=== PATIENT | female | born 1945 | race Caucasian/White ===

== ENCOUNTER 2018-01-29 10:24 | Emergency (ER) | payer OTHER ==
[2018-01-29 10:28] VITALS: TEMP 98.5; BMI 30.2
[2018-01-29] MEDS ORDERED: SODIUM CHLORIDE 0.9% 1000 ML INFUS.BAG IV ONE (11:28)
[2018-01-29] MEDS ORDERED: ACETAMINOPHEN 1000 MG/100 ML VIAL (NON FORMULARY) IVPB ONE (11:28)
[2018-01-29] MEDS ORDERED: METOCLOPRAMIDE HCL INJECTION 10 MG/2 ML VIAL IVPUSH ONE (11:28)
--- NOTE | 2018-01-29 11:30 | PDOC ---
History of Present Illness - General History Source: Patient Exam Limitations: No Limitations - History of Present Illness Initial Comments: 01/29/18 11:35 The patient is a 72 year old female, with a significant PMH of hypertension, type 2 DM, who presents to the emergency department with 1 week of intermittent headache. The patient states she has been taking Tylenol for the headache with mild relief. The patient states she normally has around 1-2 headaches a year. She denies any double vision, blurry vision, auras, photophobia or neck stiffness. The patient denies chest pain, shortness of breath, and dizziness. Denies fever, chills, nausea, vomit, diarrhea and constipation. Denies dysuria, frequency, urgency and hematuria. Allergies: NKA <Damon Fontanez - Last Filed: 01/29/18 13:23> <Sukhwinder Harris - Last Filed: 01/29/18 14:32> - General Chief Complaint: Headache Stated Complaint: HEADACHE Time Seen by Provider: 01/29/18 10:58 Past History <Damon Fontanez - Last Filed: 01/29/18 13:23> - Past Medical History Anemia: No Asthma: No Cancer: No Cardiac Disorders: No CVA: No COPD: No CHF: No Dementia: No Diabetes: Yes GI Disorders: No Disorders: No HTN: Yes Hypercholesterolemia: No Liver Disease: No Seizures: No Thyroid Disease: No - Surgical History Abdominal Surgery: No Appendectomy: No Cardiac Surgery: No Cholecystectomy: No Lung Surgery: No Neurologic Surgery: No Orthopedic Surgery: No - Immunization History Immunization Up to Date: Yes - Suicide/Smoking/Psychosocial Hx Smoking History: Never smoked Hx Alcohol Use: No Drug/Substance Use Hx: No Substance Use Type: None <Sukhwinder Harris - Last Filed: 01/29/18 14:32> - Past Medical History Allergies/Adverse Reactions: Allergies Allergy/AdvReac Type Severity Reaction Status Date / Time No Known Allergies Allergy Verified 01/29/18 10:26 Home Medications: Ambulatory Orders Citalopram Hydrobromide [Citalopram HBr] 20 mg PO HS 09/11/15 Losartan Potassium 25 mg PO DAILY 09/11/15 metFORMIN HCL [Glucophage -] 500 mg PO BID 09/11/15 Aspirin [ASA -] 81 mg PO DAILY tab.chew 09/13/15 Atorvastatin Ca [Lipitor] 40 mg PO HS 01/29/18 Review of Systems - Review of Systems Able to Perform ROS?: Yes Comments:: 01/29/18 11:35 A complete review of 10 out of 10 review of systems is taken and is negative apart from what is previously mentioned below and in the HPI. <Damon Fontanez - Last Filed: 01/29/18 13:23> *Physical Exam - Vital Signs Last Vital Signs Temp Pulse Resp BP Pulse Ox 98.5 F 86 20 143/76 99 01/29/18 10:26 01/29/18 10:26 01/29/18 10:26 01/29/18 10:26 01/29/18 10:26 - Physical Exam Comments: 01/29/18 12:10 Vitals: Triage vital signs reviewed General Appearance: (+) Mild distress. Well nourished, well developed Head: Atraumatic Eyes: Pupils equal reactive round, extraocular movement intact Neck: Supple; No nuchal rigidity Chest Wall: Nontender Cardiac: Regular rate and rhythm, no murmurs, no rubs, no gallops Lungs: Clear to auscultation bilateral, good air movement bilaterally Abdomen: Soft, nondistended, normal bowel sounds, nontender to palpation Rectal: Exam deferred Extremities: Full range of motion to all extremities, no cyanosis, clubbing, or edema Skin: Warm and dry, no rashes or lesions, no rash, no petechiae Neuro: AOX3; Cranial Nerves 2-12 grossly intact, Strength intact to all extremities, Sensation intact to all extremities. Psych: Normal mood, normal affect <Damon Fontanez - Last Filed: 01/29/18 13:23> - Vital Signs Last Vital Signs Temp Pulse Resp BP Pulse Ox 98.5 F 86 20 143/76 99 01/29/18 10:26 01/29/18 10:26 01/29/18 10:26 01/29/18 10:26 01/29/18 10:26 <Sukhwinder Harris - Last Filed: 01/29/18 14:32> ED Treatment Course - LABORATORY CBC & Chemistry Diagram: 01/29/18 11:30 01/29/18 11:30 - RADIOLOGY Radiograph Interpretation: 01/29/18 13:23 EXAM#: TYPE/EXAM: RESULT: [id number] CT/HEAD CT WITHOUT CONTRAST History of headache CT scan of the brain without intravenous contrast. No prior is available for comparison. There is mild volume loss and ventricular dilatation. The basal cisterns appear unremarkable. No mass lesion, acute infarct or intracranial hemorrhage are identified. There is no shift of the midline structures. Craniocervical junction appears unremarkable. Calcification of the cavernous carotid arteries are present. Visualized paranasal sinuses and mastoid air cells are well-aerated. The calvarium is intact IMPRESSION: Mild volume loss and ventricular dilatation without gross evidence of acute intracranial pathology. Correlate clinically to determine further evaluation and follow-up. Reported By: Dickson Trujillo MD <Damon Fontanez - Last Filed: 01/29/18 13:23> - LABORATORY CBC & Chemistry Diagram: 01/29/18 11:30 01/29/18 11:30 <Sukhwinder Harris - Last Filed: 01/29/18 14:32> Medical Decision Making - Medical Decision Making 01/29/18 11:36 The patient is a 72 year old female, with a significant PMH of hypertension, type 2 DM, who presents to the emergency department with 1 week of intermittent headache. Plan: Labs, Medications, Head CT w/out contrast. <Damon Fontanez - Last Filed: 01/29/18 13:23> - Medical Decision Making Reevaluation 2:30 PM. Patient feels much better. Headache resolved laboratory analysis unremarkable head CT unremarkable we'll discharge home with neurology follow-up repeat evaluation no focal neural findings patient well-appearing no apparent distress Findings, need follow-up, strict return instructions discussed with patient. <Sukhwinder Harris - Last Filed: 01/29/18 14:32> *DC/Admit/Observation/Transfer - Attestations Scribe Attestion: 01/29/18 11:36 Documentation prepared by Damon Fontanez, acting as medical claims examiner for Sukhwinder Harris MD. <Damon Fontanez - Last Filed: 01/29/18 13:23> - Discharge Dispostion Admit: No <Sukhwinder Harris - Last Filed: 01/29/18 14:32> Diagnosis at time of Disposition: Headache Qualifiers: Headache type: unspecified Headache chronicity pattern: acute headache Intractability: not intractable Qualified Code(s): R51 - Headache - Discharge Dispostion Disposition: HOME Condition at time of disposition: Improved - Referrals Referrals: Sukhwinder Dee MD [Primary Care Provider] - Ector Turcios MD [Staff Physician] - - Patient Instructions Printed Discharge Instructions: DI for Headache Additional Instructions: Drink plenty of fluids. Take all medications as prescribed. Take over-the- counter ibuprofen as directed on package. Follow-up with Neurology next week. Return to the emergency department for any severe worsening symptoms or for any concerns. Print Language: KAZAKH
[2018-01-29] MEDS ORDERED: METOCLOPRAMIDE HCL INJECTION 10 MG/2 ML VIAL ONE (11:36)
[2018-01-29] MEDS ORDERED: ACETAMINOPHEN INJECTION 100 ML IVPB ONE (11:36)
[2018-01-29 11:55] LABS: BASO % 0.6 % (0-2.0); EOS % 1.1 % (0-4.5); HEMATOCRIT 30.7 % (32.4-45.2); HEMOGLOBIN 10.3 GM/dL (10.7-15.3); LYMPH % 17.4 % (8-40); MCH 30.2 pg (25.7-33.7); MCHC 33.5 g/dl (32.0-36.0); MEAN CELL VOLUME 90.1 fl (80-96); MEAN PLT VOLUME 10.1 fl (7.5-11.1); MONO % 7.1 % (3.8-10.2); NEUT % 73.8 % (42.8-82.8); PLATELET COUNT 178 K/MM3 (134-434); RBC 3.41 M/mm3 (3.60-5.2); RDW 14.4 % (11.6-15.6); WHITE BLOOD COUNT 6.8 K/mm3 (4.0-10.0)
[2018-01-29 11:56] LABS: URINE APPEARANCE CLEAR; URINE BILIRUBIN NEGATIVE (<2.0 mg/dL); URINE COLOR YELLOW; URINE GLUCOSE (UA) 3+ (NEGATIVE); URINE KETONE NEGATIVE (NEGATIVE); URINE NITRITE NEGATIVE (NEGATIVE); URINE PROTEIN NEGATIVE (NEGATIVE); URINE UROBILINOGEN NEGATIVE mg/dL (0.2-1.0)
[2018-01-29 11:57] LABS: URINE LEUK ESTERASE 1+ (NEGATIVE)
[2018-01-29 11:59] LABS: EPI CELLS RARE /HPF (FEW); URINE MUCUS RARE
[2018-01-29 12:20] LABS: ALBUMIN 3.7 g/dl (3.4-5.0); ALK PHOS 79 U/L (45-117); ANION GAP 6 (8-16); BILIRUBIN,TOTAL 0.3 mg/dL (0.2-1.0); BLOOD UREA NITROGEN 22 mg/dL (7-18); CALCIUM 8.7 mg/dL (8.5-10.1); CHLORIDE 107 mmol/L (98-107); CO2 28 mmol/L (21-32); CREATININE 0.8 mg/dL (0.55-1.02); GLUCOSE,RANDOM 135 mg/dL (74-106); POTASSIUM 4.3 mmol/L (3.5-5.1); SGOT/AST 14 U/L (15-37); SGPT/ALT 18 U/L (12-78); SODIUM 141 mmol/L (136-145); TOT PROT 7.4 g/dl (6.4-8.2)
[2018-01-29 14:33] VITALS: BP 123/64; PULSE 69
== END 2018-01-29 14:34 | disposition home or self-care (01) ==
LOC: JER 10:24
PROC: 3E033GC Introduction of Other Therapeutic Substance into Peripheral Vein, Percutaneous Approach (ICD-10-PCS; principal; 2018-01-29)
PROC: 3E033GC Introduction of Other Therapeutic Substance into Peripheral Vein, Percutaneous Approach (ICD-10-PCS; 2018-01-29)
PROC: 3E033NZ Introduction of Analgesics, Hypnotics, Sedatives into Peripheral Vein, Percutaneous Approach (ICD-10-PCS; 2018-01-29)
DX: R51 Headache (principal); I10 Essential (primary) hypertension; E11.9 Type 2 diabetes mellitus without complications; Z79.84 Long term (current) use of oral hypoglycemic drugs
CPT/HCPCS: 36415; 70450-TC; 80053; 81003; 81015; 85025; 96374; 96375; 99283-25; J0131; J7030

== ENCOUNTER 2018-02-12 09:18 | Emergency (ER) | payer OTHER ==
[2018-02-12 09:40] VITALS: BMI 25.6
[2018-02-12] MEDS ORDERED: SODIUM CHLORIDE 1,000 ML IV ONE (10:03)
[2018-02-12] MEDS ORDERED: METOCLOPRAMIDE HCL INJECTION 10 MG/2 ML VIAL IVPUSH ONE (10:03)
--- NOTE | 2018-02-12 10:05 | PDOC ---
History of Present Illness - General History Source: Patient Exam Limitations: No Limitations - History of Present Illness Initial Comments: 02/12/18 12:14 The patient is a 72 year old female, with a significant past medical history of hypertension, type 2 DM, who presents to the emergency department with a headache for approximately 2 days. The patient reports waking up with a diffuse and sharp in nature. She reports her headache is constant, with associated nausea, but no acute blurry vision, double vision, photophobia, vomiting, weakness, numbness, tingling, neck or back pain. Patient reports taking Ibuprofen for her pain with minimal relief. She reports similar headaches in the past, the last being about 2 weeks ago, and states they typically resolve on their own. Patient reports the last time she had this headache, she came to the ER and was given IV Tylenol and fluids. Patient denies any recent fever, chills, dizziness, or lightheadedness. She denies any chest pain or shortness of breath. She reports 2 days of constipation, but denies any abdominal pain, diarrhea, melena, or hematochezia. She denies any recent travel or sick contacts. Allergies: NKDA Past Surgical History: None reported Social History: Non smoker. No ETOH or recreational drug use. PCP: Dr. Dee <Rachid Cardona - Last Filed: 02/12/18 12:14> - General History Source: Patient Exam Limitations: No Limitations <Eagle Serrano - Last Filed: 02/12/18 14:39> - General Chief Complaint: Headache Stated Complaint: HEADACHES Time Seen by Provider: 02/12/18 09:48 Past History <Rachid Cardona - Last Filed: 02/12/18 12:14> - Past Medical History Anemia: No Asthma: No Cancer: No Cardiac Disorders: No CVA: No COPD: No CHF: No Dementia: No Diabetes: Yes GI Disorders: No Disorders: No HTN: Yes Hypercholesterolemia: No Liver Disease: No Seizures: No Thyroid Disease: No - Surgical History Abdominal Surgery: No Appendectomy: No Cardiac Surgery: No Cholecystectomy: No Lung Surgery: No Neurologic Surgery: No Orthopedic Surgery: No - Immunization History Immunization Up to Date: Yes - Suicide/Smoking/Psychosocial Hx Smoking History: Never smoked Have you smoked in the past 12 months: No Information on smoking cessation initiated: No Hx Alcohol Use: No Drug/Substance Use Hx: No Substance Use Type: None <Eagle Serrano - Last Filed: 02/12/18 14:39> - Past Medical History Allergies/Adverse Reactions: Allergies Allergy/AdvReac Type Severity Reaction Status Date / Time No Known Allergies Allergy Verified 02/12/18 09:40 Home Medications: Ambulatory Orders Citalopram Hydrobromide [Citalopram HBr] 20 mg PO HS 09/11/15 Losartan Potassium 25 mg PO DAILY 09/11/15 metFORMIN HCL [Glucophage -] 500 mg PO BID 09/11/15 Aspirin [ASA -] 81 mg PO DAILY tab.chew 09/13/15 Atorvastatin Ca [Lipitor] 40 mg PO HS 01/29/18 Review of Systems - Review of Systems Able to Perform ROS?: Yes Comments:: 02/12/18 12:14 Constitutional: Pt denies Fever, Chills, weakness HEENT: Denies vision changes, sore throat Respiratory: Denies cough, sob, hemoptysis Cardiac: Denies chest pain, palpitations, lightheadedness, leg swelling Abd/GI: +Nausea, constipation. Denies abd pain, vomiting, blood per rectum, melena, diarrhea : Denies dysuria, frequency, discharge Musculoskeletal: Denies back pain, joint swelling Skin: Denies bruising, erythema, rash Neurological: +Headache. Denies numbness, focal weakness, tingling, ataxia, weakness Hematologic: Denies anemia, easy bruising, easy bleeding <Cardona,Giomilsy - Last Filed: 02/12/18 12:14> *Physical Exam - Vital Signs Last Vital Signs Temp Pulse Resp BP Pulse Ox 98.3 F 62 16 153/65 100 02/12/18 09:20 02/12/18 10:00 02/12/18 10:00 02/12/18 10:00 02/12/18 10:00 - Physical Exam Comments: 02/12/18 12:14 GENERAL: The patient is awake, alert, and fully oriented, Nontoxic - in no acute distress. HEAD: Normocephalic, atraumatic. EYES: extraocular movements intact, sclera anicteric, conjunctiva clear. ENT: Normal voice, Moist mucous membranes. NECK: Normal range of motion, supple LUNGS: Breath sounds equal, clear to auscultation bilaterally. No wheezes, no rhonchi, no rales. HEART: Regular rate and rhythm, normal S1 and S2 without murmur, rub or gallop. ABDOMEN: Soft, nontender, No guarding, no rebound. . No CVA tenderness EXTREMITIES: Normal range of motion, no edema. or tenderness. PSYCH: Normal mood, normal affect. SKIN: Warm, Dry, normal turgor, NEURO: Mental status: The patient is oriented x3. Cranial nerves: Cranial nerves II through XII are intact Motor: The upper extremities are 5 over 5 in all muscle groups. The lower extremities are 5 over 5 in all muscle groups. Negative pronator drift Sensation: Sensation is intact to light touch throughout. romberg negative <Rachid Cardona - Last Filed: 02/12/18 12:14> - Vital Signs Last Vital Signs Temp Pulse Resp BP Pulse Ox 98.3 F 62 16 153/65 100 02/12/18 09:20 02/12/18 10:00 02/12/18 10:00 02/12/18 10:00 02/12/18 10:00 <Eagle Serrano - Last Filed: 02/12/18 14:39> ED Treatment Course - LABORATORY CBC & Chemistry Diagram: 02/12/18 11:05 02/12/18 11:05 - ADDITIONAL ORDERS Additional order review: Laboratory Results 02/12/18 11:05 Sodium 140 Potassium 4.4 Chloride 106 Carbon Dioxide 26 Anion Gap 8 BUN 18 Creatinine 0.8 Creat Clearance w eGFR > 60 Random Glucose 152 H Calcium 8.8 Total Bilirubin 0.3 AST 17 ALT 17 Alkaline Phosphatase 83 Total Protein 7.6 Albumin 3.7 02/12/18 11:05 RBC 3.58 L MCV 89.9 MCHC 34.0 RDW 14.0 MPV 10.7 Neutrophils % 76.5 Lymphocytes % 17.4 Monocytes % 4.6 Eosinophils % 0.7 Basophils % 0.8 - Medications Given in the ED: ED Medications Discontinued Medications Generic Name Dose Route Start Last Admin Trade Name Freq PRN Reason Stop Dose Admin Sodium Chloride 1,000 mls @ 1,000 mls/hr 02/12/18 10:03 02/12/18 11:00 Normal Saline - IV 02/12/18 11:02 1,000 mls/hr .Q1H ONE Administration Metoclopramide HCl 10 mg 02/12/18 10:03 02/12/18 11:00 Reglan Injection - IVPUSH 02/12/18 10:04 10 mg ONCE ONE Administration <Rachid Cardona - Last Filed: 02/12/18 12:14> - LABORATORY CBC & Chemistry Diagram: 02/12/18 11:05 02/12/18 11:05 <Eagle Serrano - Last Filed: 02/12/18 14:39> Medical Decision Making - Medical Decision Making 02/12/18 10:04 72y F hx of dm, htn, presents with frontal constant, gradual onset, pounding/ pressure headache without associated feve/rchills, vision changes, numbnes/ tingling/weakness, dysthria. Pt notes she gets these a few times a year, and takes motrin and if not better comes ot the ED for treatment. pt was here 2 weeeks ago and had a CT that was neg for acute proceses. suspect migrain vs tension headache will give pt reglan neuro outpatient fu A portion of this note was documented by scribe services under my direction. I have reviewed the details of the note, within reason, and agree with the documentation with the following case summary and management plan written by me 02/12/18 14:37 Patient's labs were reviewed it is unremarkable. Patient feeling improved with Tylenol Motrin fluids Reglan. We'll discharge the patient to follow up PMD and neurology for further evaluation of her headache. Return precautions were discussed I discussed the physical exam findings, ancillary test results and final diagnoses with the patient. I answered all of the patient's questions. The patient was satisfied with the care received and felt comfortable with the discharge plan and treatment plan. The patient will call their primary care physician within 24 hours to arrange follow-up and will return to the Emergency Department with any new, persistent or worsening symptoms. <Eagle Serrano - Last Filed: 02/12/18 14:39> *DC/Admit/Observation/Transfer - Attestations Scribe Attestion: 02/12/18 12:14 Documentation prepared by Rachid Cardona, acting as medical professionals for Eagle Serrano MD. <Rachid Cardona - Last Filed: 02/12/18 12:14> - Discharge Dispostion Decision to Admit order: No <Eagle Serrano - Last Filed: 02/12/18 14:39> Diagnosis at time of Disposition: Headache, tension type, episodic Qualifiers: Intractability: not intractable Qualified Code(s): G44.219 - Episodic tension- type headache, not intractable - Discharge Dispostion Disposition: HOME Condition at time of disposition: Improved - Referrals Referrals: Cheo Richter DO [Staff Physician] - - Patient Instructions Printed Discharge Instructions: DI for Hormonal and Tension Headaches Additional Instructions: Regrese al servicio de urgencias de inmediato con CUALQUIER sntoma nuevo, persistente o que empeore incluyendo empeoramiento del dolor de brenda, cambios en la visin, entumecimiento / hormigueo / debilidad, nuseas y vmitos persistentes o cualquier otra inquietud. Asegrate de obtener un sueo e hidratacin adecuados. DEBE llamar y hacer un seguimiento con kitchen mdico maana para lori mayor evaluaci n de marilu sntomas. Kitchen visita al departamento de emergencia no est completa sin un seguimiento con kitchen mdico para la reevaluacin. Los resultados fueron discutidos con usted. Asegrese de que kitchen mdico revise los resultados de kitchen evaluacin de emergencia. Si tuvo alguna radiografa gabi kitchen visita, fue yuliet de manera preliminar por m mismo, un radilogo la revisar y si hay algn hallazgo adicional, lo llamaremos. Return to the emergency department immediately with ANY new, persistent or worsening symptoms including worsening headache, vision changes, numbness/ tingling/weakness, persistent nausea and vomiting or any other concerns. Make sure you are getting adaqute sleep and hydration. You MUST call and follow up with your doctor tomorrow for further evaluation of your symptoms. Your emergency department visit is not complete without a followup with your doctor for reevaluation. Results were discussed with you. Please make sure your doctor reviews the results of your emergency evaluation. If you had any xrays during your visit, it was read preliminarily by myself, a Radiologist will review it and if there are any additional findings we will call you. Print Language: [place]
[2018-02-12] MEDS ORDERED: METOCLOPRAMIDE HCL INJECTION 10 MG/2 ML VIAL ONE (10:43)
[2018-02-12 11:42] LABS: BASO % 0.8 % (0-2.0); EOS % 0.7 % (0-4.5); HEMATOCRIT 32.2 % (32.4-45.2); HEMOGLOBIN 10.9 GM/dL (10.7-15.3); LYMPH % 17.4 % (8-40); MCH 30.5 pg (25.7-33.7); MEAN CELL VOLUME 89.9 fl (80-96); MEAN PLT VOLUME 10.7 fl (7.5-11.1); MONO % 4.6 % (3.8-10.2); NEUT % 76.5 % (42.8-82.8); PLATELET COUNT 187 K/MM3 (134-434); RBC 3.58 M/mm3 (3.60-5.2)
[2018-02-12 11:52] LABS: ALBUMIN 3.7 g/dl (3.4-5.0); ALK PHOS 83 U/L (45-117); ANION GAP 8 (8-16); BILIRUBIN,TOTAL 0.3 mg/dL (0.2-1.0); BLOOD UREA NITROGEN 18 mg/dL (7-18); CALCIUM 8.8 mg/dL (8.5-10.1); CHLORIDE 106 mmol/L (98-107); CO2 26 mmol/L (21-32); CREATININE 0.8 mg/dL (0.55-1.02); GLUCOSE,RANDOM 152 mg/dL (74-106); SGPT/ALT 17 U/L (12-78); SODIUM 140 mmol/L (136-145); TOT PROT 7.6 g/dl (6.4-8.2)
[2018-02-12 11:54] LABS: POTASSIUM 4.4 mmol/L (3.5-5.1)
[2018-02-12 11:55] LABS: SGOT/AST 17 U/L (15-37)
[2018-02-12] MEDS ORDERED: ACETAMINOPHEN 325 MG TABLET (FP) PO ONE (12:20)
[2018-02-12] MEDS ORDERED: KETOROLAC TROMETHAMINE 30 MG/1 ML VIAL IVPUSH ONE (12:20)
[2018-02-12] MEDS ORDERED: ACETAMINOPHEN 325 MG TABLET (FP) ONE (13:41)
[2018-02-12] MEDS ORDERED: KETOROLAC TROMETHAMINE 15 MG/ML VIAL ONE (13:41)
[2018-02-12 15:42] VITALS: BP 139/63; PULSE 60; TEMP 98.1
== END 2018-02-12 15:20 | disposition home or self-care (01) ==
LOC: JER 09:18
PROC: 3E033GC Introduction of Other Therapeutic Substance into Peripheral Vein, Percutaneous Approach (ICD-10-PCS; principal; 2018-02-12)
DX: G44.219 Episodic tension-type headache, not intractable (principal); I10 Essential (primary) hypertension; Z79.84 Long term (current) use of oral hypoglycemic drugs
CPT/HCPCS: 36415; 80053; 85025; 96374; 99282-25; J7030

== ENCOUNTER 2018-02-25 10:50 | Observation (INO) | payer OTHER ==
--- NOTE | 2018-02-25 10:58 | PDOC ---
Attending Attestation - Resident Resident Name: Lamberto Mata - ED Attending Attestation I have performed the following: I have examined & evaluated the patient, The case was reviewed & discussed with the resident, I agree w/resident's findings & plan - HPI HPI: 02/25/18 11:07 The patient is a 72 year old female, with a significant past medical history of hypertension, type 2 DM, migraine headaches, who presents to the emergency department with worsening headache over the past 8 days. Patient reports her headache is diffuse and sharp in nature. She reports associated nausea, but no vomiting. She reports mild photophobia and phonophobia. Patient reports she was scheduled for an MRI today, however, due to worsening headache, a rapid response was activated while in the radiology waiting room. Patient was previously evaluated on 02/12/18, for similar symptoms and was given Tylenol and Reglan with improvement of symptoms. She was also evaluated on 01/29/18 for similar complaints and a head CT was done which was negative. Patient denies any new dizziness, lightheadedness, neck or back pain, numbness or tingling. She denies any recent stressors, travel, or sick contacts. Allergies: NKDA Past Surgical History: None reported Social History: Non smoker. No ETOH or recreational drug use. PCP: Dr. Dee - Medical Decision Making 02/25/18 11:07 Documentation prepared by Rachid Cardona, acting as clinical medical assistant for Torrie Smith MD. <Rachid Cardona - Last Filed: 02/25/18 11:07> - Physicial Exam PE: 02/27/18 07:17 Agree with resident exam. Patient is alert and oriented, with a normal mood and affect. She appears mildly uncomfortable. Neurologically intact. - Medical Decision Making 02/27/18 07:19 Pt presents to the ED complaining of severe, frontal headache that has been persistent for 8 days and prompted multiple visits to the ED. Patient does have a headache history, but this headache has been much more persistent and severe than previous headaches. Negative CT head performed during previous ED visit. Subarachnoid less likely given the time course of her pain and the previous negative Ct. However, given the persistence of her pain, will admit for status migranius. <Torrie Smith - Last Filed: 02/27/18 07:21>
--- NOTE | 2018-02-25 10:59 | PDOC ---
History of Present Illness - General Chief Complaint: Migraine Headache Stated Complaint: MIGRAINE (RAPID RESPONSE) Time Seen by Provider: 02/25/18 10:56 - History of Present Illness Initial Comments: 02/25/18 11:16 The patient is a 72 year old female with a history of HTN, DM, Headaches who presents for evaluation of headache. The patient has been seen multiple times in the ER within the last 1 month for similar symptoms. She reports that she has head a headache over the past 8 days that has not improved with ibuprofen at home. She states she was waiting for MRI today and felt that her headache was worse and a rapid response was called. The patient reports some nausea and mild photophobia and phonophobia as well. She was seen here on 01/[address] scan and her symptoms improved with medication in the ED. The patient was seen again on 02/12 and was discharged home after her symptoms improved with medication in the ED. She otherwise denies fevers, chills, SOB, chest pain, vomiting, abdominal pain, or changes with urination or bowel movements. Past History - Past Medical History Allergies/Adverse Reactions: Allergies Allergy/AdvReac Type Severity Reaction Status Date / Time No Known Allergies Allergy Verified 02/25/18 10:56 Home Medications: Ambulatory Orders Citalopram Hydrobromide [Citalopram HBr] 20 mg PO HS 09/11/15 Losartan Potassium 25 mg PO DAILY 09/11/15 metFORMIN HCL [Glucophage -] 500 mg PO BID 09/11/15 Aspirin [ASA -] 81 mg PO DAILY tab.chew 09/13/15 Atorvastatin Ca [Lipitor] 40 mg PO HS 01/29/18 clonazePAM [Klonopin -] 0.5 mg PO DAILY PRN #7 tablet MDD 1 02/12/18 Anemia: No Asthma: No Cancer: No Cardiac Disorders: No CVA: No COPD: No CHF: No Dementia: No Diabetes: Yes GI Disorders: No Disorders: No HTN: Yes Hypercholesterolemia: No Liver Disease: No Seizures: No Thyroid Disease: No - Surgical History Abdominal Surgery: No Appendectomy: No Cardiac Surgery: No Cholecystectomy: No Lung Surgery: No Neurologic Surgery: No Orthopedic Surgery: No - Immunization History Immunization Up to Date: Yes - Suicide/Smoking/Psychosocial Hx Smoking History: Never smoked Have you smoked in the past 12 months: No Hx Alcohol Use: No Drug/Substance Use Hx: No Substance Use Type: None Review of Systems - Review of Systems Comments:: 02/25/18 11:19 Constitutional: No fevers, chills, fatigue, malaise HEENT: No Rhinorrhea, nasal congestion, visual changes Cardiovascular: No chest pain, syncope, palpitations, lightheadedness Respiratory: No Cough, SOB, Hemoptysis, Gastrointestinal: Nausea. No Abdominal pain, Vomiting, Constipation, Diarrhea, Melena Genitourinary: No Dysuria, Frequency, Urgency, Hesitancy, Hematuria, Flank pain Musculoskeletal: No Myalgia, arthralgia Skin: No rashes, itching, bruising, pallor Neurologic: Headache. No Dizziness, Numbness, Weakness, or Tingling Psychiatric: No Hallucinations. No SI or HI *Physical Exam - Physical Exam Comments: 02/25/18 11:21 General Appearance: Nourished. Anxious Appearing. No Apparent Distress HEENT: EOMI, NAE. No Pharyngeal Erythema, Tonsillar Exudate, Tonsillar Erythema Neck: No Cervical Lymphadenopathy Respiratory/Chest: Lungs Clear, Normal Breath Sounds. No Crackles, Rales, Rhonchi, Wheezing Cardiovascular: Regular Rhythm, Regular Rate. No Murmur, Gallops, Rubs Gastrointestinal/Abdominal: Normal Bowel Sounds, Soft. No Guarding, Rebound, Tenderness Musculoskeletal: No CVA Tenderness Extremity: Normal Capillary Refill Integumentary: Normal Color, Dry, Warm Neurologic: meat boner II-XII NML intact, Fully Oriented, Alert, Normal Mood/Affect, Normal Response, Motor Strength 5/5. Normal Finger to Nose and Heel to Davis Heart Score/ECG Review #1 ECG reviewed & interpreted by me at: 13:47 General ECG Interpretation: Sinus Rhythm, Normal Rate, Normal Intervals, No acute ischemic changes ED Treatment Course - LABORATORY CBC & Chemistry Diagram: 02/25/18 11:26 02/25/18 11:26 Medical Decision Making - Medical Decision Making 02/25/18 11:22 The patient is a 72 year old female with a history of HTN, DM, Headaches who presents for evaluation of headache. Differential includes but is not limited to: Migraine headache, tension headache, infectious, metabolic derangement. Given the patient's multiple presentation's for headache with a normal physical exam, it is likely her symptoms are due to migraine headache. We will obtain a cbc, cmp to evaluate further and treat the patient with iv fluids, iv tylenol, reglan, benadryl here in the ED. We will continue to monitor and reassess in the meantime. 02/25/18 13:11 CBC, cmp are unremarkable. The patient reports no improvement in her symptoms after medications. Given the patient's more frequent headaches and now intractable headache, we believe she requires admission for further management at this time. We discussed the case with the hospitalist team who accepted the patient for admission. We have placed orders for MRI/MRA brain to evaluate further. *DC/Admit/Observation/Transfer Diagnosis at time of Disposition: Headache Qualifiers: Headache type: unspecified Headache chronicity pattern: episodic headache Intractability: intractable Qualified Code(s): R51 - Headache - Discharge Dispostion Condition at time of disposition: Stable Decision to Admit order: Yes - Referrals - Patient Instructions - Post Discharge Activity
[2018-02-25] MEDS ORDERED: SODIUM CHLORIDE 1,000 ML IV STA (11:03)
[2018-02-25] MEDS ORDERED: ACETAMINOPHEN 1000 MG/100 ML VIAL (NON FORMULARY) IVPB ONE (11:04)
[2018-02-25] MEDS ORDERED: METOCLOPRAMIDE HCL INJECTION 10 MG/2 ML VIAL IVPUSH ONE (11:04)
[2018-02-25] MEDS ORDERED: METOCLOPRAMIDE HCL INJECTION 10 MG/2 ML VIAL ONE (11:11)
[2018-02-25] MEDS ORDERED: ACETAMINOPHEN INJECTION 100 ML IVPB ONE (11:11)
[2018-02-25 12:03] LABS: BASO % 0.3 % (0-2.0); EOS % 0.6 % (0-4.5); HEMATOCRIT 32.2 % (32.4-45.2); HEMOGLOBIN 10.7 GM/dL (10.7-15.3); LYMPH % 15.7 % (8-40); MCH 29.7 pg (25.7-33.7); MCHC 33.2 g/dl (32.0-36.0); MEAN CELL VOLUME 89.4 fl (80-96); MEAN PLT VOLUME 10.8 fl (7.5-11.1); NEUT % 77.4 % (42.8-82.8); PLATELET COUNT 196 K/MM3 (134-434); RDW 14.1 % (11.6-15.6); WHITE BLOOD COUNT 6.3 K/mm3 (4.0-10.0)
[2018-02-25 12:09] LABS: ALBUMIN 3.8 g/dl (3.4-5.0); ANION GAP 7 (8-16); BILIRUBIN,TOTAL 0.2 mg/dL (0.2-1.0); CALCIUM 8.7 mg/dL (8.5-10.1); CHLORIDE 108 mmol/L (98-107); CO2 27 mmol/L (21-32); CREATININE 0.9 mg/dL (0.55-1.02); GLUCOSE,RANDOM 160 mg/dL (74-106); SGPT/ALT 14 U/L (12-78); SODIUM 142 mmol/L (136-145); TOT PROT 7.3 g/dl (6.4-8.2)
[2018-02-25 12:10] LABS: ALK PHOS 72 U/L (45-117)
[2018-02-25 12:14] LABS: POTASSIUM 4.6 mmol/L (3.5-5.1); SGOT/AST 13 U/L (15-37)
[2018-02-25 12:50] LABS: BLOOD UREA NITROGEN 21 mg/dL (7-18)
--- NOTE | 2018-02-25 15:29 | EKG ---
Test Reason : Blood Pressure : / mmHG Vent. Rate : 068 BPM Atrial Rate : 068 BPM P-R Int : 176 ms QRS Dur : 080 ms QT Int : 416 ms P-R-T Axes : 064 005 043 degrees QTc Int : 442 ms NORMAL SINUS RHYTHM POSSIBLE LEFT ATRIAL ENLARGEMENT BORDERLINE ECG WHEN COMPARED WITH ECG OF 11-SEP-2015 11:28, NO SIGNIFICANT CHANGE WAS FOUND Confirmed by STEVO JEREZ MD ([id number]) on 02/25/2018 3:28:53 PM Referred By: Confirmed By:STEVO JEREZ MD
[2018-02-25] MEDS ORDERED: MAGNESIUM SULF 50% (8.12 MEQ/2 ML-1 GM VIAL) IVPB ONE (16:14)
[2018-02-25] MEDS ORDERED: clonazePAM 0.5 MG TABLET PO PRN (16:16)
[2018-02-25] MEDS: INSULIN SLIDING SCALE (NOVOLOG) 1 VIAL SQ SCH ×2 (16:30→22:51)
[2018-02-25] MEDS ORDERED: METOCLOPRAMIDE HCL INJECTION 10 MG/2 ML VIAL IVPUSH PRN (16:49)
--- NOTE | 2018-02-25 16:56 | HP ---
CHIEF COMPLAINT: intractable headache PCP: Dr. Dee HISTORY OF PRESENT ILLNESS: This is a 72 year old female with PMHx of HTN, NIDDM, migraine headaches, hyperlipidemia, who presents to the ED with intractable headache for 8 days. The patient reports she has a frontal headache with associated vertigo and nausea. She was coming to the hospital today for a brain MRI that was ordered by her pcp and a rapid response was called due to worsening vertigo. The patient denies any chest pain, palpitations, neck or back pain, urinary symptoms , lower extremity edema. ER course was notable for: (1) Temp 97.9, pulse 85, BP 164/81, resp 20, O2 100% on RA (2) EKG with NSR (3) Received Reglan, IVF, IV Tylenol Recent Travel: denies PAST MEDICAL HISTORY: as above PAST SURGICAL HISTORY: denies Social History: Smoking: denies Alcohol: denies Drugs: denies Family History: Allergies No Known Allergies Allergy (Verified 02/25/18 10:56) HOME MEDICATIONS: Home Medications Medication Instructions Recorded Citalopram Hydrobromide 20 mg PO HS 09/11/15 [Citalopram HBr] Losartan Potassium 25 mg PO DAILY 09/11/15 metFORMIN HCL [Glucophage -] 500 mg PO BID 09/11/15 Aspirin [ASA -] 81 mg PO DAILY tab.chew 09/13/15 Atorvastatin Ca [Lipitor] 40 mg PO HS 01/29/18 clonazePAM [Klonopin -] 0.5 mg PO DAILY PRN #7 tablet MDD 1 02/12/18 REVIEW OF SYSTEMS CONSTITUTIONAL: Absent: fever, chills, diaphoresis, generalized weakness, malaise, loss of appetite, weight change HEENT: Absent: rhinorrhea, nasal congestion, throat pain, throat swelling, difficulty swallowing, mouth swelling, ear pain, eye pain, visual changes CARDIOVASCULAR: Absent: chest pain, syncope, palpitations, irregular heart rate, lightheadedness , peripheral edema RESPIRATORY: Absent: cough, shortness of breath, dyspnea with exertion, orthopnea, wheezing, stridor, hemoptysis GASTROINTESTINAL: Absent: abdominal pain, abdominal distension, nausea, vomiting, diarrhea, constipation, melena, hematochezia GENITOURINARY: Absent: dysuria, frequency, urgency, hesitancy, hematuria, flank pain, genital pain MUSCULOSKELETAL: Absent: myalgia, arthralgia, joint swelling, back pain, neck pain SKIN: Absent: rash, itching, pallor HEMATOLOGIC/IMMUNOLOGIC: Absent: easy bleeding, easy bruising, lymphadenopathy, frequent infections ENDOCRINE: Absent: unexplained weight gain, unexplained weight loss, heat intolerance, cold intolerance NEUROLOGIC: Intractable headache x8 days. Vertigo Absent: focal weakness or paresthesias, unsteady gait, seizure, mental status changes, bladder or bowel incontinence PSYCHIATRIC: Absent: anxiety, depression, suicidal or homicidal ideation, hallucinations. PHYSICAL EXAMINATION Vital Signs - 24 hr 02/25/18 02/25/18 10:57 14:59 Temperature 97.9 F Pulse Rate 85 Pulse Rate [ 71 Radial] Respiratory 20 20 Rate Blood Pressure 164/81 Blood Pressure 158/79 [Left Arm] O2 Sat by Pulse 100 100 Oximetry (%) GENERAL: Awake, alert, and fully oriented, in no acute distress. HEAD: Normal with no signs of trauma. EYES: Pupils equal, round and reactive to light, extraocular movements intact, sclera anicteric, conjunctiva clear. No lid lag. EARS, NOSE, THROAT: Ears normal, nares patent, oropharynx clear without exudates. Moist mucous membranes. NECK: Normal range of motion, supple without lymphadenopathy, JVD, or masses. LUNGS: Breath sounds equal, clear to auscultation bilaterally. No wheezes, and no crackles. No accessory muscle use. HEART: Regular rate and rhythm, normal S1 and S2 without murmur, rub or gallop. ABDOMEN: Soft, nontender, not distended, normoactive bowel sounds, no guarding, no rebound, no masses. No hepatomegaly or splenomegaly. MUSCULOSKELETAL: Normal range of motion at all joints. No bony deformities or tenderness. No CVA tenderness. UPPER EXTREMITIES: 2+ pulses, warm, well-perfused. No cyanosis. No clubbing. No peripheral edema. LOWER EXTREMITIES: 2+ pulses, warm, well-perfused. No calf tenderness. No peripheral edema. NEUROLOGICAL: Cranial nerves II-XII intact. Normal speech. Gait not observed PSYCHIATRIC: Cooperative. Good eye contact. Appropriate mood and affect. SKIN: Warm, dry, normal turgor, no rashes or lesions noted, normal capillary refill. Laboratory Results - last 24 hr 02/25/18 02/25/18 11:26 11:26 WBC 6.3 RBC 3.60 Hgb 10.7 Hct 32.2 L MCV 89.4 MCH 29.7 MCHC 33.2 RDW 14.1 Plt Count 196 MPV 10.8 Neutrophils % 77.4 Lymphocytes % 15.7 Monocytes % 6.0 Eosinophils % 0.6 Basophils % 0.3 Nucleated RBC % 0 Sodium 142 Potassium 4.6 Chloride 108 H Carbon Dioxide 27 Anion Gap 7 L BUN 21 H Creatinine 0.9 Creat Clearance w eGFR > 60 Random Glucose 160 H Calcium 8.7 Total Bilirubin 0.2 D AST 13 L ALT 14 Alkaline Phosphatase 72 Total Protein 7.3 Albumin 3.8 Assessment: This is a 72 year old female with PMHx of HTN, NIDDM, migraine headaches, hyperlipidemia, who presents to the ED with intractable headache for 8 days. Plan: 1) Intractable headache - Head CT 01/29: mild volume loss and ventricular dilatation without gross evidence of acute intracranial pathology - F/u [facility] MRI/MRA - Continue IV fluids - Meclazine prn - IV Tylenol - IV Toradol - IV Mg 1g - Reglan prn - F/u neurology consult 2) HTN - Continue Losartan 3) Hyperlipidemia - Continue Lipitor 4) NIDDM - BGM ACHS - ISS ACHS 5) F/E/N: - Monitor electrolytes - Diabetic, sodium controlled diet 6) Prophylaxis: - SCDs bilaterally 7) Dispo: - Once condition improves CODE STATUS: FULL CODE Visit type - Emergency Visit Emergency Visit: Yes ED Registration Date: 02/25/18 Care time: The patient presented to the Emergency Department on the above date and was hospitalized for further evaluation of their emergent condition. - New Patient This patient is new to me today: Yes Date on this admission: 02/25/18 - Critical Care Critical Care patient: No Hospitalist Screening - Colonoscopy Questionnaire Colonoscopy Questionnaire: Colonoscopy Questionnaire - Patient: 50 - 75 years old and never had a screening colonoscopy: Unknown History of colon or rectal polyps, or CA: Unknown History of IBD, Crohn's disease or UC: Unknown History of abdominal radiation therapy as a child: Unknown - Relative: 1 with colon or rectal CA, or polyps at age 60 or younger: Unknown Colon or rectal CA diagnosed at age 45 or younger: Unknown Multiple relatives with colon or rectal CA: Unknown - Outcome: Screening Result: Negative Screen
[2018-02-25] MEDS ORDERED: MECLIZINE HCL 12.5 MG TABLET PO PRN (17:00)
[2018-02-25] MEDS ORDERED: SODIUM CHLORIDE 1,000 ML IV SCH (17:00)
[2018-02-25] MEDS ORDERED: MAGNESIUM 1GM/D5W - 1 GM/100 ML IVPB IVPB ONE ×2 (17:15→20:00)
[2018-02-25] MEDS: KETOROLAC TROMETHAMINE 15 MG/ML VIAL IVPUSH PRN (18:52)
[2018-02-25 20:04] VITALS: BMI 25.6
--- NOTE | 2018-02-25 22:13 | CONSULT ---
Consult - text type - Consultation Consultation Note: NEUROLOGY CONSULTAION is greatly appreciated: This 72 yo RH [place] speaking woman with h/o HTN, DM, Chol, depression and anxiety is maintianed on citalopram, losartan, metformin, atorvastatin, and clonazepam. At least "4 years" of episodic headaches. Under evaluation by her PMD, in fact, was here for scheduled MRI today. Admitted after 4 days of persistant headache with dizziness and nausea. MRI of brain (reviewed): reveals periventrical and subcortical microvascular changes. Labs normal. [place]: BP's 160/80. No head trauma. No bruits. Tenderness on neck ROM NEURO: MS/speech: Normal CN II-XII: normal Motor: No drift or tremor. Normal strength, tone, bulk and reflexes. Toes downgoing Coord: No FTN dystaxia Sensory: Normal. Romberg neg Gait: Normal IMP: Normal Neurological Exam Most likely Migraine Headaches R/O Temporal Arteritis Suggest: Check ESR, CRP, UA, C&S Add Nadolol 40 mg for migraine prophylaxis. Try sumatriptan 50 mg PO PRN headache. Thank you very much, Anjel Childers MD
[2018-02-25] MEDS ORDERED: INSULIN (NOVOLOG) ASPART 100 UNITS/ML 10ML VIAL ONE (22:22)
[2018-02-25] MEDS: ATORVASTATIN CA 40 MG TABLET (FP) PO SCH (22:37)
[2018-02-25] MEDS: CITALOPRAM HYDROBROMIDE 20 MG TABLET (FP) PO SCH (22:37)
[2018-02-26 02:18] LABS: URINE APPEARANCE CLEAR; URINE BILIRUBIN NEGATIVE (<2.0 mg/dL); URINE COLOR STRAW; URINE GLUCOSE (UA) NEGATIVE (NEGATIVE); URINE KETONE NEGATIVE (NEGATIVE); URINE NITRITE NEGATIVE (NEGATIVE); URINE PROTEIN NEGATIVE (NEGATIVE); URINE UROBILINOGEN NEGATIVE mg/dL (0.2-1.0)
[2018-02-26 02:22] LABS: URINE LEUK ESTERASE 3+ (NEGATIVE)
[2018-02-26 02:31] LABS: EPI CELLS RARE /HPF (FEW); URINE MUCUS RARE
[2018-02-26] MEDS: KETOROLAC TROMETHAMINE 15 MG/ML VIAL IVPUSH PRN ×3 (05:20→20:20)
[2018-02-26] MEDS: INSULIN SLIDING SCALE (NOVOLOG) 1 VIAL SQ SCH ×4 (06:12→21:59)
[2018-02-26] MEDS ORDERED: DEXTROSE 5%-WATER - 50 ML IVPB ONE (09:07)
[2018-02-26] MEDS ORDERED: cefTRIAXone SODIUM 1 GM VIAL ONE (09:07)
[2018-02-26] MEDS ORDERED: PT OWN MED DRAWER 7, Y5N ONE ×2 (09:07→16:54)
[2018-02-26] MEDS: CEFTRIAXONE 1 GM in DEXTROSE 5%-WATER - 50 ML IVPB SCH (10:01)
[2018-02-26] MEDS: ASPIRIN 81 MG CHEWABLE TABLETS PO SCH (10:04)
[2018-02-26] MEDS: NADOLOL 40 MG TABLET (FP) PO SCH (10:04)
[2018-02-26] MEDS: LOSARTAN POTASSIUM 25 MG TABLET PO SCH (10:04)
[2018-02-26] MEDS ORDERED: INSULIN (NOVOLOG) ASPART 100 UNITS/ML 10ML VIAL ONE ×2 (11:27→20:59)
--- NOTE | 2018-02-26 12:55 | PN ---
Progress Note (short form) - Note Progress Note: [facility] ([place] #[id number] Subjective: The patient was seen and examined at the bedside, she reports her headache is now a 7/10. She reports feeling better today. Discussed lab results with Dr. Childers, recommendation to try Sumitripan. Will give and assess 1 hour after for improvement in symptoms. Current Medications Generic Name Dose Route Start Last Admin Trade Name Freq PRN Reason Stop Dose Admin Acetaminophen 1,000 mg 02/25/18 16:09 Ofirmev Injection - IVPB Q6H PRN migraine Aspirin 81 mg 02/26/18 10:00 02/26/18 10:04 Asa - PO 81 mg DAILY SAUL Administration Atorvastatin Calcium 40 mg 02/25/18 22:00 02/25/18 22:37 Lipitor - PO 40 mg HS SAUL Administration Citalopram Hydrobromide 20 mg 02/25/18 22:00 02/25/18 22:37 Celexa - PO 20 mg HS SAUL Administration Clonazepam 0.5 mg 02/25/18 16:16 02/26/18 05:19 Klonopin - PO 0.5 mg Q24H PRN Administration ANXIETY Ceftriaxone Sodium 1 gm/ 50 mls @ 100 mls/hr 02/26/18 08:00 02/26/18 10:01 Dextrose IVPB 100 mls/hr DAILY@0800 SAUL Administration Protocol Insulin Aspart 1 vial 02/25/18 16:30 02/26/18 11:41 Novolog Vial Sliding Scale - SQ 2 units ACHS SAUL Administration Protocol Ketorolac Tromethamine 15 mg 02/25/18 17:00 02/26/18 11:46 Toradol Injection - IVPUSH 15 mg Q6H PRN Administration PAIN LEVEL 6-10 Losartan Potassium 25 mg 02/26/18 10:00 02/26/18 10:04 Cozaar - PO 25 mg DAILY SAUL Administration Metoclopramide HCl 10 mg 02/25/18 16:49 Reglan Injection - IVPUSH Q8H PRN NAUSEA AND/OR VOMITING Nadolol 40 mg 02/26/18 10:00 02/26/18 10:04 Corgard - PO 40 mg DAILY SAUL Administration Sumatriptan Succinate 50 mg 02/26/18 13:00 Imitrex - PO ONCE SAUL Objective: Vital Signs Period Temp Pulse Resp BP Sys/Levi Pulse Ox Last 24 Hr 98 F-98.6 F 69-90 18-22 148-189/69-85 97-100 Physical Exam: General: NAD, A&Ox3 Lungs: CTA bilaterally Heart: RRR, S1S2 Abd: Soft, non-tender, non-distended. Normoactive bowel sounds Ext: Warm, well-perfused. 2+ DP/PT bilaterally Neuro: No focal deficits CBCD WBC 6.3 K/mm3 (4.0-10.0) 02/25/18 11:26 RBC 3.60 M/mm3 (3.60-5.2) 02/25/18 11:26 Hgb 10.7 GM/dL (10.7-15.3) 02/25/18 11:26 Hct 32.2 % (32.4-45.2) L 02/25/18 11:26 MCV 89.4 fl (80-96) 02/25/18 11:26 MCHC 33.2 g/dl (32.0-36.0) 02/25/18 11:26 RDW 14.1 % (11.6-15.6) 02/25/18 11:26 Plt Count 196 K/MM3 (134-434) 02/25/18 11:26 MPV 10.8 fl (7.5-11.1) 02/25/18 11:26 CMP Sodium 142 mmol/L (136-145) 02/25/18 11:26 Potassium 4.6 mmol/L (3.5-5.1) 02/25/18 11:26 Chloride 108 mmol/L (98-107) H 02/25/18 11:26 Carbon Dioxide 27 mmol/L (21-32) 02/25/18 11:26 Anion Gap 7 (8-16) L 02/25/18 11:26 BUN 21 mg/dL (7-18) H 02/25/18 11:26 Creatinine 0.9 mg/dL (0.55-1.02) 02/25/18 11:26 Creat Clearance w eGFR > 60 (>60) 02/25/18 11:26 Random Glucose 160 mg/dL (74-106) H 02/25/18 11:26 Calcium 8.7 mg/dL (8.5-10.1) 02/25/18 11:26 Total Bilirubin 0.2 mg/dL (0.2-1.0) D 02/25/18 11:26 AST 13 U/L (15-37) L 02/25/18 11:26 ALT 14 U/L (12-78) 02/25/18 11:26 Alkaline Phosphatase 72 U/L (45-117) 02/25/18 11:26 Total Protein 7.3 g/dl (6.4-8.2) 02/25/18 11:26 Albumin 3.8 g/dl (3.4-5.0) 02/25/18 11:26 Assessment: This is a 72 year old female with PMHx of migraines, HTN, NIDDM, hyperlipidemia, who presented to the ED with intractable headache Plan: 1) Intractable headache - Head CT 01/29: mild volume loss and ventricular dilatation without gross evidence of acute intracranial pathology - [facility] MRI/MRA reviewed - Sumatriptan 50mg po once and monitor for relief of symptoms - Nadolol 40 po daily - IV Tylenol - IV Toradol - Reglan prn - Appreciate neurology consult (Normal ESR, CRP 0.8) 2) UTI - Started on Ceftriaxone - Awaiting urine culture 3) HTN - Continue Losartan 4) Hyperlipidemia - Continue Lipitor 5) NIDDM - BGM ACHS - ISS ACHS 6) F/E/N: - Monitor electrolytes - Diabetic, sodium controlled diet 7) Prophylaxis: - SCDs bilaterally 8) Dispo: - Once condition improves CODE STATUS: FULL CODE Visit type - Emergency Visit Emergency Visit: Yes ED Registration Date: 02/25/18 Care time: The patient presented to the Emergency Department on the above date and was hospitalized for further evaluation of their emergent condition. - New Patient This patient is new to me today: No - Critical Care Critical Care patient: No
[2018-02-26] MEDS ORDERED: SUMAtriptan SUCCINATE 50 MG TABLET PO SCH (13:00)
[2018-02-26] MEDS ORDERED: SUMAtriptan SUCCINATE 50 MG TABLET PO ONE (13:00)
[2018-02-26] MEDS: CITALOPRAM HYDROBROMIDE 20 MG TABLET (FP) PO SCH (21:57)
[2018-02-26] MEDS: ATORVASTATIN CA 40 MG TABLET (FP) PO SCH (21:57)
[2018-02-26] MEDS: clonazePAM 0.5 MG TABLET PO PRN (21:57)
[2018-02-27] MEDS: ACETAMINOPHEN 1000 MG/100 ML VIAL (NON FORMULARY) IVPB PRN ×3 (06:34→20:31)
[2018-02-27] MEDS: INSULIN SLIDING SCALE (NOVOLOG) 1 VIAL SQ SCH ×4 (06:35→22:50)
[2018-02-27] MEDS ORDERED: DEXTROSE 5%-WATER - 50 ML IVPB ONE (08:03)
[2018-02-27] MEDS ORDERED: cefTRIAXone SODIUM 1 GM VIAL ONE (08:03)
[2018-02-27] MEDS: CEFTRIAXONE 1 GM in DEXTROSE 5%-WATER - 50 ML IVPB SCH (08:34)
[2018-02-27] MEDS: ASPIRIN 81 MG CHEWABLE TABLETS PO SCH (09:54)
[2018-02-27] MEDS: LOSARTAN POTASSIUM 25 MG TABLET PO SCH (09:54)
[2018-02-27] MEDS: NADOLOL 40 MG TABLET (FP) PO SCH (09:56)
[2018-02-27] MEDS ORDERED: INSULIN (NOVOLOG) ASPART 100 UNITS/ML 10ML VIAL ONE (11:23)
--- NOTE | 2018-02-27 13:59 | PN ---
Physical Exam: SUBJECTIVE: Patient seen and examined. comfortable, no headaches, but did not sleep well last night OBJECTIVE: Awaiting urine culture results prior to d/c Sumatriptan 50 mg PO PRN headaches ordered Vital Signs Period Temp Pulse Resp BP Sys/Levi Pulse Ox Last 24 Hr 97.7 F-99.1 F 60-80 17-20 145-171/62-85 97-98 GENERAL: The patient is awake, alert, and fully oriented, in no acute distress. HEAD: Normal with no signs of trauma. EYES: PERRL, extraocular movements intact, sclera anicteric, conjunctiva clear. No ptosis. ENT: Ears normal, nares patent, oropharynx clear without exudates, moist mucous membranes. NECK: Trachea midline, full range of motion, supple. LUNGS: Breath sounds equal, clear to auscultation bilaterally, no wheezes, no crackles, no accessory muscle use. HEART: Regular rate and rhythm ABDOMEN: Soft, nontender, nondistended, normoactive bowel sounds, no guarding, no rebound, no hepatosplenomegaly, no masses. EXTREMITIES: 2+ pulses, warm, well-perfused, no edema. NEUROLOGICAL: Cranial nerves II through XII grossly intact. Normal speech, gait not observed. PSYCH: Normal mood, normal affect. SKIN: Warm, dry, normal turgor, no rashes or lesions noted Laboratory Results - last 24 hr 02/26/18 02/26/18 02/27/18 16:42 21:56 06:33 POC Glucometer 102 138 164 02/27/18 11:07 POC Glucometer 173 Active Medications Generic Name Dose Route Start Last Admin Trade Name [place] PRN Reason Stop Dose Admin Acetaminophen 1,000 mg 02/25/18 16:09 02/27/18 13:52 Ofirmev Injection - IVPB 1,000 mg Q6H PRN Administration migraine Aspirin 81 mg 02/26/18 10:00 02/27/18 09:54 Asa - PO 81 mg DAILY SAUL Administration Atorvastatin Calcium 40 mg 02/25/18 22:00 02/26/18 21:57 Lipitor - PO 40 mg HS SAUL Administration Citalopram Hydrobromide 20 mg 02/25/18 22:00 02/26/18 21:57 Celexa - PO 20 mg HS SAUL Administration Clonazepam 0.5 mg 02/26/18 15:23 02/26/18 21:57 Klonopin - PO 0.5 mg HS PRN Administration ANXIETY Ceftriaxone Sodium 1 gm/ 50 mls @ 100 mls/hr 02/26/18 08:00 02/27/18 08:34 Dextrose IVPB 100 mls/hr DAILY@0800 SAUL Administration Protocol Insulin Aspart 1 vial 02/25/18 16:30 02/27/18 11:26 Novolog Vial Sliding Scale - SQ 2 units ACHS SAUL Administration Protocol Losartan Potassium 25 mg 02/26/18 10:00 02/27/18 09:54 Cozaar - PO 25 mg DAILY SAUL Administration Metoclopramide HCl 10 mg 02/25/18 16:49 Reglan Injection - IVPUSH Q8H PRN NAUSEA AND/OR VOMITING Nadolol 40 mg 02/26/18 10:00 02/27/18 09:56 Corgard - PO 40 mg DAILY SAUL Administration ASSESSMENT/PLAN: Ana María is a 72 year old female with a significant past medical history of migraines, hypertension, diabetes and hyperlipidemia. She presents to the ED with intractable headaches and was found to have a UTI. Neuro: Intractable headache/Migranes, acute on chronic CT negative for acute intracranial path On Nadolol 40mg daily No reported headaches today Sumatriptan 50 mg PO PRN headache. Neuro notes reviewed : UTI On Ceftriaxone pending UC results UC pending, patient Hypertension, controlled Hyperlipidemia, on Lipitor Diabetes, on SS F.E.N. Fluids: PO adequate Electrolytes: monitor Nutrition: diabetic diet Prophy: GI: deferred DVT: ambulatory Visit type - Emergency Visit Emergency Visit: Yes ED Registration Date: 02/25/18 Care time: The patient presented to the Emergency Department on the above date and was hospitalized for further evaluation of their emergent condition. - New Patient This patient is new to me today: Yes Date on this admission: 02/27/18 - Critical Care Critical Care patient: No - Discharge Referral Referred to [facility] No
[2018-02-27] MEDS ORDERED: SUMAtriptan SUCCINATE 25 MG TABLET PO PRN (18:41)
[2018-02-27] MEDS ORDERED: SUMAtriptan SUCCINATE 25 MG TABLET PO ONE ×2 (20:00→22:00)
[2018-02-27] MEDS: CITALOPRAM HYDROBROMIDE 20 MG TABLET (FP) PO SCH (21:18)
[2018-02-27] MEDS: ATORVASTATIN CA 40 MG TABLET (FP) PO SCH (21:18)
[2018-02-27] MEDS: clonazePAM 0.5 MG TABLET PO PRN (21:19)
[2018-02-28] MEDS: INSULIN SLIDING SCALE (NOVOLOG) 1 VIAL SQ SCH ×4 (06:08→21:20)
[2018-02-28] MEDS: ACETAMINOPHEN 1000 MG/100 ML VIAL (NON FORMULARY) IVPB PRN (06:48)
[2018-02-28] MEDS ORDERED: cefTRIAXone SODIUM 1 GM VIAL ONE (08:02)
[2018-02-28] MEDS ORDERED: DEXTROSE 5%-WATER - 50 ML IVPB ONE (08:02)
[2018-02-28] MEDS: CEFTRIAXONE 1 GM in DEXTROSE 5%-WATER - 50 ML IVPB SCH (08:10)
[2018-02-28] MEDS: ASPIRIN 81 MG CHEWABLE TABLETS PO SCH (09:50)
[2018-02-28 10:15] LABS: BASO % 0.5 % (0-2.0); EOS % 1.3 % (0-4.5); HEMOGLOBIN 10.5 GM/dL (10.7-15.3); LYMPH % 16.7 % (8-40); MCH 30.3 pg (25.7-33.7); MCHC 33.9 g/dl (32.0-36.0); MEAN CELL VOLUME 89.4 fl (80-96); MEAN PLT VOLUME 10.6 fl (7.5-11.1); NEUT % 76.5 % (42.8-82.8); PLATELET COUNT 187 K/MM3 (134-434); RBC 3.47 M/mm3 (3.60-5.2); RDW 14.2 % (11.6-15.6); WHITE BLOOD COUNT 5.9 K/mm3 (4.0-10.0)
[2018-02-28] MEDS ORDERED: LOSARTAN POTASSIUM 25 MG TABLET PO SCH (10:18)
[2018-02-28] MEDS: LOSARTAN POTASSIUM 25 MG TABLET PO SCH (10:35)
[2018-02-28] MEDS: NADOLOL 40 MG TABLET (FP) PO SCH (10:36)
[2018-02-28 10:51] LABS: ALBUMIN 3.2 g/dl (3.4-5.0); ANION GAP 8 (8-16); BLOOD UREA NITROGEN 22 mg/dL (7-18); CALCIUM 8.4 mg/dL (8.5-10.1); CHLORIDE 105 mmol/L (98-107); CO2 27 mmol/L (21-32); GLUCOSE,RANDOM 244 mg/dL (74-106); POTASSIUM 4.3 mmol/L (3.5-5.1); SODIUM 140 mmol/L (136-145)
[2018-02-28 10:54] LABS: ALK PHOS 67 U/L (45-117); BILIRUBIN,TOTAL 0.2 mg/dL (0.2-1.0); CREATININE 0.9 mg/dL (0.55-1.02); SGOT/AST 9 U/L (15-37); SGPT/ALT 15 U/L (12-78); TOT PROT 6.6 g/dl (6.4-8.2)
[2018-02-28] MEDS: POLYETHYLENE GLYCOL 3350 119 GM BTL PO SCH (11:10)
[2018-02-28] MEDS: DOCUSATE SODIUM 100 MG CAPSULE (FP) PO SCH ×2 (13:04→21:21)
--- NOTE | 2018-02-28 13:57 | PN ---
Physical Exam: SUBJECTIVE: Patient seen and examined. headaches persists, having urinary frequency. OBJECTIVE: Will reach out to Neuro regarding the migranes that are persistent: message left with Dr. Childers voice mail, awaiting call back Will order Naproxyn for headache relief Blood cultures ordered Vital Signs Period Temp Pulse Resp BP Sys/Levi Pulse Ox Last 24 Hr 97.8 F-98.7 F 54-64 20-20 127-154/64-97 96-97 GENERAL: The patient is awake, alert, and fully oriented, in no acute distress. HEAD: Normal with no signs of trauma, persistent headaches EYES: PERRL, extraocular movements intact, sclera anicteric, conjunctiva clear. No ptosis. ENT: Ears normal, nares patent, oropharynx clear without exudates, moist mucous membranes. NECK: Trachea midline, full range of motion, supple. LUNGS: Breath sounds equal, clear to auscultation bilaterally, no wheezes, no crackles, no accessory muscle use. HEART: Regular rate and rhythm ABDOMEN: Soft, nontender, nondistended, normoactive bowel sounds, no guarding, no rebound, no hepatosplenomegaly, no masses. EXTREMITIES: 2+ pulses, warm, well-perfused, no edema. NEUROLOGICAL: Cranial nerves II through XII grossly intact. Normal speech, gait not observed. PSYCH: Normal mood, normal affect. SKIN: Warm, dry, normal turgor, no rashes or lesions noted Laboratory Results - last 24 hr 02/27/18 02/27/18 02/28/18 16:05 21:41 05:21 WBC RBC Hgb Hct MCV MCH MCHC RDW Plt Count MPV Neutrophils % Lymphocytes % Monocytes % Eosinophils % Basophils % Nucleated RBC % Sodium Potassium Chloride Carbon Dioxide Anion Gap BUN Creatinine Creat Clearance w eGFR POC Glucometer 119 179 151 Random Glucose Calcium Total Bilirubin AST ALT Alkaline Phosphatase Total Protein Albumin 02/28/18 02/28/18 02/28/18 09:06 09:06 11:07 WBC 5.9 RBC 3.47 L Hgb 10.5 L Hct 31.0 L MCV 89.4 MCH 30.3 MCHC 33.9 RDW 14.2 Plt Count 187 MPV 10.6 Neutrophils % 76.5 Lymphocytes % 16.7 Monocytes % 5.0 Eosinophils % 1.3 D Basophils % 0.5 Nucleated RBC % 0 Sodium 140 Potassium 4.3 Chloride 105 Carbon Dioxide 27 Anion Gap 8 BUN 22 H Creatinine 0.9 Creat Clearance w eGFR > 60 POC Glucometer 180 Random Glucose 244 H Calcium 8.4 L Total Bilirubin 0.2 AST 9 L ALT 15 Alkaline Phosphatase 67 Total Protein 6.6 Albumin 3.2 L Active Medications Generic Name Dose Route Start Last Admin Trade Name Freq PRN Reason Stop Dose Admin Aspirin 81 mg 02/26/18 10:00 02/28/18 09:50 Asa - PO 81 mg DAILY SAUL Administration Atorvastatin Calcium 40 mg 02/25/18 22:00 02/27/18 21:18 Lipitor - PO 40 mg HS SAUL Administration Citalopram Hydrobromide 20 mg 02/25/18 22:00 02/27/18 21:18 Celexa - PO 20 mg HS SAUL Administration Clonazepam 0.5 mg 02/26/18 15:23 02/27/18 21:19 Klonopin - PO 0.5 mg HS PRN Administration ANXIETY Docusate Sodium 100 mg 02/28/18 14:00 02/28/18 13:04 Colace - PO Not Given TID SAUL Ceftriaxone Sodium 1 gm/ 50 mls @ 100 mls/hr 02/26/18 08:00 02/28/18 08:10 Dextrose IVPB 100 mls/hr DAILY@0800 SAUL Administration Protocol Insulin Aspart 1 vial 02/25/18 16:30 02/28/18 11:10 Novolog Vial Sliding Scale - SQ 2 units ACHS SAUL Administration Protocol Losartan Potassium 25 mg 02/28/18 10:18 Cozaar - PO DAILY SAUL Metoclopramide HCl 10 mg 02/25/18 16:49 Reglan Injection - IVPUSH Q8H PRN NAUSEA AND/OR VOMITING Nadolol 40 mg 02/26/18 10:00 02/28/18 10:36 Corgard - PO 40 mg DAILY SAUL Administration Polyethylene Glycol 17 gm 02/28/18 10:45 02/28/18 11:10 Miralax (For Daily Use) - PO Not Given DAILY SAUL ASSESSMENT/PLAN: Patient is a 72 year old female with a significant past medical history of migraines, hypertension, diabetes and hyperlipidemia. She presents to the ED with intractable headaches and was found to have a UTI. Imaging: CT head: negative for acute intracranial pathology Brain/Neck MRI reviewed Neuro: Intractable headache/Migranes, acute on chronic/had headache overnight, worsening today. On Nodolol 40mg daily, given Sumatriptan last night with minimal relief. CT negative for acute intracranial pathology. Brain mri/mra shows mod atrophy, and chronic microvascular changes w/o evidence of acute infarct On Nadolol 40mg daily. Neuro called. : UTI shows enterococcus faecaelis. Patient reports urinary urgency. blood cultures ordered/pending. Started on Nitrofurantoin. ID consulted. Whitman count 10>20K Hypertension, controlled Hyperlipidemia, on Lipitor Diabetes, on SS F.E.N. Fluids: PO adequate Electrolytes: monitor Nutrition: diabetic diet Prophy: GI: deferred DVT: ambulatory Visit type - Emergency Visit Emergency Visit: Yes ED Registration Date: 02/25/18 Care time: The patient presented to the Emergency Department on the above date and was hospitalized for further evaluation of their emergent condition. - New Patient This patient is new to me today: No - Critical Care Critical Care patient: No - Discharge Referral Referred to [facility] No
[2018-02-28] MEDS ORDERED: NAPROXEN 375 MG TABLET (FP) PO ONE (16:15)
[2018-02-28] MEDS ORDERED: SUMAtriptan SUCCINATE 50 MG TABLET PO ONE (16:45)
[2018-02-28] MEDS: NITROFURANTOIN MACROCRYSTAL 50 MG CAPSULE (FP) PO SCH (17:55)
[2018-02-28] MEDS ORDERED: LOSARTAN POTASSIUM 25 MG TABLET PO ONE (18:45)
--- NOTE | 2018-02-28 20:13 | PN ---
Progress Note (short form) - Note Progress Note: ID Consult dictated Enterococcal UTI Continue macrobid
[2018-02-28] MEDS: ATORVASTATIN CA 40 MG TABLET (FP) PO SCH (21:21)
[2018-02-28] MEDS: CITALOPRAM HYDROBROMIDE 20 MG TABLET (FP) PO SCH (21:21)
[2018-02-28] MEDS: NAPROXEN 250 MG TABLET (FP) PO SCH (21:21)
[2018-02-28] MEDS: clonazePAM 0.5 MG TABLET PO PRN (21:22)
--- NOTE | 2018-02-28 23:31 | CONS ---
DATE OF CONSULTATION: DATE OF DICTATION: 02/28/2018 The patient is a 72-year-old diabetic, hypertensive female who was evaluated for urinary tract infection. She has a long history of chronic headaches. Patient was admitted to the hospital on February 25, 2018, with worsening headache. She reported that over the week prior to admission, she had a worsening frontal headache. She presented for an outpatient MRI; however, a rapid response was called after she complained of worsening head pain. She was admitted to the hospital. She was seen in consultation by Neurology. MRI was unremarkable. Patient was felt to have migraine headache. Course was complicated by urinary frequency. Urinalysis shows pyuria. Urine culture: Enterococcus species. Presently, she complains of headache. She denies dysuria or hematuria; however, has urinary frequency. PAST MEDICAL HISTORY: Positive for chronic headaches, hypertension, diabetes, migraine headache. ALLERGIES: No known allergies. MEDICATIONS: Losartan, metformin, aspirin, Lipitor, Klonopin. SOCIAL HISTORY: Resides at home with family members, recently returned from [facility]. REVIEW OF SYSTEMS: Neurologic: As per HPI. Cardiac: Negative for chest pain or palpitations. Respiratory: Negative for cough or sputum production. Gastrointestinal: Negative vomiting or diarrhea. Genitourinary: As per HPI. LABORATORY DATA: White count 5.9, hematocrit 31.0, platelet count 187. BUN 22, creatinine 0.9. Urinalysis: 51 white cells. PHYSICAL EXAMINATION: General: She is an obese female, supine in bed, in no acute distress. Vital Signs: Temperature 98.2, blood pressure 143/61, pulse 54 and regular, respirations 20 per minute. HEENT: Sclerae are anicteric. Heart: S1, S2. Lungs: Clear. Abdomen: Obese, soft. No suprapubic tenderness. Extremities: 1+ edema. IMPRESSION: 1. Acute exacerbation of chronic headache syndrome. 2. Urinary tract infection. PLAN: Although Enterococcus species and low colony count, urinalysis shows pyuria and patient complains of frequency. I agree with nitrofurantoin orally to complete a 7-day course. Neurology followup. Thank you for the kind referral. JACQUELINE WALTER M.D. [id number]
[2018-03-01] MEDS: NITROFURANTOIN MACROCRYSTAL 50 MG CAPSULE (FP) PO SCH ×4 (00:11→17:05)
[2018-03-01] MEDS: DOCUSATE SODIUM 100 MG CAPSULE (FP) PO SCH ×2 (05:27→15:33)
[2018-03-01] MEDS: INSULIN SLIDING SCALE (NOVOLOG) 1 VIAL SQ SCH ×3 (06:09→17:05)
[2018-03-01] MEDS ORDERED: PT OWN MED DRAWER 7, Y5N ONE ×2 (09:32→16:56)
[2018-03-01] MEDS: NAPROXEN 250 MG TABLET (FP) PO SCH (09:37)
[2018-03-01] MEDS: NADOLOL 40 MG TABLET (FP) PO SCH (09:37)
[2018-03-01] MEDS: ASPIRIN 81 MG CHEWABLE TABLETS PO SCH (09:37)
[2018-03-01] MEDS: POLYETHYLENE GLYCOL 3350 119 GM BTL PO SCH (09:39)
--- NOTE | 2018-03-01 11:44 | DS ---
Physical Exam: SUBJECTIVE: Patient seen and examined OBJECTIVE: Vital Signs Period Temp Pulse Resp BP Sys/Levi Pulse Ox Last 24 Hr 97.9 F-98.6 F 50-60 18-20 129-185/59-78 96-97 PHYSICAL EXAM GENERAL: The patient is awake, alert, and fully oriented, in no acute distress. HEAD: Normal with no signs of trauma. EYES: PERRL, extraocular movements intact, sclera anicteric, conjunctiva clear. ENT: Ears normal, nares patent, oropharynx clear without exudates, moist mucous membranes. NECK: Trachea midline, full range of motion, supple. LUNGS: Breath sounds equal, clear to auscultation bilaterally, no wheezes, no crackles, no accessory muscle use. HEART: Regular rate and rhythm, S1, S2 without murmur, rub or gallop. ABDOMEN: Soft, nontender, nondistended, normoactive bowel sounds, no guarding, no rebound, no hepatosplenomegaly, no masses. EXTREMITIES: 2+ pulses, warm, well-perfused, no edema. NEUROLOGICAL: Cranial nerves II through XII grossly intact. Normal speech, gait not observed. PSYCH: Normal mood, normal affect. SKIN: Warm, dry, normal turgor, no rashes or lesions noted. LABS Laboratory Results - last 24 hr 02/28/18 02/28/18 03/01/18 16:04 21:19 05:30 POC Glucometer 150 184 156 03/01/18 11:23 POC Glucometer 227 HOSPITAL COURSE: Date of Admission:02/25/18 Date of Discharge: 03/01/18 Discharge Summary Reason For Visit: HEADACHE Current Active Problems Headache (Acute) Condition: Improved - Instructions Diet, Activity, Other Instructions: Three prescriptions have been sent to your pharmacy: (1) Macrobid to treat a urinary tract infection; (2) Nadolol to treat high blood pressure; and (3) Imitrex to treat migraine headache. Take these medications as directed. You should follow up with your primary care provider within one week of your discharge. You may choose to follow up with Dr. Childers, the neurologist who treated you in the hospital. His contact information is enclosed. Referrals: Bam Oliva MD [Staff Physician] - Anjel Childers MD [Staff Physician] - 1 Week (Please follow-up with neurology within 3-5 days for further management of your ) Disposition: HOME - Home Medications Comprehensive Discharge Medication List: Ambulatory Orders Citalopram Hydrobromide [Citalopram HBr] 20 mg PO HS 09/11/15 Losartan Potassium 25 mg PO DAILY 09/11/15 metFORMIN HCL [Glucophage -] 500 mg PO BID 09/11/15 Aspirin [ASA -] 81 mg PO DAILY tab.chew 09/13/15 Atorvastatin Ca [Lipitor] 40 mg PO HS 01/29/18 clonazePAM [Klonopin -] 0.5 mg PO DAILY PRN #7 tablet MDD 1 02/12/18 Nadolol [Corgard -] 40 mg PO DAILY #30 tablet 02/26/18 Sumatriptan Succinate [Imitrex -] 50 mg PO Q8H PRN #30 tablet 02/26/18 Nitrofurantoin Monohyd/M-Cryst [Macrobid -] 100 mg PO BID #12 capsule 03/01/18 - Discharge Referral Referred to [facility] No
[2018-03-01 15:13] VITALS: BP 133/66; PULSE 54; TEMP 98.5
[2018-03-01] MEDS ORDERED: INSULIN (NOVOLOG) ASPART 100 UNITS/ML 10ML VIAL ONE (16:55)
[2018-03-01] MEDS ORDERED: SUMAtriptan SUCCINATE 50 MG TABLET PO ONE (18:00)
== END 2018-03-01 18:55 | disposition home or self-care (01) ==
LOC: JER 10:50 → JERBED 13:58 → J5S 17:12
PROVIDERS: ADMIT Internal Medicine; ATTEND Nurse Practitioner Acute Care
PROC: 3E0333Z Introduction of Anti-inflammatory into Peripheral Vein, Percutaneous Approach (ICD-10-PCS; principal; 2018-02-25)
PROC: 3E033NZ Introduction of Analgesics, Hypnotics, Sedatives into Peripheral Vein, Percutaneous Approach (ICD-10-PCS; 2018-02-25)
PROC: 3E033NZ Introduction of Analgesics, Hypnotics, Sedatives into Peripheral Vein, Percutaneous Approach (ICD-10-PCS; 2018-02-25)
PROC: 3E0337Z Introduction of Electrolytic and Water Balance Substance into Peripheral Vein, Percutaneous Approach (ICD-10-PCS; 2018-02-25)
PROC: 3E013VG Introduction of Insulin into Subcutaneous Tissue, Percutaneous Approach (ICD-10-PCS; 2018-02-25)
DX: G43.819 Other migraine, intractable, without status migrainosus (principal); I10 Essential (primary) hypertension; E78.5 Hyperlipidemia, unspecified; E11.9 Type 2 diabetes mellitus without complications; N39.0 Urinary tract infection, site not specified; B95.2 Enterococcus as the cause of diseases classified elsewhere; Z79.82 Long term (current) use of aspirin; Z79.84 Long term (current) use of oral hypoglycemic drugs
CPT/HCPCS: 36415; 70544-TC; 70551-TC; 80053; 81003; 81015; 82962; 85025; 85651; 86140; 87040; 87086; 87186; 93005; 93010; 96361; 96365; 96372; 96375; 99283-25; G0378; J0131; J7030

== ENCOUNTER 2018-04-15 11:34 | Emergency (ER) | payer OTHER ==
[2018-04-15 11:49] VITALS: BMI 29.7
--- NOTE | 2018-04-15 12:01 | PDOC ---
History of Present Illness - General History Source: Patient Exam Limitations: No Limitations - History of Present Illness Initial Comments: 04/15/18 12:30 The patient is a 72 year old female with a significant past medical history of HTN, DM (taking metformin), Headaches, who presents for evaluation of headache. The patient has been seen multiple times in the ER within the last 1 month for similar symptoms. She reports that she has head a headache over the past 3 days which has not improved with Advil or diclofenac. She reports taking diclofenac at 7AM this morning. She states she had an MRI which was normal. The patient reports some nausea and mild photophobia and phonophobia as well. The patient denies chest pain, shortness of breath, headache and dizziness. The patient denies fever, chills, nausea, vomit, diarrhea and constipation. The patient denies dysuria, frequency, urgency and hematuria. Allergies: NKDA PCP - Dr. Rowe <Prema Jackman - Last Filed: 04/15/18 12:30> <Torrie Smith - Last Filed: 04/15/18 15:06> - General Chief Complaint: Pain Stated Complaint: HEADACHE Time Seen by Provider: 04/15/18 12:01 Past History <Perma Jackman - Last Filed: 04/15/18 12:30> - Past Medical History Anemia: No Asthma: No Cancer: No Cardiac Disorders: No CVA: No COPD: No CHF: No Dementia: No Diabetes: Yes GI Disorders: No Disorders: No HTN: Yes Hypercholesterolemia: Yes Liver Disease: No Seizures: No Thyroid Disease: No - Surgical History Abdominal Surgery: No Appendectomy: No Cardiac Surgery: No Cholecystectomy: No Lung Surgery: No Neurologic Surgery: No Orthopedic Surgery: No - Immunization History Immunization Up to Date: Yes - Suicide/Smoking/Psychosocial Hx Smoking History: Never smoked Have you smoked in the past 12 months: No Information on smoking cessation initiated: No Hx Alcohol Use: No Drug/Substance Use Hx: No Substance Use Type: None <Torrie Smith - Last Filed: 04/15/18 15:06> - Past Medical History Allergies/Adverse Reactions: Allergies Allergy/AdvReac Type Severity Reaction Status Date / Time No Known Allergies Allergy Verified 04/15/18 11:45 Home Medications: Ambulatory Orders Citalopram Hydrobromide [Citalopram HBr] 20 mg PO HS 09/11/15 Losartan Potassium 25 mg PO DAILY 09/11/15 metFORMIN HCL [Glucophage -] 500 mg PO BID 09/11/15 Aspirin [ASA -] 81 mg PO DAILY tab.chew 09/13/15 Atorvastatin Ca [Lipitor] 40 mg PO HS 01/29/18 clonazePAM [Klonopin -] 0.5 mg PO DAILY PRN #7 tablet MDD 1 02/12/18 Nadolol [Corgard -] 40 mg PO DAILY #30 tablet 02/26/18 Sumatriptan Succinate [Imitrex -] 50 mg PO Q8H PRN #30 tablet 02/26/18 Meclizine HCl [Antivert -] 25 mg PO TID #21 tablet 04/06/18 Review of Systems - Review of Systems Able to Perform ROS?: Yes Comments:: 04/15/18 12:33 GENERAL/CONSTITUTIONAL: No fever or chills. No weakness. HEAD, EYES, EARS, NOSE AND THROAT: No change in vision. No ear pain or discharge. No sore throat. CARDIOVASCULAR: No chest pain or shortness of breath. RESPIRATORY: No cough, wheezing, or hemoptysis. GASTROINTESTINAL: (+) nausea, No vomiting, diarrhea or constipation. GENITOURINARY: No dysuria, frequency, or change in urination. MUSCULOSKELETAL: No joint or muscle swelling or pain. No neck or back pain. SKIN: No rash NEUROLOGIC: (+) headache, photophobia, No vertigo, loss of consciousness, or change in strength/sensation. ENDOCRINE: No increased thirst. No abnormal weight change. HEMATOLOGIC/LYMPHATIC: No anemia, easy bleeding, or history of blood clots. ALLERGIC/IMMUNOLOGIC: No hives or skin allergy. <Prema Jackman - Last Filed: 04/15/18 12:30> *Physical Exam - Vital Signs Last Vital Signs Temp Pulse Resp BP Pulse Ox 98.9 F 78 18 175/88 99 04/15/18 11:46 04/15/18 11:46 04/15/18 11:46 04/15/18 11:46 04/15/18 11:46 - Physical Exam Comments: 04/15/18 12:33 GENERAL: Awake, alert, and fully oriented, in no acute distress HEAD: No signs of trauma EYES: PERRLA, EOMI, sclera anicteric, conjunctiva clear ENT: Auricles normal inspection, hearing grossly normal, nares patent, oropharynx clear without exudates. Moist mucosa NECK: Normal ROM, supple, no lymphadenopathy, JVD, or masses LUNGS: Breath sounds equal, clear to auscultation bilaterally. No wheezes, and no crackles HEART: Regular rate and rhythm, normal S1 and S2, no murmurs, rubs or gallops ABDOMEN: Soft, nontender, normoactive bowel sounds. No guarding, no rebound. No masses EXTREMITIES: Normal range of motion, no edema. No clubbing or cyanosis. No cords, erythema, or tenderness NEUROLOGICAL: Cranial nerves II through XII grossly intact. Normal speech, normal gait SKIN: Warm, Dry, normal turgor, no rashes or lesions noted. <Prema Jackman - Last Filed: 04/15/18 12:30> - Vital Signs Last Vital Signs Temp Pulse Resp BP Pulse Ox 98.9 F 78 18 175/88 99 04/15/18 11:46 04/15/18 11:46 04/15/18 11:46 04/15/18 11:46 04/15/18 11:46 <Torrie Smith - Last Filed: 04/15/18 15:06> ED Treatment Course - LABORATORY CBC & Chemistry Diagram: 04/15/18 13:00 04/15/18 13:00 <Torrie Smith - Last Filed: 04/15/18 15:06> Medical Decision Making - Medical Decision Making 04/15/18 12:37 Pt presents to the ED complaining of acute exacerbation of her chronic migraine. Denies new symptoms. Presents today because she has been having pain for the last 3 days and has taken diclofenac and advil with no relief. Recent negative imaging of her brain for similar complaints. Will treat with reglan and benadryl, check basic labs and reassess. 04/15/18 15:03 Labs are unremarkable. PAin resolved after reglan and benadryl. will discharge home with neuro referral. <Torrie Smith - Last Filed: 04/15/18 15:06> *DC/Admit/Observation/Transfer - Attestations Scribe Attestion: 04/15/18 12:34 Documentation prepared by Prema Jackman, acting as medical record assistant for Torrie Smith MD, <Prema Jackman - Last Filed: 04/15/18 12:30> - Discharge Dispostion Decision to Admit order: No <Torrie Smith - Last Filed: 04/15/18 15:06> Diagnosis at time of Disposition: Headache Qualifiers: Headache type: unspecified Headache chronicity pattern: chronic headache Intractability: not intractable Qualified Code(s): R51 - Headache - Discharge Dispostion Disposition: HOME Condition at time of disposition: Good - Referrals Referrals: Maribel Carmona MD [Primary Care Provider] - Anjel Childers MD [Staff Physician] - - Patient Instructions Printed Discharge Instructions: DI for Migraine Additional Instructions: return to the ED for worsening headache, headache with passing out or seizures, vision changes, other new or worsening symptoms. call Dr. Childers from neurology for follow up appointment. Make sure that you see your primary care doctor within 4 days.
[2018-04-15] MEDS ORDERED: METOCLOPRAMIDE HCL INJECTION 10 MG/2 ML VIAL IVPUSH ONE (12:22)
[2018-04-15] MEDS ORDERED: METOCLOPRAMIDE HCL INJECTION 10 MG/2 ML VIAL ONE (12:34)
[2018-04-15 13:16] LABS: BASO % 0.5 % (0-2.0); EOS % 1.7 % (0-4.5); HEMATOCRIT 29.4 % (32.4-45.2); HEMOGLOBIN 10.1 GM/dL (10.7-15.3); LYMPH % 19.7 % (8-40); MCH 30.3 pg (25.7-33.7); MCHC 34.4 g/dl (32.0-36.0); MEAN CELL VOLUME 88.1 fl (80-96); MEAN PLT VOLUME 10.3 fl (7.5-11.1); MONO % 6.7 % (3.8-10.2); NEUT % 71.4 % (42.8-82.8); PLATELET COUNT 166 K/MM3 (134-434); RBC 3.33 M/mm3 (3.60-5.2); RDW 13.8 % (11.6-15.6); WHITE BLOOD COUNT 5.6 K/mm3 (4.0-10.0)
[2018-04-15 13:38] LABS: ALBUMIN 3.7 g/dl (3.4-5.0); ALK PHOS 77 U/L (45-117); ANION GAP 6 (8-16); BILIRUBIN,TOTAL 0.2 mg/dL (0.2-1.0); BLOOD UREA NITROGEN 18 mg/dL (7-18); CALCIUM 8.7 mg/dL (8.5-10.1); CHLORIDE 104 mmol/L (98-107); CO2 30 mmol/L (21-32); CREATININE 0.8 mg/dL (0.55-1.02); GLUCOSE,RANDOM 115 mg/dL (74-106); POTASSIUM 4.1 mmol/L (3.5-5.1); SGOT/AST 17 U/L (15-37); SGPT/ALT 17 U/L (12-78); SODIUM 140 mmol/L (136-145); TOT PROT 7.1 g/dl (6.4-8.2)
[2018-04-15 15:52] VITALS: BP 184/90; PULSE 82; TEMP 97.8
== END 2018-04-15 15:52 | disposition home or self-care (01) ==
LOC: JER 11:34
PROC: 3E033GC Introduction of Other Therapeutic Substance into Peripheral Vein, Percutaneous Approach (ICD-10-PCS; principal; 2018-04-15)
PROC: 3E033GC Introduction of Other Therapeutic Substance into Peripheral Vein, Percutaneous Approach (ICD-10-PCS; 2018-04-15)
DX: G43.809 Other migraine, not intractable, without status migrainosus (principal); I10 Essential (primary) hypertension; E78.00 Pure hypercholesterolemia, unspecified; E11.9 Type 2 diabetes mellitus without complications; Z79.84 Long term (current) use of oral hypoglycemic drugs
CPT/HCPCS: 36415; 80053; 85025; 99282-25

== ENCOUNTER 2018-05-22 08:21 | Emergency (ER) | payer OTHER ==
--- NOTE | 2018-05-22 08:27 | PDOC ---
History of Present Illness - General Chief Complaint: Headache Stated Complaint: HEADACHE Time Seen by Provider: 05/22/18 08:26 History Source: Patient Past History - Past Medical History Allergies/Adverse Reactions: Allergies Allergy/AdvReac Type Severity Reaction Status Date / Time No Known Allergies Allergy Verified 04/27/18 17:41 Home Medications: Ambulatory Orders Citalopram Hydrobromide [Citalopram HBr] 20 mg PO HS 09/11/15 Aspirin [ASA -] 81 mg PO DAILY tab.chew 09/13/15 clonazePAM [Klonopin -] 0.5 mg PO DAILY PRN #7 tablet MDD 1 02/12/18 Nadolol [Corgard -] 40 mg PO DAILY #30 tablet 02/26/18 Sumatriptan Succinate [Imitrex -] 50 mg PO Q8H PRN #30 tablet 02/26/18 Meclizine HCl [Antivert -] 25 mg PO TID #21 tablet 04/06/18 Acetaminophen/Caffeine/Butalb [Fioricet -] 1 tablet PO Q6H PRN 04/28/18 Docusate Sodium [Colace -] 100 mg PO BID MDD 200 04/28/18 Glipizide 5 mg PO BID 04/28/18 Losartan Potassium 100 mg PO DAILY 04/28/18 Metformin HCl [Glucophage] 1,000 mg PO BID 04/28/18 Naproxen Sodium 550 mg PO DAILY 04/28/18 Ofloxacin 0.3% Ophth Soln [Ocuflox -] 1 drop OD ASDIR 04/28/18 Pravastatin Sodium 20 mg PO HS 04/28/18 Ranitidine HCl [Zantac] 150 mg PO HS 04/28/18 Polyethylene Glycol 3350 [Miralax (For Daily Use) -] 17 gm PO DAILY #1 bottle Anemia: No Asthma: No Cancer: No Cardiac Disorders: No CVA: No COPD: No CHF: No Dementia: No Diabetes: Yes GI Disorders: No Disorders: No HTN: Yes Hypercholesterolemia: Yes Liver Disease: No Seizures: No Thyroid Disease: No - Surgical History Abdominal Surgery: No Appendectomy: No Cardiac Surgery: No Cholecystectomy: No Lung Surgery: No Neurologic Surgery: No Orthopedic Surgery: No - Immunization History Immunization Up to Date: Yes - Suicide/Smoking/Psychosocial Hx Smoking History: Never smoked Have you smoked in the past 12 months: No Hx Alcohol Use: No Drug/Substance Use Hx: No Substance Use Type: None
--- NOTE | 2018-05-22 08:38 | PDOC ---
Attending Attestation - HPI HPI: 05/22/18 10:00 The patient is a 72 year old female with past medical history of hypertension and diabetes who presents to the ED with complaints of headache and dizziness. She reports her blood sugar was elevated as well and that she typically gets a similar headache with her elevated blood sugar. She denies any focal neurological deficits. Reports dizziness, but denies lightheadedness or syncope. Reports nausea but denies any vomiting or diarrhea. Denies any fevers or chills. - Physicial Exam PE: 05/22/18 10:02 GENERAL: Awake, alert, and fully oriented, in no acute distress HEAD: No signs of trauma EYES: PERRLA, EOMI, sclera anicteric, conjunctiva clear ENT: Auricles normal inspection, hearing grossly normal, nares patent, oropharynx clear without exudates. Moist mucosa NECK: Normal ROM, supple, no lymphadenopathy, JVD, or masses LUNGS: Breath sounds equal, clear to auscultation bilaterally. No wheezes, and no crackles HEART: Regular rate and rhythm, normal S1 and S2, no murmurs, rubs or gallops ABDOMEN: Soft, nontender, normoactive bowel sounds. No guarding, no rebound. No masses EXTREMITIES: Normal range of motion, no edema. No clubbing or cyanosis. No cords, erythema, or tenderness NEUROLOGICAL: Cranial nerves II through XII grossly intact. Normal speech, normal gait SKIN: Warm, Dry, normal turgor, no rashes - Medical Decision Making 05/22/18 10:02 Documentation prepared by Jessica Rosario, acting as territory sales manager medical for Torrie Smith MD. <Jessica Rosario - Last Filed: 05/22/18 09:59> - Resident Resident Name: Kendra Serrano - Medical Decision Making 05/22/18 11:26 Pt presents to the ED complaining of diffuse frontal headache that is similar in character and severity to her chronic headaches that she gets " when my sugar is high". Also complains of nausea without vomiting and high sugars at home. Patient is hyperglycemic in the ED, although she reports compliance with her metformin. Differential includes migraine, hyperglycemia, dehydration, less likely DKA. Will treat headache with benadryl, give IV hydration and reassess. Will check labs to evaluate for DKA. <Torrie Smith - Last Filed: 05/22/18 11:37>
[2018-05-22 08:42] VITALS: BP 175/96; PULSE 107; TEMP 98.7; BMI 27.3
--- NOTE | 2018-05-22 08:48 | PDOC ---
History of Present Illness - General Chief Complaint: Headache Stated Complaint: HEADACHE Time Seen by Provider: 05/22/18 08:26 - History of Present Illness Initial Comments: 05/22/18 08:44 72 year old woman with past medical history of HTN and DM who presents with 1 day of elevated blood sugar(high of 324), headache and dizziness. The patient admits to feeling like the room is spinning, slight nausea, some diarrhea, slight shortness of breath and decrease in appetite for 1 day. She reports that she has been taking her metformin and losartan as directed. She denies any recent illness, fever, abdominal pain or chest pain. She has no other complaints at bedside. PMHX: as in HPI PSHX: Meds: metformin, losartan Allergies: none Tob: none Etoh: none Rec drugs: none PCP: Desktop Specialist: [id number] Past History - Past Medical History Allergies/Adverse Reactions: Allergies Allergy/AdvReac Type Severity Reaction Status Date / Time No Known Allergies Allergy Verified 05/22/18 08:42 Home Medications: Ambulatory Orders Citalopram Hydrobromide [Citalopram HBr] 20 mg PO HS 09/11/15 Aspirin [ASA -] 81 mg PO DAILY tab.chew 09/13/15 clonazePAM [Klonopin -] 0.5 mg PO DAILY PRN #7 tablet MDD 1 02/12/18 Nadolol [Corgard -] 40 mg PO DAILY #30 tablet 02/26/18 Sumatriptan Succinate [Imitrex -] 50 mg PO Q8H PRN #30 tablet 02/26/18 Meclizine HCl [Antivert -] 25 mg PO TID #21 tablet 04/06/18 Acetaminophen/Caffeine/Butalb [Fioricet -] 1 tablet PO Q6H PRN 04/28/18 Docusate Sodium [Colace -] 100 mg PO BID MDD 200 04/28/18 Glipizide 5 mg PO BID 04/28/18 Losartan Potassium 100 mg PO DAILY 04/28/18 Metformin HCl [Glucophage] 1,000 mg PO BID 04/28/18 Naproxen Sodium 550 mg PO DAILY 04/28/18 Ofloxacin 0.3% Ophth Soln [Ocuflox -] 1 drop OD ASDIR 04/28/18 Pravastatin Sodium 20 mg PO HS 04/28/18 Ranitidine HCl [Zantac] 150 mg PO HS 04/28/18 Polyethylene Glycol 3350 [Miralax (For Daily Use) -] 17 gm PO DAILY #1 bottle Anemia: No Asthma: No Cancer: No Cardiac Disorders: No CVA: No COPD: No CHF: No Dementia: No Diabetes: Yes GI Disorders: No Disorders: No HTN: Yes Hypercholesterolemia: Yes Liver Disease: No Seizures: No Thyroid Disease: No - Surgical History Abdominal Surgery: No Appendectomy: No Cardiac Surgery: No Cholecystectomy: No Lung Surgery: No Neurologic Surgery: No Orthopedic Surgery: No - Immunization History Immunization Up to Date: Yes - Suicide/Smoking/Psychosocial Hx Smoking History: Never smoked Have you smoked in the past 12 months: No Information on smoking cessation initiated: No Hx Alcohol Use: No Drug/Substance Use Hx: No Substance Use Type: None *Physical Exam - Vital Signs Last Vital Signs Temp Pulse Resp BP Pulse Ox 98.7 F 107 H 16 175/96 100 05/22/18 08:21 05/22/18 08:21 05/22/18 08:21 05/22/18 08:21 05/22/18 08:21 - Physical Exam Comments: 05/22/18 08:49 + LLQ abd tenderness to palpation no CVA tenderness CTAB, tachycardia regular rhythm Heart Score/ECG Review - History History: Slightly suspicious - Age Age: >/= 65 - Risk Factors Risk Factors Heart Score: Yes Hx Hypertension, Yes Hx Diabetes - Troponin Troponin: </= normal limit ED Treatment Course - LABORATORY CBC & Chemistry Diagram: 05/22/18 09:12 05/22/18 09:12 Medical Decision Making - Medical Decision Making 05/22/18 08:50 DDX including but not limited to: hyperglycemia vs HHS Inciting causes for elevated blood sugar despite appropriate medication use: Consider infectious such as UTI vs PNA Consider dehydration as pt reports decreased appetite and slight diarrhea W/U: - cbc, cmp, trop - ekg - ua, ucx TX: - reglan Scores: Heart score: ED Course: Pt w/ tachycardic, tired appearing 05/22/18 09:30 blood sugar: 317 05/22/18 12:28 pt reassessed. stable. feels improved. desires to go home 05/22/18 12:41 blood sugar: 244 *DC/Admit/Observation/Transfer Diagnosis at time of Disposition: Hyperglycemia, Headache - Discharge Dispostion Disposition: HOME Condition at time of disposition: Stable Decision to Admit order: No - Referrals Referrals: Sukhwinder Dee MD [Primary Care Provider] - - Patient Instructions Printed Discharge Instructions: DI for Hyperglycemia -- Adult, DI for Headache Additional Instructions: You were seen in the ED for complaints of headaches and high blood sugar. In the ED you were evaluated with labwork. You were treated with fluids and anti-veritgo / anti-nausea medications and showed improvement. There does not appear to be an acute need for immediate hospitalization. You are advised to follow up with your primary care physician within 1 week for appropriate management of your blood sugar. Return to the ED immediately if you experience worsening headache, nausea, fever , chest pain, shortness of breath, dizziness. - Post Discharge Activity
[2018-05-22] MEDS ORDERED: METOCLOPRAMIDE HCL INJECTION 10 MG/2 ML VIAL IVPUSH ONE (09:11)
[2018-05-22 09:24] LABS: BASO % 0.8 % (0-2.0); EOS % 0.1 % (0-4.5); HEMATOCRIT 34.7 % (32.4-45.2); HEMOGLOBIN 11.8 GM/dL (10.7-15.3); LYMPH % 10.3 % (8-40); MCH 30.5 pg (25.7-33.7); MCHC 33.9 g/dl (32.0-36.0); MEAN PLT VOLUME 10.8 fl (7.5-11.1); MONO % 5.3 % (3.8-10.2); NEUT % 83.5 % (42.8-82.8); PLATELET COUNT 195 K/MM3 (134-434); RBC 3.86 M/mm3 (3.60-5.2); RDW 14.2 % (11.6-15.6); WHITE BLOOD COUNT 9.6 K/mm3 (4.0-10.0)
[2018-05-22 09:27] LABS: VENOUS PH 7.44 (7.32-7.42); VENOUS PO2 66.3 mmHg (28-48)
[2018-05-22] MEDS ORDERED: SODIUM CHLORIDE 1,000 ML IV SCH (09:30)
[2018-05-22] MEDS ORDERED: METOCLOPRAMIDE HCL INJECTION 10 MG/2 ML VIAL ONE (09:34)
[2018-05-22 09:45] LABS: ALBUMIN 3.4 g/dl (3.4-5.0); ANION GAP 12 MMOL/L (8-16); BLOOD UREA NITROGEN 32 mg/dL (7-18); CHLORIDE 100 mmol/L (98-107); CO2 26 mmol/L (21-32); CREATININE 0.9 mg/dL (0.55-1.02); SODIUM 138 mmol/L (136-145)
[2018-05-22 09:54] LABS: ALK PHOS 82 U/L (45-117); BILIRUBIN,TOTAL 0.3 mg/dL (0.2-1.0); SGPT/ALT 22 U/L (12-78); TOT PROT 7.1 g/dl (6.4-8.2)
[2018-05-22 09:55] LABS: POTASSIUM 4.7 mmol/L (3.5-5.1)
[2018-05-22 09:56] LABS: GLUCOSE,RANDOM 311 mg/dL (74-106); SGOT/AST 14 U/L (15-37)
[2018-05-22 11:19] LABS: URINE APPEARANCE CLEAR; URINE BILIRUBIN NEGATIVE (<2.0 mg/dL); URINE COLOR LTYELLOW; URINE GLUCOSE (UA) 3+ (NEGATIVE); URINE KETONE TRACE (NEGATIVE); URINE NITRITE NEGATIVE (NEGATIVE); URINE PROTEIN NEGATIVE (NEGATIVE); URINE UROBILINOGEN NEGATIVE mg/dL (0.2-1.0)
[2018-05-22 11:23] LABS: URINE LEUK ESTERASE 1+ (NEGATIVE)
[2018-05-22 11:25] LABS: EPI CELLS RARE /HPF (FEW); URINE BACTERIA RARE /hpf (NONE SEEN); URINE HYALINE CAST 1 /lpf; URINE MUCUS RARE
[2018-05-22 11:30] LABS: ANISOCYTOSIS 0; MACROCYTOSIS 0; PLATELET ESTIMATE NORMAL
--- NOTE | 2018-05-22 18:54 | EKG ---
Test Reason : Blood Pressure : / mmHG Vent. Rate : 095 BPM Atrial Rate : 095 BPM P-R Int : 132 ms QRS Dur : 076 ms QT Int : 352 ms P-R-T Axes : 060 -10 030 degrees QTc Int : 442 ms NORMAL SINUS RHYTHM POSSIBLE LEFT ATRIAL ENLARGEMENT INFERIOR INFARCT , AGE UNDETERMINED ABNORMAL ECG WHEN COMPARED WITH ECG OF 27-APR-2018 23:04, VENT. RATE HAS INCREASED BY 36 BPM INFERIOR INFARCT IS NOW PRESENT Confirmed by IZABELLA GERMAN MD ([id number]) on 05/22/2018 6:54:14 PM Referred By: Confirmed By:IZABELLA GERMAN MD
== END 2018-05-22 12:50 | disposition home or self-care (01) ==
LOC: JER 08:21
PROC: 3E033GC Introduction of Other Therapeutic Substance into Peripheral Vein, Percutaneous Approach (ICD-10-PCS; principal; 2018-05-22)
DX: E11.65 Type 2 diabetes mellitus with hyperglycemia (principal); Z79.84 Long term (current) use of oral hypoglycemic drugs; I10 Essential (primary) hypertension
CPT/HCPCS: 36415; 80053; 81003; 81015; 82803; 82962; 84484; 85025; 87086; 93005; 93010; 96374; 99283-25; J7030

== ENCOUNTER 2018-08-31 10:21 | Emergency (ER) | payer OTHER ==
[2018-08-31 10:32] VITALS: TEMP 98.3; BMI 26.2
[2018-08-31] MEDS ORDERED: ACETAMINOPHEN 1000 MG/100 ML VIAL (NON FORMULARY) IVPB ONE (11:46)
[2018-08-31] MEDS ORDERED: ACETAMINOPHEN INJECTION 100 ML IVPB ONE (11:50)
--- NOTE | 2018-08-31 11:52 | PDOC ---
History of Present Illness - General Chief Complaint: Pain Stated Complaint: BREAST PROBLEM Time Seen by Provider: 08/31/18 11:11 History Source: Patient - History of Present Illness Timing/Duration: other Past History - Past Medical History Allergies/Adverse Reactions: Allergies Allergy/AdvReac Type Severity Reaction Status Date / Time No Known Allergies Allergy Verified 08/31/18 10:28 Home Medications: Ambulatory Orders Citalopram Hydrobromide [Citalopram HBr] 20 mg PO HS 09/11/15 Aspirin [ASA -] 81 mg PO DAILY tab.chew 09/13/15 clonazePAM [Klonopin -] 0.5 mg PO DAILY PRN #7 tablet MDD 1 02/12/18 Nadolol [Corgard -] 40 mg PO DAILY #30 tablet 02/26/18 Sumatriptan Succinate [Imitrex -] 50 mg PO Q8H PRN #30 tablet 02/26/18 Meclizine HCl [Antivert -] 25 mg PO TID #21 tablet 04/06/18 Acetaminophen/Caffeine/Butalb [Fioricet -] 1 tablet PO Q6H PRN 04/28/18 Docusate Sodium [Colace -] 100 mg PO BID MDD 200 04/28/18 Glipizide 5 mg PO BID 04/28/18 Losartan Potassium 100 mg PO DAILY 04/28/18 Metformin HCl [Glucophage] 1,000 mg PO BID 04/28/18 Naproxen Sodium 550 mg PO DAILY 04/28/18 Ofloxacin 0.3% Ophth Soln [Ocuflox -] 1 drop OD ASDIR 04/28/18 Pravastatin Sodium 20 mg PO HS 04/28/18 Ranitidine HCl [Zantac] 150 mg PO HS 04/28/18 Polyethylene Glycol 3350 [Miralax (For Daily Use) -] 17 gm PO DAILY #1 bottle Anemia: No Asthma: No Cancer: No Cardiac Disorders: No CVA: No COPD: No CHF: No Dementia: No Diabetes: Yes GI Disorders: No Disorders: No HTN: Yes Hypercholesterolemia: Yes Liver Disease: No Seizures: No Thyroid Disease: No - Surgical History Abdominal Surgery: Yes Appendectomy: No Cardiac Surgery: No Cholecystectomy: No Lung Surgery: No Neurologic Surgery: No Orthopedic Surgery: No - Immunization History Immunization Up to Date: Yes - Suicide/Smoking/Psychosocial Hx Smoking History: Never smoked Have you smoked in the past 12 months: No Hx Alcohol Use: No Drug/Substance Use Hx: No Substance Use Type: None Review of Systems - Review of Systems Constitutional: No: Chills, Fever, Malaise, Weakness Respiratory: No: Shortness of Breath Cardiac (ROS): No: Chest Pain ABD/GI: No: Nausea, Vomiting *Physical Exam - Vital Signs Last Vital Signs Temp Pulse Resp BP Pulse Ox 98.3 F 78 18 151/67 99 08/31/18 10:28 08/31/18 10:28 08/31/18 10:28 08/31/18 10:28 08/31/18 10:28 - Physical Exam General Appearance: Yes: Appropriately Dressed. No: Apparent Distress HEENT: positive: Normal Voice Neck: positive: Supple Respiratory/Chest: positive: Lungs Clear, Normal Breath Sounds, Other (+ttp to L breast diffusely without any mass palpated, breasts symmetric w/ no skin/ nipple changes, no lymphadenopathy). negative: Respiratory Distress Cardiovascular: positive: Regular Rate, S1, S2 Gastrointestinal/Abdominal: positive: Soft. negative: Tender Extremity: positive: Normal Inspection. negative: Pedal Edema Integumentary: positive: Dry, Warm Neurologic: positive: Fully Oriented, Alert, Normal Mood/Affect Moderate Sedation - Procedure Monitoring Vital Signs: Procedure Monitoring Vital Signs Temperature 98.3 F 08/31/18 10:28 Pulse Rate 78 08/31/18 10:28 Respiratory Rate 18 08/31/18 10:28 Blood Pressure 151/67 08/31/18 10:28 O2 Sat by Pulse Oximetry (%) 99 08/31/18 10:28 Heart Score/ECG Review - ECG Intrepretation Comment:: 08/31/18 14:40 Twelve-lead EKG was performed and reviewed by me. There is normal sinus rhythm with a normal rate. The axis is normal. The intervals are normal. There are no ST or T wave abnormalities. Impression: Normal twelve-lead EKG ED Treatment Course - LABORATORY CBC & Chemistry Diagram: 08/31/18 11:45 08/31/18 11:45 Medical Decision Making - Medical Decision Making 08/31/18 11:46 73-year-old female, history of HTN, HLD, DM and chronic headaches, here with severe breast pain. Patient reports L breast pain x 2 weeks, radiates to L axilla, unable to describe, constant, worse w/ palpation. No breast mass, skin or nipple changes. No unexplained weight loss. No trauma. No h/o similar pain. No known breast disease and had neg mammogram > 1 yr ago per pt. No sig fmhx. Denies CP otherwise and no SOB, diaphoresis, n/v. See exam Unilateral breast pain Etiology unclear at this time Exam only remarkable for diffuse ttp to L breast without mass or lymphadenopathy No signs of infection No trauma No h/o breast ca Neg mammogram > 1 yr ago -pain meds -labs -will discuss possible imaging in ED w/ ED attg vs referral for mammogram 08/31/18 14:40 EKG/CXR and labs unremarkable. As d/w Dr Villarreal will get breast US to r/o collection. Anticipate discharge with f/u Dr. Rojas to arrange mammogram 08/31/18 16:28 US shows no collection but does show a small hypo-echoic lesion millimeters in size in the 1 o'clock position to left breast that is probably benign in nature per radiology report. Case discussed with Dr. Rojas who is currently in ER seeing another patient. Per MD, lesion most likely not cause of patient's current pain but that he will see pt in office for further evaluation 08/31/18 16:33 *DC/Admit/Observation/Transfer Diagnosis at time of Disposition: Breast pain in female - Discharge Dispostion Disposition: HOME Condition at time of disposition: Good - Referrals Referrals: Sukhwinder Dee MD [Primary Care Provider] - Manuel Rojas MD [Staff Physician] - - Patient Instructions Additional Instructions: La causa de ford dolor en los senos no est wes en jaja momento ya que no se identific lori gran masa o seal de infeccin en ford ultrasonido. Necesita hacer un seguimiento con un especialista para lori evaluacin adicional y puede hacer un seguimiento con el Dr. Rojas de [facility]. [place] tylenol para el dolor segn sea necesario - Post Discharge Activity
[2018-08-31 11:57] LABS: BASO % 0.6 % (0-2.0); HEMOGLOBIN 10.8 GM/dL (10.7-15.3); LYMPH % 18.8 % (8-40); MCH 31.3 pg (25.7-33.7); MCHC 34.7 g/dl (32.0-36.0); MEAN CELL VOLUME 90.2 fl (80-96); MEAN PLT VOLUME 10.7 fl (7.5-11.1); MONO % 5.9 % (3.8-10.2); NEUT % 73.7 % (42.8-82.8); PLATELET COUNT 200 K/MM3 (134-434); RBC 3.44 M/mm3 (3.60-5.2); RDW 13.3 % (11.6-15.6); WHITE BLOOD COUNT 7.1 K/mm3 (4.0-10.0)
[2018-08-31 12:15] LABS: INR 1.08 (0.83-1.09); PROTHROMBIN TIME (PATIENT) 12.7 SEC (9.7-13.0)
[2018-08-31 13:03] LABS: ALBUMIN 3.9 g/dl (3.4-5.0); ALK PHOS 75 U/L (45-117); ANION GAP 9 MMOL/L (8-16); BILIRUBIN,TOTAL 0.3 mg/dL (0.2-1); BLOOD UREA NITROGEN 23 mg/dL (7-18); CALCIUM 8.9 mg/dL (8.5-10.1); CHLORIDE 106 mmol/L (98-107); CO2 27 mmol/L (21-32); CREATININE 1.3 mg/dL (0.55-1.3); GLUCOSE,RANDOM 123 mg/dL (74-106); POTASSIUM 4.8 mmol/L (3.5-5.1); SGOT/AST 12 U/L (15-37); SGPT/ALT 15 U/L (13-61); SODIUM 142 mmol/L (136-145); TOT PROT 7.5 g/dl (6.4-8.2)
[2018-08-31 16:53] VITALS: BP 116/71; PULSE 73
--- NOTE | 2018-09-01 12:44 | EKG ---
Test Reason : Blood Pressure : / mmHG Vent. Rate : 069 BPM Atrial Rate : 069 BPM P-R Int : 154 ms QRS Dur : 078 ms QT Int : 402 ms P-R-T Axes : 010 052 020 degrees QTc Int : 430 ms NORMAL SINUS RHYTHM NORMAL ECG WHEN COMPARED WITH ECG OF 22-MAY-2018 08:50, CRITERIA FOR INFERIOR INFARCT ARE NO LONGER PRESENT Confirmed by YANNICK STEWART MD ([id number]) on 09/01/2018 12:44:04 PM Referred By: Confirmed By:YANNICK STEWART MD
== END 2018-08-31 16:53 | disposition home or self-care (01) ==
LOC: JER 10:21
PROC: 3E033NZ Introduction of Analgesics, Hypnotics, Sedatives into Peripheral Vein, Percutaneous Approach (ICD-10-PCS; principal; 2018-08-31)
DX: N64.4 Mastodynia (principal); I10 Essential (primary) hypertension; E11.9 Type 2 diabetes mellitus without complications; E78.5 Hyperlipidemia, unspecified; G89.29 Other chronic pain
CPT/HCPCS: 36415; 71045-TC-FY; 76642-TC-LT; 80053; 82550; 84484; 85025; 85610; 93005; 93010; 96374; 99282-25; J0131

== ENCOUNTER 2018-11-27 14:32 | Emergency (ER) | payer OTHER ==
[2018-11-27 15:19] VITALS: BP 152/74; PULSE 109; TEMP 99; BMI 25.4
--- NOTE | 2018-11-27 16:20 | PDOC ---
History of Present Illness - General History Source: Patient Exam Limitations: No Limitations - History of Present Illness Initial Comments: 11/27/18 16:37 The patient is a 73 year old female with a past medical history of diabetes and chronic left flank pain sent in today by her PCP. The patient reports that her PCP was considered that her blood sugar was too high and was also consider that there was acid in her urine. She reports that she has a headache located in the front of head and notes having a dry mouth and drinking a lot of water recently. Patient denies headache, lightheadedness. Denies fever, chills. Denies chest pain, shortness of breath. Denies nausea, vomiting, diarrhea. Allergies: NKA PCP: Sukhwinder Dee <Lamberto Hong - Last Filed: 11/27/18 16:37> <Torrie Smith - Last Filed: 11/27/18 19:37> - General Chief Complaint: Blood Sugar Problem Stated Complaint: hematuria&elevated blood glucose Time Seen by Provider: 11/27/18 16:20 Past History <Lamberto Hong - Last Filed: 11/27/18 16:37> - Past Medical History Anemia: No Asthma: No Cancer: No Cardiac Disorders: No CVA: No COPD: No CHF: No Dementia: No Diabetes: Yes GI Disorders: No Disorders: No HTN: Yes Hypercholesterolemia: Yes Liver Disease: No Seizures: No Thyroid Disease: No - Surgical History Abdominal Surgery: Yes Appendectomy: No Cardiac Surgery: No Cholecystectomy: No Lung Surgery: No Neurologic Surgery: No Orthopedic Surgery: No - Immunization History Immunization Up to Date: Yes - Suicide/Smoking/Psychosocial Hx Smoking History: Never smoked Have you smoked in the past 12 months: No Hx Alcohol Use: No Drug/Substance Use Hx: No Substance Use Type: None <Torrie Smith - Last Filed: 11/27/18 19:37> - Past Medical History Allergies/Adverse Reactions: Allergies Allergy/AdvReac Type Severity Reaction Status Date / Time No Known Allergies Allergy Verified 11/27/18 15:13 Home Medications: Ambulatory Orders Citalopram Hydrobromide [Citalopram HBr] 20 mg PO HS 09/11/15 Aspirin [ASA -] 81 mg PO DAILY tab.chew 09/13/15 clonazePAM [Klonopin -] 0.5 mg PO DAILY PRN #7 tablet MDD 1 02/12/18 Nadolol [Corgard -] 40 mg PO DAILY #30 tablet 02/26/18 Sumatriptan Succinate [Imitrex -] 50 mg PO Q8H PRN #30 tablet 02/26/18 Meclizine HCl [Antivert -] 25 mg PO TID #21 tablet 04/06/18 Acetaminophen/Caffeine/Butalb [Fioricet -] 1 tablet PO Q6H PRN 04/28/18 Docusate Sodium [Colace -] 100 mg PO BID MDD 200 04/28/18 Glipizide 5 mg PO BID 04/28/18 Losartan Potassium 100 mg PO DAILY 04/28/18 Metformin HCl [Glucophage] 1,000 mg PO BID 04/28/18 Naproxen Sodium 550 mg PO DAILY 04/28/18 Ofloxacin 0.3% Ophth Soln [Ocuflox -] 1 drop OD ASDIR 04/28/18 Pravastatin Sodium 20 mg PO HS 04/28/18 Ranitidine HCl [Zantac] 150 mg PO HS 04/28/18 Polyethylene Glycol 3350 [Miralax (For Daily Use) -] 17 gm PO DAILY #1 bottle Cephalexin [Keflex] 500 mg PO BID #10 capsule 11/27/18 Review of Systems - Review of Systems Able to Perform ROS?: Yes Comments:: 11/27/18 16:37 GENERAL/CONSTITUTIONAL: +dehydration. No fever or chills. No weakness. HEAD, EYES, EARS, NOSE AND THROAT: No change in vision. No ear pain or discharge. No sore throat. CARDIOVASCULAR: No chest pain or shortness of breath. RESPIRATORY: No cough, wheezing, or hemoptysis. GASTROINTESTINAL: No nausea, vomiting, diarrhea or constipation. GENITOURINARY: No dysuria, frequency, or change in urination. MUSCULOSKELETAL: No joint or muscle swelling or pain. No neck or back pain. SKIN: No rash NEUROLOGIC: +headache. No vertigo, loss of consciousness, or change in strength/ sensation. ENDOCRINE: No increased thirst. No abnormal weight change. HEMATOLOGIC/LYMPHATIC: No anemia, easy bleeding, or history of blood clots. ALLERGIC/IMMUNOLOGIC: No hives or skin allergy. <Lamberto Hong - Last Filed: 11/27/18 16:37> *Physical Exam - Vital Signs Last Vital Signs Temp Pulse Resp BP Pulse Ox 99 F 109 H 16 152/74 98 11/27/18 15:13 11/27/18 15:13 11/27/18 15:13 11/27/18 15:13 11/27/18 15:13 - Physical Exam Comments: 11/27/18 16:38 GENERAL: Awake, alert, and fully oriented, in no acute distress HEAD: No signs of trauma EYES: PERRLA, EOMI, sclera anicteric, conjunctiva clear ENT: Auricles normal inspection, hearing grossly normal, nares patent, oropharynx clear without exudates. Moist mucosa NECK: Normal ROM, supple, no lymphadenopathy, JVD, or masses LUNGS: Breath sounds equal, clear to auscultation bilaterally. No wheezes, and no crackles HEART: Regular rate and rhythm, normal S1 and S2, no murmurs, rubs or gallops ABDOMEN: Soft, nontender, normoactive bowel sounds. No guarding, no rebound. No masses EXTREMITIES: Normal range of motion, no edema. No clubbing or cyanosis. No cords, erythema, or tenderness NEUROLOGICAL: Cranial nerves II through XII grossly intact. Normal speech, normal gait SKIN: Warm, Dry, normal turgor, no rashes or lesions noted. <Lamberto Hong - Last Filed: 11/27/18 16:37> - Vital Signs Last Vital Signs Temp Pulse Resp BP Pulse Ox 99 F 109 H 16 152/74 98 11/27/18 15:13 11/27/18 15:13 11/27/18 15:13 11/27/18 15:13 11/27/18 15:13 <Torrie Smith - Last Filed: 11/27/18 19:37> Moderate Sedation - Procedure Monitoring Vital Signs: Procedure Monitoring Vital Signs Temperature 99 F 11/27/18 15:13 Pulse Rate 109 H 11/27/18 15:13 Respiratory Rate 16 11/27/18 15:13 Blood Pressure 152/74 11/27/18 15:13 O2 Sat by Pulse Oximetry (%) 98 11/27/18 15:13 <Lamberto Hong - Last Filed: 11/27/18 16:37> - Procedure Monitoring Vital Signs: Procedure Monitoring Vital Signs Temperature 99 F 11/27/18 15:13 Pulse Rate 109 H 11/27/18 15:13 Respiratory Rate 16 11/27/18 15:13 Blood Pressure 152/74 11/27/18 15:13 O2 Sat by Pulse Oximetry (%) 98 11/27/18 15:13 <Torrie Smith - Last Filed: 11/27/18 19:37> ED Treatment Course - LABORATORY CBC & Chemistry Diagram: 11/27/18 17:24 11/27/18 17:24 <Torrie Smith - Last Filed: 11/27/18 19:37> Medical Decision Making - Medical Decision Making 11/27/18 17:50 Pt presents to the ED stating that she was sent in for "high blood sugar and acidic urine" on labs drawn by her PMD. Complains only of very mild frontal headache--denies other complaints at this time. FS 209 in the ED. Will check labs to rule out DKA or severe hyperglycemia. Will discharge with follow up with her PMD if labs are negative. <Torrie Smith - Last Filed: 11/27/18 19:37> *DC/Admit/Observation/Transfer - Attestations Scribe Attestion: 11/27/18 16:38 Documentation prepared by DAVID Ingram, acting as dental assistant medical assistant for Torrie Smith MD. <Lamberto Hong - Last Filed: 11/27/18 16:37> - Discharge Dispostion Decision to Admit order: No <Torrie Smith - Last Filed: 11/27/18 19:37> Diagnosis at time of Disposition: UTI (urinary tract infection) Qualifiers: Urinary tract infection type: acute cystitis Hematuria presence: without hematuria Qualified Code(s): N30.00 - Acute cystitis without hematuria - Discharge Dispostion Disposition: HOME Condition at time of disposition: Good - Prescriptions Prescriptions: Cephalexin [Keflex] 500 mg PO BID #10 capsule - Referrals Referrals: Sukhwinder Dee MD [Primary Care Provider] - - Patient Instructions Printed Discharge Instructions: DI for Urinary Tract Infection (UTI) Additional Instructions: You came to the ED for acid in the urine. Your labs here showed a mild urinary tract infection, mildly elevated blood sugar and a mild decrease in your kidney function. You should call your doctor on Thursday for an appointment, and bring the lab work that was done here with you. Return to the ED for severe pain, nausea and vomiting, fevers, severe abdominal pain, any other new or worsening symptoms. Make sure that you take the antibiotic until it is all gone. - Post Discharge Activity
[2018-11-27 17:36] LABS: BASO % 0.5 % (0-2.0); EOS % 1.1 % (0-4.5); HEMATOCRIT 31.4 % (32.4-45.2); HEMOGLOBIN 10.8 GM/dL (10.7-15.3); LYMPH % 18.6 % (8-40); MCH 31.4 pg (25.7-33.7); MCHC 34.5 g/dl (32.0-36.0); MEAN CELL VOLUME 90.8 fl (80-96); MEAN PLT VOLUME 10.5 fl (7.5-11.1); MONO % 8.5 % (3.8-10.2); NEUT % 71.3 % (42.8-82.8); PLATELET COUNT 188 K/MM3 (134-434); RBC 3.46 M/mm3 (3.60-5.2); WHITE BLOOD COUNT 7.1 K/mm3 (4.0-10.0)
[2018-11-27 18:08] LABS: URINE APPEARANCE SLCLOUDY; URINE BILIRUBIN NEGATIVE (<2.0 mg/dL); URINE COLOR YELLOW; URINE GLUCOSE (UA) 3+ (NEGATIVE); URINE KETONE NEGATIVE (NEGATIVE); URINE LEUK ESTERASE 3+ (NEGATIVE); URINE NITRITE NEGATIVE (NEGATIVE); URINE PROTEIN NEGATIVE (NEGATIVE); URINE UROBILINOGEN NEGATIVE mg/dL (0.2-1.0)
[2018-11-27 18:12] LABS: ALBUMIN 3.8 g/dl (3.4-5.0); ALK PHOS 81 U/L (45-117); ANION GAP 7 MMOL/L (8-16); BILIRUBIN,TOTAL 0.1 mg/dL (0.2-1); BLOOD UREA NITROGEN 30 mg/dL (7-18); CALCIUM 9.1 mg/dL (8.5-10.1); CHLORIDE 101 mmol/L (98-107); CO2 31 mmol/L (21-32); CREATININE 1.6 mg/dL (0.55-1.3); GLUCOSE,RANDOM 229 mg/dL (74-106); POTASSIUM 4.4 mmol/L (3.5-5.1); SGOT/AST 9 U/L (15-37); SGPT/ALT 17 U/L (13-61); SODIUM 139 mmol/L (136-145); TOT PROT 7.8 g/dl (6.4-8.2)
[2018-11-27 18:21] LABS: EPI CELLS FEW /HPF (FEW); URINE HYALINE CAST 1 /lpf
[2018-11-27 18:44] LABS: ACETONE SERUM NEGATIVE (NEGATIVE)
[2018-11-27] MEDS ORDERED: SODIUM CHLORIDE 1,000 ML IV STA (19:22)
[2018-11-27] MEDS ORDERED: CEPHALEXIN MONOHYDRATE 500 MG CAPSULE (UD) PO ONE (19:32)
[2018-11-27] MEDS ORDERED: CEPHALEXIN MONOHYDRATE 500 MG CAPSULE (UD) ONE (19:35)
== END 2018-11-27 19:55 | disposition home or self-care (01) ==
LOC: JER 14:32
PROC: 3E0337Z Introduction of Electrolytic and Water Balance Substance into Peripheral Vein, Percutaneous Approach (ICD-10-PCS; principal; 2018-11-27)
DX: N30.00 Acute cystitis without hematuria (principal); E11.9 Type 2 diabetes mellitus without complications; Z79.84 Long term (current) use of oral hypoglycemic drugs; I10 Essential (primary) hypertension; E78.00 Pure hypercholesterolemia, unspecified
CPT/HCPCS: 36415; 80053; 81003; 81015; 82009; 82962; 85025; 96360; 99281-25

== ENCOUNTER 2019-04-21 11:14 | Emergency (ER) | payer OTHER ==
[2019-04-21 12:11] VITALS: BMI 27.3
--- NOTE | 2019-04-21 12:45 | PDOC ---
History of Present Illness - General Chief Complaint: Headache Stated Complaint: HEADACHE VOMITING Time Seen by Provider: 04/21/19 12:15 - History of Present Illness Initial Comments: Ms. Venu June is a 73 y/o female with hx of DM, HTN, HLD, migraines, presenting with a headache that started at 10am and subsequent nausea and vomiting x3. Denies fever, chest pain, shortness of breath, neck pain, vision changes, abdominal pain, focal extremity weakness. States that she feels this headache is worse than prior. Denies head trauma, denies fall, denies LOC. Describes the pain as a global headache worse in the frontal areas. Pain equal bilaterally, does not radiate down neck. Denies dizziness. Meds: losartan for HTN, statin for HLD, insulin for DM History obtained through telephone weed cooking operator. Past History - Past Medical History Allergies/Adverse Reactions: Allergies Allergy/AdvReac Type Severity Reaction Status Date / Time No Known Allergies Allergy Verified 11/27/18 15:13 Home Medications: Ambulatory Orders Aspirin [ASA -] 81 mg PO DAILY tab.chew 09/13/15 Meclizine HCl [Antivert -] 25 mg PO TID #21 tablet 04/06/18 Acetaminophen/Caffeine/Butalb [Fioricet -] 1 tablet PO Q6H PRN 04/28/18 Glipizide 5 mg PO BID 04/28/18 Losartan Potassium 100 mg PO DAILY 04/28/18 Metformin HCl [Glucophage] 1,000 mg PO BID 04/28/18 Omeprazole 20 mg PO DAILY 04/21/19 Pen Needle, Diabetic [Insulin Pen Needle] 1 each MC 04/21/19 Anemia: No Asthma: No Cancer: No Cardiac Disorders: No CVA: No COPD: No CHF: No Dementia: No Diabetes: Yes GI Disorders: No Disorders: No HTN: Yes Hypercholesterolemia: Yes Liver Disease: No Seizures: No Thyroid Disease: No - Surgical History Abdominal Surgery: Yes Appendectomy: No Cardiac Surgery: No Cholecystectomy: No Lung Surgery: No Neurologic Surgery: No Orthopedic Surgery: No - Immunization History Immunization Up to Date: Yes - Suicide/Smoking/Psychosocial Hx Smoking History: Never smoked Have you smoked in the past 12 months: No Information on smoking cessation initiated: No Hx Alcohol Use: No Drug/Substance Use Hx: No Substance Use Type: None Review of Systems - Review of Systems Comments:: ROS obtained with weed cooking operator GENERAL/CONSTITUTIONAL: No fever or chills. No weakness._ HEAD, EYES, EARS, NOSE AND THROAT: No change in vision. No ear pain or discharge. No sore throat._ CARDIOVASCULAR: No chest pain or shortness of breath_ RESPIRATORY: Denies cough, hemoptysis_ GASTROINTESTINAL: Reports nausea and vomiting. No diarrhea or constipation._ GENITOURINARY: No dysuria, frequency, or change in urination._ MUSCULOSKELETAL: No joint or muscle swelling or pain. No neck or back pain._ SKIN: No rash_ NEUROLOGIC: Reports headache. Denies dizziness, vertigo, loss of consciousness, or change in strength/sensation._ ENDOCRINE: No increased thirst. No abnormal weight change_ HEMATOLOGIC/LYMPHATIC: No anemia, easy bleeding, or history of blood clots._ ALLERGIC/IMMUNOLOGIC: No hives or skin allergy._ Is the patient limited Kenyan proficient: Yes *Physical Exam - Vital Signs Last Vital Signs Temp Pulse Resp BP Pulse Ox 97.8 F 65 16 174/83 H 99 04/21/19 11:57 04/21/19 11:57 04/21/19 11:57 04/21/19 11:57 04/21/19 11:57 - Physical Exam Comments: Physical Exam performed with assistance of a weed cooking operator GENERAL: Awake, alert, and oriented to person/place/time, in no acute distress_ HEAD: No signs of trauma, normocephalic, atraumatic _ EYES: PERRLA, EOMI, sclera anicteric, conjunctiva clear_ ENT: Hearing grossly normal, nares patent, oropharynx clear without exudates. No uvular deviation. Moist mucosa_ NECK: Normal ROM, supple, no lymphadenopathy, JVD, or masses_ LUNGS: No distress, speaks in full sentences, clear to auscultation bilaterally _ HEART: Regular rate and rhythm, normal S1 and S2, no murmurs appreciated, peripheral pulses normal and equal bilaterally._ ABDOMEN: Soft, nontender, normoactive bowel sounds. No guarding, no rebound. No masses_ EXTREMITIES: Normal inspection, Normal range of motion, no edema. No clubbing or cyanosis_ NEUROLOGICAL: Cranial nerves II through XII grossly intact. Normal speech, normal gait, no focal sensorimotor deficits. No ataxia. Cerebellar testing negative. SKIN: Warm, Dry, normal turgor, no rashes or lesions noted_ ED Treatment Course - LABORATORY CBC & Chemistry Diagram: 04/21/19 13:10 04/21/19 13:10 Medical Decision Making - Medical Decision Making 04/21/19 1230 73F with hx of DM, HTN, HLD, migraines, presenting with headache worse than previous that started 2 hours ago with subsequent nausea and vomiting. No vision changes or focal neurological deficits. DDx includes migrane vs intracranial bleed vs hyper or hypoglycemia vs r/o ACS. Will obtain CBC, CMP, troponins, EKG, CXR, CT head without contrast. 04/21/19 13:53 EKG shows NSR 69 bpm, no axial deviation, no ST elevation/depression, QTc 465 ms. 04/21/19 14:23 CT shows no acute intracranial hemorrhage, edema, midline shift, mass effect or skull fracture. Blood glucose 206. WBC elevated at 11.8. 04/21/19 16:23 Pt reassessed. GI cocktail ordered for reflux. Will give Reglan, Toradol, and Benadryl for additional headache relief and reassess. 04/21/19 17:50 Labs reviewed. UA shows no signs of UTI. Patient is well appearing, states that the headache is much improved from this morning. Reports feeling well enough to go home. D/c with strict return precautions, and follow up with her neurologist in 1 week. *DC/Admit/Observation/Transfer Diagnosis at time of Disposition: Headache Qualifiers: Headache type: unspecified Headache chronicity pattern: unspecified pattern Intractability: not intractable Qualified Code(s): R51 - Headache - Discharge Dispostion Disposition: HOME Condition at time of disposition: Stable Decision to Admit order: No - Referrals Referrals: Lamberto Carrero MD [Non Staff, Medical] - - Patient Instructions Printed Discharge Instructions: DI for Headache Additional Instructions: Please keep your appointment and follow up with your neurologist in 1 week. Please take Tylenol as needed for headache. Please return to the emergency room if you experience any severe headaches, headaches that are different from your previous ones, nausea and vomiting, headaches that change in pain with different positions, fever, dizziness, vertigo, weakness in the arms or legs. - Post Discharge Activity
[2019-04-21] MEDS ORDERED: SODIUM CHLORIDE 0.9% 500 ML INFUS.BAG IV ONE (12:58)
[2019-04-21] MEDS ORDERED: ACETAMINOPHEN 1000 MG/100 ML VIAL (NON FORMULARY) IVPB ONE (12:58)
[2019-04-21] MEDS ORDERED: ACETAMINOPHEN INJECTION 100 ML IVPB ONE (13:13)
[2019-04-21 13:32] LABS: BASO % 0.3 % (0-2.0); EOS % 0.1 % (0-4.5); HEMATOCRIT 30.2 % (32.4-45.2); LYMPH % 7.9 % (8-40); MCH 29.7 pg (25.7-33.7); MCHC 33.3 g/dl (32.0-36.0); MEAN CELL VOLUME 89.3 fl (80-96); MONO % 5.1 % (3.8-10.2); NEUT % 86.6 % (42.8-82.8); PLATELET COUNT 165 K/MM3 (134-434); RBC 3.38 M/mm3 (3.60-5.2); RDW 13.3 % (11.6-15.6); WHITE BLOOD COUNT 11.8 K/mm3 (4.0-10.0)
[2019-04-21 14:07] LABS: ALBUMIN 3.6 g/dl (3.4-5.0); ALK PHOS 79 U/L (45-117); ANION GAP 10 MMOL/L (8-16); BILIRUBIN,TOTAL 0.2 mg/dL (0.2-1); BLOOD UREA NITROGEN 27.1 mg/dL (7-18); CALCIUM 8.8 mg/dL (8.5-10.1); CHLORIDE 106 mmol/L (98-107); CO2 26 mmol/L (21-32); CREATININE 1.3 mg/dL (0.55-1.3); GLUCOSE,RANDOM 206 mg/dL (74-106); POTASSIUM 4.2 mmol/L (3.5-5.1); SGOT/AST 15 U/L (15-37); SGPT/ALT 17 U/L (13-61); SODIUM 142 mmol/L (136-145); TOT PROT 7.5 g/dl (6.4-8.2)
--- NOTE | 2019-04-21 14:36 | EKG ---
Test Reason : Blood Pressure : / mmHG Vent. Rate : 069 BPM Atrial Rate : 069 BPM P-R Int : 162 ms QRS Dur : 082 ms QT Int : 434 ms P-R-T Axes : 049 -03 045 degrees QTc Int : 465 ms NORMAL SINUS RHYTHM POSSIBLE LEFT ATRIAL ENLARGEMENT BORDERLINE ECG WHEN COMPARED WITH ECG OF 31-AUG-2018 14:34, NO SIGNIFICANT CHANGE WAS FOUND Confirmed by STEVO JEREZ MD ([id number]) on 04/21/2019 2:35:53 PM Referred By: Confirmed By:STEVO JEREZ MD
[2019-04-21] MEDS ORDERED: FAMOTIDINE 20 MG/50 ML IVPB 20 MG/50 ML MG IVPB ONE ×2 (14:47→15:04)
[2019-04-21] MEDS ORDERED: MAG HYDROX/AL HYDROX/SIMETH -MYLANTA- ORAL SUSPENSION PO ONE (14:47)
[2019-04-21] MEDS ORDERED: LIDOCAINE VISCOUS 2% ORAL/TOP 20 ML UNIT-DOSE CUP MM ONE (14:47)
[2019-04-21] MEDS ORDERED: LIDOCAINE VISCOUS 2% ORAL/TOP 20 ML UNIT-DOSE CUP ONE (15:03)
[2019-04-21] MEDS ORDERED: MAG HYDROX/AL HYDROX/SIMETH 30 ML UNIT-DOSE CUP ONE (15:03)
[2019-04-21] MEDS ORDERED: KETOROLAC TROMETHAMINE 15 MG/ML VIAL IVPUSH ONE (16:10)
[2019-04-21] MEDS ORDERED: METOCLOPRAMIDE HCL INJECTION 10 MG/2 ML VIAL IVPUSH ONE (16:10)
[2019-04-21] MEDS ORDERED: METOCLOPRAMIDE HCL INJECTION 10 MG/2 ML VIAL ONE (16:31)
[2019-04-21] MEDS ORDERED: KETOROLAC TROMETHAMINE 15 MG/ML VIAL ONE (16:32)
--- NOTE | 2019-04-21 17:03 | PDOC ---
Documentation entered by Minh Rueda SCRIBE, acting as scribe for Caitlyn Casey MD. Caitlyn Casey MD: This documentation has been prepared by the Marybeth miner Elijah, SCRIBE, under my direction and personally reviewed by me in its entirety. I confirm that the documentation accurately reflects all work, treatment, procedures, and medical decision making performed by me. Attending Attestation - Resident Resident Name: Boom Gutierrez - ED Attending Attestation I have performed the following: I have examined & evaluated the patient, The case was reviewed & discussed with the resident, I agree w/resident's findings & plan - HPI HPI: 04/21/19 16:05 73 yo F w/ a PMH of diabetes, HTN and HLD who presents to the ED with a headache beginning x6 hours ago associated with nausea and x3 episodes of vomiting.Patient reports that the pain is frontal and behind the eyes, is associated with blurry vision and is similar to headaches she has had in the past. Patient was recently seen in the ED where an MRI and work up was done which came back negative. Denies fevers Allergies: ARMANDO PCP: Dr. Dee - Physicial Exam PE: 04/21/19 16:58 awake alert lungs clear bilat heart rrr no mrg abd soft nt nd ext wwp speech clear alert oriented x 3. 5/5 all four ext speech clear. - Medical Decision Making 04/21/19 17:00 73 yo F with h/o migraines, followed a nuerologist here with c/o headache. starting yesterday. does have vision change she gets with all migraines, and n/ v. no f/c no head trauma. no focal weakness. plan ct head. lbs ivf, toradol tylenol reglan. pt feels mild improvement with tylenol will give toradol and reglan. ct head negative. labs unremarkable. Heart Score/ECG Review #1 ECG reviewed & interpreted by me at: 17:02 General ECG Interpretation: Sinus Rhythm, Normal Rate (69), Normal Intervals, No acute ischemic changes
[2019-04-21 17:39] LABS: URINE APPEARANCE CLEAR; URINE BILIRUBIN NEGATIVE (NEGATIVE); URINE COLOR YELLOW; URINE GLUCOSE (UA) 1+ (NEGATIVE); URINE KETONE NEGATIVE (NEGATIVE); URINE LEUK ESTERASE NEGATIVE (NEGATIVE); URINE NITRITE NEGATIVE (NEGATIVE); URINE PROTEIN TRACE (NEGATIVE); URINE UROBILINOGEN 0.2 mg/dL (0.2-1.0)
[2019-04-21] MEDS ORDERED: DEXAMETHASONE SOD PHOSPHATE 20 MG/5 ML VIAL IVPB ONE (17:43)
[2019-04-21] MEDS ORDERED: DEXAMETHASONE SOD PHOSPHATE 10 MG/1 ML VIAL ONE (17:50)
[2019-04-21 18:11] VITALS: BP 122/57; PULSE 69; TEMP 97.5
== END 2019-04-21 18:19 | disposition home or self-care (01) ==
LOC: JER 11:14
PROC: 3E0333Z Introduction of Anti-inflammatory into Peripheral Vein, Percutaneous Approach (ICD-10-PCS; principal; 2019-04-21)
PROC: 3E033NZ Introduction of Analgesics, Hypnotics, Sedatives into Peripheral Vein, Percutaneous Approach (ICD-10-PCS; 2019-04-21)
PROC: 3E0337Z Introduction of Electrolytic and Water Balance Substance into Peripheral Vein, Percutaneous Approach (ICD-10-PCS; 2019-04-21)
PROC: 3E033GC Introduction of Other Therapeutic Substance into Peripheral Vein, Percutaneous Approach (ICD-10-PCS; 2019-04-21)
DX: R51 Headache (principal); I10 Essential (primary) hypertension; E78.5 Hyperlipidemia, unspecified; E11.9 Type 2 diabetes mellitus without complications; Z79.84 Long term (current) use of oral hypoglycemic drugs
CPT/HCPCS: 36415; 70450-TC; 71045-TC-FY; 80053; 81003; 82550; 84484; 85025; 93005; 93010; 99283-25; J0131

== ENCOUNTER 2019-09-24 16:27 | Inpatient (IN) | payer OTHER ==
[2019-09-24] MEDS ORDERED: ACETAMINOPHEN 325 MG TABLET (FP) PO ONE (17:32)
[2019-09-24] MEDS ORDERED: LACTATED RINGERS SOLUTION 1000 ML INFUS.BAG IV ONE ×2 (17:32→18:59)
[2019-09-24] MEDS ORDERED: METOCLOPRAMIDE HCL INJECTION 10 MG/2 ML VIAL IVPUSH ONE (17:32)
[2019-09-24] MEDS ORDERED: ACETAMINOPHEN 325 MG TABLET (FP) ONE (17:44)
[2019-09-24] MEDS ORDERED: METOCLOPRAMIDE HCL INJECTION 10 MG/2 ML VIAL ONE (17:45)
[2019-09-24 18:06] LABS: BASO % 0.4 % (0-2.0); HEMATOCRIT 29.9 % (32.4-45.2); LYMPH % 7.4 % (8-40); MCHC 33.3 g/dl (32.0-36.0); MEAN PLT VOLUME 11.4 fl (7.5-11.1); NEUT % 83.2 % (42.8-82.8); PLATELET COUNT 142 K/MM3 (134-434); RBC 3.32 M/mm3 (3.60-5.2); RDW 13.6 % (11.6-15.6); WHITE BLOOD COUNT 8.1 K/mm3 (4.0-10.0)
[2019-09-24] MEDS ORDERED: OSELTAMIVIR PHOSPHATE 75 MG CAPSULE PO ONE (18:26)
[2019-09-24 18:27] LABS: EPI CELLS 9.7 /HPF (0-5/HPF); HYALINE CASTS 27 /lpf (0-8); URINE APPEARANCE CLOUDY; URINE BACTERIA 0.2 /hpf (NEGATIVE); URINE BILIRUBIN NEGATIVE (NEGATIVE); URINE COLOR YELLOW; URINE GLUCOSE (UA) NEGATIVE (NEGATIVE); URINE KETONE NEGATIVE (NEGATIVE); URINE LEUK ESTERASE NEGATIVE (NEGATIVE); URINE NITRITE NEGATIVE (NEGATIVE); URINE PROTEIN 1+ (NEGATIVE); URINE RBC 0 /hpf (0-4); URINE UROBILINOGEN 0.2 mg/dL (0.2-1.0); URINE WBC 1 /hpf (0-5)
[2019-09-24 18:35] LABS: ALBUMIN 3.7 g/dl (3.4-5.0); ALK PHOS 79 U/L (45-117); ANION GAP 9 MMOL/L (8-16); BILIRUBIN,TOTAL 0.3 mg/dL (0.2-1); BLOOD UREA NITROGEN 26.4 mg/dL (7-18); CALCIUM 9.1 mg/dL (8.5-10.1); CHLORIDE 103 mmol/L (98-107); CO2 24 mmol/L (21-32); CREATININE 1.5 mg/dL (0.55-1.3); GLUCOSE,RANDOM 259 mg/dL (74-106); POTASSIUM 3.8 mmol/L (3.5-5.1); SGOT/AST 21 U/L (15-37); SGPT/ALT 18 U/L (13-61); SODIUM 137 mmol/L (136-145); TOT PROT 7.9 g/dl (6.4-8.2)
--- NOTE | 2019-09-24 18:47 | PDOC ---
History of Present Illness - General History Source: Patient, Spouse ( at Bedside), Manager Business Operations Used ([employer] Machine Tender #[id number]), Old Records Exam Limitations: Language Barrier - History of Present Illness Initial Comments: HPI: 74 y/o female presenting to [facility] ER complaining of mild bifrontal headache, cough, chest pain, and generalized weakness since this morning. States the headache is less severe than her typical migraines. Cough has been productive of yellow sputum; no color change; no associated shortness of breath. Chest pain is described as constant and localized to anterior chest wall. Unable to tell if the pain is worse with exertion because she is unable to ambulate secondary to the fatigue. reports his was bent over picking up sandals yesterday when she transitioned to her knees. She was subsequently unable to return to the standing position until she received assistance from a neighbor. Able to walk with a cane, but does not like to do so. Denies pain or numbness in her arms and legs. Took Tylenol last evening for these symptoms. Medical Hx: - HTN - T2DM - Headaches - Depression - Anxiety Review of Systems: In addition to that documented in the HPI above, the additional ROS was obtained : Constitutional- Endorses subjective fevers and chills Head- Denies vision changes ENMT- Denies sore throat CV- Per HPI Denies chest pain Resp- Denies SOB GI- Denies abdominal pain, vomiting, or diarrhea - Denies painful urination or hematuria MSK- Denies recent trauma Skin- Denies new rashes Neuro- Denies new numbness or tingling Endocrine- Denies polyuria Heme- Denies bleeding or bruising Physical Examination: Vital signs and nursing notes reviewed. Constitutional- Puny appearing elderly adult female in no acute distress but obvious generalized discomfort. Found semi-fowlers on hospital bed. Head- Normocephalic. No obvious external signs of trauma. Neck- Supple, trachea is midline. Cardiovascular / Chest- Tachycardic rate with regular rhythm. No murmur, rubs, clicks, or gallops. Peripheral pulses- radial pulses full. No pretibial edema. Respiratory- Breathing tachypenic with subcostal retractions. Occasional cough during interview. Hypoxic to 91% on room air, which improves to 98% on low flow nasal cannula. Equal chest rise and fall. Clear to auscultation bilaterally. No stridor, no wheezing, no rhonchi. Gastrointestinal- abdomen is soft, non-tender, non-distended. Neuro- Alert and oriented x4. Moving all four extremities spontaneously. No facial asymmetry. No slurred speech. Sensation to all four extremities intact. R and L lower extremity proximal and distal strength 4/5 Plantar flexion and dorsiflexion 5/5. Skin- Pale, feverish, mildly diaphoretic. - No R or L CVA tenderness. Psych- Affect- appropriate. Mood- normal. Speech was non-labored, non- pressured. MDM: 74 y/o female presenting with headache, nonproductive cough, chest pain, and generalized weakness. Febrile at triage. Vitals remarkable for tachycardia without hypotension. Borderline hypoxia on room air. Physical exam as described above. Suspect possible viral syndrome. Low suspicion for PNA, CHF, or ACS. Ordered Tylenol, Reglan, and IVFB for symptom relief. Reviewed laboratory results. Influenza A positive. Ordered Tamiflu and placed on isolation. No leukocytosis. Mild elevation in Cr, suspect ANT. Will continue IVF. EKG unremarkable for ischemic changes. Troponin not elevated. Will not repeat as symptoms have been present for >3 hours. Will admit the pt for influenza infection complicated with tachypnea, ANT, and comorbidities. 24 Sep 2019 19:23 PM Telephone discussion with resident Dr. Martinez. Verbally appraised of the pts HPI, ED course, and current plan of management. Will admit pt to med/surg for attending Dr. Negrete. Gunnar Bloom M.D., PGY2 Emergency Medicine Resident <Gunnar Bloom - Last Filed: 09/24/19 19:25> <Ольга Engel - Last Filed: 09/25/19 09:53> - General Chief Complaint: Lightheaded Stated Complaint: DIZZINESS Time Seen by Provider: 09/24/19 16:38 Past History - Past Medical History Anemia: No Asthma: No Cancer: No Cardiac Disorders: No CVA: No COPD: No CHF: No Dementia: No Diabetes: Yes GI Disorders: No Disorders: No HTN: Yes Hypercholesterolemia: Yes Liver Disease: No Seizures: No Thyroid Disease: No - Surgical History Abdominal Surgery: Yes Appendectomy: No Cardiac Surgery: No Cholecystectomy: No Lung Surgery: No Neurologic Surgery: No Orthopedic Surgery: No - Immunization History Immunization Up to Date: Yes - Psycho Social/Smoking Cessation Hx Smoking History: Unknown if ever smoked Have you smoked in the past 12 months: No Hx Alcohol Use: No Drug/Substance Use Hx: No Substance Use Type: None <Gunnar Bloom - Last Filed: 09/24/19 19:25> <Ольга Engel - Last Filed: 09/25/19 09:53> - Past Medical History Allergies/Adverse Reactions: Allergies Allergy/AdvReac Type Severity Reaction Status Date / Time No Known Allergies Allergy Verified 11/27/18 15:13 Home Medications: Ambulatory Orders Aspirin [ASA -] 81 mg PO DAILY tab.chew 09/13/15 Meclizine HCl [Antivert -] 25 mg PO TID #21 tablet 04/06/18 Acetaminophen/Caffeine/Butalb [Fioricet Tablets] 1 tablet PO Q6H PRN 04/28/18 Glipizide 5 mg PO BID 04/28/18 Losartan Potassium 100 mg PO DAILY 04/28/18 Metformin HCl [Glucophage] 1,000 mg PO BID 04/28/18 Omeprazole 20 mg PO DAILY 04/21/19 Pen Needle, Diabetic [Insulin Pen Needle] 1 each MC QID 04/21/19 *Physical Exam - Vital Signs Last Vital Signs Temp Pulse Resp BP Pulse Ox 100.9 F H 54 L 24 H 142/72 97 09/24/19 16:30 09/24/19 16:30 09/24/19 16:30 09/24/19 16:30 09/24/19 17:37 <Gunnar Bloom - Last Filed: 09/24/19 19:25> - Vital Signs Last Vital Signs Temp Pulse Resp BP Pulse Ox 98.4 F 98 H 20 127/70 98 09/25/19 06:31 09/25/19 06:31 09/25/19 06:31 09/25/19 06:31 09/25/19 05:00 <Ольга Engel - Last Filed: 09/25/19 09:53> Vital Signs - Vital Signs #1 Time: 18:48 Blood Pressure: 141/56 BP Location: Right Arm Blood Pressure Position: Sitting Pulse Rate: 100 Respiratory Rate: 22 O2 Sat by Pulse Oximetry (%): 98 Oxygen Delivery Method: Nasal Cannula Oxygen Flow Rate: 1 <Gunnar Bloom - Last Filed: 09/24/19 19:25> ED Treatment Course - LABORATORY CBC & Chemistry Diagram: 09/24/19 17:48 09/24/19 17:48 - ADDITIONAL ORDERS Additional order review: Laboratory Results 09/24/19 09/24/19 09/24/19 17:50 17:48 16:59 Sodium 137 Potassium 3.8 Chloride 103 Carbon Dioxide 24 Anion Gap 9 BUN 26.4 H Creatinine 1.5 H Est GFR (CKD-EPI)AfAm 38.82 Est GFR (CKD-EPI)NonAf 33.49 POC Glucometer 256 Random Glucose 259 H Calcium 9.1 Magnesium 2.0 Total Bilirubin 0.3 AST 21 ALT 18 Alkaline Phosphatase 79 Troponin I < 0.02 Total Protein 7.9 Albumin 3.7 Urine Color Yellow Urine Appearance Cloudy Urine pH 5.0 Ur Specific [place] 1.021 Urine Protein 1+ H Urine Glucose (UA) Negative Urine Ketones Negative Urine Blood Negative Urine Nitrite Negative Urine Bilirubin Negative Urine Urobilinogen 0.2 Ur Leukocyte Esterase Negative Urine WBC (Auto) 1 Urine RBC (Auto) 0 Urine Casts (Auto) 27 U Epithel Cells (Auto) 9.7 Urine Bacteria (Auto) 0.2 09/24/19 09/24/19 17:48 16:59 RBC 3.32 L MCV 90.0 MCHC 33.3 RDW 13.6 MPV 11.4 H Neutrophils % 83.2 H Lymphocytes % 7.4 L Monocytes % 9.0 Eosinophils % 0.0 D Basophils % 0.4 POC Glucometer 256 - RADIOLOGY Radiology Studies Ordered: Category Date Time Status CHEST X-RAY PORTABLE* [RAD] Stat Radiology 09/24/19 17:32 Taken - Medications Given in the ED: ED Medications Discontinued Medications Generic Name Dose Route Start Last Admin Trade Name Freq PRN Reason Stop Dose Admin Acetaminophen 650 mg 09/24/19 17:32 09/24/19 17:45 Tylenol - PO 09/24/19 17:33 650 mg ONCE ONE Administration Lactated Ringer's 1,000 ml 09/24/19 17:32 09/24/19 17:34 Lactated Ringers Solution IV 09/24/19 17:33 1,000 ml ONCE ONE Administration Metoclopramide HCl 10 mg 09/24/19 17:32 09/24/19 17:45 Reglan Injection - IVPUSH 09/24/19 17:33 10 mg ONCE ONE Administration <Gunnar Bloom - Last Filed: 09/24/19 19:25> - LABORATORY CBC & Chemistry Diagram: 09/25/19 06:45 09/25/19 06:45 - ADDITIONAL ORDERS Additional order review: 09/24/19 09/24/19 17:48 16:59 RBC 3.32 L MCV 90.0 MCHC 33.3 RDW 13.6 MPV 11.4 H Neutrophils % 83.2 H Lymphocytes % 7.4 L Monocytes % 9.0 Eosinophils % 0.0 D Basophils % 0.4 POC Glucometer 256 - Medications Given in the ED: ED Medications Discontinued Medications Generic Name Dose Route Start Last Admin Trade Name [place] PRN Reason Stop Dose Admin Acetaminophen 650 mg 09/24/19 17:32 09/24/19 17:45 Tylenol - PO 09/24/19 17:33 650 mg ONCE ONE Administration Lactated Ringer's 1,000 ml in 1,000 mls @ 100 mls/hr 09/24/19 19:30 09/24/19 20:02 Lactated Ringers Solution IV 100 mls/hr ASDIR SAUL Administration Lactated Ringer's 1,000 ml 09/24/19 17:32 09/24/19 17:34 Lactated Ringers Solution IV 09/24/19 17:33 1,000 ml ONCE ONE Administration Lactated Ringer's 1,000 ml 09/24/19 18:59 09/24/19 19:01 Lactated Ringers Solution IV 09/24/19 19:00 1,000 ml ONCE ONE Administration Metoclopramide HCl 10 mg 09/24/19 17:32 09/24/19 17:45 Reglan Injection - IVPUSH 09/24/19 17:33 10 mg ONCE ONE Administration Oseltamivir Phosphate 75 mg 09/24/19 18:26 09/24/19 18:47 Tamiflu - PO 09/24/19 18:27 75 mg ONCE ONE Administration <Ольга Engel - Last Filed: 09/25/19 09:53> Discharge - Discharge Information Problems reviewed: Yes - Admission Yes <Gunnar Bloom - Last Filed: 09/24/19 19:25> - Admission Yes <Ольга Engel - Last Filed: 09/25/19 09:53> - Discharge Information Clinical Impression/Diagnosis: Hyperglycemia, Dizziness, Cough, Tachypnea, Influenza A, Difficulty walking, ANT (acute kidney injury) Headache Qualifiers: Headache type: unspecified Headache chronicity pattern: acute headache Intractability: not intractable Qualified Code(s): R51 - Headache Chest pain Qualifiers: Chest pain type: unspecified Qualified Code(s): R07.9 - Chest pain, unspecified Condition: Stable Addendum entered and electronically signed by Gunnar Bloom, RESIDENT 09/24/19 19 :26: ED Progress Note - Progress Note Progress Note: Reviewed CXR. No focal consolidation or effusion per ED wet read. Radiology report pending.
--- NOTE | 2019-09-24 18:47 | PDOC ---
Attending Attestation - Resident Resident Name: Gunnar Bloom - ED Attending Attestation I have performed the following: I have examined & evaluated the patient, The case was reviewed & discussed with the resident, I agree w/resident's findings & plan - HPI HPI: 09/24/19 18:47 73 y/o female with hx of DM, HTN, HLD, migraines, presenting with 1 day of headache, chest pain, fatigue and generalized malaise/weakness, with difficulty walking. +cough subjective fever and chills. - Physicial Exam PE: 09/24/19 18:43Agree with the resident's HPI and PE as documented in the electronic medical record. very malaised appearing, EOMI, PERRL, nl conjunctiva, anicteric; dry mucus membranes, neck supple. lungs clear, no rhonchi/wheeze, but also poor inspiratory effort. +tachypneic. RRR, no murmur. abdomen soft nontender. no rebound, guarding. Back nontender. GEORGE x4, no focal neuro deficits. No peripheral edema. normal color for ethnicity, WW. - Medical Decision Making 09/24/19 18:42 Vital Signs Temp Pulse Resp BP Pulse Ox 100.9 F H 54 L 24 H 142/72 97 09/24/19 16:30 09/24/19 16:30 09/24/19 16:30 09/24/19 16:30 09/24/19 17:37 VS with fever, tmax 100.9, HD appropriate normal sats. tachypneic. clear breath sounds. ddx, flu, pna, viral syndrome, dehydration, anemia, electrolyte/metabolic derangements. Laboratory results without leukocytosis, baseline anemia. Electrolytes within normal limits however creatinine is fluctuated, currently at 1.5, baseline closer to 1.3. Urinalysis is negative for infection preliminarily. trop neg, reassuring less likely cardiac, zeynep or pericarditis. Flu A positive, given less than 1 day of symptoms and comorbidities will treat with Tamiflu, first dose here. Patient is relatively tachypneic but could be breaking her fever she is noted to be febrile here placed on oxygen for supplemental support, will admit for influenza and tachypnea, dehydration, medical management and supportive care. droplet precautions, mask placed. 09/24/19 18:48 09/24/19 18:48 12/28/19 18:49 Heart Score/ECG Review #1 ECG reviewed & interpreted by me at: 16:45 General ECG Interpretation: Sinus Rhythm 09/24/19 18:49 EKG sinus tachycardia 112 bpm, no interval abnormalities, narrow QRS, ST and T wave segments and morphology normal. Nonspecific T wave abnormalities
[2019-09-24] MEDS ORDERED: OSELTAMIVIR PHOSPHATE 75 MG CAPSULE ONE (18:49)
[2019-09-24] MEDS ORDERED: LACTATED RINGERS SOLUTION 1,000 ML/1,000 ML INFUS.BAG IV SCH (19:30)
--- NOTE | 2019-09-24 20:18 | HP ---
CHIEF COMPLAINT: severe malaise PCP: Steve HISTORY OF PRESENT ILLNESS: 74F w/ pmh of HTN, T2DM, migraines, depression, anxiety presents to [facility] with complaint of severe fatigue with associated SOB, cough w/ productive yellow sputum, sneezing x2d. Had an episode of severe fatigue while making breakfast this morning. Collapsed to the ground due to the weakness, but denies lightheadedness, CP, palpitations, hitting head, or LOC. Had to be helped up by her . Denies recent sick contacts. At baseline, will intermittently use her 's cane to ambulate throughout house. Has [employer], visits 6x/week from 0900 - 1500. Denies h/o PA, stroke, anemia, kidney disease. [facility] #[id number] ER course was notable for: (1) O2 91% on RA, 98% on 1L NC (2) tachycardia ~112, high 90s on bedside monitors (3) EKG: sinus tachy, QTc 453 (4) acetaminophen 650mg, LR x2L, reglan x1, tamiflu x1 Recent Travel: none PAST MEDICAL HISTORY: HTN, T2DM, migraines, depression, anxiety PAST SURGICAL HISTORY: hysterectomy Social History: Smoking: never Alcohol: denies Drugs: never Allergies No Known Allergies Allergy (Verified 11/27/18 15:13) HOME MEDICATIONS: Home Medications Medication Instructions Recorded Aspirin [ASA -] 81 mg PO DAILY tab.chew 09/13/15 Meclizine HCl [Antivert -] 25 mg PO TID #21 tablet 04/06/18 Acetaminophen/Caffeine/Butalb 1 tablet PO Q6H PRN 04/28/18 [Fioricet Tablets] Glipizide 5 mg PO BID 04/28/18 Losartan Potassium 100 mg PO DAILY 04/28/18 Metformin HCl [Glucophage] 1,000 mg PO BID 04/28/18 Omeprazole 20 mg PO DAILY 04/21/19 Pen Needle, Diabetic [Insulin Pen 1 each MC QID 04/21/19 Needle] REVIEW OF SYSTEMS CONSTITUTIONAL: generalized weakness, malaise, loss of appetite, Absent: fever, chills, diaphoresis, weight change HEENT: Absent: rhinorrhea, nasal congestion, throat pain, throat swelling, difficulty swallowing CARDIOVASCULAR: Absent: chest pain, syncope, palpitations, irregular heart rate, lightheadedness , peripheral edema RESPIRATORY: cough w/ yellow sputum, shortness of breath Absent: dyspnea with exertion, orthopnea, wheezing, stridor, hemoptysis GASTROINTESTINAL: occasional constipation Absent: abdominal pain, abdominal distension, nausea, vomiting, diarrhea, constipation, melena, hematochezia GENITOURINARY: Absent: dysuria, frequency, hematuria MUSCULOSKELETAL: Absent: myalgia, arthralgia, joint swelling, back pain, neck pain SKIN: Absent: rash, itching, pallor HEMATOLOGIC/IMMUNOLOGIC: Absent: lymphadenopathy, frequent infections NEUROLOGIC: occasional headaches, weakness with walking Absent: focal weakness or paresthesias, dizziness, unsteady gait, seizure PHYSICAL EXAMINATION Vital Signs - 24 hr 09/24/19 09/24/19 09/24/19 16:30 17:37 19:23 Temperature 100.9 F H Pulse Rate 54 L Pulse Rate [#1] 100 H Respiratory 24 H Rate Respiratory 22 H Rate [#1] Blood Pressure 142/72 Blood Pressure 141/56 L [#1] O2 Sat by Pulse 99 97 Oximetry (%) O2 Sat by Pulse 98 Oximetry (%) [ #1] GENERAL: Awake, alert, and fully oriented, in no acute distress. HEAD: Normal with no signs of trauma. Mild diaphoresis EYES: extraocular movements intact, sclera anicteric, conjunctiva clear. No lid lag. EARS, NOSE, THROAT: Ears normal, nares patent, oropharynx clear without exudates. Moist mucous membranes. NECK: Normal range of motion, supple without cervical lymphadenopathy, JVD, or masses. LUNGS: mild wheezes of b/l bases. No crackles. No accessory muscle use. On 2L NC HEART: Regular rate and rhythm, normal S1 and S2 without murmur, rub or gallop. HR in 90s on bedside monitor ABDOMEN: Soft, nontender, not distended, normoactive bowel sounds, no guarding, no rebound, no masses. MUSCULOSKELETAL: Normal range of motion at all joints. No bony deformities or tenderness. No CVA tenderness. UPPER EXTREMITIES: 2+ pulses, warm, well-perfused. No cyanosis. No clubbing. No peripheral edema. LOWER EXTREMITIES: 2+ pulses, warm, well-perfused. No calf tenderness. No peripheral edema. NEUROLOGICAL: Normal speech. Moving all four extremities spontaneously PSYCHIATRIC: Cooperative. Good eye contact. Appropriate mood and affect. SKIN: Warm, dry, normal turgor, no rashes or lesions noted, normal capillary refill. Laboratory Results - last 24 hr 09/24/19 09/24/19 09/24/19 16:59 17:48 17:48 WBC 8.1 RBC 3.32 L Hgb 10.0 L Hct 29.9 L MCV 90.0 MCH 30.0 MCHC 33.3 RDW 13.6 Plt Count 142 MPV 11.4 H Absolute Neuts (auto) 6.8 Neutrophils % 83.2 H Lymphocytes % 7.4 L Monocytes % 9.0 Eosinophils % 0.0 D Basophils % 0.4 Nucleated RBC % 0 Sodium 137 Potassium 3.8 Chloride 103 Carbon Dioxide 24 Anion Gap 9 BUN 26.4 H Creatinine 1.5 H Est GFR (CKD-EPI)AfAm 38.82 Est GFR (CKD-EPI)NonAf 33.49 POC Glucometer 256 Random Glucose 259 H Calcium 9.1 Magnesium 2.0 Total Bilirubin 0.3 AST 21 ALT 18 Alkaline Phosphatase 79 Troponin I < 0.02 Total Protein 7.9 Albumin 3.7 Urine Color Urine Appearance Urine pH Ur Specific [place] Urine Protein Urine Glucose (UA) Urine Ketones Urine Blood Urine Nitrite Urine Bilirubin Urine Urobilinogen Ur Leukocyte Esterase Urine WBC (Auto) Urine RBC (Auto) Urine Casts (Auto) U Pathogenic Cast Auto U Epithel Cells (Auto) Urine Bacteria (Auto) Influenza A (Rapid) Influenza B (Rapid) 09/24/19 09/24/19 17:48 17:50 WBC RBC Hgb Hct MCV MCH MCHC RDW Plt Count MPV Absolute Neuts (auto) Neutrophils % Lymphocytes % Monocytes % Eosinophils % Basophils % Nucleated RBC % Sodium Potassium Chloride Carbon Dioxide Anion Gap BUN Creatinine Est GFR (CKD-EPI)AfAm Est GFR (CKD-EPI)NonAf POC Glucometer Random Glucose Calcium Magnesium Total Bilirubin AST ALT Alkaline Phosphatase Troponin I Total Protein Albumin Urine Color Yellow Urine Appearance Cloudy Urine pH 5.0 Ur Specific [place] 1.021 Urine Protein 1+ H Urine Glucose (UA) Negative Urine Ketones Negative Urine Blood Negative Urine Nitrite Negative Urine Bilirubin Negative Urine Urobilinogen 0.2 Ur Leukocyte Esterase Negative Urine WBC (Auto) 1 Urine RBC (Auto) 0 Urine Casts (Auto) 27 U Pathogenic Cast Auto None seen U Epithel Cells (Auto) 9.7 Urine Bacteria (Auto) 0.2 Influenza A (Rapid) Positive A Influenza B (Rapid) Negative ASSESSMENT/PLAN: 74F w/ pmh of HTN, T2DM, migraines, depression, anxiety presents to [facility] with complaint of severe fatigue with associated SOB, cough w/ productive yellow sputum, sneezing x2d. Labs showing normocytic anemia, ANT, positive Influenza A. Admitted for severe malaise from influenza. # acute influenza infection > influenza A: positive > CXR: appears normal. final read is pending - Tamiflu 75mg BID x5, on day 1 # SOB --likely 2/2 acute viral syndrome - duonebs q6h, PRN # elevated HR -- likely 2/2 acute viral syndrome > HR 90s - continue to monitor # ANT(baseline ~0.9 to ?1.3) --likely 2/2 to poor PO intake > Cr 1.5 - ED: s/p LR 2L - cw IVF # normocytic anemia > Hgb 10 - fu iron studies # chronic diabetes - insulin sliding scale # chronic essential HTN - pt is unsure of home meds # severe weakness --likely 2/2 acute viral syndrome - PT evaluation FEN - LR @75 - diabetic diet DVT PPX - SQH DISPO: - Med/surg - PT eval Family Medical History Family Hx Diabetes: Brother Visit type - Emergency Visit Emergency Visit: Yes ED Registration Date: 09/24/19 Care time: The patient presented to the Emergency Department on the above date and was hospitalized for further evaluation of their emergent condition. - New Patient This patient is new to me today: Yes Date on this admission: 09/25/19 - Critical Care Critical Care patient: No ATTENDING PHYSICIAN STATEMENT I saw and evaluated the patient. I reviewed the resident's note and discussed the case with the resident. I agree with the resident's findings and plan as documented. SUBJECTIVE: OBJECTIVE: ASSESSMENT AND PLAN:
--- NOTE | 2019-09-24 20:57 | PN ---
Teaching Attending Note Name of Resident: Chi Martinez ATTENDING PHYSICIAN STATEMENT I saw and evaluated the patient. I reviewed the resident's note and discussed the case with the resident. I agree with the resident's findings and plan as documented. SUBJECTIVE: This is a 74 year old woman with a history of HTN, hyperlipidemia, type 2 DM, depression, anxiety, migraine headaches who comes to the ED today complaining of weakness, cough, and headache. She has had symptoms for several days. Cough has been productive of yellow sputum. This morning, while making breakfast, she suddenly became so fatigued and weak that she fell to the ground. There was no seizure activity, incontinence, head trauma, or loss of consciousness. OBJECTIVE: Vital Signs Period Temp Pulse Resp BP Sys/Levi Pulse Ox Last 24 Hr 100.9 F 54-100 20-24 141-152/56-72 97-99 HEART: S1S2, tachycardic LUNGS: Clear ABDOMEN: Soft, non-tender, non-distended, normal BS EXTREMITIES: No edema Laboratory Tests 09/24/19 09/24/19 09/24/19 16:59 17:48 17:48 WBC 8.1 RBC 3.32 L Hgb 10.0 L Hct 29.9 L MCV 90.0 MCH 30.0 MCHC 33.3 RDW 13.6 Plt Count 142 MPV 11.4 H Absolute Neuts (auto) 6.8 Neutrophils % 83.2 H Lymphocytes % 7.4 L Monocytes % 9.0 Eosinophils % 0.0 D Basophils % 0.4 Nucleated RBC % 0 Sodium 137 Potassium 3.8 Chloride 103 Carbon Dioxide 24 Anion Gap 9 BUN 26.4 H Creatinine 1.5 H Est GFR (CKD-EPI)AfAm 38.82 Est GFR (CKD-EPI)NonAf 33.49 POC Glucometer 256 Random Glucose 259 H Calcium 9.1 Magnesium 2.0 Total Bilirubin 0.3 AST 21 ALT 18 Alkaline Phosphatase 79 Troponin I < 0.02 Total Protein 7.9 Albumin 3.7 Urine Color Urine Appearance Urine pH Ur Specific [place] Urine Protein Urine Glucose (UA) Urine Ketones Urine Blood Urine Nitrite Urine Bilirubin Urine Urobilinogen Ur Leukocyte Esterase Urine WBC (Auto) Urine RBC (Auto) Urine Casts (Auto) U Pathogenic Cast Auto U Epithel Cells (Auto) Urine Bacteria (Auto) Influenza A (Rapid) Influenza B (Rapid) 09/24/19 09/24/19 17:48 17:50 WBC RBC Hgb Hct MCV MCH MCHC RDW Plt Count MPV Absolute Neuts (auto) Neutrophils % Lymphocytes % Monocytes % Eosinophils % Basophils % Nucleated RBC % Sodium Potassium Chloride Carbon Dioxide Anion Gap BUN Creatinine Est GFR (CKD-EPI)AfAm Est GFR (CKD-EPI)NonAf POC Glucometer Random Glucose Calcium Magnesium Total Bilirubin AST ALT Alkaline Phosphatase Troponin I Total Protein Albumin Urine Color Yellow Urine Appearance Cloudy Urine pH 5.0 Ur Specific [place] 1.021 Urine Protein 1+ H Urine Glucose (UA) Negative Urine Ketones Negative Urine Blood Negative Urine Nitrite Negative Urine Bilirubin Negative Urine Urobilinogen 0.2 Ur Leukocyte Esterase Negative Urine WBC (Auto) 1 Urine RBC (Auto) 0 Urine Casts (Auto) 27 U Pathogenic Cast Auto None seen U Epithel Cells (Auto) 9.7 Urine Bacteria (Auto) 0.2 Influenza A (Rapid) Positive A Influenza B (Rapid) Negative Home Medications Medication Instructions Recorded Aspirin [ASA -] 81 mg PO DAILY tab.chew 09/13/15 Meclizine HCl [Antivert -] 25 mg PO TID #21 tablet 04/06/18 Acetaminophen/Caffeine/Butalb 1 tablet PO Q6H PRN 04/28/18 [Fioricet Tablets] Glipizide 5 mg PO BID 04/28/18 Losartan Potassium 100 mg PO DAILY 04/28/18 Metformin HCl [Glucophage] 1,000 mg PO BID 04/28/18 Omeprazole 20 mg PO DAILY 04/21/19 Pen Needle, Diabetic [Insulin Pen 1 each MC QID 04/21/19 Needle] ASSESSMENT AND PLAN: This is a 74 year old woman with a history of HTN, hyperlipidemia, type 2 DM, depression, anxiety, migraine headaches who presented to the ED with weakness, productive cough, and headache. 1. Sepsis (tachycardia, tachypnea) secondary to influenza A - No evidence of pneumonia - IV fluid - Tamiflu started in ED 2. HTN - Hold losartan secondary to increased creatinine 3. Hyperlipidemia - On no medication 4. Type 2 DM - Hold glipizide, metformin - Fingersticks with Novolog sliding scale 5. Stage 3 CKD - Baseline creatinine 1.3, is 1.5 today - Hold losartan, metformin - IV fluid - Monitor BUN, creatinine 6. Migraine headaches - Takes Fioricet as needed 7. Depression and anxiety 8. Anemia - Normocytic - Likely secondary to chronic illness/CKD - Hgb is at baseline - Check iron studies
[2019-09-24] MEDS ORDERED: ALBUTEROL SO4 2.5/IPRATROPIUM 0.5 INH SOL 3 ML VIAL.NEB. NEB PRN (20:58)
[2019-09-24] MEDS ORDERED: LACTATED RINGERS SOLUTION 1,000 ML IV SCH (21:00)
[2019-09-24] MEDS: INSULIN SLIDING SCALE (NOVOLOG) 1 VIAL SQ SCH (22:45)
[2019-09-25] MEDS: HEPARIN NA (PORCINE) 5,000 UNITS/ML 1ML VIAL SQ SCH ×3 (02:57→21:31)
[2019-09-25 04:54] VITALS: BMI 26.4
[2019-09-25] MEDS: INSULIN SLIDING SCALE (NOVOLOG) 1 VIAL SQ SCH ×3 (06:14→17:12)
[2019-09-25 07:26] LABS: HEMATOCRIT 26.5 % (32.4-45.2); HEMOGLOBIN 8.8 GM/dL (10.7-15.3); MCHC 33.1 g/dl (32.0-36.0); MEAN CELL VOLUME 90.6 fl (80-96); MEAN PLT VOLUME 10.5 fl (7.5-11.1); PLATELET COUNT 114 K/MM3 (134-434); RBC 2.92 M/mm3 (3.60-5.2); RDW 13.2 % (11.6-15.6); WHITE BLOOD COUNT 3.4 K/mm3 (4.0-10.0)
[2019-09-25 08:00] LABS: BLOOD UREA NITROGEN 21.3 mg/dL (7-18); CALCIUM 8.4 mg/dL (8.5-10.1); PHOSPHOROUS 4.1 mg/dL (2.5-4.9); POTASSIUM 3.6 mmol/L (3.5-5.1)
[2019-09-25] MEDS ORDERED: PT OWN MED DRAWER 7, Y5N ONE ×2 (09:08→18:47)
[2019-09-25] MEDS: OSELTAMIVIR PHOSPHATE 75 MG CAPSULE PO SCH ×2 (09:20→21:31)
--- NOTE | 2019-09-25 13:09 | PN ---
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 has no cp ., has cough . HAd abd pain. no diarrhea , no dysuria , no focal weakness but feels tired. has DURHAM . no change in vision from base line Objective: Vital Signs: Last Vital Signs Temp Pulse Resp BP Pulse Ox 99 F 88 20 120/70 98 09/25/19 09:00 09/25/19 09:00 09/25/19 09:00 09/25/19 09:00 09/25/19 09:00 Laboratory Results - last 24 hr 09/24/19 09/24/19 09/24/19 16:59 17:48 17:48 WBC 8.1 RBC 3.32 L Hgb 10.0 L Hct 29.9 L MCV 90.0 MCH 30.0 MCHC 33.3 RDW 13.6 Plt Count 142 MPV 11.4 H Absolute Neuts (auto) 6.8 Neutrophils % 83.2 H Lymphocytes % 7.4 L Monocytes % 9.0 Eosinophils % 0.0 D Basophils % 0.4 Nucleated RBC % 0 Sodium 137 Potassium 3.8 Chloride 103 Carbon Dioxide 24 Anion Gap 9 BUN 26.4 H Creatinine 1.5 H Est GFR (CKD-EPI)AfAm 38.82 Est GFR (CKD-EPI)NonAf 33.49 POC Glucometer 256 Random Glucose 259 H Calcium 9.1 Phosphorus Magnesium 2.0 Iron TIBC Iron Saturation Unsaturated IBC Ferritin Total Bilirubin 0.3 AST 21 ALT 18 Alkaline Phosphatase 79 Troponin I < 0.02 Total Protein 7.9 Albumin 3.7 Urine Color Urine Appearance Urine pH Ur Specific [place] Urine Protein Urine Glucose (UA) Urine Ketones Urine Blood Urine Nitrite Urine Bilirubin Urine Urobilinogen Ur Leukocyte Esterase Urine WBC (Auto) Urine RBC (Auto) Urine Casts (Auto) U Pathogenic Cast Auto U Epithel Cells (Auto) Urine Bacteria (Auto) Influenza A (Rapid) Influenza B (Rapid) 09/24/19 09/24/19 09/24/19 17:48 17:50 22:37 WBC RBC Hgb Hct MCV MCH MCHC RDW Plt Count MPV Absolute Neuts (auto) Neutrophils % Lymphocytes % Monocytes % Eosinophils % Basophils % Nucleated RBC % Sodium Potassium Chloride Carbon Dioxide Anion Gap BUN Creatinine Est GFR (CKD-EPI)AfAm Est GFR (CKD-EPI)NonAf POC Glucometer 187 Random Glucose Calcium Phosphorus Magnesium Iron TIBC Iron Saturation Unsaturated IBC Ferritin Total Bilirubin AST ALT Alkaline Phosphatase Troponin I Total Protein Albumin Urine Color Yellow Urine Appearance Cloudy Urine pH 5.0 Ur Specific [place] 1.021 Urine Protein 1+ H Urine Glucose (UA) Negative Urine Ketones Negative Urine Blood Negative Urine Nitrite Negative Urine Bilirubin Negative Urine Urobilinogen 0.2 Ur Leukocyte Esterase Negative Urine WBC (Auto) 1 Urine RBC (Auto) 0 Urine Casts (Auto) 27 U Pathogenic Cast Auto None seen U Epithel Cells (Auto) 9.7 Urine Bacteria (Auto) 0.2 Influenza A (Rapid) Positive A Influenza B (Rapid) Negative 09/25/19 09/25/19 09/25/19 06:11 06:45 06:45 WBC 3.4 L RBC 2.92 L Hgb 8.8 L Hct 26.5 L MCV 90.6 MCH 30.0 MCHC 33.1 RDW 13.2 Plt Count 114 L MPV 10.5 Absolute Neuts (auto) Neutrophils % Lymphocytes % Monocytes % Eosinophils % Basophils % Nucleated RBC % Sodium 139 Potassium 3.6 Chloride 107 Carbon Dioxide 26 Anion Gap 6 L BUN 21.3 H Creatinine 1.0 Est GFR (CKD-EPI)AfAm 63.38 Est GFR (CKD-EPI)NonAf 54.68 POC Glucometer 166 Random Glucose 152 H Calcium 8.4 L Phosphorus 4.1 Magnesium 2.0 Iron 15 L TIBC Iron Saturation Unsaturated IBC Ferritin Total Bilirubin AST ALT Alkaline Phosphatase Troponin I Total Protein Albumin Urine Color Urine Appearance Urine pH Ur Specific [place] Urine Protein Urine Glucose (UA) Urine Ketones Urine Blood Urine Nitrite Urine Bilirubin Urine Urobilinogen Ur Leukocyte Esterase Urine WBC (Auto) Urine RBC (Auto) Urine Casts (Auto) U Pathogenic Cast Auto U Epithel Cells (Auto) Urine Bacteria (Auto) Influenza A (Rapid) Influenza B (Rapid) 09/25/19 09/25/19 06:45 12:23 WBC RBC Hgb Hct MCV MCH MCHC RDW Plt Count MPV Absolute Neuts (auto) Neutrophils % Lymphocytes % Monocytes % Eosinophils % Basophils % Nucleated RBC % Sodium Potassium Chloride Carbon Dioxide Anion Gap BUN Creatinine Est GFR (CKD-EPI)AfAm Est GFR (CKD-EPI)NonAf POC Glucometer 124 Random Glucose Calcium Phosphorus Magnesium Iron 17 L TIBC 261 Iron Saturation 6 L Unsaturated IBC 244 Ferritin 187.3 Total Bilirubin AST ALT Alkaline Phosphatase Troponin I Total Protein Albumin Urine Color Urine Appearance Urine pH Ur Specific [place] Urine Protein Urine Glucose (UA) Urine Ketones Urine Blood Urine Nitrite Urine Bilirubin Urine Urobilinogen Ur Leukocyte Esterase Urine WBC (Auto) Urine RBC (Auto) Urine Casts (Auto) U Pathogenic Cast Auto U Epithel Cells (Auto) Urine Bacteria (Auto) Influenza A (Rapid) Influenza B (Rapid) Physical Exam: NAD , Awake, alert, eating lunch MMM.. CV: RRR, no MRG Lungs: course crackles b/l. scattered wheezing. good air entry Abd; obese, soft, NT, ND , N LBS Ext : no edema or erythema on LE Imaging: cxray reviewed. Assessment/Plan: 74 y/o lady with h/o depression , anxiety, HTN, HLP, DM, migraines who was found to have INfluenza A. 1- Sepsis form Influenza A: No recurrence of fever. no signs of PNA. has crackles and minimal wheezing - cont Tamiflu started on 09/24 chet. - add standing Nebs. cont PRN Nebs - dc IVF and monitor lung exam. - repeat Cxray 2- ANT: due to volume depletion . improved with IVF - cont to monitor - resume losartan tomorrow - ? CKD 3- H/o HTN: BP is normal;. renal function just recovered. resume in am 4- Normocytic anemia: per EMR , she had anemia before. will monitor HB and she needs anemia w/u as out pt 5- DM: hold po meds , cont SSI ., 6- DVT px : cont heparin Visit type - Emergency Visit Emergency Visit: Yes ED Registration Date: 09/24/19 Care time: The patient presented to the Emergency Department on the above date and was hospitalized for further evaluation of their emergent condition. - New Patient This patient is new to me today: Yes Date on this admission: 09/25/19 - Critical Care Critical Care patient: No
--- NOTE | 2019-09-25 15:27 | EKG ---
Test Reason : Blood Pressure : / mmHG Vent. Rate : 112 BPM Atrial Rate : 112 BPM P-R Int : 144 ms QRS Dur : 074 ms QT Int : 332 ms P-R-T Axes : 070 039 061 degrees QTc Int : 453 ms SINUS TACHYCARDIA POSSIBLE LEFT ATRIAL ENLARGEMENT BORDERLINE ECG WHEN COMPARED WITH ECG OF 21-APR-2019 11:31, VENT. RATE HAS INCREASED BY 43 BPM Confirmed by MD WALDO, KYLAH ([id number]) on 09/25/2019 3:27:45 PM Referred By: Confirmed By:KYLAH HAAS MD
[2019-09-25] MEDS: ALBUTEROL SO4 2.5/IPRATROPIUM 0.5 INH SOL 3 ML VIAL.NEB. NEB SCH ×2 (15:45→20:19)
[2019-09-25] MEDS: BENZOCAINE/MENTH/CETYLPYRD CL 1 EACH LOZENGE MM PRN (21:31)
[2019-09-26] MEDS: HEPARIN NA (PORCINE) 5,000 UNITS/ML 1ML VIAL SQ SCH ×3 (01:07→18:05)
[2019-09-26] MEDS: BENZOCAINE/MENTH/CETYLPYRD CL 1 EACH LOZENGE MM PRN (05:36)
[2019-09-26] MEDS: INSULIN SLIDING SCALE (NOVOLOG) 1 VIAL SQ SCH ×3 (06:01→17:54)
[2019-09-26] MEDS: ALBUTEROL SO4 2.5/IPRATROPIUM 0.5 INH SOL 3 ML VIAL.NEB. NEB SCH ×3 (07:40→21:48)
[2019-09-26 08:25] LABS: BASO % 0.5 % (0-2.0); EOS % 1.4 % (0-4.5); HEMATOCRIT 26.1 % (32.4-45.2); HEMOGLOBIN 8.6 GM/dL (10.7-15.3); LYMPH % 22.3 % (8-40); MCH 29.7 pg (25.7-33.7); MCHC 32.8 g/dl (32.0-36.0); MEAN CELL VOLUME 90.7 fl (80-96); MEAN PLT VOLUME 10.6 fl (7.5-11.1); MONO % 16.8 % (3.8-10.2); PLATELET COUNT 117 K/MM3 (134-434); RBC 2.88 M/mm3 (3.60-5.2); RDW 13.1 % (11.6-15.6); WHITE BLOOD COUNT 2.7 K/mm3 (4.0-10.0)
[2019-09-26 09:14] LABS: BLOOD UREA NITROGEN 17.2 mg/dL (7-18); CALCIUM 8.4 mg/dL (8.5-10.1); CREATININE 0.9 mg/dL (0.55-1.3); MAGNESIUM 1.9 mg/dL (1.8-2.4); PHOSPHOROUS 3.9 mg/dL (2.5-4.9); POTASSIUM 3.8 mmol/L (3.5-5.1)
[2019-09-26] MEDS: LOSARTAN POTASSIUM 50 MG TABLET (FP) PO SCH (11:01)
[2019-09-26] MEDS ORDERED: PT OWN MED DRAWER 7, Y5N ONE ×5 (11:03→20:56)
[2019-09-26] MEDS: ACETAMINOPHEN/CAFFEINE/BUTALBITAL 1 TAB PO PRN ×2 (11:53→21:23)
[2019-09-26] MEDS: OSELTAMIVIR PHOSPHATE 75 MG CAPSULE PO SCH ×2 (12:50→21:24)
[2019-09-26] MEDS: guaiFENesin/D-M SUGAR-FREE/ACLHOL-FREE 118 ML BOTTLE PO PRN ×2 (12:51→22:20)
--- NOTE | 2019-09-26 13:19 | PN ---
Teaching Attending Note Name of Resident: Chi Martinez ATTENDING PHYSICIAN STATEMENT I saw and evaluated the patient. I reviewed the resident's note and discussed the case with the resident. I agree with the resident's findings and plan as documented. SUBJECTIVE: no fever or chills. has DURHAM that feels similar to her migraines. HAs generalized abd pain. has no diarrhea. feels sicka dn tired and SOB . has cough . no sputum production OBJECTIVE: NAD , Awake, alert, eating lunch MMM. CV: RRR, no MRG Lungs: course crackles b/l. good air entry Abd; obese, soft, NT, ND , N LBS Ext: no edema or erythema on LE Assessment/Plan: 74 y/o lady with h/o depression , anxiety, HTN, HLP, DM, migraines who was found to have INfluenza A. 1- Sepsis form Influenza A: - Cont Tamiflu . last dose 1/2 Am dose - Cont Nebs - Monitor off IVF - repeat Cxray this am with no change - check pre-post ambulatory O2 2- ANT: due to volume depletion . improved - cont to monitor . encourage oral hydration - resume losartan - ? CKD 3- H/o HTN: Losartan 4- Normocytic anemia:w/u as out pt 5- DM: hold po meds, cont SSI . 6- Migraine DURHAM : resume her home fioricet 6- DVT px: cont heparin
--- NOTE | 2019-09-26 16:06 | PN ---
Physical Exam: SUBJECTIVE: Patient seen and examined NAEON Endorsing DURHAM, pain with swallowing, fatigue, mild SOB, low appetite OBJECTIVE: Vital Signs Period Temp Pulse Resp BP Sys/Levi Pulse Ox Last 24 Hr 97.8 F-99.5 F 64-109 18-22 118-147/60-71 95-98 GENERAL: The patient is awake, alert, in no acute distress. HEAD: NC/AT. Mild temporal wasting EYES: sclera anicteric, conjunctiva clear and w/o pallor. No ptosis. ENT: Ears normal, nares patent, oropharynx clear without exudates, moist mucous membranes. NECK: Trachea midline, full range of motion, supple. LUNGS: Breath sounds equal, clear to auscultation bilaterally, mild wheezes, no crackles, no accessory muscle use. HEART: Regular rate and rhythm, S1, S2 without murmur, rub or gallop. ABDOMEN: Soft, nontender, nondistended, normoactive bowel sounds, no guarding, no rebound. EXTREMITIES: 2+ pulses, warm, well-perfused, no edema. NEUROLOGICAL: Normal speech, gait not observed. PSYCH: Normal mood, normal affect. SKIN: Warm, dry, normal turgor, no rashes or lesions noted Laboratory Results - last 24 hr 09/25/19 09/25/19 09/26/19 16:54 20:48 05:36 WBC RBC Hgb Hct MCV MCH MCHC RDW Plt Count MPV Absolute Neuts (auto) Neutrophils % Lymphocytes % Monocytes % Eosinophils % Basophils % Nucleated RBC % Sodium Potassium Chloride Carbon Dioxide Anion Gap BUN Creatinine Est GFR (CKD-EPI)AfAm Est GFR (CKD-EPI)NonAf POC Glucometer 220 97 140 Random Glucose Calcium Phosphorus Magnesium 09/26/19 09/26/19 09/26/19 06:00 07:20 12:02 WBC 2.7 L RBC 2.88 L Hgb 8.6 L Hct 26.1 L MCV 90.7 MCH 29.7 MCHC 32.8 RDW 13.1 Plt Count 117 L MPV 10.6 Absolute Neuts (auto) 1.6 Neutrophils % 59.0 D Lymphocytes % 22.3 D Monocytes % 16.8 H D Eosinophils % 1.4 D Basophils % 0.5 Nucleated RBC % 0 Sodium 141 Potassium 3.8 Chloride 108 H Carbon Dioxide 26 Anion Gap 7 L BUN 17.2 Creatinine 0.9 Est GFR (CKD-EPI)AfAm 71.98 Est GFR (CKD-EPI)NonAf 62.11 POC Glucometer 185 Random Glucose 165 H Calcium 8.4 L Phosphorus 3.9 Magnesium 1.9 Active Medications Generic Name Dose Route Start Last Admin Trade Name Freq PRN Reason Stop Dose Admin Acetaminophen/Butalbital/Caffeine 1 tablet 09/26/19 09:29 09/26/19 11:53 Fioricet - PO 1 tablet Q6H PRN Administration HEADACHE Albuterol/Ipratropium 1 amp 09/24/19 20:58 09/25/19 03:19 Duoneb - NEB 1 amp Q6H PRN Administration SHORTNESS OF BREATH Albuterol/Ipratropium 1 amp 09/25/19 14:00 09/26/19 14:15 Duoneb - NEB 1 amp RTID SAUL Administration Aspirin 81 mg 09/26/19 15:15 Asa - PO DAILY SAUL Benzocaine/Menthol 1 each 09/25/19 21:06 09/26/19 05:36 Cepacol Lozenge - MM 1 each PRN PRN Administration SORE THROAT Divalproex Sodium 500 mg 09/26/19 15:15 Depakote *Er* - PO DAILY SAUL Guaifenesin 5 ml 09/26/19 09:29 09/26/19 12:51 Diabetic Tussin Dm - PO 5 ml Q6H PRN Administration COUGH Heparin Sodium (Porcine) 5,000 unit 09/25/19 02:00 09/26/19 11:01 Heparin - SQ 5,000 unit Q8H-IV SAUL Administration Hydrochlorothiazide 25 mg 09/26/19 15:15 Hctz - PO DAILY SAUL Insulin Aspart 1 vial 09/25/19 16:30 09/26/19 12:26 Novolog Vial Sliding Scale - SQ 2 units TIDAC SAUL Administration Protocol Losartan Potassium 100 mg 09/26/19 10:00 09/26/19 11:01 Cozaar - PO 100 mg DAILY SAUL Administration Magnesium Oxide 400 mg 09/26/19 15:58 Mag-Ox - PO 09/26/19 22:01 BID SAUL Oseltamivir Phosphate 75 mg 09/25/19 10:00 09/26/19 12:50 Tamiflu - PO 09/30/19 09:59 75 mg BID SAUL Administration ASSESSMENT/PLAN: 74F w/ pmh of HTN, T2DM, migraines, depression, anxiety presents to [facility] with complaint of severe fatigue with associated SOB, cough w/ productive yellow sputum, sneezing x2d. Labs showing normocytic anemia, ANT, positive Influenza A. Admitted for severe malaise from influenza. # acute influenza infection > influenza A: positive > CXR(09/24/19): neg for acute path > CXR(09/25/19): neg for acute path > CXR(09/26/19): neg for acute path - Tamiflu 75mg BID x5, on day 2 # SOB --likely 2/2 acute viral syndrome - duonebs q6h, PRN - Guaifenesin - Pre-/Post-(09/26/19): 95% on RA, pt was too weak to ambulate # chronic migraines - fioricet - depakote # elevated HR -- likely 2/2 acute viral syndrome > HR 90s - continue to monitor # ANT(baseline ~0.9 to ?1.3) --likely 2/2 to poor PO intake > Cr 1.5 --> 0.9 - ED: s/p LR 2L - encourage PO hydration # normocytic anemia > Hgb 10 - fu iron studies # chronic diabetes - insulin sliding scale # chronic essential HTN - pt is unsure of home meds # severe weakness --likely 2/2 acute viral syndrome - PT evaluation FEN - diabetic diet DVT PPX - SQH DISPO: - Med/surg - PT eval: 09/25 --15ft Visit type - Emergency Visit Emergency Visit: No - New Patient This patient is new to me today: No - Critical Care Critical Care patient: No ATTENDING PHYSICIAN STATEMENT I saw and evaluated the patient. I reviewed the resident's note and discussed the case with the resident. I agree with the resident's findings and plan as documented. SUBJECTIVE: OBJECTIVE: ASSESSMENT AND PLAN:
[2019-09-26] MEDS: MAGNESIUM OXIDE 400 MG TABLET (FP) PO SCH ×2 (17:43→21:24)
[2019-09-26] MEDS: ASPIRIN 81 MG CHEWABLE TABLETS PO SCH (17:43)
[2019-09-26] MEDS: HYDROCHLOROTHIAZIDE 25 MG TABLET (FP) PO SCH (17:43)
[2019-09-26] MEDS: DIVALPROEX NA *ER* EXTEND REL 500 MG TABLET.SA (FP) PO SCH (17:44)
[2019-09-27] MEDS: HEPARIN NA (PORCINE) 5,000 UNITS/ML 1ML VIAL SQ SCH ×2 (01:41→10:07)
[2019-09-27] MEDS: INSULIN SLIDING SCALE (NOVOLOG) 1 VIAL SQ SCH ×2 (06:33→14:55)
[2019-09-27] MEDS ORDERED: INSULIN (NOVOLOG) ASPART 100 UNITS/ML 10ML VIAL ONE ×2 (07:14→14:53)
[2019-09-27] MEDS: ALBUTEROL SO4 2.5/IPRATROPIUM 0.5 INH SOL 3 ML VIAL.NEB. NEB SCH ×2 (08:02→14:25)
[2019-09-27 08:08] LABS: HEMATOCRIT 26.1 % (32.4-45.2); HEMOGLOBIN 8.6 GM/dL (10.7-15.3); MCH 29.8 pg (25.7-33.7); MCHC 32.8 g/dl (32.0-36.0); MEAN CELL VOLUME 90.7 fl (80-96); MEAN PLT VOLUME 10.9 fl (7.5-11.1); PLATELET COUNT 130 K/MM3 (134-434); RBC 2.87 M/mm3 (3.60-5.2); RDW 13.2 % (11.6-15.6); WHITE BLOOD COUNT 3.2 K/mm3 (4.0-10.0)
[2019-09-27 08:41] LABS: BLOOD UREA NITROGEN 14.4 mg/dL (7-18); CALCIUM 8.1 mg/dL (8.5-10.1); MAGNESIUM 1.9 mg/dL (1.8-2.4); PHOSPHOROUS 3.5 mg/dL (2.5-4.9); POTASSIUM 3.7 mmol/L (3.5-5.1)
[2019-09-27] MEDS ORDERED: PT OWN MED DRAWER 7, Y5N ONE ×3 (10:01→11:36)
[2019-09-27] MEDS: ASPIRIN 81 MG CHEWABLE TABLETS PO SCH (10:06)
[2019-09-27] MEDS: LOSARTAN POTASSIUM 50 MG TABLET (FP) PO SCH (10:07)
[2019-09-27] MEDS: HYDROCHLOROTHIAZIDE 25 MG TABLET (FP) PO SCH (10:07)
[2019-09-27] MEDS: DIVALPROEX NA *ER* EXTEND REL 500 MG TABLET.SA (FP) PO SCH (10:07)
[2019-09-27] MEDS: OSELTAMIVIR PHOSPHATE 75 MG CAPSULE PO SCH (10:09)
[2019-09-27] MEDS: guaiFENesin/D-M SUGAR-FREE/ACLHOL-FREE 118 ML BOTTLE PO PRN (11:32)
[2019-09-27] MEDS ORDERED: predniSONE 20 MG TABLET (UD) PO SCH (13:15)
--- NOTE | 2019-09-27 13:37 | DS ---
Physical Exam: SUBJECTIVE: Patient seen and examined OBJECTIVE: Vital Signs Period Temp Pulse Resp BP Sys/Levi Pulse Ox Last 24 Hr 98.1 F-99.0 F 92-99 20-20 134-144/62-66 95 PHYSICAL EXAM GENERAL: The patient is awake, alert, and fully oriented, in no acute distress. HEAD: Normal with no signs of trauma. EYES: PERRL, extraocular movements intact, sclera anicteric, conjunctiva clear. ENT: Ears normal, nares patent, oropharynx clear without exudates, moist mucous membranes. NECK: Trachea midline, full range of motion, supple. LUNGS: Breath sounds equal, clear to auscultation bilaterally, no wheezes, no crackles, no accessory muscle use. HEART: Regular rate and rhythm, S1, S2 without murmur, rub or gallop. ABDOMEN: Soft, nontender, nondistended, normoactive bowel sounds, no guarding, no rebound, no hepatosplenomegaly, no masses. EXTREMITIES: 2+ pulses, warm, well-perfused, no edema. NEUROLOGICAL: Cranial nerves II through XII grossly intact. Normal speech, gait not observed. PSYCH: Normal mood, normal affect. SKIN: Warm, dry, normal turgor, no rashes or lesions noted. LABS Laboratory Results - last 24 hr 09/26/19 09/26/19 09/27/19 17:47 21:20 06:31 WBC RBC Hgb Hct MCV MCH MCHC RDW Plt Count MPV Sodium Potassium Chloride Carbon Dioxide Anion Gap BUN Creatinine Est GFR (CKD-EPI)AfAm Est GFR (CKD-EPI)NonAf POC Glucometer 161 117 169 Random Glucose Calcium Phosphorus Magnesium 09/27/19 09/27/19 06:50 06:50 WBC 3.2 L RBC 2.87 L Hgb 8.6 L Hct 26.1 L MCV 90.7 MCH 29.8 MCHC 32.8 RDW 13.2 Plt Count 130 L MPV 10.9 Sodium 140 Potassium 3.7 Chloride 104 Carbon Dioxide 30 Anion Gap 6 L BUN 14.4 Creatinine 1.0 Est GFR (CKD-EPI)AfAm 63.38 Est GFR (CKD-EPI)NonAf 54.68 POC Glucometer Random Glucose 175 H Calcium 8.1 L Phosphorus 3.5 Magnesium 1.9 HOSPITAL COURSE: Date of Admission:09/24/19 Date of Discharge: 09/27/19 Minutes to complete discharge: 37 Discharge Summary Problems reviewed: Yes Reason For Visit: INFLUENZA DUE TO INFLUENZA VIRUS, TYPE A HUMAN, Current Active Problems ANT (acute kidney injury) (Acute) Chest pain (Acute) Cough (Acute) Difficulty walking (Acute) Dizziness (Acute) Hyperglycemia (Acute) Influenza A (Acute) Tachypnea (Acute) Headache (Chronic) Condition: Stable - Instructions Referrals: Sukhwinder Dee MD [Primary Care Provider] - - Home Medications Comprehensive Discharge Medication List: Ambulatory Orders Aspirin [ASA -] 81 mg PO DAILY tab.chew 09/13/15 Losartan Potassium 100 mg PO DAILY 04/28/18 Metformin HCl [Glucophage] 1,000 mg PO BID 04/28/18 Omeprazole 40 mg PO DAILY 04/21/19 Pen Needle, Diabetic [Insulin Pen Needle] 1 each MC QID 04/21/19 Blood Sugar Diagnostic [Contour Next Test Strip] 1 each AD DAILY 09/26/19 Divalproex Sodium [Depakote ER] 500 mg PO DAILY 09/26/19 Docusate Sodium [Stool Softener] 100 mg PO DAILY 09/26/19 Ergocalciferol [Vitamin D2] 1 cap PO WEEKLY 09/26/19 Ferrous Gluconate [Fergon -] 324 mg PO DAILY 09/26/19 Hydrochlorothiazide 25 mg PO DAILY 09/26/19 Insulin Glargine,Hum.rec.anlog [Basaglar Kwikpen U-100] 10 units SQ HS 09/26/19 Meclizine HCl [Antivert -] 25 mg PO BID 09/26/19 Mirtazapine 15 mg PO DAILY 09/26/19 Pravastatin Sodium [Pravachol -] 80 mg PO DAILY 09/26/19 Pyridostigmine [place] 60 mg PO DAILY 09/26/19 ATTENDING PHYSICIAN STATEMENT I saw and evaluated the patient. I reviewed the resident's note and discussed the case with the resident. I agree with the resident's findings and plan as documented. SUBJECTIVE: OBJECTIVE: ASSESSMENT AND PLAN:
[2019-09-27 14:40] VITALS: BP 142/68; PULSE 91; TEMP 98.5
--- NOTE | 2019-09-27 14:52 | PN ---
Teaching Attending Note Name of Resident: Chi Martinez ATTENDING PHYSICIAN STATEMENT I saw and evaluated the patient. I reviewed the resident's note and discussed the case with the resident. I agree with the resident's findings and plan as documented. SUBJECTIVE: No fever or chills. mild DURHAM. . No abd pain, no diarrhea. R leg pain OBJECTIVE: NAD , Awake, alert MMM. CV: RRR, no MRG Lungs: fine crackles at bases . scattered wheezing. . good air entry Abd; obese, soft, NT, ND , N LBS Ext: no edema or erythema on LE. Tenderness over R calf and thigh Assessment/Plan: 74 y/o lady with h/o depression , anxiety, HTN, HLP, DM, migraines who was found to have INfluenza A. 1- Sepsis form Influenza A: - Cont Tamiflu . last dose 1/2 Am dose -albuterol inhaler at dc - refused to cooperate with pre and post . does not require O2 - add a short course of prednisone due to wheezing , ( reactive air way disease ) 2- ANT: due to volume depletion. improved - cont to monitor . - resume losartan 3- H/o HTN: Losartan 4- Normocytic anemia:w/u as out pt 5- DM: hold po meds, cont SSI . at home she is on levemir at HS 6- Migraine DURHAM : fioricet PRN dc home with VNS
--- NOTE | 2019-09-27 18:37 | DS ---
Physical Exam: SUBJECTIVE: Patient seen and examined OBJECTIVE: Vital Signs Period Temp Pulse Resp BP Sys/Levi Pulse Ox Last 24 Hr 98 F-98.5 F 91-98 20-20 134-146/62-68 PHYSICAL EXAM GENERAL: The patient is awake, alert, in no acute distress. HEAD: NC/AT. Mild temporal wasting EYES: sclera anicteric, conjunctiva clear and w/o pallor. No ptosis. ENT: Ears normal, nares patent, oropharynx clear without exudates, moist mucous membranes. NECK: Trachea midline, full range of motion, supple. LUNGS: Breath sounds equal, clear to auscultation bilaterally, mild wheezes, no crackles, no accessory muscle use. HEART: Regular rate and rhythm, S1, S2 without murmur, rub or gallop. ABDOMEN: Soft, nontender, nondistended, normoactive bowel sounds, no guarding, no rebound. EXTREMITIES: 2+ pulses, warm, well-perfused, no edema. NEUROLOGICAL: Normal speech, gait not observed. PSYCH: Normal mood, normal affect. SKIN: Warm, dry, normal turgor, no rashes or lesions noted LABS Laboratory Results - last 24 hr 09/26/19 09/27/19 09/27/19 21:20 06:31 06:50 WBC 3.2 L RBC 2.87 L Hgb 8.6 L Hct 26.1 L MCV 90.7 MCH 29.8 MCHC 32.8 RDW 13.2 Plt Count 130 L MPV 10.9 Sodium Potassium Chloride Carbon Dioxide Anion Gap BUN Creatinine Est GFR (CKD-EPI)AfAm Est GFR (CKD-EPI)NonAf POC Glucometer 117 169 Random Glucose Calcium Phosphorus Magnesium 09/27/19 09/27/19 06:50 14:49 WBC RBC Hgb Hct MCV MCH MCHC RDW Plt Count MPV Sodium 140 Potassium 3.7 Chloride 104 Carbon Dioxide 30 Anion Gap 6 L BUN 14.4 Creatinine 1.0 Est GFR (CKD-EPI)AfAm 63.38 Est GFR (CKD-EPI)NonAf 54.68 POC Glucometer 218 Random Glucose 175 H Calcium 8.1 L Phosphorus 3.5 Magnesium 1.9 HOSPITAL COURSE: Date of Admission:09/24/19 Date of Discharge: 09/27/19 74F w/ pmh of HTN, T2DM, migraines, depression, anxiety presents to [facility], [place] with complaint of severe fatigue with associated SOB, cough w/ productive yellow sputum, sneezing x2d. Labs showing normocytic anemia, ANT, positive Influenza A. Admitted for severe malaise from influenza. Tamiflu started inpt, to be finished as outpt. Prescribed prednisone taper, albuterol inhaler, tamiflu for discharge. Pt demonstrating ability to ambulate independently in the hallway w/ o assistive device. Stable for home, as is patient family preference. 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 Minutes to complete discharge: 37 Discharge Summary Problems reviewed: Yes Reason For Visit: INFLUENZA DUE TO INFLUENZA VIRUS, TYPE A HUMAN, Condition: Improved - Instructions Diet, Activity, Other Instructions: You were evaluated in the hospital for severe fatigue and trouble breathing. Labwork showed that you were positive for influenza. You were given an antiviral medication. For your trouble breathing, you were given breathing treatments and an oral steroid. Your symptoms improved. Medications: - NEW medications: -- Oseltamivir Phosphate[TAMIFLU], 75mg every 12 hours for 5 more doses. start tonight at 9 pm -- Guaifenesin[DIABETIC TUSSIN DM], 5ml every 6 hours as needed for cough -- Albeterol Inhaler[VENTOLIN HFA INHALER], 2 puffs every 6 hours as needed for trouble breathing or wheezing -- Prednisone[DELTASONE], dosing tapering regimen: ---09/28/19: 30 mg in the morning ---09/29/19 to 09/30/19: 20mg daily ---10/01/19 to 10/02/19: 10mg daily ---10/03/19 to 10/04/19: 5mg daily, no more Prednisone after 10/04/19 DO NOT stop prednisone on your own suddenly as this can cause complications - continue with other home medications Additional Instructions: - increase fluid intake, drinking up to 8 glasses of water daily - continue with as much activity as you can tolerate. Your strength will improve as your influenza infection resolves Please follow up with the following physician below in 1 week: - Primary Care Physician: to discuss your recent hospitalization and recheck your blood work(BMP: Basic Metabolic Panel; Creatinine, CBC: complete blood count) Please seek immediate medical care if you experience: - severe worsening of breathing - inability to tolerate food or drink - confusion, lightheadedness Referrals: Sukhwinder Dee MD [Primary Care Provider] - Disposition: VNS/HOME HEALTH CARE - Home Medications Comprehensive Discharge Medication List: Ambulatory Orders Aspirin [ASA -] 81 mg PO DAILY tab.chew 09/13/15 Losartan Potassium 100 mg PO DAILY 04/28/18 Metformin HCl [Glucophage] 1,000 mg PO BID 04/28/18 Omeprazole 40 mg PO DAILY 04/21/19 Divalproex Sodium [Depakote ER] 500 mg PO DAILY 09/26/19 Docusate Sodium [Stool Softener] 100 mg PO DAILY 09/26/19 Ergocalciferol [Vitamin D2] 1 cap PO WEEKLY 09/26/19 Ferrous Gluconate [Fergon -] 324 mg PO DAILY 09/26/19 Hydrochlorothiazide 25 mg PO DAILY 09/26/19 Insulin Glargine,Hum.rec.anlog [Basaglar Kwikpen U-100] 10 units SQ HS 09/26/19 Meclizine HCl [Antivert -] 25 mg PO BID 09/26/19 Mirtazapine 15 mg PO DAILY 09/26/19 Pravastatin Sodium [Pravachol -] 80 mg PO DAILY 09/26/19 Pyridostigmine [place] 60 mg PO DAILY 09/26/19 Albuterol Sulfate Inhaler - [Ventolin HFA Inhaler -] 2 inh PO Q6H PRN #1 inh Guaifenesin/D-Methorphan Hb [Diabetic Tussin Dm -] 5 ml PO Q6H PRN #1 bottle Oseltamivir Phosphate [Tamiflu -] 75 mg PO Q12H #5 capsule 09/27/19 predniSONE [Deltasone -] See Taper PO DAILY #22 tablet 09/27/19 This patient is new to me today: No Emergency Visit: No Critical Care patient: No - Discharge Referral Referred to [facility] No ATTENDING PHYSICIAN STATEMENT I saw and evaluated the patient. I reviewed the resident's note and discussed the case with the resident. I agree with the resident's findings and plan as documented. SUBJECTIVE: OBJECTIVE: ASSESSMENT AND PLAN:
[2019-09-29] MEDS ORDERED: predniSONE 20 MG TABLET (UD) PO SCH (10:00)
[2019-10-01] MEDS ORDERED: predniSONE 10 MG TABLET (UD) PO SCH (10:00)
[2019-10-03] MEDS ORDERED: predniSONE 5 MG TABLET (UD) PO SCH (10:00)
== END 2019-09-27 15:52 | disposition home health service (06) | DRG 872 ==
LOC: JER 16:27 → JERBED 18:49 → J8W 09-25 00:23
PROVIDERS: ADMIT Internal Medicine; ATTEND Internal Medicine
DX: A41.9 Sepsis, unspecified organism (principal); N17.9 Acute kidney failure, unspecified; J10.1 Influenza due to other identified influenza virus with other respiratory manifestations; F32.9 Major depressive disorder, single episode, unspecified; F41.9 Anxiety disorder, unspecified; Z79.84 Long term (current) use of oral hypoglycemic drugs; E78.5 Hyperlipidemia, unspecified; G43.909 Migraine, unspecified, not intractable, without status migrainosus; D64.9 Anemia, unspecified; B34.9 Viral infection, unspecified; I12.9 Hypertensive chronic kidney disease with stage 1 through stage 4 chronic kidney disease, or unspecified chronic kidney disease; E11.22 Type 2 diabetes mellitus with diabetic chronic kidney disease; N18.3 Chronic kidney disease, stage 3 (moderate); D63.1 Anemia in chronic kidney disease; E86.9 Volume depletion, unspecified
CPT/HCPCS: 36415; 71045-TC-FY; 80048; 80053; 81003; 82728; 82962; 83540; 83550; 83735; 84100; 84484; 85025; 85027; 87086; 87804; 93005; 93010; 93971-TC; 94640; 94761; 97116-GP; 99284-25; J1644

== ENCOUNTER 2019-09-30 09:34 | Inpatient (IN) | payer OTHER ==
--- NOTE | 2019-09-30 09:50 | PDOC ---
History of Present Illness - General Chief Complaint: Respiratory Stated Complaint: COLD SYMPTOMS Time Seen by Provider: 09/30/19 09:50 - History of Present Illness Initial Comments: 09/30/19 10:03 74 y/o female with hx of DM, HTN, HLD, migraines, recent diagnosis of influenza A (admitted, tx with Tamiflu, d/c on 09/27/19 on prednisone now on day 3) who presents with fatigue, shortness of breath and midsternal chest pain that is constant nonradiating and not worsened with inspiration. She admits to cough productive of white and yellow phlegm denies any fevers, n/v/d/c, dysuria, hematuria. ROS GENERAL/CONSTITUTIONAL: No fever or chills. No weakness. HEAD, EYES, EARS, NOSE AND THROAT: No sore throat. CARDIOVASCULAR: No chest pain or shortness of breath RESPIRATORY: + cough, wheezing, No hemoptysis. GASTROINTESTINAL: No nausea, vomiting, diarrhea or constipation. GENITOURINARY: No dysuria, frequency, or change in urination. MUSCULOSKELETAL: No joint or muscle swelling or pain. No neck or back pain. SKIN: No rash NEUROLOGIC: No headache, vertigo, loss of consciousness, or change in strength/ sensation. ENDOCRINE: No increased thirst. No abnormal weight change PE GENERAL: Awake, alert, and fully oriented, in no acute distress HEAD: No signs of trauma, normocephalic, atraumatic EYES: EOMI, sclera anicteric, conjunctiva clear ENT: oropharynx clear without exudates. Moist mucosa NECK: Normal ROM, supple LUNGS: No distress, speaks full sentences, coarse breath sounds throughout, expiratory wheeze in upper lobes HEART: Regular rate and rhythm, normal S1 and S2, no murmurs, rubs or gallops, peripheral pulses normal and equal bilaterally. ABDOMEN: Soft, nontender, normoactive bowel sounds. No guarding, no rebound. No masses EXTREMITIES : Normal inspection, Normal range of motion, no edema. No clubbing or cyanosis. NEUROLOGICAL: Cranial nerves II through XII grossly intact. Normal speech, normal gait, no focal sensorimotor deficits SKIN: Warm, Dry, normal turgor, no rashes or lesions noted MDM DDX including but not limited to: PNA acs vs PE vs CHF ED Course: will dose presdnisone and duoneb labs wnl CXR wnl patient with increased wheeze and shortness of breath on reassessment will complete 3 duonebs and order CTA likely plan for admission as patient with persistent shortness of breath Patient sattgin 93 on RA, put on 3L nC pending CTA chest CTA chest - wnl Patient desat and inc resp effort, will admit Kendra Serrano PGY2 Emergency Medicine 09/30/19 14:36 09/30/19 14:38 Past History - Past Medical History Allergies/Adverse Reactions: Allergies Allergy/AdvReac Type Severity Reaction Status Date / Time No Known Allergies Allergy Verified 09/30/19 11:34 Home Medications: Ambulatory Orders Aspirin [ASA -] 81 mg PO DAILY tab.chew 09/13/15 Losartan Potassium 100 mg PO DAILY 04/28/18 Metformin HCl [Glucophage] 1,000 mg PO BID 04/28/18 Omeprazole 40 mg PO DAILY 04/21/19 Divalproex Sodium [Depakote ER] 500 mg PO DAILY 09/26/19 Docusate Sodium [Stool Softener] 100 mg PO DAILY 09/26/19 Ergocalciferol [Vitamin D2] 1 cap PO WEEKLY 09/26/19 Ferrous Gluconate [Fergon -] 324 mg PO DAILY 09/26/19 Hydrochlorothiazide 25 mg PO DAILY 09/26/19 Insulin Glargine,Hum.rec.anlog [Basaglar Kwikpen U-100] 10 units SQ HS 09/26/19 Meclizine HCl [Antivert -] 25 mg PO BID 09/26/19 Mirtazapine 15 mg PO DAILY 09/26/19 Pravastatin Sodium [Pravachol -] 80 mg PO DAILY 09/26/19 Pyridostigmine [place] 60 mg PO DAILY 09/26/19 Albuterol Sulfate Inhaler - [Ventolin HFA Inhaler -] 2 inh PO Q6H PRN #1 inh Guaifenesin/D-Methorphan Hb [Diabetic Tussin Dm -] 5 ml PO Q6H PRN #1 bottle Oseltamivir Phosphate [Tamiflu -] 75 mg PO Q12H #5 capsule 09/27/19 predniSONE [Deltasone -] See Taper PO DAILY #22 tablet 09/27/19 Anemia: No Asthma: No Cancer: No Cardiac Disorders: No CVA: No COPD: No CHF: No Dementia: No Diabetes: Yes GI Disorders: No Disorders: No HTN: Yes Hypercholesterolemia: Yes Liver Disease: No Seizures: No Thyroid Disease: No - Surgical History Abdominal Surgery: Yes Appendectomy: No Cardiac Surgery: No Cholecystectomy: No Lung Surgery: No Neurologic Surgery: No Orthopedic Surgery: No - Immunization History Immunization Up to Date: Yes - Psycho Social/Smoking Cessation Hx Smoking History: Never smoked Have you smoked in the past 12 months: No Hx Alcohol Use: No Drug/Substance Use Hx: No Substance Use Type: None Hx Substance Use Treatment: No *Physical Exam - Vital Signs Last Vital Signs Temp Pulse Resp BP Pulse Ox 98 F 80 24 H 159/72 96 09/30/19 09:41 09/30/19 09:41 09/30/19 09:41 09/30/19 09:41 09/30/19 09:41 ED Treatment Course - LABORATORY CBC & Chemistry Diagram: 09/30/19 10:20 09/30/19 10:20
[2019-09-30] MEDS ORDERED: ALBUTEROL SO4 2.5/IPRATROPIUM 0.5 INH SOL 3 ML VIAL.NEB. NEB ONE ×4 (10:03→16:06)
[2019-09-30] MEDS ORDERED: predniSONE 20 MG TABLET (UD) PO ONE (10:16)
[2019-09-30] MEDS ORDERED: predniSONE 20 MG TABLET (UD) ONE (10:30)
[2019-09-30] MEDS ORDERED: predniSONE 10 MG TABLET (UD) ONE (10:31)
[2019-09-30 10:47] LABS: BASO % 0.7 % (0-2.0); EOS % 0.3 % (0-4.5); HEMATOCRIT 28.7 % (32.4-45.2); HEMOGLOBIN 9.4 GM/dL (10.7-15.3); MCH 29.7 pg (25.7-33.7); MCHC 32.9 g/dl (32.0-36.0); MEAN CELL VOLUME 90.1 fl (80-96); MEAN PLT VOLUME 10.1 fl (7.5-11.1); MONO % 12.5 % (3.8-10.2); NEUT % 65.5 % (42.8-82.8); PLATELET COUNT 234 K/MM3 (134-434); RBC 3.19 M/mm3 (3.60-5.2); RDW 13.2 % (11.6-15.6); WHITE BLOOD COUNT 5.6 K/mm3 (4.0-10.0)
[2019-09-30 11:01] LABS: INR 1.01 (0.83-1.09); PROTHROMBIN TIME (PATIENT) 11.9 SEC (9.7-13.0)
[2019-09-30 11:03] LABS: ACTIVATED PTT 27.9 SECONDS (25.2-36.5)
[2019-09-30 11:11] LABS: ALBUMIN 3.2 g/dl (3.4-5.0); BILIRUBIN,TOTAL 0.2 mg/dL (0.2-1); BLOOD UREA NITROGEN 20.3 mg/dL (7-18); CALCIUM 8.7 mg/dL (8.5-10.1); CREATININE 0.9 mg/dL (0.55-1.3); POTASSIUM 3.9 mmol/L (3.5-5.1); TOT PROT 7.5 g/dl (6.4-8.2)
[2019-09-30 11:12] LABS: N-TERMINAL BNP 510.9 pg/ml (5-450)
--- NOTE | 2019-09-30 11:44 | PDOC ---
Documentation entered by Lamberto Hong SCRIBE, acting as scribe for Josee Negron MD. Josee Negron MD: This documentation has been prepared by the Hal miner Daniel, SCRIBE, under my direction and personally reviewed by me in its entirety. I confirm that the documentation accurately reflects all work, treatment, procedures, and medical decision making performed by me. Attending Attestation - Resident Resident Name: Kendra Serrano - ED Attending Attestation I have performed the following: I have examined & evaluated the patient, The case was reviewed & discussed with the resident, I agree w/resident's findings & plan, Exceptions are as noted - HPI HPI: 09/30/19 10:14 The patient is a 74 year old female with a past medical history of diabetes, HTN , HLD, and migraines here today for evaluation of worsening shortness of breath. The patient was admitted on 09/24/19 for influenza A and was discharged on 09/27/19 with tamiflu and a prednisone taper. She reports that since her discharge, she has had worsening shortness of breath, fatigue, constant non radiating constant mid sternal pain, and a cough productive of yellow white phlegm. She denies headache, lightheadedness, focal weakness/numbness. Denies fever, chills. Denies nausea, vomiting, diarrhea, abdominal pain. Denies LE edema or calf pain. She has been compliant with the steroid course and tamiflu. Allergies: NKA - Physicial Exam PE: 09/30/19 10:15 GENERAL: Awake, alert, and fully oriented, in no acute distress EYES: PERRLA, EOMI, sclera anicteric, conjunctiva clear ENT: Nares patent, oropharynx clear without exudates. Moist mucosa NECK: Normal ROM, supple, no lymphadenopathy, JVD, or masses LUNGS: +wheezing R>L with slightly diminished BS diffusely. No crackles. No WOB. HEART: Regular rate and rhythm, normal S1 and S2, no murmurs, rubs or gallops ABDOMEN: Soft, nontender, normoactive bowel sounds. No guarding, no rebound. No masses EXTREMITIES: Normal range of motion, no edema. No clubbing or cyanosis. No cords , erythema, or tenderness BACK: No midline spinal tenderness in cervical/thoracic/lumbar region NEUROLOGICAL: Normal speech, cranial nerves intact, equal strength and sensation b/l SKIN: Warm, Dry, normal turgor, no rashes or lesions noted. - Medical Decision Making 09/30/19 11:41 74-year-old female with a history of hypertension, hyperlipidemia, diabetes, recent admission for dyspnea with fluid diagnosis presents the emergency department with progressive shortness of breath despite outpatient Tamiflu and steroid taper. Vitals remarkable for tachypnea to 24. Exam with wheezing, otherwise not significantly remarkable. Differential includes post influenza pneumonia versus ACS versus CHF versus PE. In light of wheezing, favor more so post viral pneumonia. Chest pain is not pleuritic, and patient is not hypoxic making PE less likely. She also has no calf pain, edema, or tenderness will give patient nebs as well as higher dose steroids and reassess. 09/30/19 14:44 Pt with persistent SOB Possible PNA (not seen on CXR) vs PE? CTA obtained which was negative for both pt persistently hypoxic to low 90s at rest, drops to 80s with ambulation plan to admit pt for persistent dyspnea, hypoxia
[2019-09-30] MEDS: ALBUTEROL SO4 2.5/IPRATROPIUM 0.5 INH SOL 3 ML VIAL.NEB. NEB SCH ×4 (11:45→22:05)
[2019-09-30] MEDS: SODIUM CHLORIDE 1,000 ML IV SCH ×3 (12:14→21:35)
--- NOTE | 2019-09-30 14:54 | HP ---
Admitting History and Physical - Primary Care Physician PCP: Sukhwinder Dee - Admission Chief Complaint: increased SOB and cough History of Present Illness: 74 y/o female with hx of DM, HTN, HLD, migraines, recent diagnosis of influenza A (admitted, tx with Tamiflu, d/c on 09/27/19 on prednisone now on day 3/7 & day 3/5 tamiflu) who presents with increasing fatigue, shortness of breath and midsternal chest pain that is constant nonradiating and not worsened with inspiration. She admits to cough productive of yellow sputum. 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 Cardiovascular: Yes: HTN Pulmonary: Yes: COPD Psych: Yes: Anxiety, Depression Endocrine: Yes: Diabetes Mellitus - Smoking History Smoking history: Never smoked Have you smoked in the past 12 months: No - Alcohol/Substance Use Hx Alcohol Use: No History of Substance Use: reports: None - Social History Usual Living Arrangement: Yes: Alone ADL: Independent History of Recent Travel: No Home Medications - Allergies Allergies/Adverse Reactions: Allergies Allergy/AdvReac Type Severity Reaction Status Date / Time No Known Allergies Allergy Verified 09/30/19 11:34 - Home Medications Home Medications: Ambulatory Orders Aspirin [ASA -] 81 mg PO DAILY tab.chew 09/13/15 Losartan Potassium 100 mg PO DAILY 04/28/18 Metformin HCl [Glucophage] 1,000 mg PO BID 04/28/18 Omeprazole 40 mg PO DAILY 04/21/19 Divalproex Sodium [Depakote ER] 500 mg PO DAILY 09/26/19 Docusate Sodium [Stool Softener] 100 mg PO DAILY 09/26/19 Ergocalciferol [Vitamin D2] 1 cap PO WEEKLY 09/26/19 Ferrous Gluconate [Fergon -] 324 mg PO DAILY 09/26/19 Hydrochlorothiazide 25 mg PO DAILY 09/26/19 Insulin Glargine,Hum.rec.anlog [Basaglar Kwikpen U-100] 10 units SQ HS 09/26/19 Meclizine HCl [Antivert -] 25 mg PO BID 09/26/19 Mirtazapine 15 mg PO DAILY 09/26/19 Pravastatin Sodium [Pravachol -] 80 mg PO DAILY 09/26/19 Pyridostigmine [place] 60 mg PO DAILY 09/26/19 Albuterol Sulfate Inhaler - [Ventolin HFA Inhaler -] 2 inh PO Q6H PRN #1 inh Guaifenesin/D-Methorphan Hb [Diabetic Tussin Dm -] 5 ml PO Q6H PRN #1 bottle Oseltamivir Phosphate [Tamiflu -] 75 mg PO Q12H #5 capsule 09/27/19 predniSONE [Deltasone -] See Taper PO DAILY #22 tablet 09/27/19 Family Medical History Family History: Denies Review of Systems - Review of Systems Constitutional: reports: Chills, Fever (subjective), Weakness Cardiovascular: reports: Chest Pain, Shortness of Breath Respiratory: reports: Cough, SOB on Exertion, Wheezing Gastrointestinal: reports: No Symptoms Genitourinary: reports: No Symptoms Breasts: reports: No Symptoms Reported Musculoskeletal: reports: Muscle Weakness Integumentary: reports: No Symptoms Neurological: reports: No Symptoms Endocrine: reports: No Symptoms Hematology/Lymphatic: reports: No Symptoms Psychiatric: reports: No Symptoms Physical Examination Vital Signs: Vital Signs Temperature 98 F 09/30/19 13:26 Pulse Rate 101 H 09/30/19 13:34 Respiratory Rate 24 H 09/30/19 13:26 Blood Pressure 146/66 09/30/19 13:26 O2 Sat by Pulse Oximetry (%) 96 09/30/19 13:34 Constitutional: Yes: Well Nourished, No Distress, Calm Eyes: Yes: WNL, Conjunctiva Clear, EOM Intact HENT: Yes: WNL, Atraumatic, Normocephalic Neck: Yes: WNL, Supple, Trachea Midline Cardiovascular: Yes: Regular Rate and Rhythm, Tachycardia Respiratory: Yes: Diminished (at bases), Poor Air Entry, SOB on Exertion, Wheezes Gastrointestinal: Yes: WNL, Normal Bowel Sounds ...Rectal Exam: Yes: Deferred Renal/: Yes: WNL Breast(s): Yes: WNL Musculoskeletal: Yes: Muscle Pain, Muscle Weakness Extremities: Yes: WNL Edema: No Peripheral Pulses WNL: Yes Peripheral Pulses: Left Radial: 2+, Right Radial: 2+, Left Doralis Pedis: 2+, Right Dorsalis Pedis: 2+, Left Femoral: 2+, Right Femoral: 2+ Integumentary: Yes: WNL Neurological: Yes: WNL, Alert, Oriented ...Motor Strength: WNL Psychiatric: Yes: WNL Labs: CBC, BMP 09/30/19 10:20 09/30/19 10:20 Imaging - Results Chest X-ray: Report Reviewed (No acute process) Cat Scan: Report Reviewed (No PE or acute pathology) Problem List - Problems (1) Prophylactic measure Assessment/Plan: FEN start IVF until proven taking adequate PO monitor electrolyes diabetic diet DVT heparin sq DIspo admit to med surg full code discharge planning Code(s): Z29.9 - ENCOUNTER FOR PROPHYLACTIC MEASURES, UNSPECIFIED (2) Cough Assessment/Plan: guaifenesin q6H prn Code(s): R05 - COUGH (3) Depression with anxiety Assessment/Plan: c/w home dose of remeron Code(s): F41.8 - OTHER SPECIFIED ANXIETY DISORDERS (4) Influenza A Assessment/Plan: + Influenza A on 09/24 sent home on tamiflu day 3/5 doses-will complete course Code(s): J10.1 - FLU DUE TO OTH IDENT INFLUENZA VIRUS W OTH RESP MANIFEST (5) Type 2 diabetes mellitus Assessment/Plan: Novolog ss AC/HS diabetic diet hold glucophage until dc Code(s): E11.9 - TYPE 2 DIABETES MELLITUS WITHOUT COMPLICATIONS Qualifiers: Diabetes mellitus complication status: without complication Qualified Code( s): E11.9 - Type 2 diabetes mellitus without complications (6) SOB (shortness of breath) Assessment/Plan: PO predisone gove in ED with minimal improvement start 40mg IV solumedrol duo nebs standing q6 h pulmonary consult requested given no improvment with previous course supplemental O2 to mainatin SPO2 >90% Code(s): R06.02 - SHORTNESS OF BREATH (7) Hypertension Assessment/Plan: c/w losartan,hctz Code(s): I10 - ESSENTIAL (PRIMARY) HYPERTENSION Qualifiers: Hypertension type: essential hypertension Qualified Code(s): I10 - Essential (primary) hypertension (8) HLD (hyperlipidemia) Assessment/Plan: c/w statin Code(s): E78.5 - HYPERLIPIDEMIA, UNSPECIFIED (9) Myasthenia gravis Assessment/Plan: verified with home pharm mestinon dose will hold now given SOB Code(s): G70.00 - MYASTHENIA GRAVIS WITHOUT (ACUTE) EXACERBATION Visit type - Emergency Visit Emergency Visit: Yes ED Registration Date: 09/30/19 Care time: The patient presented to the Emergency Department on the above date and was hospitalized for further evaluation of their emergent condition. - New Patient This patient is new to me today: Yes Date on this admission: 09/30/19 - Critical Care Critical Care patient: No
--- NOTE | 2019-09-30 15:05 | EKG ---
Test Reason : Blood Pressure : / mmHG Vent. Rate : 080 BPM Atrial Rate : 080 BPM P-R Int : 134 ms QRS Dur : 072 ms QT Int : 402 ms P-R-T Axes : 047 -38 053 degrees QTc Int : 463 ms NORMAL SINUS RHYTHM LEFT AXIS DEVIATION ABNORMAL ECG WHEN COMPARED WITH ECG OF 24-SEP-2019 16:45, QRS AXIS SHIFTED LEFT Confirmed by STEVO JEREZ MD ([id number]) on 09/30/2019 3:04:54 PM Referred By: Confirmed By:STEVO JEREZ MD
[2019-09-30] MEDS ORDERED: OSELTAMIVIR PHOSPHATE 75 MG CAPSULE PO SCH (15:15)
[2019-09-30] MEDS ORDERED: ERGOCALCIFEROL (VIT D2) 50,000 UNIT (1.25 MG) CAPSULE PO SCH (15:15)
[2019-09-30] MEDS ORDERED: OSELTAMIVIR PHOSPHATE 75 MG CAPSULE ONE (16:06)
[2019-09-30] MEDS ORDERED: INSULIN (NOVOLOG) ASPART 100 UNITS/ML 10ML VIAL ONE (17:14)
[2019-09-30] MEDS: INSULIN SLIDING SCALE (NOVOLOG) 1 VIAL SQ SCH ×2 (17:32→21:35)
[2019-09-30] MEDS: OSELTAMIVIR PHOSPHATE 30 MG CAPSULE PO SCH (18:27)
[2019-09-30] MEDS ORDERED: methylPREDNISolone NA SUCC 40 MG/1 ML VIAL ONE (18:46)
[2019-09-30] MEDS: methylPREDNISolone NA SUCC 40 MG/1 ML VIAL IVPUSH SCH (18:53)
[2019-09-30 20:41] VITALS: BMI 26.1
[2019-09-30] MEDS: HEPARIN NA (PORCINE) 5,000 UNITS/ML 1ML VIAL SQ SCH (21:37)
[2019-09-30] MEDS: guaiFENesin/D-M SUGAR-FREE/ACLHOL-FREE 118 ML BOTTLE PO PRN (23:05)
[2019-10-01] MEDS: methylPREDNISolone NA SUCC 40 MG/1 ML VIAL IVPUSH SCH ×4 (01:27→17:05)
[2019-10-01] MEDS: INSULIN SLIDING SCALE (NOVOLOG) 1 VIAL SQ SCH ×4 (06:34→21:56)
[2019-10-01] MEDS: guaiFENesin/D-M SUGAR-FREE/ACLHOL-FREE 118 ML BOTTLE PO PRN ×2 (06:35→18:28)
[2019-10-01] MEDS: OSELTAMIVIR PHOSPHATE 30 MG CAPSULE PO SCH ×2 (07:15→17:05)
[2019-10-01 08:12] LABS: BASO % 0.2 % (0-2.0); HEMATOCRIT 26.9 % (32.4-45.2); HEMOGLOBIN 8.9 GM/dL (10.7-15.3); MCH 29.9 pg (25.7-33.7); MEAN CELL VOLUME 90.6 fl (80-96); MEAN PLT VOLUME 9.9 fl (7.5-11.1); MONO % 3.4 % (3.8-10.2); NEUT % 83.4 % (42.8-82.8); PLATELET COUNT 216 K/MM3 (134-434); RBC 2.97 M/mm3 (3.60-5.2); RDW 13.2 % (11.6-15.6); WHITE BLOOD COUNT 5.7 K/mm3 (4.0-10.0)
--- NOTE | 2019-10-01 08:12 | PN ---
Progress Note, Physician History of Present Illness: 74 y/o female with hx of DM, HTN, HLD, migraines, recent diagnosis of influenza A (admitted, tx with Tamiflu, d/c on 09/27/19 on prednisone and tamiflu) who presents with increasing fatigue, shortness of breath and midsternal chest pain that is constant nonradiating and not worsened with inspiration. She admits to cough productive of yellow sputum. No documented fevers but states she felt hot and had chills - Current Medication List Current Medications: Active Medications Acetaminophen (Tylenol -) 650 mg PO Q6H PRN PRN Reason: Fever Or Pain Albuterol/Ipratropium (Duoneb -) 1 amp NEB RQID [facility] Last Admin: 09/30/19 22:05 Dose: 1 amp Aspirin (Asa -) 81 mg PO DAILY [facility] Divalproex Sodium (Depakote *Er* -) 500 mg PO DAILY [facility] Docusate Sodium (Colace -) 100 mg PO DAILY [facility] Ferrous Gluconate (Fergon -) 324 mg PO DAILY [facility] Guaifenesin (Diabetic Tussin Dm -) 5 ml PO Q6H PRN PRN Reason: COUGH Last Admin: 10/01/19 06:35 Dose: 5 ml Heparin Sodium (Porcine) (Heparin -) 5,000 unit SQ BID [facility] Last Admin: 09/30/19 21:37 Dose: 5,000 unit Sodium Chloride (Normal Saline -) 1,000 mls @ 125 mls/hr IV ASDIR [facility] Last Admin: 09/30/19 12:14 Dose: 125 mls/hr Sodium Chloride (Normal Saline -) 1,000 mls @ 75 mls/hr IV ASDIR [facility] Last Admin: 09/30/19 21:35 Dose: 75 mls/hr Insulin Aspart (Novolog Vial Sliding Scale -) 1 vial SQ ACHS [facility]; Protocol Last Admin: 10/01/19 06:34 Dose: 4 units Losartan Potassium (Cozaar -) 100 mg PO DAILY [facility] Methylprednisolone Sodium Succinate (Solu-Medrol -) 40 mg IVPUSH Q6H [facility] Last Admin: 10/01/19 06:34 Dose: 40 mg Mirtazapine (Remeron -) 15 mg PO DAILY [facility] Oseltamivir Phosphate (Tamiflu -) 30 mg PO BID@0600,1800 [facility] Stop: 10/05/19 17:59 Last Admin: 10/01/19 07:15 Dose: 30 mg Pantoprazole Sodium (Protonix -) 40 mg PO DAILY [facility] - Objective Vital Signs: Vital Signs Temperature 98.5 F 10/01/19 06:00 Pulse Rate 99 H 10/01/19 06:00 Respiratory Rate 20 10/01/19 06:00 Blood Pressure 150/79 10/01/19 06:00 O2 Sat by Pulse Oximetry (%) 98 10/01/19 00:00 Additional Findings/Remarks: Constitutional: Yes: Well Nourished, No Distress, Calm Eyes: Yes: WNL, Conjunctiva Clear, EOM Intact HENT: Yes: WNL, Atraumatic, Normocephalic Neck: Yes: WNL, Supple, Trachea Midline Cardiovascular: Yes: Regular Rate and Rhythm, Tachycardia Respiratory: Yes: Diminished (at bases), SOB on Exertion, Wheezes Gastrointestinal: Yes: WNL, Normal Bowel Sounds ...Rectal Exam: Yes: Deferred Renal/: Yes: WNL Breast(s): Yes: WNL Musculoskeletal: Yes: Muscle Pain, Muscle Weakness Extremities: Yes: WNL Edema: No Peripheral Pulses WNL: Yes Peripheral Pulses: Left Radial: 2+, Right Radial: 2+, Left Doralis Pedis: 2+, Right Dorsalis Pedis: 2+, Left Femoral: 2+, Right Femoral: 2+ Integumentary: Yes: WNL Neurological: Yes: WNL, Alert, Oriented ...Motor Strength: WNL Psychiatric: Yes: WNL Labs: INR, PTT INR 1.01 (0.83-1.09) 09/30/19 10:20 - ....Imaging Chest X-ray: Image Reviewed (no acute pathology) Problem List - Problems (1) Prophylactic measure Assessment/Plan: FEN decrease IVF to 42cc/hr monitor electrolyes diabetic diet DVT heparin sq DIspo maintain on med surg full code discharge planning Code(s): Z29.9 - ENCOUNTER FOR PROPHYLACTIC MEASURES, UNSPECIFIED (2) Cough Assessment/Plan: guaifenesin q6H prn Code(s): R05 - COUGH (3) Depression with anxiety Assessment/Plan: c/w home dose of remeron Code(s): F41.8 - OTHER SPECIFIED ANXIETY DISORDERS (4) Influenza A Assessment/Plan: + Influenza A on 09/24 sent home on tamiflu day 4/5 doses-will complete course Code(s): J10.1 - FLU DUE TO OTH IDENT INFLUENZA VIRUS W OTH RESP MANIFEST (5) Type 2 diabetes mellitus Assessment/Plan: Novolog ss AC/HS diabetic diet hold glucophage until dc Code(s): E11.9 - TYPE 2 DIABETES MELLITUS WITHOUT COMPLICATIONS Qualifiers: Diabetes mellitus complication status: without complication Qualified Code( s): E11.9 - Type 2 diabetes mellitus without complications (6) SOB (shortness of breath) Assessment/Plan: c/w 40mg IV q6h solumedrol duo nebs standing q6 h appreciate pulmonary consultation supplemental O2 to mainatin SPO2 >90% Code(s): R06.02 - SHORTNESS OF BREATH (7) Hypertension Assessment/Plan: c/w losartan,hctz Code(s): I10 - ESSENTIAL (PRIMARY) HYPERTENSION Qualifiers: Hypertension type: essential hypertension Qualified Code(s): I10 - Essential (primary) hypertension (8) HLD (hyperlipidemia) Assessment/Plan: c/w statin Code(s): E78.5 - HYPERLIPIDEMIA, UNSPECIFIED (9) Myasthenia gravis Assessment/Plan: verified with home pharm mestinon dose will hold now given SOB Code(s): G70.00 - MYASTHENIA GRAVIS WITHOUT (ACUTE) EXACERBATION Visit type - Emergency Visit Emergency Visit: Yes ED Registration Date: 09/30/19 Care time: The patient presented to the Emergency Department on the above date and was hospitalized for further evaluation of their emergent condition. - New Patient This patient is new to me today: No - Critical Care Critical Care patient: No - Discharge Referral Referred to [facility] Med [facility] No
[2019-10-01 08:31] LABS: ALBUMIN 2.9 g/dl (3.4-5.0); BILIRUBIN,TOTAL 0.4 mg/dL (0.2-1); BLOOD UREA NITROGEN 18.8 mg/dL (7-18); CALCIUM 8.3 mg/dL (8.5-10.1); CREATININE 0.9 mg/dL (0.55-1.3); MAGNESIUM 2.4 mg/dL (1.8-2.4); POTASSIUM 4.2 mmol/L (3.5-5.1)
[2019-10-01] MEDS: ALBUTEROL SO4 2.5/IPRATROPIUM 0.5 INH SOL 3 ML VIAL.NEB. NEB SCH ×4 (08:56→21:14)
[2019-10-01] MEDS ORDERED: PT OWN MED DRAWER 7, Y5N ONE ×3 (09:30→19:26)
[2019-10-01] MEDS: ASPIRIN 81 MG CHEWABLE TABLETS PO SCH (09:43)
[2019-10-01] MEDS: DOCUSATE SODIUM 100 MG CAPSULE (FP) PO SCH (09:43)
[2019-10-01] MEDS: PANTOPRAZOLE 40 MG TABLET (FP) PO SCH (09:43)
[2019-10-01] MEDS: MIRTAZAPINE 15 MG TABLET (FP) PO SCH (09:43)
[2019-10-01] MEDS: FERROUS GLUCONATE 324 MG TAB (FP) PO SCH (09:44)
[2019-10-01] MEDS: LOSARTAN POTASSIUM 50 MG TABLET (FP) PO SCH (09:44)
[2019-10-01] MEDS: HEPARIN NA (PORCINE) 5,000 UNITS/ML 1ML VIAL SQ SCH ×2 (09:44→21:50)
[2019-10-01] MEDS ORDERED: PYRIDOSTIGMINE BROMIDE 60 MG TABLET PO SCH (10:00)
[2019-10-01] MEDS ORDERED: AZITHROMYCIN IVPB 500 MG/250 ML BAG IVPB SCH (10:30)
[2019-10-01] MEDS ORDERED: CEFTRIAXONE 1 GM in DEXTROSE 5%-WATER - 50 ML IVPB SCH (10:30)
[2019-10-01] MEDS ORDERED: DEXTROSE 5%-WATER - 50 ML IVPB ONE (10:38)
[2019-10-01] MEDS ORDERED: cefTRIAXone SODIUM 1 GM VIAL ONE (10:38)
[2019-10-01] MEDS: DIVALPROEX NA *ER* EXTEND REL 500 MG TABLET.SA (FP) PO SCH (11:28)
--- NOTE | 2019-10-01 11:42 | CON.PULM ---
Consult Consult Specialty:: PULM/CCM Referred by:: Hospitalist Reason for Consultation:: SOB - History of Present Illness Chief Complaint: SOB History of Present Illness: 74 M, DM, HTN, HLD, migraines, and recent diagnosis of influenza A and started on Tamiflu/Prednisone on 09/27/19. Admitted via the ER due to increasing fatigue, shortness of breath and midsternal chest pain. The pain is worsened by cough and deep breathing. No hemoptysis. No travel history or sick contacts. 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 No: Asthma, Cancer, O2 Dependent, Previously Intubated, Pulmonary Embolus, Pulmonary Fibrosis, Sleep Apnea Psych: Yes: Anxiety, Depression Endocrine: Yes: Diabetes Mellitus - Alcohol/Substance Use Hx Alcohol Use: No History of Substance Use: reports: None - Smoking History Smoking history: Never smoked Have you smoked in the past 12 months: No - Social History Usual Living Arrangement: With Spouse ADL: Independent History of Recent Travel: No Home Medications - Allergies Allergies/Adverse Reactions: Allergies Allergy/AdvReac Type Severity Reaction Status Date / Time No Known Allergies Allergy Verified 09/30/19 11:34 - Home Medications Home Medications: Ambulatory Orders Aspirin [ASA -] 81 mg PO DAILY tab.chew 09/13/15 Losartan Potassium 100 mg PO DAILY 04/28/18 Metformin HCl [Glucophage] 1,000 mg PO BID 04/28/18 Omeprazole 40 mg PO DAILY 04/21/19 Divalproex Sodium [Depakote ER] 500 mg PO DAILY 09/26/19 Docusate Sodium [Stool Softener] 100 mg PO DAILY 09/26/19 Ergocalciferol [Vitamin D2] 1 cap PO WEEKLY 09/26/19 Ferrous Gluconate [Fergon -] 324 mg PO DAILY 09/26/19 Hydrochlorothiazide 25 mg PO DAILY 09/26/19 Insulin Glargine,Hum.rec.anlog [Basaglar Kwikpen U-100] 10 units SQ HS 09/26/19 Meclizine HCl [Antivert -] 25 mg PO BID 09/26/19 Mirtazapine 15 mg PO DAILY 09/26/19 Pravastatin Sodium [Pravachol -] 80 mg PO DAILY 09/26/19 Pyridostigmine [place] 60 mg PO DAILY 09/26/19 Albuterol Sulfate Inhaler - [Ventolin HFA Inhaler -] 2 inh PO Q6H PRN #1 inh Guaifenesin/D-Methorphan Hb [Diabetic Tussin Dm -] 5 ml PO Q6H PRN #1 bottle Oseltamivir Phosphate [Tamiflu -] 75 mg PO Q12H #5 capsule 09/27/19 predniSONE [Deltasone -] See Taper PO DAILY #22 tablet 09/27/19 Review of Systems - Review of Systems Constitutional: reports: Malaise, Weakness. denies: Chills, Fever, Night Sweats , Unintentional Wgt. Loss Eyes: reports: No Symptoms HENT: reports: No Symptoms Neck: reports: No Symptoms Cardiovascular: reports: Chest Pain, Shortness of Breath. denies: Edema, Palpitations Respiratory: reports: Cough, SOB, SOB on Exertion, Wheezing. denies: Hemoptysis , Orthopnea, PND, Snoring Gastrointestinal: reports: No Symptoms Genitourinary: reports: No Symptoms Breasts: reports: No Symptoms Reported Musculoskeletal: reports: No Symptoms Integumentary: reports: No Symptoms Neurological: reports: No Symptoms Endocrine: reports: No Symptoms Hematology/Lymphatic: reports: No Symptoms Psychiatric: reports: No Symptoms Physical Exam Vital Sings: Vital Signs Temperature 98 F 10/01/19 10:00 Pulse Rate 101 H 10/01/19 10:00 Respiratory Rate 10/01/19 10:00 Blood Pressure 177/71 H 10/01/19 10:00 O2 Sat by Pulse Oximetry (%) 98 10/01/19 09:00 Constitutional: Yes: Anxious, Mild Distress Eyes: Yes: Conjunctiva Clear, EOM Intact HENT: Yes: Atraumatic, Normocephalic Neck: Yes: Supple, Trachea Midline Cardiovascular: Yes: Regular Rate and Rhythm Respiratory: Yes: Cough, Diminished, Rhonchi, SOB, SOB on Exertion, Tachypnea, Wheezes. No: Accessory Muscle Use, Rales, Stridor ...Inspection: Yes: WNL ...Clubbing: No Gastrointestinal: Yes: Normal Bowel Sounds, Soft Renal/: Yes: WNL Musculoskeletal: Yes: WNL Extremities: Yes: WNL Edema: No Peripheral Pulses WNL: Yes Integumentary: Yes: WNL Neurological: Yes: WNL, Alert, Oriented ...Motor Strength: WNL Psychiatric: Yes: WNL, Alert, Oriented Labs: CBC, BMP 10/01/19 06:50 10/01/19 06:50 Imaging - Results Chest X-ray: Report Reviewed, Image Reviewed Cat Scan: Report Reviewed, Image Reviewed Problem List - Problems (1) Wheezing Code(s): R06.2 - WHEEZING (2) HLD (hyperlipidemia) Code(s): E78.5 - HYPERLIPIDEMIA, UNSPECIFIED (3) Myasthenia gravis Code(s): G70.00 - MYASTHENIA GRAVIS WITHOUT (ACUTE) EXACERBATION (4) SOB (shortness of breath) Code(s): R06.02 - SHORTNESS OF BREATH (5) Cough Code(s): R05 - COUGH (6) Depression with anxiety Code(s): F41.8 - OTHER SPECIFIED ANXIETY DISORDERS (7) Dizziness Code(s): R42 - DIZZINESS AND GIDDINESS (8) Influenza A Code(s): J10.1 - FLU DUE TO OTH IDENT INFLUENZA VIRUS W OTH RESP MANIFEST (9) Headache Code(s): R51 - HEADACHE Qualifiers: Headache type: unspecified Headache chronicity pattern: acute headache Intractability: not intractable Qualified Code(s): R51 - Headache (10) Hypertension Code(s): I10 - ESSENTIAL (PRIMARY) HYPERTENSION Qualifiers: Hypertension type: essential hypertension Qualified Code(s): I10 - Essential (primary) hypertension (11) Type 2 diabetes mellitus Code(s): E11.9 - TYPE 2 DIABETES MELLITUS WITHOUT COMPLICATIONS Qualifiers: Diabetes mellitus complication status: without complication Qualified Code( s): E11.9 - Type 2 diabetes mellitus without complications (12) Tachypnea Code(s): R06.82 - TACHYPNEA, NOT ELSEWHERE CLASSIFIED (13) Costochondral chest pain Code(s): R07.1 - CHEST PAIN ON BREATHING Assessment/Plan PLAN: Complete Tamiflu Medrol Monitor off ABX as CT is clear without acute pathology O2 as needed BD TX VTE prophylaxis Outpatient PFTs once stable No smoking Will follow Thank you. Dr Elliott
[2019-10-01] MEDS ORDERED: INSULIN (NOVOLOG) ASPART 100 UNITS/ML 10ML VIAL ONE ×2 (16:34→21:52)
[2019-10-01] MEDS: ACETAMINOPHEN 325 MG TABLET (FP) PO PRN (19:29)
[2019-10-01] MEDS: SODIUM CHLORIDE 1,000 ML IV SCH (21:56)
[2019-10-02] MEDS: methylPREDNISolone NA SUCC 40 MG/1 ML VIAL IVPUSH SCH ×3 (00:55→17:31)
[2019-10-02] MEDS: ACETAMINOPHEN 325 MG TABLET (FP) PO PRN (02:37)
[2019-10-02] MEDS: guaiFENesin/D-M SUGAR-FREE/ACLHOL-FREE 118 ML BOTTLE PO PRN ×3 (02:43→22:43)
[2019-10-02] MEDS: INSULIN SLIDING SCALE (NOVOLOG) 1 VIAL SQ SCH ×4 (06:32→21:58)
[2019-10-02] MEDS: SODIUM CHLORIDE 1,000 ML IV SCH ×3 (06:32→22:00)
[2019-10-02] MEDS: OSELTAMIVIR PHOSPHATE 30 MG CAPSULE PO SCH ×2 (06:33→17:31)
[2019-10-02] MEDS: ALBUTEROL SO4 2.5/IPRATROPIUM 0.5 INH SOL 3 ML VIAL.NEB. NEB SCH ×4 (07:59→20:18)
--- NOTE | 2019-10-02 08:57 | PN ---
Progress Note, Physician Chief Complaint: States she feel worse today. History of Present Illness: 74 y/o female with hx of DM, HTN, HLD, migraines, recent diagnosis of influenza A (admitted, tx with Tamiflu, d/c on 09/27/19 on prednisone and tamiflu) who presents with increasing fatigue, shortness of breath and midsternal chest pain that is constant nonradiating and not worsened with inspiration. She admits to cough productive of yellow sputum. No documented fevers but states she felt hot and had chills - Current Medication List Current Medications: Active Medications Acetaminophen (Tylenol -) 650 mg PO Q6H PRN PRN Reason: Fever Or Pain Last Admin: 10/02/19 02:37 Dose: 650 mg Albuterol/Ipratropium (Duoneb -) 1 amp NEB RQID [facility] Last Admin: 10/02/19 07:59 Dose: 1 amp Aspirin (Asa -) 81 mg PO DAILY [facility] Last Admin: 10/01/19 09:43 Dose: 81 mg Divalproex Sodium (Depakote *Er* -) 500 mg PO DAILY [facility] Last Admin: 10/01/19 11:28 Dose: 500 mg Docusate Sodium (Colace -) 100 mg PO DAILY [facility] Last Admin: 10/01/19 09:43 Dose: 100 mg Ferrous Gluconate (Fergon -) 324 mg PO DAILY [facility] Last Admin: 10/01/19 09:44 Dose: 324 mg Guaifenesin (Diabetic Tussin Dm -) 5 ml PO Q6H PRN PRN Reason: COUGH Last Admin: 10/02/19 02:43 Dose: 5 ml Heparin Sodium (Porcine) (Heparin -) 5,000 unit SQ BID [facility] Last Admin: 10/01/19 21:50 Dose: 5,000 unit Sodium Chloride (Normal Saline -) 1,000 mls @ 125 mls/hr IV ASDIR [facility] Last Admin: 10/02/19 06:32 Dose: 125 mls/hr Insulin Aspart (Novolog Vial Sliding Scale -) 1 vial SQ ACHS [facility]; Protocol Last Admin: 10/02/19 06:32 Dose: 4 units Losartan Potassium (Cozaar -) 100 mg PO DAILY [facility] Last Admin: 10/01/19 09:44 Dose: 100 mg Methylprednisolone Sodium Succinate (Solu-Medrol -) 40 mg IVPUSH Q6H [facility] Last Admin: 10/02/19 06:33 Dose: 40 mg Mirtazapine (Remeron -) 15 mg PO DAILY [facility] Last Admin: 10/01/19 09:43 Dose: 15 mg Oseltamivir Phosphate (Tamiflu -) 30 mg PO BID@0600,1800 [facility] Stop: 10/05/19 17:59 Last Admin: 10/02/19 06:33 Dose: 30 mg Pantoprazole Sodium (Protonix -) 40 mg PO DAILY [facility] Last Admin: 10/01/19 09:43 Dose: 40 mg - Objective Vital Signs: Vital Signs Temperature 98.0 F 10/01/19 21:48 Pulse Rate 80 10/01/19 21:48 Respiratory Rate 20 10/01/19 21:48 Blood Pressure 138/70 10/01/19 21:48 O2 Sat by Pulse Oximetry (%) 98 10/01/19 21:00 Additional Findings/Remarks: Constitutional: Yes: Well Nourished, No Distress, Calm Eyes: Yes: WNL, Conjunctiva Clear, EOM Intact HENT: Yes: WNL, Atraumatic, Normocephalic Neck: Yes: WNL, Supple, Trachea Midline Cardiovascular: Yes: Regular Rate and Rhythm, Tachycardia Respiratory: Yes: Diminished (at bases), SOB on Exertion, Wheezes Gastrointestinal: Yes: WNL, Normal Bowel Sounds ...Rectal Exam: Yes: Deferred Renal/: Yes: WNL Breast(s): Yes: WNL Musculoskeletal: Yes: Muscle Pain, Muscle Weakness Extremities: Yes: WNL Edema: No Peripheral Pulses WNL: Yes Peripheral Pulses: Left Radial: 2+, Right Radial: 2+, Left Doralis Pedis: 2+, Right Dorsalis Pedis: 2+, Left Femoral: 2+, Right Femoral: 2+ Integumentary: Yes: WNL Neurological: Yes: WNL, Alert, Oriented ...Motor Strength: WNL Psychiatric: Yes: WNL Labs: CBC, BMP 10/01/19 06:50 10/01/19 06:50 INR, PTT INR 1.01 (0.83-1.09) 09/30/19 10:20 Problem List - Problems (1) Prophylactic measure Assessment/Plan: FEN c/w IVF monitor electrolyes diabetic diet DVT heparin sq DIspo maintain on med surg full code discharge planning Code(s): Z29.9 - ENCOUNTER FOR PROPHYLACTIC MEASURES, UNSPECIFIED (2) Cough Assessment/Plan: guaifenesin q6H prn Code(s): R05 - COUGH (3) Depression with anxiety Assessment/Plan: c/w home dose of remeron Code(s): F41.8 - OTHER SPECIFIED ANXIETY DISORDERS (4) Influenza A Assessment/Plan: + Influenza A on 09/24 sent home on tamiflu-will complete course Code(s): J10.1 - FLU DUE TO OTH IDENT INFLUENZA VIRUS W OTH RESP MANIFEST (5) Type 2 diabetes mellitus Assessment/Plan: Novolog ss AC/HS diabetic diet HgbA1C 8.0 start levemir 10u qhs Code(s): E11.9 - TYPE 2 DIABETES MELLITUS WITHOUT COMPLICATIONS Qualifiers: Diabetes mellitus complication status: without complication Qualified Code( s): E11.9 - Type 2 diabetes mellitus without complications (6) SOB (shortness of breath) Assessment/Plan: c/w 40mg IV q6h solumedrol duo nebs standing q6 h appreciate pulmonary consultation supplemental O2 to mainatin SPO2 >90% Code(s): R06.02 - SHORTNESS OF BREATH (7) Hypertension Assessment/Plan: c/w losartan,hctz Code(s): I10 - ESSENTIAL (PRIMARY) HYPERTENSION Qualifiers: Hypertension type: essential hypertension Qualified Code(s): I10 - Essential (primary) hypertension (8) HLD (hyperlipidemia) Assessment/Plan: c/w statin Code(s): E78.5 - HYPERLIPIDEMIA, UNSPECIFIED (9) Myasthenia gravis Assessment/Plan: re-start mestinon Code(s): G70.00 - MYASTHENIA GRAVIS WITHOUT (ACUTE) EXACERBATION Visit type - Emergency Visit Emergency Visit: Yes ED Registration Date: 09/30/19 Care time: The patient presented to the Emergency Department on the above date and was hospitalized for further evaluation of their emergent condition. - New Patient This patient is new to me today: No - Critical Care Critical Care patient: No - Discharge Referral Referred to [facility] No
[2019-10-02 09:18] LABS: BASO % 0.1 % (0-2.0); HEMATOCRIT 25.6 % (32.4-45.2); HEMOGLOBIN 8.4 GM/dL (10.7-15.3); LYMPH % 5.7 % (8-40); MCHC 32.8 g/dl (32.0-36.0); MEAN CELL VOLUME 91.4 fl (80-96); MONO % 2.6 % (3.8-10.2); NEUT % 91.6 % (42.8-82.8); PLATELET COUNT 218 K/MM3 (134-434); RDW 13.3 % (11.6-15.6); WHITE BLOOD COUNT 8.9 K/mm3 (4.0-10.0)
[2019-10-02 09:55] LABS: ALBUMIN 2.9 g/dl (3.4-5.0); BILIRUBIN,TOTAL 0.1 mg/dL (0.2-1); BLOOD UREA NITROGEN 20.8 mg/dL (7-18); CALCIUM 7.9 mg/dL (8.5-10.1); MAGNESIUM 2.2 mg/dL (1.8-2.4); POTASSIUM 4.2 mmol/L (3.5-5.1); TOT PROT 6.5 g/dl (6.4-8.2)
[2019-10-02 10:31] LABS: ANISOCYTOSIS 0; MACROCYTOSIS 0; PLATELET ESTIMATE NORMAL
[2019-10-02] MEDS ORDERED: IBUPROFEN 600 MG TABLET (FP) PO PRN (10:34)
[2019-10-02] MEDS: MIRTAZAPINE 15 MG TABLET (FP) PO SCH (10:50)
[2019-10-02] MEDS: DOCUSATE SODIUM 100 MG CAPSULE (FP) PO SCH (10:51)
[2019-10-02] MEDS: FERROUS GLUCONATE 324 MG TAB (FP) PO SCH (10:51)
[2019-10-02] MEDS: PANTOPRAZOLE 40 MG TABLET (FP) PO SCH (10:51)
[2019-10-02] MEDS: DIVALPROEX NA *ER* EXTEND REL 500 MG TABLET.SA (FP) PO SCH (10:52)
[2019-10-02] MEDS: HEPARIN NA (PORCINE) 5,000 UNITS/ML 1ML VIAL SQ SCH ×2 (10:52→21:57)
[2019-10-02] MEDS: ASPIRIN 81 MG CHEWABLE TABLETS PO SCH (10:53)
[2019-10-02] MEDS: LOSARTAN POTASSIUM 50 MG TABLET (FP) PO SCH (10:53)
--- NOTE | 2019-10-02 11:04 | PN ---
Progress Note (short form) - Note Progress Note: Still with congested cough and pleuritic type chest discomfort. Some sore throat. No acute events overnight. Intake & Output 09/29/19 09/30/19 10/01/19 10/02/19 23:59 23:59 23:59 23:59 Intake Total 575 2262 1500 Balance 575 2262 1500 Weight 152 lb 1.6 oz 154 lb 7 oz Last Vital Signs Temp Pulse Resp BP Pulse Ox 98.0 F 80 20 138/70 98 10/01/19 21:48 10/01/19 21:48 10/01/19 21:48 10/01/19 21:48 10/01/19 21:00 Active Medications Acetaminophen (Tylenol -) 650 mg PO Q6H PRN PRN Reason: Fever Last Admin: 10/02/19 02:37 Dose: 650 mg Albuterol/Ipratropium (Duoneb -) 1 amp NEB RQID [facility] Last Admin: 10/02/19 07:59 Dose: 1 amp Aspirin (Asa -) 81 mg PO DAILY [facility] Last Admin: 10/02/19 10:53 Dose: 81 mg Divalproex Sodium (Depakote *Er* -) 500 mg PO DAILY [facility] Last Admin: 10/02/19 10:52 Dose: 500 mg Docusate Sodium (Colace -) 100 mg PO DAILY [facility] Last Admin: 10/02/19 10:51 Dose: 100 mg Ferrous Gluconate (Fergon -) 324 mg PO DAILY [facility] Last Admin: 10/02/19 10:51 Dose: 324 mg Guaifenesin (Diabetic Tussin Dm -) 5 ml PO Q6H PRN PRN Reason: COUGH Last Admin: 10/02/19 02:43 Dose: 5 ml Heparin Sodium (Porcine) (Heparin -) 5,000 unit SQ BID [facility] Last Admin: 10/02/19 10:52 Dose: 5,000 unit Sodium Chloride (Normal Saline -) 1,000 mls @ 125 mls/hr IV ASDIR [facility] Last Admin: 10/02/19 06:32 Dose: 125 mls/hr Ibuprofen (Motrin -) 600 mg PO Q8H PRN PRN Reason: PAIN LEVEL 6-10 Insulin Aspart (Novolog Vial Sliding Scale -) 1 vial SQ ACHS [facility]; Protocol Last Admin: 10/02/19 06:32 Dose: 4 units Losartan Potassium (Cozaar -) 100 mg PO DAILY [facility] Last Admin: 10/02/19 10:53 Dose: 100 mg Methylprednisolone Sodium Succinate (Solu-Medrol -) 40 mg IVPUSH Q6H [facility] Last Admin: 10/02/19 06:33 Dose: 40 mg Mirtazapine (Remeron -) 15 mg PO DAILY [facility] Last Admin: 10/02/19 10:50 Dose: 15 mg Oseltamivir Phosphate (Tamiflu -) 30 mg PO BID@0600,1800 [facility] Stop: 10/05/19 17:59 Last Admin: 10/02/19 06:33 Dose: 30 mg Pantoprazole Sodium (Protonix -) 40 mg PO DAILY [facility] Last Admin: 10/02/19 10:51 Dose: 40 mg Constitutional: Yes: Anxious, Mild Distress Eyes: Yes: Conjunctiva Clear, EOM Intact HENT: Yes: Atraumatic, Normocephalic Neck: Yes: Supple, Trachea Midline Cardiovascular: Yes: Regular Rate and Rhythm Respiratory: Yes: Cough, Diminished, Rhonchi, SOB, SOB on Exertion, Less Wheezes. No: Accessory Muscle Use, Rales, Stridor ...Inspection: Yes: WNL ...Clubbing: No Gastrointestinal: Yes: Normal Bowel Sounds, Soft Renal/: Yes: WNL Musculoskeletal: Yes: WNL Extremities: Yes: WNL Edema: No Peripheral Pulses WNL: Yes Integumentary: Yes: WNL Neurological: Yes: WNL, Alert, Oriented ...Motor Strength: WNL Psychiatric: Yes: WNL, Alert, Oriented Labs: Laboratory Results - last 24 hr 10/01/19 10/01/19 10/02/19 16:22 21:48 02:32 WBC RBC Hgb Hct MCV MCH MCHC RDW Plt Count MPV Absolute Neuts (auto) Neutrophils % Neutrophils % (Manual) Band Neutrophils % Lymphocytes % Lymphocytes % (Manual) Monocytes % Monocytes % (Manual) Eosinophils % Eosinophils % (Manual) Basophils % Basophils % (Manual) Myelocytes % (Man) Promyelocytes % (Man) Blast Cells % (Manual) Nucleated RBC % Metamyelocytes Hypochromia Platelet Estimate Polychromasia Poikilocytosis Anisocytosis Microcytosis Macrocytosis Sodium Potassium Chloride Carbon Dioxide Anion Gap BUN Creatinine Est GFR (CKD-EPI)AfAm Est GFR (CKD-EPI)NonAf POC Glucometer 246 281 199 Random Glucose Calcium Magnesium Total Bilirubin AST ALT Alkaline Phosphatase Total Protein Albumin 10/02/19 10/02/19 10/02/19 06:15 07:35 07:35 WBC 8.9 RBC 2.80 L Hgb 8.4 L Hct 25.6 L MCV 91.4 MCH 30.0 MCHC 32.8 RDW 13.3 Plt Count 218 MPV 10.0 Absolute Neuts (auto) 8.2 H Neutrophils % 91.6 H Neutrophils % (Manual) 87.1 H Band Neutrophils % 1.0 Lymphocytes % 5.7 L D Lymphocytes % (Manual) 6.9 L D Monocytes % 2.6 L Monocytes % (Manual) 3 L Eosinophils % 0.0 Eosinophils % (Manual) 0.0 Basophils % 0.1 Basophils % (Manual) 0.0 Myelocytes % (Man) 0 Promyelocytes % (Man) 0 Blast Cells % (Manual) 0 Nucleated RBC % 0 Metamyelocytes 1 D Hypochromia 0 Platelet Estimate Normal Polychromasia 0 Poikilocytosis 0 Anisocytosis 0 Microcytosis 0 Macrocytosis 0 Sodium 143 Potassium 4.2 Chloride 111 H Carbon Dioxide 25 Anion Gap 7 L BUN 20.8 H Creatinine 1.0 Est GFR (CKD-EPI)AfAm 63.38 Est GFR (CKD-EPI)NonAf 54.68 POC Glucometer 243 Random Glucose 238 H Calcium 7.9 L Magnesium 2.2 Total Bilirubin 0.1 L AST 33 ALT 39 Alkaline Phosphatase 62 Total Protein 6.5 Albumin 2.9 L 10/02/19 10:59 WBC RBC Hgb Hct MCV MCH MCHC RDW Plt Count MPV Absolute Neuts (auto) Neutrophils % Neutrophils % (Manual) Band Neutrophils % Lymphocytes % Lymphocytes % (Manual) Monocytes % Monocytes % (Manual) Eosinophils % Eosinophils % (Manual) Basophils % Basophils % (Manual) Myelocytes % (Man) Promyelocytes % (Man) Blast Cells % (Manual) Nucleated RBC % Metamyelocytes Hypochromia Platelet Estimate Polychromasia Poikilocytosis Anisocytosis Microcytosis Macrocytosis Sodium Potassium Chloride Carbon Dioxide Anion Gap BUN Creatinine Est GFR (CKD-EPI)AfAm Est GFR (CKD-EPI)NonAf POC Glucometer 316 Random Glucose Calcium Magnesium Total Bilirubin AST ALT Alkaline Phosphatase Total Protein Albumin Problem List - Problems (1) Wheezing Code(s): R06.2 - WHEEZING (2) HLD (hyperlipidemia) Code(s): E78.5 - HYPERLIPIDEMIA, UNSPECIFIED (3) Myasthenia gravis Code(s): G70.00 - MYASTHENIA GRAVIS WITHOUT (ACUTE) EXACERBATION (4) SOB (shortness of breath) Code(s): R06.02 - SHORTNESS OF BREATH (5) Cough Code(s): R05 - COUGH (6) Depression with anxiety Code(s): F41.8 - OTHER SPECIFIED ANXIETY DISORDERS (7) Dizziness Code(s): R42 - DIZZINESS AND GIDDINESS (8) Influenza A Code(s): J10.1 - FLU DUE TO OTH IDENT INFLUENZA VIRUS W OTH RESP MANIFEST (9) Headache Code(s): R51 - HEADACHE Qualifiers: Headache type: unspecified Headache chronicity pattern: acute headache Intractability: not intractable Qualified Code(s): R51 - Headache (10) Hypertension Code(s): I10 - ESSENTIAL (PRIMARY) HYPERTENSION Qualifiers: Hypertension type: essential hypertension Qualified Code(s): I10 - Essential (primary) hypertension (11) Type 2 diabetes mellitus Code(s): E11.9 - TYPE 2 DIABETES MELLITUS WITHOUT COMPLICATIONS Qualifiers: Diabetes mellitus complication status: without complication Qualified Code( s): E11.9 - Type 2 diabetes mellitus without complications (12) Tachypnea Code(s): R06.82 - TACHYPNEA, NOT ELSEWHERE CLASSIFIED (13) Costochondral chest pain Code(s): R07.1 - CHEST PAIN ON BREATHING Assessment/Plan PLAN: Trial of Cepacol Complete Tamiflu Medrol Monitor off ABX as CT is clear without acute pathology O2 as needed BD TX VTE prophylaxis Outpatient PFTs once stable No smoking Dr Elliott Problem List - Problems (1) Wheezing Code(s): R06.2 - WHEEZING (2) HLD (hyperlipidemia) Code(s): E78.5 - HYPERLIPIDEMIA, UNSPECIFIED (3) Myasthenia gravis Code(s): G70.00 - MYASTHENIA GRAVIS WITHOUT (ACUTE) EXACERBATION (4) SOB (shortness of breath) Code(s): R06.02 - SHORTNESS OF BREATH (5) Cough Code(s): R05 - COUGH (6) Depression with anxiety Code(s): F41.8 - OTHER SPECIFIED ANXIETY DISORDERS (7) Dizziness Code(s): R42 - DIZZINESS AND GIDDINESS (8) Influenza A Code(s): J10.1 - FLU DUE TO OTH IDENT INFLUENZA VIRUS W OTH RESP MANIFEST (9) Headache Code(s): R51 - HEADACHE Qualifiers: Headache type: unspecified Headache chronicity pattern: acute headache Intractability: not intractable Qualified Code(s): R51 - Headache (10) Hypertension Code(s): I10 - ESSENTIAL (PRIMARY) HYPERTENSION Qualifiers: Hypertension type: essential hypertension Qualified Code(s): I10 - Essential (primary) hypertension (11) Type 2 diabetes mellitus Code(s): E11.9 - TYPE 2 DIABETES MELLITUS WITHOUT COMPLICATIONS Qualifiers: Diabetes mellitus complication status: without complication Qualified Code( s): E11.9 - Type 2 diabetes mellitus without complications (12) Tachypnea Code(s): R06.82 - TACHYPNEA, NOT ELSEWHERE CLASSIFIED (13) Costochondral chest pain Code(s): R07.1 - CHEST PAIN ON BREATHING
[2019-10-02] MEDS ORDERED: PT OWN MED DRAWER 7, Y5N ONE ×2 (15:18→17:41)
[2019-10-02] MEDS: INSULIN (LEVEMIR) 100 UNITS/ML UNITS SQ SCH (21:57)
[2019-10-03] MEDS: SODIUM CHLORIDE 1,000 ML IV SCH ×2 (05:00→13:49)
[2019-10-03] MEDS ORDERED: PT OWN MED DRAWER 7, Y5N ONE ×3 (05:49→18:04)
[2019-10-03] MEDS: OSELTAMIVIR PHOSPHATE 30 MG CAPSULE PO SCH ×2 (05:53→17:11)
[2019-10-03] MEDS: INSULIN SLIDING SCALE (NOVOLOG) 1 VIAL SQ SCH ×4 (06:09→22:27)
[2019-10-03] MEDS: ALBUTEROL SO4 2.5/IPRATROPIUM 0.5 INH SOL 3 ML VIAL.NEB. NEB SCH ×4 (07:45→21:01)
[2019-10-03 08:14] LABS: BASO % 0.1 % (0-2.0); HEMATOCRIT 24.9 % (32.4-45.2); HEMOGLOBIN 8.3 GM/dL (10.7-15.3); LYMPH % 13.5 % (8-40); MCH 29.9 pg (25.7-33.7); MCHC 33.5 g/dl (32.0-36.0); MEAN CELL VOLUME 89.2 fl (80-96); MEAN PLT VOLUME 9.3 fl (7.5-11.1); MONO % 9.3 % (3.8-10.2); NEUT % 77.1 % (42.8-82.8); PLATELET COUNT 247 K/MM3 (134-434); RDW 13.3 % (11.6-15.6); WHITE BLOOD COUNT 8.9 K/mm3 (4.0-10.0)
[2019-10-03 08:43] LABS: ALBUMIN 2.8 g/dl (3.4-5.0); BILIRUBIN,TOTAL 0.3 mg/dL (0.2-1); CALCIUM 8.3 mg/dL (8.5-10.1); CREATININE 0.9 mg/dL (0.55-1.3); POTASSIUM 3.7 mmol/L (3.5-5.1); TOT PROT 6.2 g/dl (6.4-8.2)
--- NOTE | 2019-10-03 08:52 | PN ---
Progress Note, Physician Chief Complaint: States she feeling better today. Throat is less sore, cough is better today. History of Present Illness: 74 y/o female with hx of DM, HTN, HLD, migraines, recent diagnosis of influenza A (admitted, tx with Tamiflu, d/c on 09/27/19 on prednisone and tamiflu) who presents with increasing fatigue, shortness of breath and midsternal chest pain that is constant nonradiating and not worsened with inspiration. She admits to cough productive of yellow sputum. No documented fevers but states she felt hot and had chills - Current Medication List Current Medications: Active Medications Acetaminophen (Tylenol -) 650 mg PO Q6H PRN PRN Reason: Fever Last Admin: 10/02/19 02:37 Dose: 650 mg Albuterol/Ipratropium (Duoneb -) 1 amp NEB RQID [facility] Last Admin: 10/03/19 07:45 Dose: 1 amp Aspirin (Asa -) 81 mg PO DAILY [facility] Last Admin: 10/02/19 10:53 Dose: 81 mg Benzocaine/Menthol (Cepacol Lozenge -) 1 each MM PRN PRN PRN Reason: SORE THROAT Divalproex Sodium (Depakote *Er* -) 500 mg PO DAILY [facility] Last Admin: 10/02/19 10:52 Dose: 500 mg Docusate Sodium (Colace -) 100 mg PO DAILY [facility] Last Admin: 10/02/19 10:51 Dose: 100 mg Ferrous Gluconate (Fergon -) 324 mg PO DAILY [facility] Last Admin: 10/02/19 10:51 Dose: 324 mg Guaifenesin (Diabetic Tussin Dm -) 5 ml PO Q6H PRN PRN Reason: COUGH Last Admin: 10/02/19 22:43 Dose: 5 ml Heparin Sodium (Porcine) (Heparin -) 5,000 unit SQ BID [facility] Last Admin: 10/02/19 21:57 Dose: 5,000 unit Sodium Chloride (Normal Saline -) 1,000 mls @ 125 mls/hr IV ASDIR [facility] Last Admin: 10/03/19 05:00 Dose: 125 mls/hr Ibuprofen (Motrin -) 600 mg PO Q8H PRN PRN Reason: PAIN LEVEL 6-10 Insulin Aspart (Novolog Vial Sliding Scale -) 1 vial SQ ACHS [facility]; Protocol Last Admin: 10/03/19 06:09 Dose: Not Given Insulin Detemir (Levemir Vial) 10 units SQ HS [facility] Last Admin: 10/02/19 21:57 Dose: 10 unit Losartan Potassium (Cozaar -) 100 mg PO DAILY [facility] Last Admin: 10/02/19 10:53 Dose: 100 mg Methylprednisolone Sodium Succinate (Solu-Medrol -) 40 mg IVPUSH BID [facility] Last Admin: 10/02/19 17:31 Dose: 40 mg Mirtazapine (Remeron -) 15 mg PO DAILY [facility] Last Admin: 10/02/19 10:50 Dose: 15 mg Oseltamivir Phosphate (Tamiflu -) 30 mg PO BID@0600,1800 [facility] Stop: 10/05/19 17:59 Last Admin: 10/03/19 05:53 Dose: 30 mg Pantoprazole Sodium (Protonix -) 40 mg PO DAILY [facility] Last Admin: 10/02/19 10:51 Dose: 40 mg - Objective Vital Signs: Vital Signs Temperature 98.1 F 10/03/19 05:00 Pulse Rate 85 10/03/19 05:00 Respiratory Rate 10/03/19 05:00 Blood Pressure 138/74 10/02/19 21:57 O2 Sat by Pulse Oximetry (%) 98 10/02/19 21:00 Additional Findings/Remarks: Constitutional: Yes: Well Nourished, No Distress, Calm Eyes: Yes: WNL, Conjunctiva Clear, EOM Intact HENT: Yes: WNL, Atraumatic, Normocephalic Neck: Yes: WNL, Supple, Trachea Midline Cardiovascular: Yes: Regular Rate and Rhythm, Tachycardia Respiratory: Yes: Diminished (at bases) Gastrointestinal: Yes: WNL, Normal Bowel Sounds ...Rectal Exam: Yes: Deferred Renal/: Yes: WNL Breast(s): Yes: WNL Musculoskeletal: Yes: Muscle Pain, Muscle Weakness Extremities: Yes: WNL Edema: No Peripheral Pulses WNL: Yes Peripheral Pulses: Left Radial: 2+, Right Radial: 2+, Left Doralis Pedis: 2+, Right Dorsalis Pedis: 2+, Left Femoral: 2+, Right Femoral: 2+ Integumentary: Yes: WNL Neurological: Yes: WNL, Alert, Oriented ...Motor Strength: WNL Psychiatric: Yes: WNL Labs: CBC, BMP 10/03/19 06:34 10/03/19 06:34 INR, PTT INR 1.01 (0.83-1.09) 09/30/19 10:20 Problem List - Problems (1) Prophylactic measure Assessment/Plan: FEN c/w IVF monitor electrolyes diabetic diet DVT heparin sq DIspo maintain on med surg full code discharge planning Code(s): Z29.9 - ENCOUNTER FOR PROPHYLACTIC MEASURES, UNSPECIFIED (2) Cough Assessment/Plan: guaifenesin q6H prn Code(s): R05 - COUGH (3) Depression with anxiety Assessment/Plan: c/w home dose of remeron Code(s): F41.8 - OTHER SPECIFIED ANXIETY DISORDERS (4) Influenza A Assessment/Plan: + Influenza A on 09/24 sent home on tamiflu-will complete course-last dose today Code(s): J10.1 - FLU DUE TO OTH IDENT INFLUENZA VIRUS W OTH RESP MANIFEST (5) Type 2 diabetes mellitus Assessment/Plan: Novolog ss AC/HS diabetic diet HgbA1C 8.0 c/w levemir 10u qhs Code(s): E11.9 - TYPE 2 DIABETES MELLITUS WITHOUT COMPLICATIONS Qualifiers: Diabetes mellitus complication status: without complication Qualified Code( s): E11.9 - Type 2 diabetes mellitus without complications (6) SOB (shortness of breath) Assessment/Plan: solumedrol changed to 60mg q8H duo nebs standing q6 h appreciate pulmonary consultation supplemental O2 to maintain SPO2 >90% Code(s): R06.02 - SHORTNESS OF BREATH (7) Hypertension Assessment/Plan: c/w losartan,hctz Code(s): I10 - ESSENTIAL (PRIMARY) HYPERTENSION Qualifiers: Hypertension type: essential hypertension Qualified Code(s): I10 - Essential (primary) hypertension (8) HLD (hyperlipidemia) Assessment/Plan: c/w statin Code(s): E78.5 - HYPERLIPIDEMIA, UNSPECIFIED (9) Myasthenia gravis Assessment/Plan: re-start mestinon when off solumedrol Code(s): G70.00 - MYASTHENIA GRAVIS WITHOUT (ACUTE) EXACERBATION Visit type - Emergency Visit Emergency Visit: Yes ED Registration Date: 09/30/19 Care time: The patient presented to the Emergency Department on the above date and was hospitalized for further evaluation of their emergent condition. - New Patient This patient is new to me today: No - Critical Care Critical Care patient: No - Discharge Referral Referred to [facility] Med P.C.: No
[2019-10-03] MEDS ORDERED: INSULIN (NOVOLOG) ASPART 100 UNITS/ML 10ML VIAL ONE (09:10)
[2019-10-03 09:16] LABS: ANISOCYTOSIS 0; MACROCYTOSIS 0; PLATELET ESTIMATE NORMAL
[2019-10-03] MEDS: FERROUS GLUCONATE 324 MG TAB (FP) PO SCH (09:47)
[2019-10-03] MEDS: MIRTAZAPINE 15 MG TABLET (FP) PO SCH (09:48)
[2019-10-03] MEDS: HEPARIN NA (PORCINE) 5,000 UNITS/ML 1ML VIAL SQ SCH ×2 (09:48→22:27)
[2019-10-03] MEDS: ASPIRIN 81 MG CHEWABLE TABLETS PO SCH (09:48)
[2019-10-03] MEDS: methylPREDNISolone NA SUCC 40 MG/1 ML VIAL IVPUSH SCH ×2 (09:48→17:11)
[2019-10-03] MEDS: LOSARTAN POTASSIUM 50 MG TABLET (FP) PO SCH (09:48)
[2019-10-03] MEDS: PANTOPRAZOLE 40 MG TABLET (FP) PO SCH (09:48)
[2019-10-03] MEDS: DOCUSATE SODIUM 100 MG CAPSULE (FP) PO SCH (09:48)
[2019-10-03] MEDS: DIVALPROEX NA *ER* EXTEND REL 500 MG TABLET.SA (FP) PO SCH (09:49)
--- NOTE | 2019-10-03 10:41 | PN ---
Progress Note (short form) - Note Progress Note: Still with congested cough and pleuritic type chest discomfort. Some sore throat. No acute events overnight. Intake & Output 09/30/19 10/01/19 10/02/19 10/03/19 23:59 23:59 23:59 23:59 Intake Total 575 2262 2300 1350 Balance 575 2262 2300 1350 Weight 152 lb 1.6 oz 154 lb 7 oz 153 lb 14.4 oz Last Vital Signs Temp Pulse Resp BP Pulse Ox 98.3 F 90 19 151/68 98 10/03/19 08:40 10/03/19 08:40 10/03/19 08:40 10/03/19 08:40 10/02/19 21:00 Active Medications Acetaminophen (Tylenol -) 650 mg PO Q6H PRN PRN Reason: Fever Last Admin: 10/02/19 02:37 Dose: 650 mg Albuterol/Ipratropium (Duoneb -) 1 amp NEB RQID [facility] Last Admin: 10/03/19 07:45 Dose: 1 amp Aspirin (Asa -) 81 mg PO DAILY [facility] Last Admin: 10/03/19 09:48 Dose: 81 mg Benzocaine/Menthol (Cepacol Lozenge -) 1 each MM PRN PRN PRN Reason: SORE THROAT Divalproex Sodium (Depakote *Er* -) 500 mg PO DAILY [facility] Last Admin: 10/03/19 09:49 Dose: 500 mg Docusate Sodium (Colace -) 100 mg PO DAILY [facility] Last Admin: 10/03/19 09:48 Dose: 100 mg Ferrous Gluconate (Fergon -) 324 mg PO DAILY [facility] Last Admin: 10/03/19 09:47 Dose: 324 mg Guaifenesin (Diabetic Tussin Dm -) 5 ml PO Q6H PRN PRN Reason: COUGH Last Admin: 10/02/19 22:43 Dose: 5 ml Heparin Sodium (Porcine) (Heparin -) 5,000 unit SQ BID [facility] Last Admin: 10/03/19 09:48 Dose: 5,000 unit Sodium Chloride (Normal Saline -) 1,000 mls @ 125 mls/hr IV ASDIR [facility] Last Admin: 10/03/19 05:00 Dose: 125 mls/hr Ibuprofen (Motrin -) 600 mg PO Q8H PRN PRN Reason: PAIN LEVEL 6-10 Insulin Aspart (Novolog Vial Sliding Scale -) 1 vial SQ [facility]; Protocol Last Admin: 10/03/19 06:09 Dose: Not Given Insulin Detemir (Levemir Vial) 10 units SQ HS [facility] Last Admin: 10/02/19 21:57 Dose: 10 unit Losartan Potassium (Cozaar -) 100 mg PO DAILY [facility] Last Admin: 10/03/19 09:48 Dose: 100 mg Methylprednisolone Sodium Succinate (Solu-Medrol -) 40 mg IVPUSH BID [facility] Last Admin: 10/03/19 09:48 Dose: 40 mg Mirtazapine (Remeron -) 15 mg PO DAILY [facility] Last Admin: 10/03/19 09:48 Dose: 15 mg Oseltamivir Phosphate (Tamiflu -) 30 mg PO BID@0600,1800 [facility] Stop: 10/05/19 17:59 Last Admin: 10/03/19 05:53 Dose: 30 mg Pantoprazole Sodium (Protonix -) 40 mg PO DAILY [facility] Last Admin: 10/03/19 09:48 Dose: 40 mg Constitutional: Yes: Anxious, Mild Distress Eyes: Yes: Conjunctiva Clear, EOM Intact HENT: Yes: Atraumatic, Normocephalic Neck: Yes: Supple, Trachea Midline Cardiovascular: Yes: Regular Rate and Rhythm Respiratory: Yes: Increased wheezing, Cough, Diminished, Rhonchi, SOB, SOB on Exertion. No: Accessory Muscle Use, Rales, Stridor ...Inspection: Yes: WNL ...Clubbing: No Gastrointestinal: Yes: Normal Bowel Sounds, Soft Renal/: Yes: WNL Musculoskeletal: Yes: WNL Extremities: Yes: WNL Edema: No Peripheral Pulses WNL: Yes Integumentary: Yes: WNL Neurological: Yes: WNL, Alert, Oriented ...Motor Strength: WNL Psychiatric: Yes: WNL, Alert, Oriented Labs: Laboratory Results - last 24 hr 10/02/19 10/02/19 10/02/19 07:35 10:59 17:28 WBC RBC Hgb Hct MCV MCH MCHC RDW Plt Count MPV Absolute Neuts (auto) Neutrophils % Neutrophils % (Manual) Band Neutrophils % Lymphocytes % Lymphocytes % (Manual) Monocytes % Monocytes % (Manual) Eosinophils % Eosinophils % (Manual) Basophils % Basophils % (Manual) Myelocytes % (Man) Promyelocytes % (Man) Blast Cells % (Manual) Nucleated RBC % Metamyelocytes Hypochromia Platelet Estimate Polychromasia Poikilocytosis Anisocytosis Microcytosis Macrocytosis Sodium Potassium Chloride Carbon Dioxide Anion Gap BUN Creatinine Est GFR (CKD-EPI)AfAm Est GFR (CKD-EPI)NonAf POC Glucometer 316 306 Random Glucose Hemoglobin A1c % 8.0 H Calcium Magnesium Total Bilirubin AST ALT Alkaline Phosphatase Total Protein Albumin 10/02/19 10/03/19 10/03/19 21:56 06:08 06:34 WBC 8.9 RBC 2.80 L Hgb 8.3 L Hct 24.9 L MCV 89.2 MCH 29.9 MCHC 33.5 RDW 13.3 Plt Count 247 MPV 9.3 Absolute Neuts (auto) 6.8 Neutrophils % 77.1 Neutrophils % (Manual) 69.0 Band Neutrophils % 4.0 Lymphocytes % 13.5 D Lymphocytes % (Manual) 19.0 D Monocytes % 9.3 D Monocytes % (Manual) 5 Eosinophils % 0.0 Eosinophils % (Manual) 0.0 Basophils % 0.1 Basophils % (Manual) 0.0 Myelocytes % (Man) 2 D Promyelocytes % (Man) 1 D Blast Cells % (Manual) 0 Nucleated RBC % 0 Metamyelocytes 0 D Hypochromia 0 Platelet Estimate Normal Polychromasia 0 Poikilocytosis 0 Anisocytosis 0 Microcytosis 0 Macrocytosis 0 Sodium Potassium Chloride Carbon Dioxide Anion Gap BUN Creatinine Est GFR (CKD-EPI)AfAm Est GFR (CKD-EPI)NonAf POC Glucometer 184 103 Random Glucose Hemoglobin A1c % Calcium Magnesium Total Bilirubin AST ALT Alkaline Phosphatase Total Protein Albumin 10/03/19 06:34 WBC RBC Hgb Hct MCV MCH MCHC RDW Plt Count MPV Absolute Neuts (auto) Neutrophils % Neutrophils % (Manual) Band Neutrophils % Lymphocytes % Lymphocytes % (Manual) Monocytes % Monocytes % (Manual) Eosinophils % Eosinophils % (Manual) Basophils % Basophils % (Manual) Myelocytes % (Man) Promyelocytes % (Man) Blast Cells % (Manual) Nucleated RBC % Metamyelocytes Hypochromia Platelet Estimate Polychromasia Poikilocytosis Anisocytosis Microcytosis Macrocytosis Sodium 144 Potassium 3.7 Chloride 111 H Carbon Dioxide 26 Anion Gap 7 L BUN 19.0 H Creatinine 0.9 Est GFR (CKD-EPI)AfAm 71.98 Est GFR (CKD-EPI)NonAf 62.11 POC Glucometer Random Glucose 98 Hemoglobin A1c % Calcium 8.3 L Magnesium 2.0 Total Bilirubin 0.3 AST 28 ALT 37 Alkaline Phosphatase 57 Total Protein 6.2 L Albumin 2.8 L Problem List - Problems (1) Wheezing Code(s): R06.2 - WHEEZING (2) HLD (hyperlipidemia) Code(s): E78.5 - HYPERLIPIDEMIA, UNSPECIFIED (3) Myasthenia gravis Code(s): G70.00 - MYASTHENIA GRAVIS WITHOUT (ACUTE) EXACERBATION (4) SOB (shortness of breath) Code(s): R06.02 - SHORTNESS OF BREATH (5) Cough Code(s): R05 - COUGH (6) Depression with anxiety Code(s): F41.8 - OTHER SPECIFIED ANXIETY DISORDERS (7) Dizziness Code(s): R42 - DIZZINESS AND GIDDINESS (8) Influenza A Code(s): J10.1 - FLU DUE TO OTH IDENT INFLUENZA VIRUS W OTH RESP MANIFEST (9) Headache Code(s): R51 - HEADACHE Qualifiers: Headache type: unspecified Headache chronicity pattern: acute headache Intractability: not intractable Qualified Code(s): R51 - Headache (10) Hypertension Code(s): I10 - ESSENTIAL (PRIMARY) HYPERTENSION Qualifiers: Hypertension type: essential hypertension Qualified Code(s): I10 - Essential (primary) hypertension (11) Type 2 diabetes mellitus Code(s): E11.9 - TYPE 2 DIABETES MELLITUS WITHOUT COMPLICATIONS Qualifiers: Diabetes mellitus complication status: without complication Qualified Code( s): E11.9 - Type 2 diabetes mellitus without complications (12) Tachypnea Code(s): R06.82 - TACHYPNEA, NOT ELSEWHERE CLASSIFIED (13) Costochondral chest pain Code(s): R07.1 - CHEST PAIN ON BREATHING Assessment/Plan PLAN: Increase Medrol due to increased bronchospasm Trial of Cepacol Complete Tamiflu Monitor off ABX as CT is clear without acute pathology O2 as needed BD TX VTE prophylaxis Outpatient PFTs once stable No smoking Dr Elliott Problem List - Problems (1) Wheezing Code(s): R06.2 - WHEEZING (2) HLD (hyperlipidemia) Code(s): E78.5 - HYPERLIPIDEMIA, UNSPECIFIED (3) Myasthenia gravis Code(s): G70.00 - MYASTHENIA GRAVIS WITHOUT (ACUTE) EXACERBATION (4) SOB (shortness of breath) Code(s): R06.02 - SHORTNESS OF BREATH (5) Cough Code(s): R05 - COUGH (6) Depression with anxiety Code(s): F41.8 - OTHER SPECIFIED ANXIETY DISORDERS (7) Dizziness Code(s): R42 - DIZZINESS AND GIDDINESS (8) Influenza A Code(s): J10.1 - FLU DUE TO OTH IDENT INFLUENZA VIRUS W OTH RESP MANIFEST (9) Headache Code(s): R51 - HEADACHE Qualifiers: Headache type: unspecified Headache chronicity pattern: acute headache Intractability: not intractable Qualified Code(s): R51 - Headache (10) Hypertension Code(s): I10 - ESSENTIAL (PRIMARY) HYPERTENSION Qualifiers: Hypertension type: essential hypertension Qualified Code(s): I10 - Essential (primary) hypertension (11) Type 2 diabetes mellitus Code(s): E11.9 - TYPE 2 DIABETES MELLITUS WITHOUT COMPLICATIONS Qualifiers: Diabetes mellitus complication status: without complication Qualified Code( s): E11.9 - Type 2 diabetes mellitus without complications (12) Tachypnea Code(s): R06.82 - TACHYPNEA, NOT ELSEWHERE CLASSIFIED (13) Costochondral chest pain Code(s): R07.1 - CHEST PAIN ON BREATHING
[2019-10-03] MEDS ORDERED: methylPREDNISolone NA SUCC 40 MG/1 ML VIAL IVPUSH ONE (11:15)
[2019-10-03] MEDS: guaiFENesin/D-M SUGAR-FREE/ACLHOL-FREE 118 ML BOTTLE PO PRN ×2 (11:46→18:11)
[2019-10-03] MEDS: BENZOCAINE/MENTH/CETYLPYRD CL 1 EACH LOZENGE MM PRN (15:41)
[2019-10-03] MEDS: INSULIN (LEVEMIR) 100 UNITS/ML UNITS SQ SCH (22:27)
[2019-10-04] MEDS ORDERED: PT OWN MED DRAWER 7, Y5N ONE ×2 (01:42→09:40)
[2019-10-04] MEDS: SODIUM CHLORIDE 1,000 ML IV SCH ×2 (01:44→14:37)
[2019-10-04] MEDS: BENZOCAINE/MENTH/CETYLPYRD CL 1 EACH LOZENGE MM PRN (01:45)
[2019-10-04] MEDS: ACETAMINOPHEN 325 MG TABLET (FP) PO PRN (01:45)
[2019-10-04] MEDS: guaiFENesin/D-M SUGAR-FREE/ACLHOL-FREE 118 ML BOTTLE PO PRN ×2 (01:47→22:09)
[2019-10-04] MEDS: methylPREDNISolone NA SUCC 40 MG/1 ML VIAL IVPUSH SCH ×3 (02:18→17:39)
[2019-10-04] MEDS: INSULIN SLIDING SCALE (NOVOLOG) 1 VIAL SQ SCH ×4 (06:47→22:16)
[2019-10-04] MEDS: ALBUTEROL SO4 2.5/IPRATROPIUM 0.5 INH SOL 3 ML VIAL.NEB. NEB SCH ×4 (07:52→20:03)
[2019-10-04 08:06] LABS: BASO % 0.1 % (0-2.0); EOS % 0.1 % (0-4.5); HEMATOCRIT 25.6 % (32.4-45.2); HEMOGLOBIN 8.7 GM/dL (10.7-15.3); LYMPH % 7.3 % (8-40); MCH 30.3 pg (25.7-33.7); MCHC 33.9 g/dl (32.0-36.0); MEAN CELL VOLUME 89.6 fl (80-96); MEAN PLT VOLUME 9.7 fl (7.5-11.1); MONO % 4.6 % (3.8-10.2); NEUT % 87.9 % (42.8-82.8); PLATELET COUNT 242 K/MM3 (134-434); RBC 2.86 M/mm3 (3.60-5.2); RDW 13.3 % (11.6-15.6); WHITE BLOOD COUNT 6.4 K/mm3 (4.0-10.0)
[2019-10-04 08:10] LABS: ALBUMIN 2.7 g/dl (3.4-5.0); BILIRUBIN,TOTAL 0.2 mg/dL (0.2-1); CALCIUM 8.1 mg/dL (8.5-10.1); CREATININE 0.8 mg/dL (0.55-1.3); MAGNESIUM 2.2 mg/dL (1.8-2.4); TOT PROT 6.3 g/dl (6.4-8.2)
[2019-10-04] MEDS: DOCUSATE SODIUM 100 MG CAPSULE (FP) PO SCH (09:55)
[2019-10-04] MEDS: ASPIRIN 81 MG CHEWABLE TABLETS PO SCH (09:55)
[2019-10-04] MEDS: HEPARIN NA (PORCINE) 5,000 UNITS/ML 1ML VIAL SQ SCH ×2 (09:55→22:09)
[2019-10-04] MEDS: MIRTAZAPINE 15 MG TABLET (FP) PO SCH (09:55)
[2019-10-04] MEDS: DIVALPROEX NA *ER* EXTEND REL 500 MG TABLET.SA (FP) PO SCH (09:56)
[2019-10-04] MEDS: FERROUS GLUCONATE 324 MG TAB (FP) PO SCH (09:56)
[2019-10-04] MEDS: LOSARTAN POTASSIUM 50 MG TABLET (FP) PO SCH (09:56)
--- NOTE | 2019-10-04 10:43 | PN ---
Progress Note (short form) - Note Progress Note: OOB to chair. Just walked with PT. Breathing feels a little better today, less wheezing. No acute events overnight. Intake & Output 10/01/19 10/02/19 10/03/19 10/04/19 23:59 23:59 23:59 23:59 Intake Total 2262 2300 3125 1650 Balance 2262 2300 3125 1650 Weight 154 lb 7 oz 153 lb 14.4 oz 154 lb Last Vital Signs Temp Pulse Resp BP Pulse Ox 98.6 F 89 20 150/79 98 10/04/19 05:35 10/04/19 05:35 10/04/19 05:35 10/04/19 05:35 10/03/19 21:00 Active Medications Acetaminophen (Tylenol -) 650 mg PO Q6H PRN PRN Reason: Fever Last Admin: 10/04/19 01:45 Dose: 650 mg Albuterol/Ipratropium (Duoneb -) 1 amp NEB RQID [facility] Last Admin: 10/04/19 07:52 Dose: 1 amp Aspirin (Asa -) 81 mg PO DAILY [facility] Last Admin: 10/04/19 09:55 Dose: 81 mg Benzocaine/Menthol (Cepacol Lozenge -) 1 each MM PRN PRN PRN Reason: SORE THROAT Last Admin: 10/04/19 01:45 Dose: 1 each Divalproex Sodium (Depakote *Er* -) 500 mg PO DAILY [facility] Last Admin: 10/04/19 09:56 Dose: 500 mg Docusate Sodium (Colace -) 100 mg PO DAILY [facility] Last Admin: 10/04/19 09:55 Dose: 100 mg Ferrous Gluconate (Fergon -) 324 mg PO DAILY [facility] Last Admin: 10/04/19 09:56 Dose: 324 mg Guaifenesin (Diabetic Tussin Dm -) 5 ml PO Q6H PRN PRN Reason: COUGH Last Admin: 10/04/19 01:47 Dose: 5 ml Heparin Sodium (Porcine) (Heparin -) 5,000 unit SQ BID [facility] Last Admin: 10/04/19 09:55 Dose: 5,000 unit Sodium Chloride (Normal Saline -) 1,000 mls @ 125 mls/hr IV ASDIR [facility] Last Admin: 10/04/19 01:44 Dose: 125 mls/hr Ibuprofen (Motrin -) 600 mg PO Q8H PRN PRN Reason: PAIN LEVEL 6-10 Insulin Aspart (Novolog Vial Sliding Scale -) 1 vial SQ ACHS [facility]; Protocol Last Admin: 10/04/19 06:47 Dose: 4 units Insulin Detemir (Levemir Vial) 10 units SQ HS [facility] Last Admin: 10/03/19 22:27 Dose: 10 unit Losartan Potassium (Cozaar -) 100 mg PO DAILY [facility] Last Admin: 10/04/19 09:56 Dose: 100 mg Methylprednisolone Sodium Succinate (Solu-Medrol -) 60 mg IVPUSH Q8H-IV [facility] Last Admin: 10/04/19 09:59 Dose: 60 mg Mirtazapine (Remeron -) 15 mg PO DAILY [facility] Last Admin: 10/04/19 09:55 Dose: 15 mg Pantoprazole Sodium (Protonix -) 40 mg PO DAILY [facility] Last Admin: 10/03/19 09:48 Dose: 40 mg Constitutional: Yes: Anxious, Less tachypneic Eyes: Yes: Conjunctiva Clear, EOM Intact HENT: Yes: Atraumatic, Normocephalic Neck: Yes: Supple, Trachea Midline Cardiovascular: Yes: Regular Rate and Rhythm Respiratory: Yes: Less wheezing, Cough, Diminished, Rhonchi, SOB, SOB on Exertion. No: Accessory Muscle Use, Rales, Stridor ...Inspection: Yes: WNL ...Clubbing: No Gastrointestinal: Yes: Normal Bowel Sounds, Soft Renal/: Yes: WNL Musculoskeletal: Yes: WNL Extremities: Yes: WNL Edema: No Peripheral Pulses WNL: Yes Integumentary: Yes: WNL Neurological: Yes: WNL, Alert, Oriented ...Motor Strength: WNL Psychiatric: Yes: WNL, Alert, Oriented Labs: Laboratory Results - last 24 hr 10/03/19 10/03/19 10/03/19 11:40 17:09 21:10 WBC RBC Hgb Hct MCV MCH MCHC RDW Plt Count MPV Absolute Neuts (auto) Neutrophils % Lymphocytes % Monocytes % Eosinophils % Basophils % Nucleated RBC % Sodium Potassium Chloride Carbon Dioxide Anion Gap BUN Creatinine Est GFR (CKD-EPI)AfAm Est GFR (CKD-EPI)NonAf POC Glucometer 238 334 265 Random Glucose Calcium Magnesium Total Bilirubin AST ALT Alkaline Phosphatase Total Protein Albumin 10/04/19 10/04/19 10/04/19 05:58 06:28 06:28 WBC 6.4 RBC 2.86 L Hgb 8.7 L Hct 25.6 L MCV 89.6 MCH 30.3 MCHC 33.9 RDW 13.3 Plt Count 242 MPV 9.7 Absolute Neuts (auto) 5.6 Neutrophils % 87.9 H Lymphocytes % 7.3 L D Monocytes % 4.6 Eosinophils % 0.1 D Basophils % 0.1 Nucleated RBC % 0 Sodium 141 Potassium 4.0 Chloride 109 H Carbon Dioxide 26 Anion Gap 6 L BUN 20.0 H Creatinine 0.8 Est GFR (CKD-EPI)AfAm 83.00 Est GFR (CKD-EPI)NonAf 71.61 POC Glucometer 221 Random Glucose 229 H Calcium 8.1 L Magnesium 2.2 Total Bilirubin 0.2 AST 17 ALT 36 Alkaline Phosphatase 57 Total Protein 6.3 L Albumin 2.7 L Problem List - Problems (1) Wheezing Code(s): R06.2 - WHEEZING (2) HLD (hyperlipidemia) Code(s): E78.5 - HYPERLIPIDEMIA, UNSPECIFIED (3) Myasthenia gravis Code(s): G70.00 - MYASTHENIA GRAVIS WITHOUT (ACUTE) EXACERBATION (4) SOB (shortness of breath) Code(s): R06.02 - SHORTNESS OF BREATH (5) Cough Code(s): R05 - COUGH (6) Depression with anxiety Code(s): F41.8 - OTHER SPECIFIED ANXIETY DISORDERS (7) Dizziness Code(s): R42 - DIZZINESS AND GIDDINESS (8) Influenza A Code(s): J10.1 - FLU DUE TO OTH IDENT INFLUENZA VIRUS W OTH RESP MANIFEST (9) Headache Code(s): R51 - HEADACHE Qualifiers: Headache type: unspecified Headache chronicity pattern: acute headache Intractability: not intractable Qualified Code(s): R51 - Headache (10) Hypertension Code(s): I10 - ESSENTIAL (PRIMARY) HYPERTENSION Qualifiers: Hypertension type: essential hypertension Qualified Code(s): I10 - Essential (primary) hypertension (11) Type 2 diabetes mellitus Code(s): E11.9 - TYPE 2 DIABETES MELLITUS WITHOUT COMPLICATIONS Qualifiers: Diabetes mellitus complication status: without complication Qualified Code( s): E11.9 - Type 2 diabetes mellitus without complications (12) Tachypnea Code(s): R06.82 - TACHYPNEA, NOT ELSEWHERE CLASSIFIED (13) Costochondral chest pain Code(s): R07.1 - CHEST PAIN ON BREATHING Assessment/Plan PLAN: Medrol at current dose Cepacol Complete Tamiflu Monitor off ABX as CT is clear without acute pathology O2 as needed BD TX VTE prophylaxis Outpatient PFTs once stable No smoking Dr Elliott Problem List - Problems (1) Wheezing Code(s): R06.2 - WHEEZING (2) HLD (hyperlipidemia) Code(s): E78.5 - HYPERLIPIDEMIA, UNSPECIFIED (3) Myasthenia gravis Code(s): G70.00 - MYASTHENIA GRAVIS WITHOUT (ACUTE) EXACERBATION (4) SOB (shortness of breath) Code(s): R06.02 - SHORTNESS OF BREATH (5) Cough Code(s): R05 - COUGH (6) Depression with anxiety Code(s): F41.8 - OTHER SPECIFIED ANXIETY DISORDERS (7) Dizziness Code(s): R42 - DIZZINESS AND GIDDINESS (8) Influenza A Code(s): J10.1 - FLU DUE TO OTH IDENT INFLUENZA VIRUS W OTH RESP MANIFEST (9) Headache Code(s): R51 - HEADACHE Qualifiers: Headache type: unspecified Headache chronicity pattern: acute headache Intractability: not intractable Qualified Code(s): R51 - Headache (10) Hypertension Code(s): I10 - ESSENTIAL (PRIMARY) HYPERTENSION Qualifiers: Hypertension type: essential hypertension Qualified Code(s): I10 - Essential (primary) hypertension (11) Type 2 diabetes mellitus Code(s): E11.9 - TYPE 2 DIABETES MELLITUS WITHOUT COMPLICATIONS Qualifiers: Diabetes mellitus complication status: without complication Qualified Code( s): E11.9 - Type 2 diabetes mellitus without complications (12) Tachypnea Code(s): R06.82 - TACHYPNEA, NOT ELSEWHERE CLASSIFIED (13) Costochondral chest pain Code(s): R07.1 - CHEST PAIN ON BREATHING
[2019-10-04] MEDS: PANTOPRAZOLE 40 MG TABLET (FP) PO SCH (11:12)
--- NOTE | 2019-10-04 12:36 | PN ---
Physical Exam: SUBJECTIVE: Patient seen and examined at the bedside. still not feeling well, feels weak. gets short of breath with ambulation, better with rest. no on oxygen at home. OBJECTIVE: + wheezing patient is 74 year old female with hx of dibetes, HTN, HLD, migraines, recent diagnosis of influenza A (completed tamiflu) who presents with increasing fatigue, shortness of breath and midsternal chest pain that is constant nonradiating and not worsened with inspiration. She admits to cough productive of yellow sputum. No documented fevers but states she felt hot and had chills at home. Vital Signs Period Temp Pulse Resp BP Sys/Levi Pulse Ox Last 24 Hr 98.1 F-98.6 F 86-102 18-21 137-160/57-84 98 GENERAL: The patient is awake, alert, and fully oriented HEAD: Normal with no signs of trauma. EYES: PERRL, extraocular movements intact, sclera anicteric, conjunctiva clear. No ptosis. ENT: Ears normal, nares patent, oropharynx clear without exudates, moist mucous membranes. NECK: Trachea midline, full range of motion, supple. LUNGS: wheezing auscultated bilaterally, unable to take in deep breaths, will order spirometer. HEART: Regular rate and rhythm ABDOMEN: Soft, nontender, nondistended, normoactive bowel sounds, no guarding EXTREMITIES: no edema. NEUROLOGICAL: Normal speech, gait not observed. PSYCH: Normal mood, normal affect. SKIN: Warm, dry, normal turgor, no rashes or lesions noted Laboratory Results - last 24 hr 10/03/19 10/03/19 10/04/19 17:09 21:10 05:58 WBC RBC Hgb Hct MCV MCH MCHC RDW Plt Count MPV Absolute Neuts (auto) Neutrophils % Lymphocytes % Monocytes % Eosinophils % Basophils % Nucleated RBC % Sodium Potassium Chloride Carbon Dioxide Anion Gap BUN Creatinine Est GFR (CKD-EPI)AfAm Est GFR (CKD-EPI)NonAf POC Glucometer 334 265 221 Random Glucose Calcium Magnesium Total Bilirubin AST ALT Alkaline Phosphatase Total Protein Albumin 10/04/19 10/04/19 10/04/19 06:28 06:28 11:26 WBC 6.4 RBC 2.86 L Hgb 8.7 L Hct 25.6 L MCV 89.6 MCH 30.3 MCHC 33.9 RDW 13.3 Plt Count 242 MPV 9.7 Absolute Neuts (auto) 5.6 Neutrophils % 87.9 H Lymphocytes % 7.3 L D Monocytes % 4.6 Eosinophils % 0.1 D Basophils % 0.1 Nucleated RBC % 0 Sodium 141 Potassium 4.0 Chloride 109 H Carbon Dioxide 26 Anion Gap 6 L BUN 20.0 H Creatinine 0.8 Est GFR (CKD-EPI)AfAm 83.00 Est GFR (CKD-EPI)NonAf 71.61 POC Glucometer 283 Random Glucose 229 H Calcium 8.1 L Magnesium 2.2 Total Bilirubin 0.2 AST 17 ALT 36 Alkaline Phosphatase 57 Total Protein 6.3 L Albumin 2.7 L Active Medications Generic Name Dose Route Start Last Admin Trade Name Freq PRN Reason Stop Dose Admin Acetaminophen 650 mg 09/30/19 17:05 10/04/19 01:45 Tylenol - PO 650 mg Q6H PRN Administration Fever Albuterol/Ipratropium 1 amp 09/30/19 16:00 10/04/19 07:52 Duoneb - NEB 1 amp RQID [facility] Administration Aspirin 81 mg 10/01/19 10:00 10/04/19 09:55 Asa - PO 81 mg DAILY [facility] Administration Benzocaine/Menthol 1 each 10/02/19 11:04 10/04/19 01:45 Cepacol Lozenge - MM 1 each PRN PRN Administration SORE THROAT Divalproex Sodium 500 mg 10/01/19 10:00 10/04/19 09:56 Depakote *Er* - PO 500 mg DAILY [facility] Administration Docusate Sodium 100 mg 10/01/19 10:00 10/04/19 09:55 Colace - PO 100 mg DAILY [facility] Administration Ferrous Gluconate 324 mg 10/01/19 10:00 10/04/19 09:56 Fergon - PO 324 mg DAILY [facility] Administration Guaifenesin 5 ml 09/30/19 15:01 10/04/19 01:47 Diabetic Tussin Dm - PO 5 ml Q6H PRN Administration COUGH Heparin Sodium (Porcine) 5,000 unit 09/30/19 22:00 10/04/19 09:55 Heparin - SQ 5,000 unit BID [facility] Administration Sodium Chloride 1,000 mls @ 125 mls/hr 09/30/19 12:15 10/04/19 01:44 Normal Saline - IV 125 mls/hr ASDIR [facility] Administration Ibuprofen 600 mg 10/02/19 10:34 Motrin - PO Q8H PRN PAIN LEVEL 6-10 Insulin Aspart 1 vial 09/30/19 16:30 10/04/19 11:27 Novolog Vial Sliding Scale - SQ 6 units ACHS [facility] Administration Protocol Insulin Detemir 10 units 10/02/19 22:00 10/03/19 22:27 Levemir Vial SQ 10 unit HS [facility] Administration Losartan Potassium 100 mg 10/01/19 10:00 10/04/19 09:56 Cozaar - PO 100 mg DAILY [facility] Administration Methylprednisolone Sodium Succinate 60 mg 10/03/19 18:00 10/04/19 09:59 Solu-Medrol - IVPUSH 60 mg Q8H-IV [facility] Administration Mirtazapine 15 mg 10/01/19 10:00 10/04/19 09:55 Remeron - PO 15 mg DAILY [facility] Administration Pantoprazole Sodium 40 mg 10/01/19 10:00 10/04/19 11:12 Protonix - PO 40 mg DAILY [facility] Administration ASSESSMENT/PLAN: Problem List - Problems (1) Influenza A Assessment/Plan: completed treatment of tamiflu Code(s): J10.1 - FLU DUE TO OTH IDENT INFLUENZA VIRUS W OTH RESP MANIFEST (2) Costochondral chest pain Assessment/Plan: resolved, no further chest pain Code(s): R07.1 - CHEST PAIN ON BREATHING (3) HLD (hyperlipidemia) Assessment/Plan: continue home medications. Code(s): E78.5 - HYPERLIPIDEMIA, UNSPECIFIED (4) Myasthenia gravis Assessment/Plan: on mestinon, re start when off steriods. physical therapy following Code(s): G70.00 - MYASTHENIA GRAVIS WITHOUT (ACUTE) EXACERBATION (5) SOB (shortness of breath) Assessment/Plan: on 2 liters of nasal cannula wean off as tolerated Code(s): R06.02 - SHORTNESS OF BREATH (6) Wheezing Assessment/Plan: improving, but still having dyspnea with physical exertion on solumedrol taper with gi protection. Code(s): R06.2 - WHEEZING (7) Cough Assessment/Plan: non productive coug on solumedrol Code(s): R05 - COUGH (8) Depression with anxiety Assessment/Plan: continue home medications Code(s): F41.8 - OTHER SPECIFIED ANXIETY DISORDERS (9) Type 2 diabetes mellitus Code(s): E11.9 - TYPE 2 DIABETES MELLITUS WITHOUT COMPLICATIONS Qualifiers: Diabetes mellitus complication status: without complication Qualified Code( s): E11.9 - Type 2 diabetes mellitus without complications (10) Tachypnea Assessment/Plan: improving since admission, but still having episodes of shorntess of breath when attempting to ambulate. on 2 liters nasal cannula Code(s): R06.82 - TACHYPNEA, NOT ELSEWHERE CLASSIFIED (11) Hypertension Assessment/Plan: on cozaar Code(s): I10 - ESSENTIAL (PRIMARY) HYPERTENSION Qualifiers: Hypertension type: essential hypertension Qualified Code(s): I10 - Essential (primary) hypertension (12) Prophylactic measure Code(s): Z29.9 - ENCOUNTER FOR PROPHYLACTIC MEASURES, UNSPECIFIED (13) DVT prophylaxis Assessment/Plan: on heparin bid Code(s): Z29.9 - ENCOUNTER FOR PROPHYLACTIC MEASURES, UNSPECIFIED Visit type - Emergency Visit Emergency Visit: Yes ED Registration Date: 09/30/19 Care time: The patient presented to the Emergency Department on the above date and was hospitalized for further evaluation of their emergent condition. - New Patient This patient is new to me today: Yes Date on this admission: 10/04/19 - Critical Care Critical Care patient: No - Discharge Referral Referred to [facility] Med P.C.: No
[2019-10-04 13:43] LABS: ANISOCYTOSIS 0; MACROCYTOSIS 0; PLATELET ESTIMATE NORMAL
[2019-10-04] MEDS ORDERED: INSULIN (NOVOLOG) ASPART 100 UNITS/ML 10ML VIAL ONE ×2 (17:58→21:24)
[2019-10-04] MEDS: INSULIN (LEVEMIR) 100 UNITS/ML UNITS SQ SCH (22:09)
[2019-10-05] MEDS: methylPREDNISolone NA SUCC 40 MG/1 ML VIAL IVPUSH SCH ×3 (01:00→17:17)
[2019-10-05] MEDS: INSULIN SLIDING SCALE (NOVOLOG) 1 VIAL SQ SCH ×4 (06:08→22:02)
[2019-10-05] MEDS: ALBUTEROL SO4 2.5/IPRATROPIUM 0.5 INH SOL 3 ML VIAL.NEB. NEB SCH ×4 (07:31→20:48)
[2019-10-05 08:17] LABS: HEMATOCRIT 26.5 % (32.4-45.2); HEMOGLOBIN 8.8 GM/dL (10.7-15.3); LYMPH % 5.9 % (8-40); MCH 30.1 pg (25.7-33.7); MCHC 33.3 g/dl (32.0-36.0); MEAN CELL VOLUME 90.3 fl (80-96); MEAN PLT VOLUME 9.3 fl (7.5-11.1); MONO % 5.8 % (3.8-10.2); NEUT % 88.3 % (42.8-82.8); PLATELET COUNT 253 K/MM3 (134-434); RBC 2.93 M/mm3 (3.60-5.2); RDW 13.4 % (11.6-15.6); WHITE BLOOD COUNT 8.4 K/mm3 (4.0-10.0)
--- NOTE | 2019-10-05 08:25 | PN ---
Progress Note (short form) - Note Progress Note: Resting in bed get a BD TX. Breathing feels a little better today, less wheezing. No acute events overnight. Intake & Output 10/02/19 10/03/19 10/04/19 10/05/19 23:59 23:59 23:59 23:59 Intake Total 2300 3125 3200 200 Balance 2300 3125 3200 200 Weight 153 lb 14.4 oz 154 lb 154 lb 5 oz Last Vital Signs Temp Pulse Resp BP Pulse Ox 98.2 F 90 18 151/83 97 10/05/19 05:25 10/05/19 05:25 10/05/19 05:25 10/05/19 05:25 10/04/19 21:00 Active Medications Acetaminophen (Tylenol -) 650 mg PO Q6H PRN PRN Reason: Fever Last Admin: 10/04/19 01:45 Dose: 650 mg Albuterol/Ipratropium (Duoneb -) 1 amp NEB RQID [facility] Last Admin: 10/05/19 07:31 Dose: 1 amp Aspirin (Asa -) 81 mg PO DAILY [facility] Last Admin: 10/04/19 09:55 Dose: 81 mg Benzocaine/Menthol (Cepacol Lozenge -) 1 each MM PRN PRN PRN Reason: SORE THROAT Last Admin: 10/04/19 01:45 Dose: 1 each Divalproex Sodium (Depakote *Er* -) 500 mg PO DAILY [facility] Last Admin: 10/04/19 09:56 Dose: 500 mg Docusate Sodium (Colace -) 100 mg PO DAILY [facility] Last Admin: 10/04/19 09:55 Dose: 100 mg Ferrous Gluconate (Fergon -) 324 mg PO DAILY [facility] Last Admin: 10/04/19 09:56 Dose: 324 mg Guaifenesin (Diabetic Tussin Dm -) 5 ml PO Q6H PRN PRN Reason: COUGH Last Admin: 10/04/19 22:09 Dose: 5 ml Heparin Sodium (Porcine) (Heparin -) 5,000 unit SQ BID [facility] Last Admin: 10/04/19 22:09 Dose: 5,000 unit Ibuprofen (Motrin -) 600 mg PO Q8H PRN PRN Reason: PAIN LEVEL 6-10 Insulin Aspart (Novolog Vial Sliding Scale -) 1 vial SQ ACHS [facility]; Protocol Last Admin: 10/05/19 06:08 Dose: 4 units Insulin Detemir (Levemir Vial) 10 units SQ HS [facility] Last Admin: 10/04/19 22:09 Dose: 10 unit Losartan Potassium (Cozaar -) 100 mg PO DAILY [facility] Last Admin: 10/04/19 09:56 Dose: 100 mg Methylprednisolone Sodium Succinate (Solu-Medrol -) 40 mg IVPUSH Q8H-IV [facility] Mirtazapine (Remeron -) 15 mg PO DAILY [facility] Last Admin: 10/04/19 09:55 Dose: 15 mg Pantoprazole Sodium (Protonix -) 40 mg PO DAILY [facility] Last Admin: 10/04/19 11:12 Dose: 40 mg Constitutional: Yes: Anxious, Less tachypneic Eyes: Yes: Conjunctiva Clear, EOM Intact HENT: Yes: Atraumatic, Normocephalic Neck: Yes: Supple, Trachea Midline Cardiovascular: Yes: Regular Rate and Rhythm Respiratory: Yes: Less wheezing, Cough, Diminished, Rhonchi. No: Accessory Muscle Use, Rales, Stridor ...Inspection: Yes: WNL ...Clubbing: No Gastrointestinal: Yes: Normal Bowel Sounds, Soft Renal/: Yes: WNL Musculoskeletal: Yes: WNL Extremities: Yes: WNL Edema: No Peripheral Pulses WNL: Yes Integumentary: Yes: WNL Neurological: Yes: WNL, Alert, Oriented ...Motor Strength: WNL Psychiatric: Yes: WNL, Alert, Oriented Labs: Laboratory Results - last 24 hr 10/04/19 10/04/19 10/04/19 06:28 11:26 16:18 WBC RBC Hgb Hct MCV MCH MCHC RDW Plt Count MPV Absolute Neuts (auto) Neutrophils % Neutrophils % (Manual) 86.0 H Band Neutrophils % 3.0 Lymphocytes % Lymphocytes % (Manual) 3.0 L D Monocytes % Monocytes % (Manual) 2 L Eosinophils % Eosinophils % (Manual) 0.0 Basophils % Basophils % (Manual) 0.0 Myelocytes % (Man) 3 H D Promyelocytes % (Man) 0 D Blast Cells % (Manual) 0 Nucleated RBC % Metamyelocytes 2 D Hypochromia 0 Platelet Estimate Normal Polychromasia 0 Poikilocytosis 0 Anisocytosis 0 Microcytosis 0 Macrocytosis 0 POC Glucometer 283 267 01/07/20 01/08/20 01/08/20 22:14 05:45 07:43 WBC 8.4 RBC 2.93 L Hgb 8.8 L Hct 26.5 L MCV 90.3 MCH 30.1 MCHC 33.3 RDW 13.4 Plt Count 253 MPV 9.3 Absolute Neuts (auto) 7.4 Neutrophils % 88.3 H Neutrophils % (Manual) Band Neutrophils % Lymphocytes % 5.9 L Lymphocytes % (Manual) Monocytes % 5.8 Monocytes % (Manual) Eosinophils % 0.0 D Eosinophils % (Manual) Basophils % 0.0 Basophils % (Manual) Myelocytes % (Man) Promyelocytes % (Man) Blast Cells % (Manual) Nucleated RBC % 0 Metamyelocytes Hypochromia Platelet Estimate Polychromasia Poikilocytosis Anisocytosis Microcytosis Macrocytosis POC Glucometer 312 213 Problem List - Problems (1) Wheezing Code(s): R06.2 - WHEEZING (2) HLD (hyperlipidemia) Code(s): E78.5 - HYPERLIPIDEMIA, UNSPECIFIED (3) Myasthenia gravis Code(s): G70.00 - MYASTHENIA GRAVIS WITHOUT (ACUTE) EXACERBATION (4) SOB (shortness of breath) Code(s): R06.02 - SHORTNESS OF BREATH (5) Cough Code(s): R05 - COUGH (6) Depression with anxiety Code(s): F41.8 - OTHER SPECIFIED ANXIETY DISORDERS (7) Dizziness Code(s): R42 - DIZZINESS AND GIDDINESS (8) Influenza A Code(s): J10.1 - FLU DUE TO OTH IDENT INFLUENZA VIRUS W OTH RESP MANIFEST (9) Headache Code(s): R51 - HEADACHE Qualifiers: Headache type: unspecified Headache chronicity pattern: acute headache Intractability: not intractable Qualified Code(s): R51 - Headache (10) Hypertension Code(s): I10 - ESSENTIAL (PRIMARY) HYPERTENSION Qualifiers: Hypertension type: essential hypertension Qualified Code(s): I10 - Essential (primary) hypertension (11) Type 2 diabetes mellitus Code(s): E11.9 - TYPE 2 DIABETES MELLITUS WITHOUT COMPLICATIONS Qualifiers: Diabetes mellitus complication status: without complication Qualified Code( s): E11.9 - Type 2 diabetes mellitus without complications (12) Tachypnea Code(s): R06.82 - TACHYPNEA, NOT ELSEWHERE CLASSIFIED (13) Costochondral chest pain Code(s): R07.1 - CHEST PAIN ON BREATHING Assessment/Plan PLAN: Wean Medrol Cepacol Complete Tamiflu Monitor off ABX as CT is clear without acute pathology O2 as needed BD TX VTE prophylaxis Outpatient PFTs once stable No smoking Dr Elliott Problem List - Problems (1) Wheezing Code(s): R06.2 - WHEEZING (2) HLD (hyperlipidemia) Code(s): E78.5 - HYPERLIPIDEMIA, UNSPECIFIED (3) Myasthenia gravis Code(s): G70.00 - MYASTHENIA GRAVIS WITHOUT (ACUTE) EXACERBATION (4) SOB (shortness of breath) Code(s): R06.02 - SHORTNESS OF BREATH (5) Cough Code(s): R05 - COUGH (6) Depression with anxiety Code(s): F41.8 - OTHER SPECIFIED ANXIETY DISORDERS (7) Dizziness Code(s): R42 - DIZZINESS AND GIDDINESS (8) Influenza A Code(s): J10.1 - FLU DUE TO OTH IDENT INFLUENZA VIRUS W OTH RESP MANIFEST (9) Headache Code(s): R51 - HEADACHE Qualifiers: Headache type: unspecified Headache chronicity pattern: acute headache Intractability: not intractable Qualified Code(s): R51 - Headache (10) Hypertension Code(s): I10 - ESSENTIAL (PRIMARY) HYPERTENSION Qualifiers: Hypertension type: essential hypertension Qualified Code(s): I10 - Essential (primary) hypertension (11) Type 2 diabetes mellitus Code(s): E11.9 - TYPE 2 DIABETES MELLITUS WITHOUT COMPLICATIONS Qualifiers: Diabetes mellitus complication status: without complication Qualified Code( s): E11.9 - Type 2 diabetes mellitus without complications (12) Tachypnea Code(s): R06.82 - TACHYPNEA, NOT ELSEWHERE CLASSIFIED (13) Costochondral chest pain Code(s): R07.1 - CHEST PAIN ON BREATHING
[2019-10-05 08:46] LABS: ALBUMIN 2.6 g/dl (3.4-5.0); BILIRUBIN,TOTAL 0.1 mg/dL (0.2-1); BLOOD UREA NITROGEN 26.2 mg/dL (7-18); MAGNESIUM 2.1 mg/dL (1.8-2.4); POTASSIUM 3.8 mmol/L (3.5-5.1)
[2019-10-05] MEDS: ASPIRIN 81 MG CHEWABLE TABLETS PO SCH (10:08)
[2019-10-05] MEDS ORDERED: PT OWN MED DRAWER 7, Y5N ONE (10:08)
[2019-10-05] MEDS: HEPARIN NA (PORCINE) 5,000 UNITS/ML 1ML VIAL SQ SCH ×2 (10:08→22:01)
[2019-10-05] MEDS: PANTOPRAZOLE 40 MG TABLET (FP) PO SCH (10:09)
[2019-10-05] MEDS: DIVALPROEX NA *ER* EXTEND REL 500 MG TABLET.SA (FP) PO SCH (10:09)
[2019-10-05] MEDS: FERROUS GLUCONATE 324 MG TAB (FP) PO SCH (10:09)
[2019-10-05] MEDS: LOSARTAN POTASSIUM 50 MG TABLET (FP) PO SCH (10:09)
[2019-10-05] MEDS: MIRTAZAPINE 15 MG TABLET (FP) PO SCH (10:09)
[2019-10-05] MEDS: DOCUSATE SODIUM 100 MG CAPSULE (FP) PO SCH (10:09)
[2019-10-05] MEDS: guaiFENesin/D-M SUGAR-FREE/ACLHOL-FREE 118 ML BOTTLE PO PRN (10:10)
[2019-10-05 12:30] LABS: ANISOCYTOSIS 1+; MACROCYTOSIS 1+; PLATELET ESTIMATE NORMAL
--- NOTE | 2019-10-05 15:00 | PN ---
Physical Exam: SUBJECTIVE: Patient seen and examined at the bedside. still having shortness of breath at rest but state she is improving and able to ambulate more. still requires oxygen therapy at 2 liters. OBJECTIVE: bnp mildly elevated, will order echo since still with shortness of breath. wean off oxygen as tolerated -------- + wheezing patient is 74 year old female with hx of diabetesII, HTN, HLD, migraines, recent diagnosis of influenza A (completed tamiflu) who presents with increasing fatigue, shortness of breath and midsternal chest pain that is constant nonradiating and not worsened with inspiration. She admits to cough productive of yellow sputum. No documented fevers but states she felt hot and had chills at home. imaging: chest ct/chest cta 09/30/19: no PE seen, lungs without pulmonary masses, areas of acute consolidation or pleural effusions. There are incresed intersitital markings thoroughout the lung penn indicative of a midl degree of chronic lung disease. Vital Signs Period Temp Pulse Resp BP Sys/Levi Pulse Ox Last 24 Hr 97.7 F-98.3 F 79-98 18-20 140-158/66-83 96-97 GENERAL: The patient is awake, alert, and fully oriented HEAD: Normal with no signs of trauma. EYES: PERRL, extraocular movements intact, sclera anicteric, conjunctiva clear. No ptosis. ENT: Ears normal, nares patent, oropharynx clear without exudates, moist mucous membranes. NECK: Trachea midline, full range of motion, supple. LUNGS: wheezing auscultated bilaterally, unable to take in deep breaths, will order spirometer. wean off oxygen as tolerated. HEART: Regular rate and rhythm ABDOMEN: Soft, nontender, nondistended, normoactive bowel sounds, no guarding EXTREMITIES: no edema. NEUROLOGICAL: Normal speech, gait not observed. PSYCH: Normal mood, normal affect. SKIN: Warm, dry, normal turgor, no rashes or lesions noted Laboratory Results - last 24 hr 10/04/19 10/04/19 10/05/19 16:18 22:14 05:45 WBC RBC Hgb Hct MCV MCH MCHC RDW Plt Count MPV Absolute Neuts (auto) Neutrophils % Neutrophils % (Manual) Band Neutrophils % Lymphocytes % Lymphocytes % (Manual) Monocytes % Monocytes % (Manual) Eosinophils % Eosinophils % (Manual) Basophils % Basophils % (Manual) Myelocytes % (Man) Promyelocytes % (Man) Blast Cells % (Manual) Nucleated RBC % Metamyelocytes Hypochromia Platelet Estimate Polychromasia Poikilocytosis Anisocytosis Microcytosis Macrocytosis Sodium Potassium Chloride Carbon Dioxide Anion Gap BUN Creatinine Est GFR (CKD-EPI)AfAm Est GFR (CKD-EPI)NonAf POC Glucometer 267 312 213 Random Glucose Calcium Magnesium Iron TIBC Iron Saturation Unsaturated IBC Ferritin Total Bilirubin AST ALT Alkaline Phosphatase Total Protein Albumin 10/05/19 10/05/19 10/05/19 07:43 07:43 11:48 WBC 8.4 RBC 2.93 L Hgb 8.8 L Hct 26.5 L MCV 90.3 MCH 30.1 MCHC 33.3 RDW 13.4 Plt Count 253 MPV 9.3 Absolute Neuts (auto) 7.4 Neutrophils % 88.3 H Neutrophils % (Manual) 80.4 Band Neutrophils % 1.0 Lymphocytes % 5.9 L Lymphocytes % (Manual) 5.9 L D Monocytes % 5.8 Monocytes % (Manual) 6 D Eosinophils % 0.0 D Eosinophils % (Manual) 0.0 Basophils % 0.0 Basophils % (Manual) 0.0 Myelocytes % (Man) 4 H D Promyelocytes % (Man) 1 D Blast Cells % (Manual) 0 Nucleated RBC % 0 Metamyelocytes 2 Hypochromia 1+ Platelet Estimate Normal Polychromasia 1+ Poikilocytosis 0 Anisocytosis 1+ Microcytosis 0 Macrocytosis 1+ Sodium 143 Potassium 3.8 Chloride 110 H Carbon Dioxide 26 Anion Gap 7 L BUN 26.2 H Creatinine 1.0 Est GFR (CKD-EPI)AfAm 63.38 Est GFR (CKD-EPI)NonAf 54.68 POC Glucometer 331 Random Glucose 188 H Calcium 8.0 L Magnesium 2.1 Iron 56 TIBC 227 L Iron Saturation 24 Unsaturated IBC 171 L Ferritin 93.2 Total Bilirubin 0.1 L AST 13 L ALT 33 Alkaline Phosphatase 52 Total Protein 6.0 L Albumin 2.6 L Active Medications Generic Name Dose Route Start Last Admin Trade Name Freq PRN Reason Stop Dose Admin Acetaminophen 650 mg 09/30/19 17:05 10/04/19 01:45 Tylenol - PO 650 mg Q6H PRN Administration Fever Albuterol/Ipratropium 1 amp 09/30/19 16:00 10/05/19 11:13 Duoneb - NEB 1 amp RQID SAUL Administration Aspirin 81 mg 10/01/19 10:00 10/05/19 10:08 Asa - PO 81 mg DAILY SAUL Administration Benzocaine/Menthol 1 each 10/02/19 11:04 10/04/19 01:45 Cepacol Lozenge - MM 1 each PRN PRN Administration SORE THROAT Divalproex Sodium 500 mg 10/01/19 10:00 10/05/19 10:09 Depakote *Er* - PO 500 mg DAILY SAUL Administration Docusate Sodium 100 mg 10/01/19 10:00 10/05/19 10:09 Colace - PO 100 mg DAILY SAUL Administration Ferrous Gluconate 324 mg 10/01/19 10:00 10/05/19 10:09 Fergon - PO 324 mg DAILY SAUL Administration Guaifenesin 5 ml 09/30/19 15:01 10/05/19 10:10 Diabetic Tussin Dm - PO 5 ml Q6H PRN Administration COUGH Heparin Sodium (Porcine) 5,000 unit 09/30/19 22:00 10/05/19 10:08 Heparin - SQ 5,000 unit BID SAUL Administration Ibuprofen 600 mg 10/02/19 10:34 Motrin - PO Q8H PRN PAIN LEVEL 6-10 Insulin Aspart 1 vial 09/30/19 16:30 10/05/19 11:55 Novolog Vial Sliding Scale - SQ 8 units ACHS SAUL Administration Protocol Insulin Detemir 15 units 10/05/19 14:57 Levemir Vial SQ HS SAUL Losartan Potassium 100 mg 10/01/19 10:00 10/05/19 10:09 Cozaar - PO 100 mg DAILY SAUL Administration Methylprednisolone Sodium Succinate 40 mg 10/05/19 08:23 10/05/19 10:09 Solu-Medrol - IVPUSH 40 mg Q8H-IV SAUL Administration Mirtazapine 15 mg 10/01/19 10:00 10/05/19 10:09 Remeron - PO 15 mg DAILY SAUL Administration Pantoprazole Sodium 40 mg 10/01/19 10:00 10/05/19 10:09 Protonix - PO 40 mg DAILY SAUL Administration ASSESSMENT/PLAN: Problem List - Problems (1) Influenza A Assessment/Plan: completed treatment of tamiflu patient is >65 and is also a diabetic, therefore higher risk for complication of the flu she continues to have shortness of breath at rest, although improved, she is not yet at her baseline on Solumedrol taper will attempt to wean off oxygen so long as her oxygen saturations remain above 92% pre and post in the a.m. will order echo to evaluate heart valves Code(s): J10.1 - FLU DUE TO OTH IDENT INFLUENZA VIRUS W OTH RESP MANIFEST (2) Costochondral chest pain Assessment/Plan: resolved, no further chest pain Code(s): R07.1 - CHEST PAIN ON BREATHING (3) HLD (hyperlipidemia) Assessment/Plan: continue home medications. Code(s): E78.5 - HYPERLIPIDEMIA, UNSPECIFIED (4) Myasthenia gravis Assessment/Plan: on mestinon, re start when off steriods. physical therapy following Code(s): G70.00 - MYASTHENIA GRAVIS WITHOUT (ACUTE) EXACERBATION (5) SOB (shortness of breath) Assessment/Plan: on 2 liters of nasal cannula wean off as tolerated Code(s): R06.02 - SHORTNESS OF BREATH (6) Wheezing Assessment/Plan: improving, but still having dyspnea with physical exertion on solumedrol taper with gi protection. Code(s): R06.2 - WHEEZING (7) Cough Assessment/Plan: non productive cough on solumedrol Code(s): R05 - COUGH (8) Depression with anxiety Assessment/Plan: continue home medications Code(s): F41.8 - OTHER SPECIFIED ANXIETY DISORDERS (9) Type 2 diabetes mellitus Assessment/Plan: increase levemir for elevated bgms Code(s): E11.9 - TYPE 2 DIABETES MELLITUS WITHOUT COMPLICATIONS Qualifiers: Diabetes mellitus complication status: without complication Qualified Code( s): E11.9 - Type 2 diabetes mellitus without complications (10) Tachypnea Assessment/Plan: improving since admission, but still having episodes of shortness of breath when attempting to ambulate. on 2 liters nasal cannula Code(s): R06.82 - TACHYPNEA, NOT ELSEWHERE CLASSIFIED (11) Hypertension Assessment/Plan: on cozaar bp slightly above goal Code(s): I10 - ESSENTIAL (PRIMARY) HYPERTENSION Qualifiers: Hypertension type: essential hypertension Qualified Code(s): I10 - Essential (primary) hypertension (12) Prophylactic measure Code(s): Z29.9 - ENCOUNTER FOR PROPHYLACTIC MEASURES, UNSPECIFIED (13) DVT prophylaxis Assessment/Plan: on heparin bid Code(s): Z29.9 - ENCOUNTER FOR PROPHYLACTIC MEASURES, UNSPECIFIED Visit type - Emergency Visit Emergency Visit: Yes ED Registration Date: 09/30/19 Care time: The patient presented to the Emergency Department on the above date and was hospitalized for further evaluation of their emergent condition. - New Patient This patient is new to me today: No - Critical Care Critical Care patient: No - Discharge Referral Referred to [facility] Med P.C.: No
--- NOTE | 2019-10-05 16:05 | ECHO ---
Name: BURROUGHS JAQUELIN LOMELI Exam:Adult Echocardiogram Study Date: 10/05/2019 03:28 PM Age: 74 yrs Height: 64 in Weight: 154 lb BSA: 1.8 m2 MMode/2D Measurements & Calculations IVSd: 1.0 cm Ao root diam: 2.9 cm LVIDd: 4.1 cm LA dimension: 2.5 cm LVIDs: 2.9 cm LVPWd: 1.0 cm LVPWs: 1.4 cm EDV(Teich): 72.8 ml ESV(Teich): 31.7 ml LVOT diam: 2.1 cm TAPSE: 2.1 cm RV S Caleb: 19.0 cm/sec Doppler Measurements & Calculations MV E max caleb: 111.8 cm/sec MVA(VTI): 1.7 cm2 MV A max caleb: 185.1 cm/sec MV V2 max: 218.5 cm/sec MV E/A: 0.60 MV max P.1 mmHg MV dec time: 0.13 sec MV V2 mean: 128.4 cm/sec MV mean P.5 mmHg MV V2 VTI: 45.2 cm Ao V2 max: 224.0 cm/sec LV V1 max P.6 mmHg Ao max P.2 mmHg LV V1 mean P.7 mmHg Ao V2 mean: 176.4 cm/sec LV V1 max: 107.0 cm/sec Ao mean P.2 mmHg LV V1 mean: 76.0 cm/sec Ao V2 VTI: 41.6 cm LV V1 VTI: 21.7 cm GISSEL(I,D): 1.8 cm2 GISSEL(V,D): 1.7 cm2 SV(LVOT): 76.1 ml PA V2 max: 137.8 cm/sec PA max P.6 mmHg Med Peak E' Caleb: 5.3 cm/sec Med E/e': 21.2 Lat Peak E' Caleb: 6.8 cm/sec Lat E/e': 16.4 Procedure A two-dimensional transthoracic echocardiogram with color flow and Doppler was performed. Left Ventricle The left ventricular size, thickness and function are normal. The left ventricular ejection fraction is normal. E/A reversal consistent with but not diagnostic of poor LV compliance. The left ventricular w all motion is normal. Right Ventricle The right ventricle is not well visualized. Atria The left atrium is not well visualized. Mitral Valve There is moderate mitral valve thickening. There is moderate mitral stenosis. There is trace mitral regurgitation. Tricuspid Valve There is mild tricuspid valve thickening. There is no tricuspid stenosis. There was insufficient TR d etected to calculate RV systolic pressure. Aortic Valve The aortic valve is not well visualized. There is moderate aortic valve thickening. There is moderate aortic sclerosis.;. Mild valvular aortic stenosis. No aortic regurgitation is present. Pulmonic Valve The pulmonic valve is not well visualized. Great Vessels The aortic root is normal size. Pericardium/Pleura There is no pericardial effusion. Interpretation Summary The left ventricular size, thickness and function are normal The left ventricular ejection fraction is normal. The left ventricular wall motion is normal. Mild valvular aortic stenosis. There is moderate aortic valve thickening. The aortic valve is not well visualized. There is moderate aortic sclerosis.; E/A reversal consistent with but not diagnostic of poor LV compliance There is moderate mitral valve thickening. There is moderate mitral stenosis. There is trace mitral regurgitation. There was insufficient TR detected to calculate RV systolic pressure. MD Tad Hernandez 10/05/2019 04:04 PM
[2019-10-05] MEDS: INSULIN (LEVEMIR) 100 UNITS/ML UNITS SQ SCH (22:02)
[2019-10-06] MEDS: methylPREDNISolone NA SUCC 40 MG/1 ML VIAL IVPUSH SCH ×3 (02:31→17:56)
[2019-10-06] MEDS: INSULIN SLIDING SCALE (NOVOLOG) 1 VIAL SQ SCH ×4 (06:21→21:43)
[2019-10-06] MEDS: ALBUTEROL SO4 2.5/IPRATROPIUM 0.5 INH SOL 3 ML VIAL.NEB. NEB SCH ×4 (07:40→19:54)
[2019-10-06 09:21] LABS: EOS % 0.1 % (0-4.5); HEMATOCRIT 27.2 % (32.4-45.2); LYMPH % 14.7 % (8-40); MCH 29.9 pg (25.7-33.7); MCHC 33.1 g/dl (32.0-36.0); MEAN CELL VOLUME 90.5 fl (80-96); MEAN PLT VOLUME 9.6 fl (7.5-11.1); NEUT % 75.2 % (42.8-82.8); PLATELET COUNT 256 K/MM3 (134-434); RDW 13.8 % (11.6-15.6); WHITE BLOOD COUNT 7.5 K/mm3 (4.0-10.0)
--- NOTE | 2019-10-06 09:25 | PN ---
Progress Note (short form) - Note Progress Note: Resting in bed in NAD on NC O2. Breathing feels a little better today, less wheezing. No acute events overnight. Intake & Output 10/03/19 10/04/19 10/05/19 10/06/19 23:59 23:59 23:59 23:59 Intake Total 3125 3200 850 Balance 3125 3200 850 Weight 153 lb 14.4 oz 154 lb 154 lb 5 oz 156 lb Last Vital Signs Temp Pulse Resp BP Pulse Ox 98.2 F 85 20 164/94 96 10/06/19 06:09 10/06/19 06:09 10/06/19 06:09 10/06/19 06:09 10/06/19 01:38 Active Medications Acetaminophen (Tylenol -) 650 mg PO Q6H PRN PRN Reason: Fever Last Admin: 10/04/19 01:45 Dose: 650 mg Albuterol/Ipratropium (Duoneb -) 1 amp NEB RQID [facility] Last Admin: 10/05/19 20:48 Dose: 1 amp Aspirin (Asa -) 81 mg PO DAILY [facility] Last Admin: 10/05/19 10:08 Dose: 81 mg Benzocaine/Menthol (Cepacol Lozenge -) 1 each MM PRN PRN PRN Reason: SORE THROAT Last Admin: 10/04/19 01:45 Dose: 1 each Divalproex Sodium (Depakote *Er* -) 500 mg PO DAILY [facility] Last Admin: 10/05/19 10:09 Dose: 500 mg Docusate Sodium (Colace -) 100 mg PO DAILY [facility] Last Admin: 10/05/19 10:09 Dose: 100 mg Ferrous Gluconate (Fergon -) 324 mg PO DAILY [facility] Last Admin: 10/05/19 10:09 Dose: 324 mg Guaifenesin (Diabetic Tussin Dm -) 5 ml PO Q6H PRN PRN Reason: COUGH Last Admin: 10/05/19 10:10 Dose: 5 ml Heparin Sodium (Porcine) (Heparin -) 5,000 unit SQ BID [facility] Last Admin: 10/05/19 22:01 Dose: 5,000 unit Ibuprofen (Motrin -) 600 mg PO Q8H PRN PRN Reason: PAIN LEVEL 6-10 Insulin Aspart (Novolog Vial Sliding Scale -) 1 vial SQ ACHS [facility]; Protocol Last Admin: 10/06/19 06:21 Dose: 4 units Insulin Detemir (Levemir Vial) 15 units SQ HS [facility] Last Admin: 10/05/19 22:02 Dose: 15 units Losartan Potassium (Cozaar -) 100 mg PO DAILY [facility] Last Admin: 10/05/19 10:09 Dose: 100 mg Methylprednisolone Sodium Succinate (Solu-Medrol -) 40 mg IVPUSH Q8H-IV [facility] Last Admin: 10/06/19 02:31 Dose: 40 mg Mirtazapine (Remeron -) 15 mg PO DAILY [facility] Last Admin: 10/05/19 10:09 Dose: 15 mg Pantoprazole Sodium (Protonix -) 40 mg PO DAILY [facility] Last Admin: 10/05/19 10:09 Dose: 40 mg Constitutional: Yes: Anxious, Less tachypneic Eyes: Yes: Conjunctiva Clear, EOM Intact HENT: Yes: Atraumatic, Normocephalic Neck: Yes: Supple, Trachea Midline Cardiovascular: Yes: Regular Rate and Rhythm Respiratory: Yes: Less wheezing, Cough, Diminished, Rhonchi. No: Accessory Muscle Use, Rales, Stridor ...Inspection: Yes: WNL ...Clubbing: No Gastrointestinal: Yes: Normal Bowel Sounds, Soft Renal/: Yes: WNL Musculoskeletal: Yes: WNL Extremities: Yes: WNL Edema: No Peripheral Pulses WNL: Yes Integumentary: Yes: WNL Neurological: Yes: WNL, Alert, Oriented ...Motor Strength: WNL Psychiatric: Yes: WNL, Alert, Oriented Labs: Laboratory Results - last 24 hr 10/05/19 10/05/19 10/05/19 07:43 07:43 11:48 Neutrophils % (Manual) 80.4 Band Neutrophils % 1.0 Lymphocytes % (Manual) 5.9 L D Monocytes % (Manual) 6 D Eosinophils % (Manual) 0.0 Basophils % (Manual) 0.0 Myelocytes % (Man) 4 H D Promyelocytes % (Man) 1 D Blast Cells % (Manual) 0 Metamyelocytes 2 Hypochromia 1+ Platelet Estimate Normal Polychromasia 1+ Poikilocytosis 0 Anisocytosis 1+ Microcytosis 0 Macrocytosis 1+ Sodium 143 Potassium 3.8 Chloride 110 H Carbon Dioxide 26 Anion Gap 7 L BUN 26.2 H Creatinine 1.0 Est GFR (CKD-EPI)AfAm 63.38 Est GFR (CKD-EPI)NonAf 54.68 POC Glucometer 331 Random Glucose 188 H Calcium 8.0 L Magnesium 2.1 Iron 56 TIBC 227 L Iron Saturation 24 Unsaturated IBC 171 L Ferritin 93.2 Total Bilirubin 0.1 L AST 13 L ALT 33 Alkaline Phosphatase 52 Total Protein 6.0 L Albumin 2.6 L 10/05/19 10/05/19 10/06/19 16:11 21:52 06:02 Neutrophils % (Manual) Band Neutrophils % Lymphocytes % (Manual) Monocytes % (Manual) Eosinophils % (Manual) Basophils % (Manual) Myelocytes % (Man) Promyelocytes % (Man) Blast Cells % (Manual) Metamyelocytes Hypochromia Platelet Estimate Polychromasia Poikilocytosis Anisocytosis Microcytosis Macrocytosis Sodium Potassium Chloride Carbon Dioxide Anion Gap BUN Creatinine Est GFR (CKD-EPI)AfAm Est GFR (CKD-EPI)NonAf POC Glucometer 328 240 174 Random Glucose Calcium Magnesium Iron TIBC Iron Saturation Unsaturated IBC Ferritin Total Bilirubin AST ALT Alkaline Phosphatase Total Protein Albumin Problem List - Problems (1) Wheezing Code(s): R06.2 - WHEEZING (2) HLD (hyperlipidemia) Code(s): E78.5 - HYPERLIPIDEMIA, UNSPECIFIED (3) Myasthenia gravis Code(s): G70.00 - MYASTHENIA GRAVIS WITHOUT (ACUTE) EXACERBATION (4) SOB (shortness of breath) Code(s): R06.02 - SHORTNESS OF BREATH (5) Cough Code(s): R05 - COUGH (6) Depression with anxiety Code(s): F41.8 - OTHER SPECIFIED ANXIETY DISORDERS (7) Dizziness Code(s): R42 - DIZZINESS AND GIDDINESS (8) Influenza A Code(s): J10.1 - FLU DUE TO OTH IDENT INFLUENZA VIRUS W OTH RESP MANIFEST (9) Headache Code(s): R51 - HEADACHE Qualifiers: Headache type: unspecified Headache chronicity pattern: acute headache Intractability: not intractable Qualified Code(s): R51 - Headache (10) Hypertension Code(s): I10 - ESSENTIAL (PRIMARY) HYPERTENSION Qualifiers: Hypertension type: essential hypertension Qualified Code(s): I10 - Essential (primary) hypertension (11) Type 2 diabetes mellitus Code(s): E11.9 - TYPE 2 DIABETES MELLITUS WITHOUT COMPLICATIONS Qualifiers: Diabetes mellitus complication status: without complication Qualified Code( s): E11.9 - Type 2 diabetes mellitus without complications (12) Tachypnea Code(s): R06.82 - TACHYPNEA, NOT ELSEWHERE CLASSIFIED (13) Costochondral chest pain Code(s): R07.1 - CHEST PAIN ON BREATHING Assessment/Plan PLAN: Can likely change to Prednisone in AM Cepacol Completed Tamiflu Monitor off ABX as CT is clear without acute pathology O2 as needed BD TX VTE prophylaxis Outpatient PFTs once stable No smoking Hopeful DC in next [address] Elliott Problem List - Problems (1) Wheezing Code(s): R06.2 - WHEEZING (2) HLD (hyperlipidemia) Code(s): E78.5 - HYPERLIPIDEMIA, UNSPECIFIED (3) Myasthenia gravis Code(s): G70.00 - MYASTHENIA GRAVIS WITHOUT (ACUTE) EXACERBATION (4) SOB (shortness of breath) Code(s): R06.02 - SHORTNESS OF BREATH (5) Cough Code(s): R05 - COUGH (6) Depression with anxiety Code(s): F41.8 - OTHER SPECIFIED ANXIETY DISORDERS (7) Dizziness Code(s): R42 - DIZZINESS AND GIDDINESS (8) Influenza A Code(s): J10.1 - FLU DUE TO OTH IDENT INFLUENZA VIRUS W OTH RESP MANIFEST (9) Headache Code(s): R51 - HEADACHE Qualifiers: Headache type: unspecified Headache chronicity pattern: acute headache Intractability: not intractable Qualified Code(s): R51 - Headache (10) Hypertension Code(s): I10 - ESSENTIAL (PRIMARY) HYPERTENSION Qualifiers: Hypertension type: essential hypertension Qualified Code(s): I10 - Essential (primary) hypertension (11) Type 2 diabetes mellitus Code(s): E11.9 - TYPE 2 DIABETES MELLITUS WITHOUT COMPLICATIONS Qualifiers: Diabetes mellitus complication status: without complication Qualified Code( s): E11.9 - Type 2 diabetes mellitus without complications (12) Tachypnea Code(s): R06.82 - TACHYPNEA, NOT ELSEWHERE CLASSIFIED (13) Costochondral chest pain Code(s): R07.1 - CHEST PAIN ON BREATHING
[2019-10-06] MEDS ORDERED: PT OWN MED DRAWER 7, Y5N ONE (09:31)
[2019-10-06] MEDS: ASPIRIN 81 MG CHEWABLE TABLETS PO SCH (09:41)
[2019-10-06] MEDS: DOCUSATE SODIUM 100 MG CAPSULE (FP) PO SCH (09:41)
[2019-10-06] MEDS: LOSARTAN POTASSIUM 50 MG TABLET (FP) PO SCH (09:41)
[2019-10-06] MEDS: MIRTAZAPINE 15 MG TABLET (FP) PO SCH (09:41)
[2019-10-06] MEDS: PANTOPRAZOLE 40 MG TABLET (FP) PO SCH (09:41)
[2019-10-06] MEDS: FERROUS GLUCONATE 324 MG TAB (FP) PO SCH (09:41)
[2019-10-06] MEDS: DIVALPROEX NA *ER* EXTEND REL 500 MG TABLET.SA (FP) PO SCH (09:41)
[2019-10-06] MEDS: HEPARIN NA (PORCINE) 5,000 UNITS/ML 1ML VIAL SQ SCH ×2 (09:42→21:42)
[2019-10-06 09:45] LABS: ALBUMIN 2.6 g/dl (3.4-5.0); BILIRUBIN,TOTAL 0.2 mg/dL (0.2-1); BLOOD UREA NITROGEN 28.7 mg/dL (7-18); CALCIUM 8.2 mg/dL (8.5-10.1); CREATININE 0.9 mg/dL (0.55-1.3); MAGNESIUM 2.1 mg/dL (1.8-2.4); POTASSIUM 3.9 mmol/L (3.5-5.1); TOT PROT 5.9 g/dl (6.4-8.2)
[2019-10-06 10:47] LABS: ANISOCYTOSIS 0; MACROCYTOSIS 0; PLATELET ESTIMATE NORMAL
--- NOTE | 2019-10-06 11:07 | CON.CARD ---
Cardiology Consult (text) - Consultation Consultation Note: cc: sob hpi: 74 f hx htn, copd, dm, hld, here with sob. Having sob, cough, yellow sputum. No cp palps dizzy loc pnd orthopnea le edema. Treating for copd here. pmh: per hpi psh: none social: no tob fam: no premature cad ros: per hpi; all others nl meds: Home Medications Medication Instructions Recorded Aspirin [ASA -] 81 mg PO DAILY tab.chew 09/13/15 Losartan Potassium 100 mg PO DAILY 04/28/18 Metformin HCl [Glucophage] 1,000 mg PO BID 04/28/18 Omeprazole 40 mg PO DAILY 04/21/19 Divalproex Sodium [Depakote ER] 500 mg PO DAILY 09/26/19 Docusate Sodium [Stool Softener] 100 mg PO DAILY 09/26/19 Ergocalciferol [Vitamin D2] 1 cap PO WEEKLY 09/26/19 Ferrous Gluconate [Fergon -] 324 mg PO DAILY 09/26/19 Hydrochlorothiazide 25 mg PO DAILY 09/26/19 Insulin Glargine,Hum.rec.anlog 10 units SQ HS 09/26/19 [Basaglar Kwikpen U-100] Meclizine HCl [Antivert -] 25 mg PO BID 09/26/19 Mirtazapine 15 mg PO DAILY 09/26/19 Pravastatin Sodium [Pravachol -] 80 mg PO DAILY 09/26/19 Pyridostigmine [place] 60 mg PO DAILY 09/26/19 Albuterol Sulfate Inhaler - 2 inh PO Q6H PRN #1 inh 09/27/19 [Ventolin HFA Inhaler -] Guaifenesin/D-Methorphan Hb 5 ml PO Q6H PRN #1 bottle 09/27/19 [Diabetic Tussin Dm -] Oseltamivir Phosphate [Tamiflu -] 75 mg PO Q12H #5 capsule 09/27/19 predniSONE [Deltasone -] See Taper PO DAILY #22 tablet 09/27/19 pe: Vital Signs Period Temp Pulse Resp BP Sys/Levi Pulse Ox Last 24 Hr 97.8 F-98.3 F 85-104 20-20 158-164/71-94 91-96 nad no jvd rrr s1s2 no mrg bl exp wheeze, nl eff aao3 no le e/c/c abd nt nd pos bs no jaundice diaphoresis pos dp pt no carotid bruits Laboratory Last Values WBC 7.5 K/mm3 (4.0-10.0) 10/06/19 07:40 RBC 3.00 M/mm3 (3.60-5.2) L 10/06/19 07:40 Hgb 9.0 GM/dL (10.7-15.3) L 10/06/19 07:40 Hct 27.2 % (32.4-45.2) L 10/06/19 07:40 MCV 90.5 fl (80-96) 10/06/19 07:40 MCH 29.9 pg (25.7-33.7) 10/06/19 07:40 MCHC 33.1 g/dl (32.0-36.0) 10/06/19 07:40 RDW 13.8 % (11.6-15.6) 10/06/19 07:40 Plt Count 256 K/MM3 (134-434) 10/06/19 07:40 MPV 9.6 fl (7.5-11.1) 10/06/19 07:40 Absolute Neuts (auto) 5.7 K/mm3 (1.5-8.0) 10/06/19 07:40 Neutrophils % 75.2 % (42.8-82.8) 10/06/19 07:40 Neutrophils % (Manual) 80.4 % (42.8-82.8) 10/05/19 07:43 Band Neutrophils % 1.0 % 10/05/19 07:43 Lymphocytes % 14.7 % (8-40) D 10/06/19 07:40 Lymphocytes % (Manual) 5.9 % (8-40) L D 10/05/19 07:43 Monocytes % 10.0 % (3.8-10.2) 10/06/19 07:40 Monocytes % (Manual) 6 % (3.8-10.2) D 10/05/19 07:43 Eosinophils % 0.1 % (0-4.5) D 10/06/19 07:40 Eosinophils % (Manual) 0.0 % (0-4.5) 10/05/19 07:43 Basophils % 0.0 % (0-2.0) 10/06/19 07:40 Basophils % (Manual) 0.0 % (0-2.0) 10/05/19 07:43 Myelocytes % (Man) 4 % (0-2) H D 10/05/19 07:43 Promyelocytes % (Man) 1 % (0-2) D 10/05/19 07:43 Blast Cells % (Manual) 0 % (0-0) 10/05/19 07:43 Nucleated RBC % 0 % (0-0) 10/06/19 07:40 Metamyelocytes 2 % (0-2) 10/05/19 07:43 Hypochromia 1+ 10/05/19 07:43 Platelet Estimate Normal 10/05/19 07:43 Polychromasia 1+ 10/05/19 07:43 Poikilocytosis 0 10/05/19 07:43 Anisocytosis 1+ 10/05/19 07:43 Microcytosis 0 10/05/19 07:43 Macrocytosis 1+ 10/05/19 07:43 PT with INR 11.90 SEC (9.7-13.0) 09/30/19 10:20 INR 1.01 (0.83-1.09) 09/30/19 10:20 PTT (Actin FS) 27.9 SECONDS (25.2-36.5) 09/30/19 10:20 Sodium 145 mmol/L (136-145) 10/06/19 07:40 Potassium 3.9 mmol/L (3.5-5.1) 10/06/19 07:40 Chloride 109 mmol/L (98-107) H 10/06/19 07:40 Carbon Dioxide 31 mmol/L (21-32) 10/06/19 07:40 Anion Gap 5 MMOL/L (8-16) L 10/06/19 07:40 BUN 28.7 mg/dL (7-18) H 10/06/19 07:40 Creatinine 0.9 mg/dL (0.55-1.3) 10/06/19 07:40 Est GFR (CKD-EPI)AfAm 71.98 10/06/19 07:40 Est GFR (CKD-EPI)NonAf 62.11 10/06/19 07:40 POC Glucometer 174 UNITS (80-120) 10/06/19 06:02 Random Glucose 116 mg/dL (74-106) H 10/06/19 07:40 Hemoglobin A1c % 8.0 % (4.2-6.3) H 10/02/19 07:35 Calcium 8.2 mg/dL (8.5-10.1) L 10/06/19 07:40 Magnesium 2.1 mg/dL (1.8-2.4) 10/06/19 07:40 Iron 56 ug/dL (50-175) 10/05/19 07:43 TIBC 227 ug/dL (250-450) L 10/05/19 07:43 Iron Saturation 24 % (17.5-39) 10/05/19 07:43 Unsaturated IBC 171 ug/dL (200-275) L 10/05/19 07:43 Ferritin 93.2 ng/ml (8-388) 10/05/19 07:43 Total Bilirubin 0.2 mg/dL (0.2-1) 10/06/19 07:40 AST 20 U/L (15-37) 10/06/19 07:40 ALT 45 U/L (13-61) 10/06/19 07:40 Alkaline Phosphatase 51 U/L (45-117) 10/06/19 07:40 Troponin I < 0.02 ng/ml (0.00-0.05) 09/30/19 10:20 B-Natriuretic Peptide 510.9 pg/ml (5-450) H 09/30/19 10:20 Total Protein 5.9 g/dl (6.4-8.2) L 10/06/19 07:40 Albumin 2.6 g/dl (3.4-5.0) L 10/06/19 07:40 ecg: sr nl intervals no ischemic changes cta chest: no pe, no chf echo 09/2019: nl lv, mild as, mod ms a/p: 74 f hx htn, copd, dm, hld, here with sob. sob, copd: -cont steroids per pulm -no signs acs, chf -echo w/o etiology of sob, likely 2/2 copd htn: -cont arb hld: -stable as, ms: -stable, routine outpt monitoring
--- NOTE | 2019-10-06 11:40 | PN ---
Physical Exam: SUBJECTIVE: Patient seen and examined at the bedside. still feels short of breath at rest but states she feels improved since admission. on 2 liters of nasal cannula. OBJECTIVE: pre and post shows no need for home oxygen. ----- patient is 74 year old female with hx of diabetesII, HTN, HLD, migraines, recent diagnosis of influenza A (completed tamiflu) who presents with increasing fatigue, shortness of breath and midsternal chest pain that is constant nonradiating and not worsened with inspiration. She admits to cough productive of yellow sputum. No documented fevers but states she felt hot and had chills at home. imaging: chest ct/chest cta 09/30/19: no PE seen, lungs without pulmonary masses, areas of acute consolidation or pleural effusions. There are increased interstitial markings throughout the lung penn indicative of a mild degree of chronic lung disease. Vital Signs Period Temp Pulse Resp BP Sys/Levi Pulse Ox Last 24 Hr 97.8 F-98.3 F 85-104 20-20 158-164/71-94 91-96 GENERAL: The patient is awake, alert, and fully oriented HEAD: Normal with no signs of trauma. EYES: PERRL, extraocular movements intact, sclera anicteric, conjunctiva clear. No ptosis. ENT: Ears normal, nares patent, oropharynx clear without exudates, moist mucous membranes. NECK: Trachea midline, full range of motion, supple. LUNGS: mild wheezing auscultated bilaterally, wean off oxygen as tolerated. HEART: Regular rate and rhythm ABDOMEN: Soft, nontender, nondistended, normoactive bowel sounds, no guarding EXTREMITIES: no edema. NEUROLOGICAL: Normal speech, gait not observed. PSYCH: Normal mood, normal affect. SKIN: Warm, dry, normal turgor, no rashes or lesions noted Laboratory Results - last 24 hr 10/05/19 10/05/19 10/05/19 07:43 11:48 16:11 WBC RBC Hgb Hct MCV MCH MCHC RDW Plt Count MPV Absolute Neuts (auto) Neutrophils % Neutrophils % (Manual) 80.4 Band Neutrophils % 1.0 Lymphocytes % Lymphocytes % (Manual) 5.9 L D Monocytes % Monocytes % (Manual) 6 D Eosinophils % Eosinophils % (Manual) 0.0 Basophils % Basophils % (Manual) 0.0 Myelocytes % (Man) 4 H D Promyelocytes % (Man) 1 D Blast Cells % (Manual) 0 Nucleated RBC % Metamyelocytes 2 Hypochromia 1+ Platelet Estimate Normal Polychromasia 1+ Poikilocytosis 0 Anisocytosis 1+ Microcytosis 0 Macrocytosis 1+ Sodium Potassium Chloride Carbon Dioxide Anion Gap BUN Creatinine Est GFR (CKD-EPI)AfAm Est GFR (CKD-EPI)NonAf POC Glucometer 331 328 Random Glucose Calcium Magnesium Total Bilirubin AST ALT Alkaline Phosphatase Total Protein Albumin 10/05/19 10/06/19 10/06/19 21:52 06:02 07:40 WBC 7.5 RBC 3.00 L Hgb 9.0 L Hct 27.2 L MCV 90.5 MCH 29.9 MCHC 33.1 RDW 13.8 Plt Count 256 MPV 9.6 Absolute Neuts (auto) 5.7 Neutrophils % 75.2 Neutrophils % (Manual) 76.8 Band Neutrophils % 0.0 Lymphocytes % 14.7 D Lymphocytes % (Manual) 14.1 D Monocytes % 10.0 Monocytes % (Manual) 7 Eosinophils % 0.1 D Eosinophils % (Manual) 0.0 Basophils % 0.0 Basophils % (Manual) 0.0 Myelocytes % (Man) 1 D Promyelocytes % (Man) 0 D Blast Cells % (Manual) 0 Nucleated RBC % 0 Metamyelocytes 1 D Hypochromia 0 Platelet Estimate Normal Polychromasia 0 Poikilocytosis 0 Anisocytosis 0 Microcytosis 0 Macrocytosis 0 Sodium Potassium Chloride Carbon Dioxide Anion Gap BUN Creatinine Est GFR (CKD-EPI)AfAm Est GFR (CKD-EPI)NonAf POC Glucometer 240 174 Random Glucose Calcium Magnesium Total Bilirubin AST ALT Alkaline Phosphatase Total Protein Albumin 10/06/19 10/06/19 07:40 11:29 WBC RBC Hgb Hct MCV MCH MCHC RDW Plt Count MPV Absolute Neuts (auto) Neutrophils % Neutrophils % (Manual) Band Neutrophils % Lymphocytes % Lymphocytes % (Manual) Monocytes % Monocytes % (Manual) Eosinophils % Eosinophils % (Manual) Basophils % Basophils % (Manual) Myelocytes % (Man) Promyelocytes % (Man) Blast Cells % (Manual) Nucleated RBC % Metamyelocytes Hypochromia Platelet Estimate Polychromasia Poikilocytosis Anisocytosis Microcytosis Macrocytosis Sodium 145 Potassium 3.9 Chloride 109 H Carbon Dioxide 31 Anion Gap 5 L BUN 28.7 H Creatinine 0.9 Est GFR (CKD-EPI)AfAm 71.98 Est GFR (CKD-EPI)NonAf 62.11 POC Glucometer 177 Random Glucose 116 H Calcium 8.2 L Magnesium 2.1 Total Bilirubin 0.2 AST 20 ALT 45 Alkaline Phosphatase 51 Total Protein 5.9 L Albumin 2.6 L Active Medications Generic Name Dose Route Start Last Admin Trade Name Freq PRN Reason Stop Dose Admin Acetaminophen 650 mg 09/30/19 17:05 10/04/19 01:45 Tylenol - PO 650 mg Q6H PRN Administration Fever Albuterol/Ipratropium 1 amp 09/30/19 16:00 10/06/19 07:40 Duoneb - NEB 1 amp RQID SUAL Administration Aspirin 81 mg 10/01/19 10:00 10/06/19 09:41 Asa - PO 81 mg DAILY SAUL Administration Benzocaine/Menthol 1 each 10/02/19 11:04 10/04/19 01:45 Cepacol Lozenge - MM 1 each PRN PRN Administration SORE THROAT Divalproex Sodium 500 mg 10/01/19 10:00 10/06/19 09:41 Depakote *Er* - PO 500 mg DAILY SAUL Administration Docusate Sodium 100 mg 10/01/19 10:00 10/06/19 09:41 Colace - PO 100 mg DAILY SAUL Administration Ferrous Gluconate 324 mg 10/01/19 10:00 10/06/19 09:41 Fergon - PO 324 mg DAILY SAUL Administration Guaifenesin 5 ml 09/30/19 15:01 10/05/19 10:10 Diabetic Tussin Dm - PO 5 ml Q6H PRN Administration COUGH Heparin Sodium (Porcine) 5,000 unit 09/30/19 22:00 10/06/19 09:42 Heparin - SQ 5,000 unit BID SAUL Administration Ibuprofen 600 mg 10/02/19 10:34 Motrin - PO Q8H PRN PAIN LEVEL 6-10 Insulin Aspart 1 vial 10/05/19 22:00 10/06/19 06:21 Novolog Vial Sliding Scale - SQ 4 units ACHS SAUL Administration Protocol Insulin Detemir 15 units 10/05/19 22:00 10/05/19 22:02 Levemir Vial SQ 15 units HS SAUL Administration Losartan Potassium 100 mg 10/01/19 10:00 10/06/19 09:41 Cozaar - PO 100 mg DAILY SAUL Administration Methylprednisolone Sodium Succinate 40 mg 10/05/19 08:23 10/06/19 09:41 Solu-Medrol - IVPUSH 40 mg Q8H-IV SAUL Administration Mirtazapine 15 mg 10/01/19 10:00 10/06/19 09:41 Remeron - PO 15 mg DAILY SAUL Administration Pantoprazole Sodium 40 mg 10/01/19 10:00 10/06/19 09:41 Protonix - PO 40 mg DAILY SAUL Administration ASSESSMENT/PLAN: Problem List - Problems (1) Influenza A Assessment/Plan: completed treatment of tamiflu patient is >65 and is also a diabetic, therefore higher risk for complication of the flu she continues to have shortness of breath at rest, although improved, she is not yet at her baseline on Solumedrol taper will attempt to wean off oxygen so long as her oxygen saturations remain above 92% pre and post in the a.m. echo; mild LV fx., mild aortic stenosis, mod mitral stenosis. Code(s): J10.1 - FLU DUE TO OTH IDENT INFLUENZA VIRUS W OTH RESP MANIFEST (2) Costochondral chest pain Assessment/Plan: resolved, no further chest pain Code(s): R07.1 - CHEST PAIN ON BREATHING (3) HLD (hyperlipidemia) Assessment/Plan: continue home medications. Code(s): E78.5 - HYPERLIPIDEMIA, UNSPECIFIED (4) Myasthenia gravis Assessment/Plan: on mestinon, re start when off steriods. physical therapy following Code(s): G70.00 - MYASTHENIA GRAVIS WITHOUT (ACUTE) EXACERBATION (5) SOB (shortness of breath) Assessment/Plan: on 2 liters of nasal cannula wean off as tolerated Code(s): R06.02 - SHORTNESS OF BREATH (6) Wheezing Assessment/Plan: improving, but still having dyspnea with physical exertion on solumedrol taper with gi protection. Code(s): R06.2 - WHEEZING (7) Cough Assessment/Plan: non productive cough on solumedrol Code(s): R05 - COUGH (8) Depression with anxiety Assessment/Plan: continue home medications Code(s): F41.8 - OTHER SPECIFIED ANXIETY DISORDERS (9) Type 2 diabetes mellitus Assessment/Plan: increase levemir for elevated bgms Code(s): E11.9 - TYPE 2 DIABETES MELLITUS WITHOUT COMPLICATIONS Qualifiers: Diabetes mellitus complication status: without complication Qualified Code( s): E11.9 - Type 2 diabetes mellitus without complications (10) Tachypnea Assessment/Plan: improving since admission, but still having episodes of shortness of breath when attempting to ambulate. on 2 liters nasal cannula Code(s): R06.82 - TACHYPNEA, NOT ELSEWHERE CLASSIFIED (11) Hypertension Assessment/Plan: on cozaar bp slightly above goal Code(s): I10 - ESSENTIAL (PRIMARY) HYPERTENSION Qualifiers: Hypertension type: essential hypertension Qualified Code(s): I10 - Essential (primary) hypertension (12) Prophylactic measure Code(s): Z29.9 - ENCOUNTER FOR PROPHYLACTIC MEASURES, UNSPECIFIED (13) DVT prophylaxis Assessment/Plan: on heparin bid Code(s): Z29.9 - ENCOUNTER FOR PROPHYLACTIC MEASURES, UNSPECIFIED Visit type - Emergency Visit Emergency Visit: Yes ED Registration Date: 09/30/19 Care time: The patient presented to the Emergency Department on the above date and was hospitalized for further evaluation of their emergent condition. - New Patient This patient is new to me today: No - Critical Care Critical Care patient: No - Discharge Referral Referred to [facility] Med P.C[facility] No
[2019-10-06] MEDS ORDERED: INSULIN (NOVOLOG) ASPART 100 UNITS/ML 10ML VIAL ONE (21:26)
[2019-10-06] MEDS: INSULIN (LEVEMIR) 100 UNITS/ML UNITS SQ SCH (21:42)
[2019-10-07] MEDS: methylPREDNISolone NA SUCC 40 MG/1 ML VIAL IVPUSH SCH ×2 (02:53→10:36)
[2019-10-07] MEDS: INSULIN SLIDING SCALE (NOVOLOG) 1 VIAL SQ SCH ×4 (06:39→21:02)
[2019-10-07] MEDS: ALBUTEROL SO4 2.5/IPRATROPIUM 0.5 INH SOL 3 ML VIAL.NEB. NEB SCH ×4 (08:00→21:00)
[2019-10-07] MEDS: HEPARIN NA (PORCINE) 5,000 UNITS/ML 1ML VIAL SQ SCH (10:36)
[2019-10-07] MEDS: LOSARTAN POTASSIUM 50 MG TABLET (FP) PO SCH (10:37)
[2019-10-07] MEDS: FERROUS GLUCONATE 324 MG TAB (FP) PO SCH (10:37)
[2019-10-07] MEDS: DIVALPROEX NA *ER* EXTEND REL 500 MG TABLET.SA (FP) PO SCH (10:37)
[2019-10-07] MEDS: PANTOPRAZOLE 40 MG TABLET (FP) PO SCH (10:37)
[2019-10-07] MEDS: DOCUSATE SODIUM 100 MG CAPSULE (FP) PO SCH (10:37)
[2019-10-07] MEDS: ASPIRIN 81 MG CHEWABLE TABLETS PO SCH (10:37)
[2019-10-07] MEDS: MIRTAZAPINE 15 MG TABLET (FP) PO SCH (10:37)
--- NOTE | 2019-10-07 11:13 | PN ---
Progress Note (short form) - Note Progress Note: PULMONARY Resting in bed in NAD on NC O2. No acute events overnight. VSS/AFEBRILE Constitutional: Yes: Anxious, Less tachypneic Eyes: Yes: Conjunctiva Clear, EOM Intact HENT: Yes: Atraumatic, Normocephalic Neck: Yes: Supple, Trachea Midline Cardiovascular: Yes: Regular Rate and Rhythm Respiratory: Yes: Less wheezing, Cough, Diminished, Rhonchi. No: Accessory Muscle Use, Rales, Stridor ...Inspection: Yes: WNL ...Clubbing: No Gastrointestinal: Yes: Normal Bowel Sounds, Soft Renal/: Yes: WNL Musculoskeletal: Yes: WNL Extremities: Yes: WNL Edema: No Peripheral Pulses WNL: Yes Integumentary: Yes: WNL Neurological: Yes: WNL, Alert, Oriented ...Motor Strength: WNL Psychiatric: Yes: WNL, Alert, Oriented Labs: REVIEWED Problem List - Problems (1) Wheezing Code(s): R06.2 - WHEEZING (2) HLD (hyperlipidemia) Code(s): E78.5 - HYPERLIPIDEMIA, UNSPECIFIED (3) Myasthenia gravis Code(s): G70.00 - MYASTHENIA GRAVIS WITHOUT (ACUTE) EXACERBATION (4) SOB (shortness of breath) Code(s): R06.02 - SHORTNESS OF BREATH (5) Cough Code(s): R05 - COUGH (6) Depression with anxiety Code(s): F41.8 - OTHER SPECIFIED ANXIETY DISORDERS (7) Dizziness Code(s): R42 - DIZZINESS AND GIDDINESS (8) Influenza A Code(s): J10.1 - FLU DUE TO OTH IDENT INFLUENZA VIRUS W OTH RESP MANIFEST (9) Headache Code(s): R51 - HEADACHE Qualifiers: Headache type: unspecified Headache chronicity pattern: acute headache Intractability: not intractable Qualified Code(s): R51 - Headache (10) Hypertension Code(s): I10 - ESSENTIAL (PRIMARY) HYPERTENSION Qualifiers: Hypertension type: essential hypertension Qualified Code(s): I10 - Essential (primary) hypertension (11) Type 2 diabetes mellitus Code(s): E11.9 - TYPE 2 DIABETES MELLITUS WITHOUT COMPLICATIONS Qualifiers: Diabetes mellitus complication status: without complication Qualified Code( s): E11.9 - Type 2 diabetes mellitus without complications (12) Tachypnea Code(s): R06.82 - TACHYPNEA, NOT ELSEWHERE CLASSIFIED (13) Costochondral chest pain Code(s): R07.1 - CHEST PAIN ON BREATHING Changed to Prednisone Cepacol Completed Tamiflu Monitor off ABX as CT is clear without acute pathology O2 as needed BD TX VTE prophylaxis Outpatient PFTs once stable No smoking Discharge planning Keith FRANCOIS MD
--- NOTE | 2019-10-07 11:21 | PN ---
Physical Exam: SUBJECTIVE: Patient seen and examined at the bedside. having shortness of breath with physical exertion but was able to participate with PT and ambulate w/o oxygen. oxygen remains between 90%-94% on room air with ambulation. OBJECTIVE: still with expiratory wheezing, slowly improving pre and post shows no need for home oxygen. ----- patient is 74 year old female with hx of diabetes II, HTN, HLD, migraines, recent diagnosis of influenza A (completed tamiflu) who presents with increasing fatigue, shortness of breath and midsternal chest pain that is constant nonradiating and not worsened with inspiration. She admits to cough productive of yellow sputum. No documented fevers but states she felt hot and had chills at home. imaging: chest ct/chest cta 09/30/19: no PE seen, lungs without pulmonary masses, areas of acute consolidation or pleural effusions. There are increased interstitial markings throughout the lung penn indicative of a mild degree of chronic lung disease. Vital Signs Period Temp Pulse Resp BP Sys/Levi Pulse Ox Last 24 Hr 97.4 F-98.3 F 61-85 20-22 139-178/63-90 91 GENERAL: The patient is awake, alert, and fully oriented HEAD: Normal with no signs of trauma. EYES: PERRL, extraocular movements intact, sclera anicteric, conjunctiva clear. No ptosis. ENT: Ears normal, nares patent, oropharynx clear without exudates, moist mucous membranes. NECK: Trachea midline, full range of motion, supple. LUNGS: mild wheezing auscultated bilaterally, wean off oxygen as tolerated. HEART: Regular rate and rhythm ABDOMEN: Soft, nontender, nondistended, normoactive bowel sounds, no guarding EXTREMITIES: no edema. NEUROLOGICAL: Normal speech, gait not observed. PSYCH: Normal mood, normal affect. SKIN: Warm, dry, normal turgor, no rashes or lesions noted Laboratory Results - last 24 hr 10/06/19 10/06/19 10/06/19 11:29 16:34 21:41 POC Glucometer 177 297 212 10/07/19 06:34 POC Glucometer 111 Active Medications Generic Name Dose Route Start Last Admin Trade Name Freq PRN Reason Stop Dose Admin Acetaminophen 650 mg 09/30/19 17:05 10/04/19 01:45 Tylenol - PO 650 mg Q6H PRN Administration Fever Albuterol/Ipratropium 1 amp 09/30/19 16:00 10/07/19 08:00 Duoneb - NEB 1 amp RQID SAUL Administration Aspirin 81 mg 10/01/19 10:00 10/07/19 10:37 Asa - PO 81 mg DAILY SAUL Administration Benzocaine/Menthol 1 each 10/02/19 11:04 10/04/19 01:45 Cepacol Lozenge - MM 1 each PRN PRN Administration SORE THROAT Divalproex Sodium 500 mg 10/01/19 10:00 10/07/19 10:37 Depakote *Er* - PO 500 mg DAILY SAUL Administration Docusate Sodium 100 mg 10/01/19 10:00 10/07/19 10:37 Colace - PO 100 mg DAILY SAUL Administration Ferrous Gluconate 324 mg 10/01/19 10:00 10/07/19 10:37 Fergon - PO 324 mg DAILY SAUL Administration Guaifenesin 5 ml 09/30/19 15:01 10/05/19 10:10 Diabetic Tussin Dm - PO 5 ml Q6H PRN Administration COUGH Heparin Sodium (Porcine) 5,000 unit 09/30/19 22:00 10/07/19 10:36 Heparin - SQ 5,000 unit BID SAUL Administration Ibuprofen 600 mg 10/02/19 10:34 Motrin - PO Q8H PRN PAIN LEVEL 6-10 Insulin Aspart 1 vial 10/05/19 22:00 10/07/19 06:39 Novolog Vial Sliding Scale - SQ Not Given ACHS [facility] Protocol Insulin Detemir 15 units 10/05/19 22:00 10/06/19 21:42 Levemir Vial SQ 15 units HS SAUL Administration Losartan Potassium 100 mg 10/01/19 10:00 10/07/19 10:37 Cozaar - PO 100 mg DAILY SAUL Administration Mirtazapine 15 mg 10/01/19 10:00 10/07/19 10:37 Remeron - PO 15 mg DAILY SAUL Administration Pantoprazole Sodium 40 mg 10/01/19 10:00 10/07/19 10:37 Protonix - PO 40 mg DAILY SAUL Administration Prednisone 40 mg 10/07/19 11:30 Deltasone - PO DAILY [facility] ASSESSMENT/PLAN: Problem List - Problems (1) Influenza A Assessment/Plan: completed treatment of tamiflu patient is >63 and is also a diabetic, therefore higher risk for complication of the flu she continues to have shortness of breath at rest, although improved, she is not yet at her baseline on Solumedrol taper will attempt to wean off oxygen so long as her oxygen saturations remain above 92% echo; mild LV fx., mild aortic stenosis, mod mitral stenosis. Code(s): J10.1 - FLU DUE TO OTH IDENT INFLUENZA VIRUS W OTH RESP MANIFEST (2) Costochondral chest pain Assessment/Plan: resolved, no further chest pain Code(s): R07.1 - CHEST PAIN ON BREATHING (3) HLD (hyperlipidemia) Assessment/Plan: continue home medications. Code(s): E78.5 - HYPERLIPIDEMIA, UNSPECIFIED (4) Myasthenia gravis Assessment/Plan: on mestinon, re start when off steriods. physical therapy following Code(s): G70.00 - MYASTHENIA GRAVIS WITHOUT (ACUTE) EXACERBATION (5) SOB (shortness of breath) Assessment/Plan: on 2 liters of nasal cannula wean off as tolerated Code(s): R06.02 - SHORTNESS OF BREATH (6) Wheezing Assessment/Plan: improving, but still having dyspnea with physical exertion on solumedrol taper with gi protection. Code(s): R06.2 - WHEEZING (7) Cough Assessment/Plan: non productive cough on solumedrol Code(s): R05 - COUGH (8) Depression with anxiety Assessment/Plan: continue home medications Code(s): F41.8 - OTHER SPECIFIED ANXIETY DISORDERS (9) Type 2 diabetes mellitus Assessment/Plan: increase levemir for elevated bgms Code(s): E11.9 - TYPE 2 DIABETES MELLITUS WITHOUT COMPLICATIONS Qualifiers: Diabetes mellitus complication status: without complication Qualified Code( s): E11.9 - Type 2 diabetes mellitus without complications (10) Tachypnea Assessment/Plan: improving since admission, but still having episodes of shortness of breath when attempting to ambulate. on 2 liters nasal cannula Code(s): R06.82 - TACHYPNEA, NOT ELSEWHERE CLASSIFIED (11) Hypertension Assessment/Plan: on cozaar bp slightly above goal Code(s): I10 - ESSENTIAL (PRIMARY) HYPERTENSION Qualifiers: Hypertension type: essential hypertension Qualified Code(s): I10 - Essential (primary) hypertension (12) Prophylactic measure Code(s): Z29.9 - ENCOUNTER FOR PROPHYLACTIC MEASURES, UNSPECIFIED (13) DVT prophylaxis Assessment/Plan: on heparin bid Code(s): Z29.9 - ENCOUNTER FOR PROPHYLACTIC MEASURES, UNSPECIFIED Visit type - Emergency Visit Emergency Visit: Yes ED Registration Date: 09/30/19 Care time: The patient presented to the Emergency Department on the above date and was hospitalized for further evaluation of their emergent condition. - New Patient This patient is new to me today: No - Critical Care Critical Care patient: No - Discharge Referral Referred to [facility] Med P.C.: No
[2019-10-07] MEDS ORDERED: INSULIN (NOVOLOG) ASPART 100 UNITS/ML 10ML VIAL ONE ×2 (11:55→20:48)
--- NOTE | 2019-10-07 14:45 | PN ---
Progress Note (short form) - Note Progress Note: s: sob less today, no cp palps dizzy Current Medications Acetaminophen (Tylenol -) 650 mg PO Q6H PRN PRN Reason: Fever Last Admin: 10/04/19 01:45 Dose: 650 mg Albuterol/Ipratropium (Duoneb -) 1 amp NEB RQID [facility] Last Admin: 10/07/19 08:00 Dose: 1 amp Aspirin (Asa -) 81 mg PO DAILY [facility] Last Admin: 10/07/19 10:37 Dose: 81 mg Benzocaine/Menthol (Cepacol Lozenge -) 1 each MM PRN PRN PRN Reason: SORE THROAT Last Admin: 10/04/19 01:45 Dose: 1 each Divalproex Sodium (Depakote *Er* -) 500 mg PO DAILY [facility] Last Admin: 10/07/19 10:37 Dose: 500 mg Docusate Sodium (Colace -) 100 mg PO DAILY [facility] Last Admin: 10/07/19 10:37 Dose: 100 mg Ferrous Gluconate (Fergon -) 324 mg PO DAILY [facility] Last Admin: 10/07/19 10:37 Dose: 324 mg Guaifenesin (Diabetic Tussin Dm -) 5 ml PO Q6H PRN PRN Reason: COUGH Last Admin: 10/05/19 10:10 Dose: 5 ml Heparin Sodium (Porcine) (Heparin -) 5,000 unit SQ BID [facility] Last Admin: 10/07/19 10:36 Dose: 5,000 unit Ibuprofen (Motrin -) 600 mg PO Q8H PRN PRN Reason: PAIN LEVEL 6-10 Insulin Aspart (Novolog Vial Sliding Scale -) 1 vial SQ [facility]; Protocol Last Admin: 10/07/19 11:59 Dose: 8 units Insulin Detemir (Levemir Vial) 15 units SQ HS [facility] Last Admin: 10/06/19 21:42 Dose: 15 units Losartan Potassium (Cozaar -) 100 mg PO DAILY [facility] Last Admin: 10/07/19 10:37 Dose: 100 mg Mirtazapine (Remeron -) 15 mg PO DAILY [facility] Last Admin: 10/07/19 10:37 Dose: 15 mg Pantoprazole Sodium (Protonix -) 40 mg PO DAILY [facility] Last Admin: 10/07/19 10:37 Dose: 40 mg Prednisone (Deltasone -) 40 mg PO DAILY [facility]UL Prednisone (Deltasone -) 40 mg PO 1800 ONE Stop: 10/07/19 18:01 Prednisone (Deltasone -) 40 mg PO DAILY SAUL Vital Signs Period Temp Pulse Resp BP Sys/Levi Pulse Ox Last 24 Hr 97.4 F-98.3 F 61-85 20-22 139-178/63-90 91 nad no jvd rrr s1s2 no mrg bl exp wheeze, nl eff aao3 no le e/c/c abd nt nd pos bs no jaundice diaphoresis CBC, BMP 10/06/19 07:40 10/06/19 07:40 ecg: sr nl intervals no ischemic changes cta chest: no pe, no chf echo 09/2019: nl lv, mild as, mod ms a/p: 74 f hx htn, copd, dm, hld, here with sob. sob, copd: -cont steroids per pulm -no signs acs, chf -echo w/o etiology of sob, likely 2/2 copd htn: -cont arb hld: -stable as, ms: -stable, routine outpt monitoring
[2019-10-07] MEDS: predniSONE 20 MG TABLET (UD) PO SCH (15:48)
[2019-10-07] MEDS ORDERED: predniSONE 20 MG TABLET (UD) PO ONE (18:00)
[2019-10-07] MEDS: INSULIN (LEVEMIR) 100 UNITS/ML UNITS SQ SCH (21:02)
[2019-10-08 05:14] VITALS: TEMP 98.2
[2019-10-08] MEDS: INSULIN SLIDING SCALE (NOVOLOG) 1 VIAL SQ SCH ×2 (06:19→11:36)
[2019-10-08] MEDS: ALBUTEROL SO4 2.5/IPRATROPIUM 0.5 INH SOL 3 ML VIAL.NEB. NEB SCH ×2 (08:00→12:00)
[2019-10-08 08:22] LABS: BASO % 0.1 % (0-2.0); HEMATOCRIT 27.1 % (32.4-45.2); LYMPH % 11.5 % (8-40); MCH 30.2 pg (25.7-33.7); MCHC 33.4 g/dl (32.0-36.0); MEAN CELL VOLUME 90.3 fl (80-96); MONO % 7.4 % (3.8-10.2); PLATELET COUNT 209 K/MM3 (134-434); RDW 13.9 % (11.6-15.6); WHITE BLOOD COUNT 6.4 K/mm3 (4.0-10.0)
[2019-10-08 08:46] VITALS: BP 130/49; PULSE 82
[2019-10-08 08:47] LABS: ALBUMIN 2.6 g/dl (3.4-5.0); BILIRUBIN,TOTAL 0.2 mg/dL (0.2-1); CALCIUM 8.5 mg/dL (8.5-10.1); CREATININE 0.9 mg/dL (0.55-1.3); MAGNESIUM 2.4 mg/dL (1.8-2.4); POTASSIUM 4.1 mmol/L (3.5-5.1); TOT PROT 5.8 g/dl (6.4-8.2)
[2019-10-08] MEDS ORDERED: predniSONE 20 MG TABLET (UD) PO SCH (10:00)
[2019-10-08] MEDS: DOCUSATE SODIUM 100 MG CAPSULE (FP) PO SCH (10:03)
[2019-10-08] MEDS: predniSONE 20 MG TABLET (UD) PO SCH (10:03)
[2019-10-08] MEDS: LOSARTAN POTASSIUM 50 MG TABLET (FP) PO SCH (10:03)
[2019-10-08] MEDS: DIVALPROEX NA *ER* EXTEND REL 500 MG TABLET.SA (FP) PO SCH (10:03)
[2019-10-08] MEDS: ASPIRIN 81 MG CHEWABLE TABLETS PO SCH (10:03)
[2019-10-08] MEDS: PANTOPRAZOLE 40 MG TABLET (FP) PO SCH (10:04)
[2019-10-08] MEDS: FERROUS GLUCONATE 324 MG TAB (FP) PO SCH (10:04)
[2019-10-08] MEDS: MIRTAZAPINE 15 MG TABLET (FP) PO SCH (10:04)
[2019-10-08] MEDS ORDERED: INSULIN (NOVOLOG) ASPART 100 UNITS/ML 10ML VIAL ONE (11:32)
--- NOTE | 2019-10-08 12:24 | DS ---
Physical Exam: SUBJECTIVE: Patient seen and examined, ambulating the hallways, room air, no tachypnea. comfortable. Discharge home with prednisone taper and follow up with pcp on discharge. OBJECTIVE: patient ambulating hallways, after ambulation, her oxygen was 94% on room air. will d/c with prednisone taper and pulmonary referral. patient is 74 year old female with hx of diabetes II, HTN, HLD, migraines, recent diagnosis of influenza A (completed tamiflu) who presented to the ED on with increasing fatigue, shortness of breath and midsternal chest pain that is constant nonradiating and not worsened with inspiration. She admits to cough productive of yellow sputum. No documented fevers but states she felt hot and had chills at home. She was admitted for acute shortness of breath secondary to acute asthma exacerbation triggered from complications of influenza A. She was treated with Solumedrol taper and was followed/evaluated by pulmonology and cardiology during her stay. She also participated in physical therapy and her ambulation improved significantly. She was weaned off the supplemental oxygen and now tolerating room air with stable saturations with ambulation. A pre and post done shows no need for home oxygen. Patient to be discharged on a Prednisone taper with outpatient referral with pulmonary as well as post hospital follow up with her PCP. SEE HOSPITAL COURSE BY PROBLEM LIST BELOW. imaging: chest ct/chest cta 09/30/19: no PE seen, lungs without pulmonary masses, areas of acute consolidation or pleural effusions. There are increased interstitial markings throughout the lung penn indicative of a mild degree of chronic lung disease. Vital Signs Period Temp Pulse Resp BP Sys/Levi Pulse Ox Last 24 Hr 97.9 F-98.2 F 80-98 16-22 124-150/49-76 94-98 PHYSICAL EXAM GENERAL: The patient is awake, alert, and fully oriented HEAD: Normal with no signs of trauma. EYES: PERRL, extraocular movements intact, sclera anicteric, conjunctiva clear. No ptosis. ENT: Ears normal, nares patent, oropharynx clear without exudates, moist mucous membranes. NECK: Trachea midline, full range of motion, supple. LUNGS: upper lobes with mild expiratory wheezing, lower lobes clear to auscultation, on room air after ambulation in the 90s. no respiratory distress. HEART: Regular rate and rhythm ABDOMEN: Soft, nontender, nondistended, normoactive bowel sounds, no guarding EXTREMITIES: no edema. NEUROLOGICAL: Normal speech, gait not observed. PSYCH: Normal mood, normal affect. SKIN: Warm, dry, normal turgor, no rashes or lesions noted LABS Laboratory Results - last 24 hr 10/07/19 10/07/19 10/08/19 17:02 20:41 06:17 WBC RBC Hgb Hct MCV MCH MCHC RDW Plt Count MPV Absolute Neuts (auto) Neutrophils % Lymphocytes % Monocytes % Eosinophils % Basophils % Nucleated RBC % Sodium Potassium Chloride Carbon Dioxide Anion Gap BUN Creatinine Est GFR (CKD-EPI)AfAm Est GFR (CKD-EPI)NonAf POC Glucometer 253 290 157 Random Glucose Calcium Magnesium Total Bilirubin AST ALT Alkaline Phosphatase Total Protein Albumin 10/08/19 10/08/19 10/08/19 06:50 06:50 11:23 WBC 6.4 RBC 3.00 L Hgb 9.0 L Hct 27.1 L MCV 90.3 MCH 30.2 MCHC 33.4 RDW 13.9 Plt Count 209 MPV 10.0 Absolute Neuts (auto) 5.2 Neutrophils % 81.0 Lymphocytes % 11.5 D Monocytes % 7.4 Eosinophils % 0.0 D Basophils % 0.1 D Nucleated RBC % 0 Sodium 141 Potassium 4.1 Chloride 104 Carbon Dioxide 31 Anion Gap 6 L BUN 32.0 H Creatinine 0.9 Est GFR (CKD-EPI)AfAm 71.98 Est GFR (CKD-EPI)NonAf 62.11 POC Glucometer 214 Random Glucose 154 H Calcium 8.5 Magnesium 2.4 Total Bilirubin 0.2 AST 15 ALT 40 Alkaline Phosphatase 47 Total Protein 5.8 L Albumin 2.6 L HOSPITAL COURSE: Date of Admission:09/30/19 Date of Discharge: 10/08/19 Minutes to complete discharge: 60 Discharge Summary Problems reviewed: Yes Reason For Visit: SOB,OXYGEN DESATURATION,FLU A Current Active Problems Costochondral chest pain (Acute) DVT prophylaxis (Acute) HLD (hyperlipidemia) (Acute) Myasthenia gravis (Acute) Prophylactic measure (Acute) SOB (shortness of breath) (Acute) Wheezing (Acute) Condition: Stable - Instructions Diet, Activity, Other Instructions: Mrs Venu Ayala: You were admitted for shortness of breath and you were evaluated by 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 You will be sent home with the following discharge instructions: Medications: Prednisone 40mg daily for 3 days at 8am (on 10/09, 10/10 and 10/11) ONCE PER DAY ONLY AT 8AM (DYLAN VEZ PER UMA PREDNISONE 40MG) Prednisone 20mg daily for 3 days at 8am (on 10/12, 10/13 and 10/14) ONCE PER DAY ONLY AT 8AM (DYLAN VEZ PER UMA PREDNISONE 20MG) AFTER 10/14/2019, STOP TAKING PREDNISONE Blood pressure: Take Losartan 50mg ONCE per day EVERY DAY Referrals: Please follow up with the director nursing service in your discharge paperwork. Please see your primary car doctor for follow up care within 3-5days thank you for allowing us to care for you. Referrals: Guilherme Jarrell MD [Staff Physician] - Sukhwinder Dee MD [Non Staff, Medical] - Disposition: HOME - Home Medications Comprehensive Discharge Medication List: Ambulatory Orders Aspirin [ASA -] 81 mg PO DAILY tab.chew 09/13/15 Losartan Potassium 100 mg PO DAILY 04/28/18 Metformin HCl [Glucophage] 1,000 mg PO BID 04/28/18 Omeprazole 40 mg PO DAILY 04/21/19 Divalproex Sodium [Depakote ER] 500 mg PO DAILY 09/26/19 Docusate Sodium [Stool Softener] 100 mg PO DAILY 09/26/19 Ergocalciferol [Vitamin D2] 1 cap PO WEEKLY 09/26/19 Ferrous Gluconate [Fergon -] 324 mg PO DAILY 09/26/19 Hydrochlorothiazide 25 mg PO DAILY 09/26/19 Insulin Glargine,Hum.rec.anlog [Basaglar Kwikpen U-100] 10 units SQ HS 09/26/19 Meclizine HCl [Antivert -] 25 mg PO BID 09/26/19 Mirtazapine 15 mg PO DAILY 09/26/19 Pravastatin Sodium [Pravachol -] 80 mg PO DAILY 09/26/19 Pyridostigmine [place]one 60 mg PO DAILY 09/26/19 Albuterol Sulfate Inhaler - [Ventolin HFA Inhaler -] 2 inh PO Q6H PRN #1 inh Guaifenesin/D-Methorphan Hb [Diabetic Tussin Dm -] 5 ml PO Q6H PRN #1 bottle Losartan Potassium [Cozaar -] 100 mg PO DAILY #120 tablet 10/08/19 Pantoprazole Sodium [Protonix -] 40 mg PO DAILY #30 tablet.ec 10/08/19 predniSONE [Deltasone -] 40 mg PO DAILY #15 tablet 10/08/19 Problem List - Problems (1) Acute asthma exacerbation Assessment/Plan: resolved transitioned to prednisone Code(s): J45.901 - UNSPECIFIED ASTHMA WITH (ACUTE) EXACERBATION (2) Influenza A Assessment/Plan: completed treatment of tamiflu completed Solumedrol taper and discharged on prednisone tolerating room air with stable oxygen saturations. echo; mild LV fx., mild aortic stenosis, mod mitral stenosis. Code(s): J10.1 - FLU DUE TO OTH IDENT INFLUENZA VIRUS W OTH RESP MANIFEST (3) Costochondral chest pain Assessment/Plan: resolved, no further chest pain Code(s): R07.1 - CHEST PAIN ON BREATHING (4) HLD (hyperlipidemia) Assessment/Plan: continue home medications. Code(s): E78.5 - HYPERLIPIDEMIA, UNSPECIFIED (5) Myasthenia gravis Assessment/Plan: on mestinon. physical therapy following Code(s): G70.00 - MYASTHENIA GRAVIS WITHOUT (ACUTE) EXACERBATION (6) SOB (shortness of breath) Assessment/Plan: resolved Code(s): R06.02 - SHORTNESS OF BREATH (7) Wheezing Assessment/Plan: mild upper lobe expiratory wheezing, but stable oxygen saturations after ambulation. does not qualify for home oxygen. Code(s): R06.2 - WHEEZING (8) Cough Assessment/Plan: resolvedl Code(s): R05 - COUGH (9) Depression with anxiety Assessment/Plan: continue home medications Code(s): F41.8 - OTHER SPECIFIED ANXIETY DISORDERS (10) Type 2 diabetes mellitus Assessment/Plan: resume home medications Code(s): E11.9 - TYPE 2 DIABETES MELLITUS WITHOUT COMPLICATIONS Qualifiers: Diabetes mellitus complication status: without complication Qualified Code( s): E11.9 - Type 2 diabetes mellitus without complications (11) Tachypnea Assessment/Plan: resolved Code(s): R06.82 - TACHYPNEA, NOT ELSEWHERE CLASSIFIED (12) Hypertension Assessment/Plan: on cozaar, bp stable Code(s): I10 - ESSENTIAL (PRIMARY) HYPERTENSION Qualifiers: Hypertension type: essential hypertension Qualified Code(s): I10 - Essential (primary) hypertension (13) Prophylactic measure Code(s): Z29.9 - ENCOUNTER FOR PROPHYLACTIC MEASURES, UNSPECIFIED (14) DVT prophylaxis Assessment/Plan: treated with heparin bid during hospital stay Code(s): Z29.9 - ENCOUNTER FOR PROPHYLACTIC MEASURES, UNSPECIFIED This patient is new to me today: Yes Date on this admission: 10/08/19 Emergency Visit: No Critical Care patient: No - Discharge Referral Referred to [facility] Med P.C.: No
[2019-10-08 13:28] LABS: ANISOCYTOSIS 0; MACROCYTOSIS 0; PLATELET ESTIMATE NORMAL
== END 2019-10-08 14:09 | disposition home health service (06) | DRG 194 ==
LOC: JER 09:34 → JERBED 14:39 → J6S 19:49 → JERBED 10-07 11:36 → J6S 10-07 11:37
PROVIDERS: ADMIT Internal Medicine; ATTEND Nurse Practitioner Family
DX: J10.1 Influenza due to other identified influenza virus with other respiratory manifestations (principal); J45.901 Unspecified asthma with (acute) exacerbation; J98.01 Acute bronchospasm; R07.1 Chest pain on breathing; G70.00 Myasthenia gravis without (acute) exacerbation; E11.9 Type 2 diabetes mellitus without complications; I10 Essential (primary) hypertension; E78.5 Hyperlipidemia, unspecified; F41.8 Other specified anxiety disorders
CPT/HCPCS: 36415; 71046-TC-FY; 71275-TC; 80053; 82728; 82962; 83036; 83540; 83550; 83735; 83880; 84484; 85025; 85610; 85730; 93005; 93010; 93306-TC; 94010; 94640; 94761; 97116-GP; 97161-GP; 99285-25; J1644; J7030; Q9967

== ENCOUNTER 2019-11-21 10:20 | Inpatient (IN) | payer OTHER ==
--- NOTE | 2019-11-21 11:38 | PDOC ---
History of Present Illness - General Chief Complaint: Wheezing Stated Complaint: ASTHMA Time Seen by Provider: 11/21/19 11:36 Past History - Past Medical History Allergies/Adverse Reactions: Allergies Allergy/AdvReac Type Severity Reaction Status Date / Time No Known Allergies Allergy Verified 09/30/19 11:34 Home Medications: Ambulatory Orders Aspirin [ASA -] 81 mg PO DAILY tab.chew 09/13/15 Metformin HCl [Glucophage] 1,000 mg PO BID 04/28/18 Omeprazole 40 mg PO DAILY 04/21/19 Divalproex Sodium [Depakote ER] 500 mg PO DAILY 09/26/19 Docusate Sodium [Stool Softener] 100 mg PO DAILY 09/26/19 Ergocalciferol [Vitamin D2] 1 cap PO WEEKLY 09/26/19 Ferrous Gluconate [Fergon -] 324 mg PO DAILY 09/26/19 Hydrochlorothiazide 25 mg PO DAILY 09/26/19 Insulin Glargine,Hum.rec.anlog [Basaglar Kwikpen U-100] 10 units SQ HS 09/26/19 Meclizine HCl [Antivert -] 25 mg PO BID 09/26/19 Mirtazapine 15 mg PO DAILY 09/26/19 Albuterol Sulfate Inhaler - [Ventolin HFA Inhaler -] 2 inh PO Q6H PRN #1 inh Guaifenesin/D-Methorphan Hb [Diabetic Tussin Dm -] 5 ml PO Q6H PRN #1 bottle Losartan Potassium [Cozaar -] 100 mg PO DAILY #120 tablet 10/08/19 predniSONE [Deltasone -] 40 mg PO DAILY #15 tablet 10/08/19 Oseltamivir Phosphate [Tamiflu -] 75 mg PO DAILY 11/21/19 Anemia: No Asthma: Yes Cancer: No Cardiac Disorders: No CVA: No COPD: No CHF: No Dementia: No Diabetes: Yes GI Disorders: No Disorders: No HTN: Yes Hypercholesterolemia: Yes Liver Disease: No Seizures: No Thyroid Disease: No - Surgical History Abdominal Surgery: Yes Appendectomy: No Cardiac Surgery: No Cholecystectomy: No Lung Surgery: No Neurologic Surgery: No Orthopedic Surgery: No - Immunization History Immunization Up to Date: Yes - Psycho Social/Smoking Cessation Hx Smoking History: Never smoked Have you smoked in the past 12 months: No Information on smoking cessation initiated: No Hx Alcohol Use: No Drug/Substance Use Hx: No Substance Use Type: None Hx Substance Use Treatment: No *Physical Exam - Vital Signs Last Vital Signs Temp Pulse Resp BP Pulse Ox 99.2 F 101 H 16 120/69 96 11/21/19 10:44 11/21/19 10:44 11/21/19 10:44 11/21/19 10:44 11/21/19 10:44 ED Treatment Course - LABORATORY CBC & Chemistry Diagram: 11/21/19 11:52 11/21/19 11:52 Medical Decision Making - Medical Decision Making 11/21/19 12:43 HPI: 74yo F hx HTN, HLD, DM2, migraines, influenza 08/2019 (completed Tamiflu), and asthma (last admission for exacerbation 09/30-10/08/19, discharged on RA w/o O2 requirement, pulm referral, and prednisone taper) 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 Denies recent travel, hx DVT/PE, hormone use, leg swelling, calf tenderness, syncope, hemoptysis. PCP - Dee ROS: Constitutional: Positive for chills. Negative for fever, fatigue, diaphoresis. HENT: Negative for sore throat, rhinorrhea, congestion. Eyes: Negative for visual disturbance. Respiratory: Positive for shortness of breath, cough, and wheezing. Cardiovascular: Positive for chest discomfort with coughs. Negative for palpitations, and leg swelling. Gastrointestinal: Negative for abdominal pain, blood in stool, constipation, diarrhea, nausea, and vomiting. Genitourinary: Negative for dysuria, flank pain, and hematuria. Musculoskeletal: Negative for myalgias, back pain, and neck pain. Skin: Negative for rash. Neurological: Negative for light-headedness, dizziness, vertigo, syncope, weakness, numbness and headaches. Psychiatric/Behavioral: Negative for behavioral problems and confusion. PE: Gen: Alert, NAD, uncomfortable-appearing, NRB in place on duonebs, mild respiratory distress, diaphoretic face HEENT: PERRL, EOMI, MMM, NCAT. No conjunctival pallor. Sclera are non-icteric. Oropharynx is clear. CV: Regular rate and rhythm. No murmurs, rubs, or gallops. PULM: Mild resp distress. Diffuse bilateral wheezing. No rales, or rhonchi. ABD: soft, NT/ND, no rebound tenderness or guarding, no CVA tenderness. BACK: No TTP of c/t/l-spine. No step-offs or deformities. MSK: No bony deformities. 2+ pulses in all extremities. NEURO: AAOx3. PERRL. No gross CN deficits. Strength and sensation grossly intact throughout. EXTREMITIES: No cyanosis. No clubbing. No edema. No calf tenderness. PSYCH: Normal mood and thought pattern. SKIN: Warm and dry, diaphoretic face. Normal capillary refill. No rashes. No jaundice. 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 Hemodynamically stable, afebrile, mild respiratory distress, diffuse b/l wheezing. Ddx: COPD/asthma exacerbation, CHF exacerbation, PNA, URI, influenza, ACS/ID, arrhythmia, metabolic derangement, anemia. Lack of hx DVT/PE, hemoptysis, leg swelling, or calf tenderness, and presentation most c/w COPD exacerbation vs PNA /URI make PE of very low concern at this time. -Labs -CXR -EKG -Duonebs x3, Solumedrol, Mg -Dispo: pending w/u and reassessment 11/21/19 14:53 -Labs reviewed, no concerning findings, flu neg, trop neg -EKG reviewed, NSR, 100bpm, normal axis, normal intervals, no e/o acute ischemia -CXR reviewed, possible PNA per team (RLL infiltrate), radiology read negative for acute process but correlation recommended -Ceftriaxone and Azithromycin for possible community-acquired PNA -Pt reassessed, pt improved a bit but still b/l wheezing, cough, feels fatigued , does not feel comfortable going home -Admit for COPD exacerbation and PNA Discharge - Discharge Information Problems reviewed: Yes Clinical Impression/Diagnosis: Cough, SOB (shortness of breath), Pneumonia Condition: Stable - Admission Yes - Follow up/Referral - Patient Discharge Instructions - Post Discharge Activity
[2019-11-21] MEDS ORDERED: ALBUTEROL SO4 2.5/IPRATROPIUM 0.5 INH SOL 3 ML VIAL.NEB. NEB ONE (11:52)
[2019-11-21] MEDS ORDERED: methylPREDNISolone NA SUCC 125 MG/2 ML VIAL IVPUSH ONE (12:00)
[2019-11-21] MEDS ORDERED: MAGNESIUM SULF 50% (8.12 MEQ/2 ML-1 GM VIAL) IVPB ONE (12:01)
[2019-11-21 12:17] LABS: BASO % 0.4 % (0-2.0); EOS % 1.1 % (0-4.5); HEMATOCRIT 29.3 % (32.4-45.2); LYMPH % 24.3 % (8-40); MCH 30.5 pg (25.7-33.7); MCHC 33.9 g/dl (32.0-36.0); MEAN CELL VOLUME 89.8 fl (80-96); MEAN PLT VOLUME 9.8 fl (7.5-11.1); MONO % 10.8 % (3.8-10.2); NEUT % 63.4 % (42.8-82.8); PLATELET COUNT 199 K/MM3 (134-434); RBC 3.27 M/mm3 (3.60-5.2); RDW 14.3 % (11.6-15.6); WHITE BLOOD COUNT 5.4 K/mm3 (4.0-10.0)
--- NOTE | 2019-11-21 12:32 | PDOC ---
Attending Attestation - Resident Resident Name: MichellejustinEstephanieArabella - ED Attending Attestation I have performed the following: I have examined & evaluated the patient, The case was reviewed & discussed with the resident, I agree w/resident's findings & plan, Exceptions are as noted - HPI HPI: 11/21/19 12:33 74y F hx of htn, dm, hld, asthma, migraines presents with complaint of approximately 8 days of cough and shortness of breath. Patient denies associated nasal congestion, fever, chills, sore throat, she does note that she is feeling mild dyspnea on exertion as well as generalized weakness and increasing worsening cough. She denies any hemoptysis, leg swelling. She does endorse a mild chest pain when she is coughing PMD: Dee exam: GENERAL: The patient is awake, alert, and fully oriented, mild respiratory distress HEAD: Normocephalic, atraumatic. EYES: extraocular movements intact, sclera anicteric, conjunctiva clear. ENT: Normal voice, Moist mucous membranes. NECK: Normal range of motion, supple LUNGS: Diffuse wheezing, no focal rales appreciated HEART: Regular rate and rhythm, normal S1 and S2 without murmur, rub or gallop. ABDOMEN: Soft, nontender, No guarding, no rebound. No CVA tenderness EXTREMITIES: Normal range of motion, no edema. Negative Homans signs no calf tenderness NEUROLOGICAL: No facial assymetry, Normal speech, PSYCH: Normal mood, normal affect. SKIN: Warm, Dry, normal turgor, Suspect URI/asthma exacerbation We will give the patient duo nebs, steroids Chest x-ray to rule out pneumonia Will obtain screening EKG and blood work We will continue to reassess - Physicial Exam PE: 11/24/19 07:46 ssee above - Medical Decision Making 11/21/19 14:51 The patient's x-ray reveals a right lower lobe infiltrate suspicious for possible pneumonia we will treat the patient for community-acquired pneumonia the patient was given ceftriaxone and azithromycin. Will admit the patient for further management of her pneumonia. The patient is feeling a bit improved after the nebulizers
[2019-11-21 12:45] LABS: ALBUMIN 3.5 g/dl (3.4-5.0); ALK PHOS 86 U/L (45-117); ANION GAP 6 MMOL/L (8-16); BILIRUBIN,TOTAL 0.2 mg/dL (0.2-1); BLOOD UREA NITROGEN 17.7 mg/dL (7-18); CALCIUM 9.1 mg/dL (8.5-10.1); CHLORIDE 108 mmol/L (98-107); CO2 28 mmol/L (21-32); GLUCOSE,RANDOM 155 mg/dL (74-106); MAGNESIUM 2.2 mg/dL (1.8-2.4); PHOSPHOROUS 3.4 mg/dL (2.5-4.9); POTASSIUM 4.4 mmol/L (3.5-5.1); SGOT/AST 16 U/L (15-37); SGPT/ALT 19 U/L (13-61); SODIUM 142 mmol/L (136-145); TOT PROT 7.4 g/dl (6.4-8.2)
[2019-11-21] MEDS ORDERED: MAGNESIUM SULF 50% (8.12 MEQ/2 ML-1 GM VIAL) ONE (12:49)
[2019-11-21] MEDS ORDERED: methylPREDNISolone NA SUCC 125 MG/2 ML VIAL ONE (12:50)
[2019-11-21 13:03] LABS: VENOUS PC02 38.9 mmHg (38-52); VENOUS PH 7.46 (7.31-7.41); VENOUS PO2 63.3 mmHg (28-48)
[2019-11-21] MEDS ORDERED: AZITHROMYCIN IVPB 500 MG in DEXTROSE 5%-WATER - 250 ML IVPB ONE (14:22)
[2019-11-21] MEDS ORDERED: CEFTRIAXONE 1,000 MG in DEXTROSE 5%-WATER - 50 ML IVPB ONE (14:22)
[2019-11-21] MEDS ORDERED: CEFTRIAXONE 1 GM/50 ML BAG ONE (14:50)
[2019-11-21] MEDS ORDERED: AZITHROMYCIN IVPB 500 MG/250 ML BAG IVPB ONE (14:50)
--- NOTE | 2019-11-21 16:28 | HP ---
Admitting History and Physical - Primary Care Physician PCP: Addison Virk - Admission History of Present Illness: 74y F hx of htn, dm, hld, asthma, migraines presents with complaint of approximately 8 days of cough and shortness of breath. Patient denies associated nasal congestion, fever, chills, sore throat, she does note that she is feeling mild dyspnea on exertion as well as generalized weakness and increasing worsening cough. She denies any hemoptysis, leg swelling. 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 No: Asthma, Cancer, O2 Dependent, Previously Intubated, Pulmonary Embolus, Pulmonary Fibrosis, Sleep Apnea Psych: Yes: Anxiety, Depression Endocrine: Yes: Diabetes Mellitus - Smoking History Smoking history: Never smoked Have you smoked in the past 12 months: No - Alcohol/Substance Use Hx Alcohol Use: No History of Substance Use: reports: None - Social History ADL: Independent History of Recent Travel: No Home Medications - Allergies Allergies/Adverse Reactions: Allergies Allergy/AdvReac Type Severity Reaction Status Date / Time No Known Allergies Allergy Verified 09/30/19 11:34 - Home Medications Home Medications: Ambulatory Orders Aspirin [ASA -] 81 mg PO DAILY tab.chew 09/13/15 Metformin HCl [Glucophage] 1,000 mg PO BID 04/28/18 Omeprazole 40 mg PO DAILY 04/21/19 Divalproex Sodium [Depakote ER] 500 mg PO DAILY 09/26/19 Docusate Sodium [Stool Softener] 100 mg PO DAILY 09/26/19 Ergocalciferol [Vitamin D2] 1 cap PO WEEKLY 09/26/19 Ferrous Gluconate [Fergon -] 324 mg PO DAILY 09/26/19 Hydrochlorothiazide 25 mg PO DAILY 09/26/19 Insulin Glargine,Hum.rec.anlog [Basaglar Kwikpen U-100] 10 units SQ HS 09/26/19 Meclizine HCl [Antivert -] 25 mg PO BID 09/26/19 Mirtazapine 15 mg PO DAILY 09/26/19 Albuterol Sulfate Inhaler - [Ventolin HFA Inhaler -] 2 inh PO Q6H PRN #1 inh Guaifenesin/D-Methorphan Hb [Diabetic Tussin Dm -] 5 ml PO Q6H PRN #1 bottle Losartan Potassium [Cozaar -] 100 mg PO DAILY #120 tablet 10/08/19 predniSONE [Deltasone -] 40 mg PO DAILY #15 tablet 10/08/19 Oseltamivir Phosphate [Tamiflu -] 75 mg PO DAILY 11/21/19 Physical Examination Vital Signs: Vital Signs Temperature 98.8 F 11/21/19 14:44 Pulse Rate 91 H 11/21/19 14:44 Respiratory Rate 16 11/21/19 14:44 Blood Pressure 130/69 11/21/19 14:44 O2 Sat by Pulse Oximetry (%) 97 11/21/19 14:44 Constitutional: Yes: No Distress HENT: Yes: Atraumatic Neck: Yes: Supple Cardiovascular: Yes: Regular Rate and Rhythm Respiratory: Yes: Rhonchi Gastrointestinal: Yes: Normal Bowel Sounds Extremities: Yes: WNL Edema: No Neurological: Yes: Alert, Oriented Labs: CBC, BMP 11/21/19 11:52 11/21/19 11:52 Problem List - Problems (1) Cough Code(s): R05 - COUGH (2) Pneumonia Assessment/Plan: iv abx duo nebs id consult Code(s): J18.9 - PNEUMONIA, UNSPECIFIED ORGANISM (3) SOB (shortness of breath) Code(s): R06.02 - SHORTNESS OF BREATH (4) HLD (hyperlipidemia) Code(s): E78.5 - HYPERLIPIDEMIA, UNSPECIFIED (5) Hypertension Code(s): I10 - ESSENTIAL (PRIMARY) HYPERTENSION Qualifiers: (6) Type 2 diabetes mellitus Code(s): E11.9 - TYPE 2 DIABETES MELLITUS WITHOUT COMPLICATIONS Qualifiers: Assessment/Plan Laboratory Tests 11/21/19 11/21/19 11/21/19 11:52 11:52 12:36 WBC 5.4 RBC 3.27 L Hgb 10.0 L Hct 29.3 L MCV 89.8 MCH 30.5 MCHC 33.9 RDW 14.3 Plt Count 199 MPV 9.8 Absolute Neuts (auto) 3.5 Neutrophils % 63.4 D Lymphocytes % 24.3 D Monocytes % 10.8 H Eosinophils % 1.1 D Basophils % 0.4 D Nucleated RBC % 0 VBG pH 7.46 H POC VBG pCO2 38.9 POC VBG pO2 63.3 H VBG HCO3 27.3 VBG O2 Sat (Kathya) 94.8 H VBG Base Excess 3.6 H Sodium 142 Potassium 4.4 Chloride 108 H Carbon Dioxide 28 Anion Gap 6 L BUN 17.7 Creatinine 1.0 Est GFR (CKD-EPI)AfAm 63.38 Est GFR (CKD-EPI)NonAf 54.68 Random Glucose 155 H Calcium 9.1 Phosphorus 3.4 Magnesium 2.2 Total Bilirubin 0.2 AST 16 ALT 19 Alkaline Phosphatase 86 Creatine Kinase 78 Troponin I < 0.02 Total Protein 7.4 Albumin 3.5 Active Medications Generic Name Dose Route Start Last Admin Trade Name Freq PRN Reason Stop Dose Admin Aspirin 81 mg 11/22/19 10:00 Asa - PO DAILY [facility] Divalproex Sodium 500 mg 11/22/19 10:00 Depakote *Er* - PO DAILY [facility] Docusate Sodium 100 mg 11/22/19 10:00 Colace - PO DAILY [facility] Heparin Sodium (Porcine) 5,000 unit 11/21/19 22:00 Heparin - SQ BID [facility] Losartan Potassium 100 mg 11/22/19 10:00 Cozaar - PO DAILY [facility] Mirtazapine 15 mg 11/22/19 10:00 Remeron - PO DAILY [facility] Non-Formulary Medication 10 units 11/21/19 22:00 Insulin Glargine,Hum.Rec.Anlog [Basaglar Kwikpen U-100] SQ HS [facility] Non-Formulary Medication 1,000 mg 11/21/19 22:00 Metformin Hcl [Glucophage] PO BID [facility]
[2019-11-21] MEDS ORDERED: PATIENT'S OWN MEDICATION (NON-FORMULARY) (Insulin Glargine,Hum.Rec.Anlog [Basaglar Kwikpen SQ SCH (22:00)
[2019-11-21] MEDS ORDERED: PATIENT'S OWN MEDICATION (NON-FORMULARY) (Metformin Hcl [Glucophage] 1,000 MG) PO SCH (22:00)
[2019-11-21] MEDS ORDERED: metFORMIN HCL 500 MG TABLET (FP) ONE (22:04)
[2019-11-21] MEDS ORDERED: HEPARIN NA (PORCINE) 5,000 UNITS/ML 1ML VIAL ONE (22:05)
[2019-11-21] MEDS ORDERED: INSULIN (LEVEMIR) 100 UNITS/ML UNITS SQ ONE (22:05)
[2019-11-21] MEDS: metFORMIN HCL 500 MG TABLET (FP) PO SCH (22:17)
[2019-11-21] MEDS: INSULIN (LEVEMIR) 100 UNITS/ML UNITS SQ SCH (22:18)
[2019-11-21] MEDS: HEPARIN NA (PORCINE) 5,000 UNITS/ML 1ML VIAL SQ SCH (22:18)
[2019-11-22 06:33] LABS: BASO % 0.1 % (0-2.0); HEMATOCRIT 28.4 % (32.4-45.2); HEMOGLOBIN 9.7 GM/dL (10.7-15.3); LYMPH % 12.5 % (8-40); MCH 30.3 pg (25.7-33.7); MEAN PLT VOLUME 10.4 fl (7.5-11.1); NEUT % 81.4 % (42.8-82.8); PLATELET COUNT 214 K/MM3 (134-434); RDW 14.7 % (11.6-15.6)
[2019-11-22] MEDS: metFORMIN HCL 500 MG TABLET (FP) PO SCH ×2 (06:49→22:02)
[2019-11-22 06:58] LABS: ALBUMIN 3.3 g/dl (3.4-5.0); BILIRUBIN,TOTAL 0.2 mg/dL (0.2-1); CALCIUM 8.9 mg/dL (8.5-10.1); CREATININE 1.2 mg/dL (0.55-1.3); POTASSIUM 4.6 mmol/L (3.5-5.1); TOT PROT 7.6 g/dl (6.4-8.2)
[2019-11-22] MEDS: ASPIRIN 81 MG CHEWABLE TABLETS PO SCH (09:38)
[2019-11-22] MEDS: DOCUSATE SODIUM 100 MG CAPSULE (FP) PO SCH (09:38)
[2019-11-22] MEDS: HEPARIN NA (PORCINE) 5,000 UNITS/ML 1ML VIAL SQ SCH ×2 (09:38→22:03)
[2019-11-22] MEDS: DIVALPROEX NA *ER* EXTEND REL 500 MG TABLET.SA (FP) PO SCH (09:38)
[2019-11-22] MEDS: LOSARTAN POTASSIUM 50 MG TABLET (FP) PO SCH (09:38)
--- NOTE | 2019-11-22 09:41 | EKG ---
Test Reason : Blood Pressure : / mmHG Vent. Rate : 100 BPM Atrial Rate : 100 BPM P-R Int : 138 ms QRS Dur : 074 ms QT Int : 350 ms P-R-T Axes : 053 006 048 degrees QTc Int : 451 ms NORMAL SINUS RHYTHM NORMAL ECG WHEN COMPARED WITH ECG OF 30-SEP-2019 10:47, NO SIGNIFICANT CHANGE WAS FOUND Confirmed by Boom Ruiz MD ([id number]) on 11/22/2019 9:41:11 AM Referred By: Confirmed By:Boom Ruiz MD
[2019-11-22] MEDS: ALBUTEROL SO4 2.5/IPRATROPIUM 0.5 INH SOL 3 ML VIAL.NEB. NEB PRN ×3 (12:48→21:29)
--- NOTE | 2019-11-22 14:05 | CON.ID ---
Consult - Past Medical History [employer]: Yes: Migraine Cardio/Vascular: Yes: HTN Pulmonary: Yes: Bronchitis, COPD, Pneumonia. No: Asthma, Cancer, O2 Dependent, Previously Intubated, Pulmonary Embolus, Pulmonary Fibrosis, Sleep Apnea Psych: Yes: Anxiety, Depression Endocrine: Yes: Diabetes Mellitus - Alcohol/Substance Use Hx Alcohol Use: No History of Substance Use: reports: None - Smoking History Smoking history: Never smoked Have you smoked in the past 12 months: No - Social History Usual Living Arrangement: With Spouse ADL: Independent History of Recent Travel: No Home Medications - Allergies Allergies/Adverse Reactions: Allergies Allergy/AdvReac Type Severity Reaction Status Date / Time No Known Allergies Allergy Verified 09/30/19 11:34 - Home Medications Home Medications: Ambulatory Orders Aspirin [ASA -] 81 mg PO DAILY tab.chew 09/13/15 Metformin HCl [Glucophage] 1,000 mg PO BID 04/28/18 Omeprazole 40 mg PO DAILY 04/21/19 Divalproex Sodium [Depakote ER] 500 mg PO DAILY 09/26/19 Docusate Sodium [Stool Softener] 100 mg PO DAILY 09/26/19 Ergocalciferol [Vitamin D2] 1 cap PO WEEKLY 09/26/19 Ferrous Gluconate [Fergon -] 324 mg PO DAILY 09/26/19 Hydrochlorothiazide 25 mg PO DAILY 09/26/19 Insulin Glargine,Hum.rec.anlog [Basaglar Kwikpen U-100] 10 units SQ HS 09/26/19 Meclizine HCl [Antivert -] 25 mg PO BID 09/26/19 Mirtazapine 15 mg PO DAILY 09/26/19 Albuterol Sulfate Inhaler - [Ventolin HFA Inhaler -] 2 inh PO Q6H PRN #1 inh Guaifenesin/D-Methorphan Hb [Diabetic Tussin Dm -] 5 ml PO Q6H PRN #1 bottle Losartan Potassium [Cozaar -] 100 mg PO DAILY #120 tablet 10/08/19 predniSONE [Deltasone -] 40 mg PO DAILY #15 tablet 10/08/19 Oseltamivir Phosphate [Tamiflu -] 75 mg PO DAILY 11/21/19 Physical Exam Vital Signs: Vital Signs Temperature 98.0 F 11/22/19 10:00 Pulse Rate 76 11/22/19 10:00 Respiratory Rate 20 11/22/19 10:00 Blood Pressure 153/80 11/22/19 10:00 O2 Sat by Pulse Oximetry (%) 99 11/22/19 09:00 Labs: CBC, BMP 11/22/19 06:00 11/22/19 06:00
[2019-11-22] MEDS: PIPERACILLIN/TAZOB 3.375 GM 3.375 GM in DEXTROSE 5%-WATER - 50 ML IVPB SCH ×2 (16:17→17:22)
--- NOTE | 2019-11-22 16:42 | PN ---
Progress Note, Physician - Current Medication List Current Medications: Active Medications Albuterol/Ipratropium (Duoneb -) 1 amp NEB Q4H PRN PRN Reason: SHORTNESS OF BREATH Last Admin: 11/22/19 12:48 Dose: 1 amp Aspirin (Asa -) 81 mg PO DAILY [facility] Last Admin: 11/22/19 09:38 Dose: 81 mg Divalproex Sodium (Depakote *Er* -) 500 mg PO DAILY [facility] Last Admin: 11/22/19 09:38 Dose: 500 mg Docusate Sodium (Colace -) 100 mg PO DAILY [facility] Last Admin: 11/22/19 09:38 Dose: 100 mg Heparin Sodium (Porcine) (Heparin -) 5,000 unit SQ BID [facility] Last Admin: 11/22/19 09:38 Dose: 5,000 unit Piperacillin Sod/Tazobactam (Sod 3.375 gm/ Dextrose) 50 mls @ 100 mls/hr IVPB Q8H-IV [facility]; Protocol Last Admin: 11/22/19 16:17 Dose: 100 mls/hr Insulin Detemir (Levemir Vial) 10 units SQ [facility] Last Admin: 11/21/19 22:18 Dose: 10 units Losartan Potassium (Cozaar -) 100 mg PO DAILY [facility] Last Admin: 11/22/19 09:38 Dose: 100 mg Metformin HCl (Glucophage -) 1,000 mg PO BID@0700,2200 [facility] Last Admin: 11/22/19 06:49 Dose: 1,000 mg Mirtazapine (Remeron -) 15 mg PO [facility] - Objective Vital Signs: Vital Signs Temperature 98.4 F 11/22/19 14:00 Pulse Rate 74 11/22/19 14:00 Respiratory Rate 20 11/22/19 14:00 Blood Pressure 126/66 11/22/19 14:00 O2 Sat by Pulse Oximetry (%) 99 11/22/19 09:00 Constitutional: Yes: No Distress HENT: Yes: Atraumatic Neck: Yes: Supple Cardiovascular: Yes: Regular Rate and Rhythm Respiratory: Yes: CTA Bilaterally Gastrointestinal: Yes: Normal Bowel Sounds Extremities: Yes: WNL Neurological: Yes: Alert, Oriented Labs: CBC, BMP 11/22/19 06:00 11/22/19 06:00 Problem List - Problems (1) Cough Code(s): R05 - COUGH (2) Pneumonia Assessment/Plan: iv abx duo nebs id consult Code(s): J18.9 - PNEUMONIA, UNSPECIFIED ORGANISM (3) SOB (shortness of breath) Code(s): R06.02 - SHORTNESS OF BREATH (4) HLD (hyperlipidemia) Code(s): E78.5 - HYPERLIPIDEMIA, UNSPECIFIED (5) Hypertension Code(s): I10 - ESSENTIAL (PRIMARY) HYPERTENSION Qualifiers: (6) Type 2 diabetes mellitus Assessment/Plan: on insulin and po m,eds monitor blood sugars Code(s): E11.9 - TYPE 2 DIABETES MELLITUS WITHOUT COMPLICATIONS Qualifiers: (7) Acute asthma exacerbation Assessment/Plan: iv steroids duo nebs pulmonary consult Code(s): J45.901 - UNSPECIFIED ASTHMA WITH (ACUTE) EXACERBATION
[2019-11-22] MEDS: MIRTAZAPINE 15 MG TABLET (FP) PO SCH (22:03)
[2019-11-22] MEDS: INSULIN (LEVEMIR) 100 UNITS/ML UNITS SQ SCH (22:03)
[2019-11-23] MEDS ORDERED: DEXTROSE 5%-WATER - 50 ML IVPB ONE ×3 (01:19→14:09)
[2019-11-23] MEDS ORDERED: PIPERACILLIN/TAZOBACTAM 3.375 GM VIAL IVPB ONE ×2 (01:19→09:26)
[2019-11-23] MEDS: PIPERACILLIN/TAZOB 3.375 GM 3.375 GM in DEXTROSE 5%-WATER - 50 ML IVPB SCH ×2 (01:34→09:45)
[2019-11-23] MEDS: ALBUTEROL SO4 2.5/IPRATROPIUM 0.5 INH SOL 3 ML VIAL.NEB. NEB PRN ×3 (01:52→22:42)
[2019-11-23] MEDS: metFORMIN HCL 500 MG TABLET (FP) PO SCH ×2 (06:10→22:37)
[2019-11-23] MEDS ORDERED: INSULIN (LEVEMIR) 100 UNITS/ML UNITS SQ ONE (06:20)
[2019-11-23] MEDS: ASPIRIN 81 MG CHEWABLE TABLETS PO SCH (09:47)
[2019-11-23] MEDS: DOCUSATE SODIUM 100 MG CAPSULE (FP) PO SCH (09:47)
[2019-11-23] MEDS: LOSARTAN POTASSIUM 50 MG TABLET (FP) PO SCH (09:47)
[2019-11-23] MEDS: HEPARIN NA (PORCINE) 5,000 UNITS/ML 1ML VIAL SQ SCH ×2 (09:47→22:37)
[2019-11-23] MEDS: DIVALPROEX NA *ER* EXTEND REL 500 MG TABLET.SA (FP) PO SCH (09:47)
[2019-11-23] MEDS: guaiFENesin/CODEINE 5 ML UNIT-DOSE CUPS PO PRN ×2 (10:24→17:34)
--- NOTE | 2019-11-23 12:40 | PN ---
Progress Note, Physician History of Present Illness: still coughing a lot imaging studies noted - Current Medication List Current Medications: Active Medications Albuterol/Ipratropium (Duoneb -) 1 amp NEB Q4H PRN PRN Reason: SHORTNESS OF BREATH Last Admin: 11/23/19 09:30 Dose: 1 amp Aspirin (Asa -) 81 mg PO DAILY [facility] Last Admin: 11/23/19 09:47 Dose: 81 mg Divalproex Sodium (Depakote *Er* -) 500 mg PO DAILY [facility] Last Admin: 11/23/19 09:47 Dose: 500 mg Docusate Sodium (Colace -) 100 mg PO DAILY [facility] Last Admin: 11/23/19 09:47 Dose: 100 mg Guaifenesin/Codeine Phosphate (Robitussin Ac -) 5 ml PO Q6H PRN PRN Reason: COUGH Last Admin: 11/23/19 10:24 Dose: 5 ml Heparin Sodium (Porcine) (Heparin -) 5,000 unit SQ BID [facility] Last Admin: 11/23/19 09:47 Dose: 5,000 unit Piperacillin Sod/Tazobactam (Sod 3.375 gm/ Dextrose) 50 mls @ 100 mls/hr IVPB Q8H-IV [facility]; Protocol Last Admin: 11/23/19 09:45 Dose: 100 mls/hr Insulin Detemir (Levemir Vial) 10 units SQ HS [facility] Last Admin: 11/22/19 22:03 Dose: 10 units Losartan Potassium (Cozaar -) 100 mg PO DAILY [facility] Last Admin: 11/23/19 09:47 Dose: 100 mg Metformin HCl (Glucophage -) 1,000 mg PO BID@0700,2200 [facility] Last Admin: 11/23/19 06:10 Dose: 1,000 mg Mirtazapine (Remeron -) 15 mg PO HS [facility] Last Admin: 11/22/19 22:03 Dose: 15 mg - Objective Vital Signs: Vital Signs Temperature 98.1 F 11/23/19 09:41 Pulse Rate 103 H 11/23/19 09:41 Respiratory Rate 20 11/23/19 09:41 Blood Pressure 130/54 L 11/23/19 09:41 O2 Sat by Pulse Oximetry (%) 100 11/22/19 21:00 Constitutional: Yes: Calm, Mild Distress Cardiovascular: Yes: S1, S2 Respiratory: Yes: On Nasal O2, Poor Air Entry Gastrointestinal: Yes: Normal Bowel Sounds, Soft Musculoskeletal: Yes: WNL Extremities: Yes: WNL Neurological: Yes: Alert, Oriented Psychiatric: Yes: Alert, Oriented Labs: CBC, BMP 11/22/19 06:00 11/22/19 06:00 Assessment/Plan Problem List - Problems (1) Cough Code(s): R05 - COUGH (2) Pneumonia Code(s): J18.9 - PNEUMONIA, UNSPECIFIED ORGANISM (3) SOB (shortness of breath) Code(s): R06.02 - SHORTNESS OF BREATH (4) HLD (hyperlipidemia) Code(s): E78.5 - HYPERLIPIDEMIA, UNSPECIFIED (5) Hypertension Code(s): I10 - ESSENTIAL (PRIMARY) HYPERTENSION Qualifiers: (6) Type 2 diabetes mellitus Code(s): E11.9 - TYPE 2 DIABETES MELLITUS WITHOUT COMPLICATIONS Qualifiers: plan will continue ceftriaxone neb incentive jose rest as per the team
[2019-11-23] MEDS ORDERED: cefTRIAXone SODIUM 1 GM VIAL ONE (14:09)
--- NOTE | 2019-11-23 14:17 | PN ---
Progress Note (short form) - Note Progress Note: PULMONARY CONSULTATION DICTATED11/23/19 IMP ASTHMA EXACERBATION LIKELY URI DM HTN MIGRAINES PLAN IV STEROIDS INHALED BRONCHODILATORS O2 NEEDED ABX PER ID PEAK FLOW PFTS OUTPATIENT DR GIVENS
[2019-11-23] MEDS: CEFTRIAXONE 1 GM in DEXTROSE 5%-WATER - 50 ML IVPB SCH (14:24)
--- NOTE | 2019-11-23 14:51 | PN ---
Progress Note (short form) - Note Progress Note: PULMONARY CONSULTATION DICTATED11/23/19 IMP ASTHMA EXACERBATION LIKELY URI DM HTN MIGRAINES ? MYASTHENIA PLAN IV STEROIDS INHALED BRONCHODILATORS O2 NEEDED ABX PER ID PEAK FLOW PFTS OUTPATIENT CULTURES DR GIVENS Problem List - Problems (1) Migraine Code(s): G43.909 - MIGRAINE, UNSP, NOT INTRACTABLE, WITHOUT STATUS MIGRAINOSUS (2) Cough Code(s): R05 - COUGH (3) SOB (shortness of breath) Code(s): R06.02 - SHORTNESS OF BREATH (4) Acute asthma exacerbation Code(s): J45.901 - UNSPECIFIED ASTHMA WITH (ACUTE) EXACERBATION (5) Depression with anxiety Code(s): F41.8 - OTHER SPECIFIED ANXIETY DISORDERS (6) HLD (hyperlipidemia) Code(s): E78.5 - HYPERLIPIDEMIA, UNSPECIFIED (7) Myasthenia gravis Code(s): G70.00 - MYASTHENIA GRAVIS WITHOUT (ACUTE) EXACERBATION (8) Wheezing Code(s): R06.2 - WHEEZING (9) Hypertension Code(s): I10 - ESSENTIAL (PRIMARY) HYPERTENSION Qualifiers: (10) Type 2 diabetes mellitus Code(s): E11.9 - TYPE 2 DIABETES MELLITUS WITHOUT COMPLICATIONS Qualifiers:
[2019-11-23] MEDS ORDERED: methylPREDNISolone NA SUCC 40 MG/1 ML VIAL IVPUSH SCH (15:00)
--- NOTE | 2019-11-23 16:02 | CONS ---
PULMONARY CONSULTATION DATE OF CONSULTATION: 11/23/2019 REFERRING PHYSICIAN: Tanner Virk MD HISTORY OF PRESENT ILLNESS: Patient is a 74-year-old, female with a past medical history of asthma for approximately 10 years, migraines, hypertension, hyperlipidemia, diabetes, questionable myasthenia, recently hospitalized secondary to episode of influenza in August 2019, nonsmoker, admitted to [facility] with a complaint of an 8-day history of increasing shortness of breath, cough, and chest congestion. Patient denied any fevers, chills, nausea, vomiting or diaphoresis. She stated that over the past few days, she started developing increasing shortness of breath, wheezing, and chest discomfort secondary to coughing; at which time, she presented to the ER. In the ER, she had a chest x-ray performed, which showed no evidence of acute infiltrates. She was admitted. She was started on antibiotic therapy. Patient denies any hemoptysis. Denies any history of pneumonia in the past. There is no history of recent travel. She denies any history of occupational exposure to chemicals or fumes. She is a nonsmoker. PAST MEDICAL HISTORY: Again, includes asthma, hypertension, hyperlipidemia, migraines, diabetes, questionable myasthenia. Patient is currently on Mestinon. REVIEW OF SYSTEMS: Positive shortness of breath. Positive cough. Positive wheezing. Positive chest discomfort. No fever. No chills. No hemoptysis. No sputum production. CURRENT MEDICATIONS: Include Solu-Medrol of 40 q.6, Cozaar, ceftriaxone, heparin, Depakote, Remeron, Robitussin AC, Glucophage, Colace, Levemir, and aspirin. PHYSICAL EXAMINATION: General: Patient is an elderly female, awake, alert, in no acute distress. Vital Signs: She is afebrile, heart rate is 103, blood pressure 130/54, respiratory rate is 18. HEENT: Exam is normocephalic, atraumatic. Neck: Supple. Heart: Regular S1 and S2. Chest: Diffuse bilateral wheezes. Abdomen: Soft. Bowel sounds are positive. Extremities: No cyanosis or edema. LABORATORIES: WBC is 7, hemoglobin 9.7, hematocrit 28.4, with a platelet count of 214,000. Venous blood gas: PH 7.46, PCO2 of 38, a PO2 of 63, bicarbonate of 27, saturation of 94; that was on a venous blood gas. BUN 30, creatinine 1.2. Chest x-ray: No acute infiltrates and no effusions. IMPRESSION: 1. Acute asthma exacerbation. Likely secondary to an upper respiratory infection. 2. Diabetes. 3. Hypertension. 4. Migraines. 5. Questionable myasthenia. PLAN: IV steroids. Inhaled bronchodilators. Supplemental O2. Antibiotics, as per Infectious Disease. Monitor peak flow. PFTs outpatient. Will obtain cultures. BISHOP GIVENS M.D. [id number]
--- NOTE | 2019-11-23 16:02 | PN ---
Progress Note, Physician - Current Medication List Current Medications: Active Medications Albuterol/Ipratropium (Duoneb -) 1 amp NEB Q4H PRN PRN Reason: SHORTNESS OF BREATH Last Admin: 11/23/19 09:30 Dose: 1 amp Aspirin (Asa -) 81 mg PO DAILY [facility] Last Admin: 11/23/19 09:47 Dose: 81 mg Divalproex Sodium (Depakote *Er* -) 500 mg PO DAILY [facility] Last Admin: 11/23/19 09:47 Dose: 500 mg Docusate Sodium (Colace -) 100 mg PO DAILY [facility] Last Admin: 11/23/19 09:47 Dose: 100 mg Guaifenesin/Codeine Phosphate (Robitussin Ac -) 5 ml PO Q6H PRN PRN Reason: COUGH Last Admin: 11/23/19 10:24 Dose: 5 ml Heparin Sodium (Porcine) (Heparin -) 5,000 unit SQ BID [facility] Last Admin: 11/23/19 09:47 Dose: 5,000 unit Ceftriaxone Sodium 1 gm/ (Dextrose) 50 mls @ 100 mls/hr IVPB DAILY [facility]; Protocol Last Admin: 11/23/19 14:24 Dose: 100 mls/hr Insulin Detemir (Levemir Vial) 10 units SQ [facility] Last Admin: 11/22/19 22:03 Dose: 10 units Losartan Potassium (Cozaar -) 100 mg PO DAILY [facility] Last Admin: 11/23/19 09:47 Dose: 100 mg Metformin HCl (Glucophage -) 1,000 mg PO BID@0700,2200 [facility] Last Admin: 11/23/19 06:10 Dose: 1,000 mg Mirtazapine (Remeron -) 15 mg PO [facility] Last Admin: 11/22/19 22:03 Dose: 15 mg - Objective Vital Signs: Vital Signs Temperature 98.7 F 11/23/19 15:03 Pulse Rate 100 H 11/23/19 15:03 Respiratory Rate 20 11/23/19 15:03 Blood Pressure 106/55 L 11/23/19 15:03 O2 Sat by Pulse Oximetry (%) 100 11/22/19 21:00 Constitutional: Yes: No Distress HENT: Yes: Atraumatic Neck: Yes: Supple Cardiovascular: Yes: Regular Rate and Rhythm Respiratory: Yes: Rhonchi, Wheezes Gastrointestinal: Yes: Normal Bowel Sounds Extremities: Yes: WNL Neurological: Yes: Alert, Oriented Labs: CBC, BMP 11/22/19 06:00 11/22/19 06:00 Problem List - Problems (1) Cough Code(s): R05 - COUGH (2) Pneumonia Assessment/Plan: iv abx duo nebs id consult Code(s): J18.9 - PNEUMONIA, UNSPECIFIED ORGANISM (3) SOB (shortness of breath) Code(s): R06.02 - SHORTNESS OF BREATH (4) HLD (hyperlipidemia) Code(s): E78.5 - HYPERLIPIDEMIA, UNSPECIFIED (5) Hypertension Code(s): I10 - ESSENTIAL (PRIMARY) HYPERTENSION Qualifiers: (6) Type 2 diabetes mellitus Assessment/Plan: on insulin and po m,eds monitor blood sugars Code(s): E11.9 - TYPE 2 DIABETES MELLITUS WITHOUT COMPLICATIONS Qualifiers: (7) Acute asthma exacerbation Assessment/Plan: iv steroids duo nebs pulmonary consult Code(s): J45.901 - UNSPECIFIED ASTHMA WITH (ACUTE) EXACERBATION
[2019-11-23 16:35] VITALS: BMI 26.4
[2019-11-23] MEDS: methylPREDNISolone NA SUCC 40 MG/1 ML VIAL IVPUSH SCH (22:37)
[2019-11-23] MEDS: INSULIN (LEVEMIR) 100 UNITS/ML UNITS SQ SCH (22:37)
[2019-11-23] MEDS: MIRTAZAPINE 15 MG TABLET (FP) PO SCH (22:37)
[2019-11-24] MEDS: guaiFENesin/CODEINE 5 ML UNIT-DOSE CUPS PO PRN (01:52)
[2019-11-24] MEDS: metFORMIN HCL 500 MG TABLET (FP) PO SCH ×2 (06:24→17:28)
--- NOTE | 2019-11-24 09:26 | PN ---
Progress Note, Physician History of Present Illness: stable coughing - Current Medication List Current Medications: Active Medications Albuterol/Ipratropium (Duoneb -) 1 amp NEB Q4H PRN PRN Reason: SHORTNESS OF BREATH Last Admin: 11/23/19 22:42 Dose: 1 amp Aspirin (Asa -) 81 mg PO DAILY [facility] Last Admin: 11/23/19 09:47 Dose: 81 mg Divalproex Sodium (Depakote *Er* -) 500 mg PO DAILY [facility] Last Admin: 11/23/19 09:47 Dose: 500 mg Docusate Sodium (Colace -) 100 mg PO DAILY [facility] Last Admin: 11/23/19 09:47 Dose: 100 mg Guaifenesin/Codeine Phosphate (Robitussin Ac -) 5 ml PO Q6H PRN PRN Reason: COUGH Last Admin: 11/24/19 01:52 Dose: 5 ml Heparin Sodium (Porcine) (Heparin -) 5,000 unit SQ BID [facility] Last Admin: 11/23/19 22:37 Dose: 5,000 unit Ceftriaxone Sodium 1 gm/ (Dextrose) 50 mls @ 100 mls/hr IVPB DAILY [facility]; Protocol Last Admin: 11/23/19 14:24 Dose: 100 mls/hr Insulin Detemir (Levemir Vial) 10 units SQ HS [facility] Last Admin: 11/23/19 22:37 Dose: 10 units Losartan Potassium (Cozaar -) 100 mg PO DAILY [facility] Last Admin: 11/23/19 09:47 Dose: 100 mg Metformin HCl (Glucophage -) 1,000 mg PO BID@0700,2200 [facility] Last Admin: 11/24/19 06:24 Dose: 1,000 mg Methylprednisolone Sodium Succinate (Solu-Medrol -) 40 mg IVPUSH BID [facility] Last Admin: 11/23/19 22:37 Dose: 40 mg Mirtazapine (Remeron -) 15 mg PO HS [facility] Last Admin: 11/23/19 22:37 Dose: 15 mg - Objective Vital Signs: Vital Signs Temperature 97.8 F 11/24/19 08:51 Pulse Rate 87 11/24/19 08:51 Respiratory Rate 18 11/24/19 08:51 Blood Pressure 115/59 L 11/24/19 08:51 O2 Sat by Pulse Oximetry (%) 97 11/23/19 21:00 Constitutional: Yes: Calm, Mild Distress Cardiovascular: Yes: S1, S2 Respiratory: Yes: Regular, CTA Bilaterally Gastrointestinal: Yes: Normal Bowel Sounds, Soft Musculoskeletal: Yes: WNL Extremities: Yes: WNL Neurological: Yes: Alert, Oriented Psychiatric: Yes: Alert, Oriented Labs: CBC, BMP 11/22/19 06:00 11/22/19 06:00 Assessment/Plan Problem List - Problems (1) Cough Code(s): R05 - COUGH (2) Pneumonia Code(s): J18.9 - PNEUMONIA, UNSPECIFIED ORGANISM (3) SOB (shortness of breath) Code(s): R06.02 - SHORTNESS OF BREATH (4) HLD (hyperlipidemia) Code(s): E78.5 - HYPERLIPIDEMIA, UNSPECIFIED (5) Hypertension Code(s): I10 - ESSENTIAL (PRIMARY) HYPERTENSION Qualifiers: (6) Type 2 diabetes mellitus Code(s): E11.9 - TYPE 2 DIABETES MELLITUS WITHOUT COMPLICATIONS Qualifiers: plan continue current mgmt neb incentive jose rest as per the team
[2019-11-24] MEDS ORDERED: DEXTROSE 5%-WATER - 50 ML IVPB ONE (10:06)
[2019-11-24] MEDS ORDERED: cefTRIAXone SODIUM 1 GM VIAL ONE (10:06)
[2019-11-24] MEDS: DOCUSATE SODIUM 100 MG CAPSULE (FP) PO SCH (10:18)
[2019-11-24] MEDS: ASPIRIN 81 MG CHEWABLE TABLETS PO SCH (10:18)
[2019-11-24] MEDS: DIVALPROEX NA *ER* EXTEND REL 500 MG TABLET.SA (FP) PO SCH (10:18)
[2019-11-24] MEDS: methylPREDNISolone NA SUCC 40 MG/1 ML VIAL IVPUSH SCH ×3 (10:19→18:20)
[2019-11-24] MEDS: CEFTRIAXONE 1 GM in DEXTROSE 5%-WATER - 50 ML IVPB SCH (10:19)
[2019-11-24] MEDS: HEPARIN NA (PORCINE) 5,000 UNITS/ML 1ML VIAL SQ SCH ×2 (10:19→22:09)
[2019-11-24] MEDS: LOSARTAN POTASSIUM 50 MG TABLET (FP) PO SCH (10:20)
--- NOTE | 2019-11-24 10:21 | PN ---
Progress Note (short form) - Note Progress Note: PULMONARY Still with shortness of breath, cough and chest tightness. Vital Signs Period Temp Pulse Resp BP Sys/Levi Pulse Ox Last 24 Hr 97.8 F-98.7 F 87-100 18-20 106-130/55-73 97 Gen: mildly tachypneic with speaking Heart: RRR Lung: scattered rhonchi, wheezes Abd: soft, nontender Ext: no edema CBC, BMP 11/22/19 06:00 11/22/19 06:00 Active Medications Albuterol/Ipratropium (Duoneb -) 1 amp NEB Q4H PRN PRN Reason: SHORTNESS OF BREATH Last Admin: 11/23/19 22:42 Dose: 1 amp Aspirin (Asa -) 81 mg PO DAILY [facility] Last Admin: 11/23/19 09:47 Dose: 81 mg Divalproex Sodium (Depakote *Er* -) 500 mg PO DAILY [facility] Last Admin: 11/23/19 09:47 Dose: 500 mg Docusate Sodium (Colace -) 100 mg PO DAILY [facility] Last Admin: 11/23/19 09:47 Dose: 100 mg Guaifenesin/Codeine Phosphate (Robitussin Ac -) 5 ml PO Q6H PRN PRN Reason: COUGH Last Admin: 11/24/19 01:52 Dose: 5 ml Heparin Sodium (Porcine) (Heparin -) 5,000 unit SQ BID [facility] Last Admin: 11/23/19 22:37 Dose: 5,000 unit Ceftriaxone Sodium 1 gm/ (Dextrose) 50 mls @ 100 mls/hr IVPB DAILY [facility]; Protocol Last Admin: 11/23/19 14:24 Dose: 100 mls/hr Insulin Detemir (Levemir Vial) 10 units SQ HS [facility] Last Admin: 11/23/19 22:37 Dose: 10 units Losartan Potassium (Cozaar -) 100 mg PO DAILY [facility] Last Admin: 11/23/19 09:47 Dose: 100 mg Metformin HCl (Glucophage -) 1,000 mg PO BID@0700,2200 [facility] Last Admin: 11/24/19 06:24 Dose: 1,000 mg Methylprednisolone Sodium Succinate (Solu-Medrol -) 40 mg IVPUSH BID [facility] Last Admin: 11/23/19 22:37 Dose: 40 mg Mirtazapine (Remeron -) 15 mg PO HS [facility] Last Admin: 11/23/19 22:37 Dose: 15 mg A/P Acute Bronchitis Acute Asthma Exacerbation HTN DM Migraines - will increase medrol to q8h - inhaled bronchodilators standing and PRN - O2 to keep SpO2 >90% - on antibiotics - PFTs as outpt - glucose control while on systemic steroids - DVT prophylaxis
[2019-11-24] MEDS: ALBUTEROL SO4 2.5/IPRATROPIUM 0.5 INH SOL 3 ML VIAL.NEB. NEB PRN (15:20)
[2019-11-24] MEDS ORDERED: INSULIN (NOVOLOG) ASPART 100 UNITS/ML 10ML VIAL SQ ONE (17:30)
--- NOTE | 2019-11-24 20:15 | PN ---
Progress Note, Physician - Current Medication List Current Medications: Active Medications Albuterol/Ipratropium (Duoneb -) 1 amp NEB Q4H PRN PRN Reason: SHORTNESS OF BREATH Last Admin: 11/24/19 15:20 Dose: 1 amp Aspirin (Asa -) 81 mg PO DAILY [facility] Last Admin: 11/24/19 10:18 Dose: 81 mg Divalproex Sodium (Depakote *Er* -) 500 mg PO DAILY [facility] Last Admin: 11/24/19 10:18 Dose: 500 mg Docusate Sodium (Colace -) 100 mg PO DAILY [facility] Last Admin: 11/24/19 10:18 Dose: 100 mg Guaifenesin/Codeine Phosphate (Robitussin Ac -) 5 ml PO Q6H PRN PRN Reason: COUGH Last Admin: 11/24/19 01:52 Dose: 5 ml Heparin Sodium (Porcine) (Heparin -) 5,000 unit SQ BID [facility] Last Admin: 11/24/19 10:19 Dose: 5,000 unit Ceftriaxone Sodium 1 gm/ (Dextrose) 50 mls @ 100 mls/hr IVPB DAILY [facility]; Protocol Last Admin: 11/24/19 10:19 Dose: 100 mls/hr Insulin Aspart (Novolog Vial Sliding Scale -) 1 vial SQ ACHS [facility]; Protocol Insulin Detemir (Levemir Vial) 10 units SQ HS [facility] Last Admin: 11/23/19 22:37 Dose: 10 units Losartan Potassium (Cozaar -) 100 mg PO DAILY [facility] Last Admin: 11/24/19 10:20 Dose: 100 mg Metformin HCl (Glucophage -) 1,000 mg PO BIDI [facility] Last Admin: 11/24/19 17:28 Dose: 1,000 mg Methylprednisolone Sodium Succinate (Solu-Medrol -) 40 mg IVPUSH Q8H [facility] Last Admin: 11/24/19 18:20 Dose: 40 mg Mirtazapine (Remeron -) 15 mg PO HS [facility] Last Admin: 11/23/19 22:37 Dose: 15 mg - Objective Vital Signs: Vital Signs Temperature 98.4 F 11/24/19 18:00 Pulse Rate 95 H 11/24/19 18:00 Respiratory Rate 20 11/24/19 18:00 Blood Pressure 132/73 11/24/19 18:00 O2 Sat by Pulse Oximetry (%) 99 11/24/19 09:00 Constitutional: Yes: No Distress HENT: Yes: Atraumatic Neck: Yes: Supple Cardiovascular: Yes: Regular Rate and Rhythm Respiratory: Yes: Rhonchi Gastrointestinal: Yes: Normal Bowel Sounds Extremities: Yes: WNL Neurological: Yes: Alert, Oriented Labs: CBC, BMP 11/22/19 06:00 11/22/19 06:00 Problem List - Problems (1) Cough Code(s): R05 - COUGH (2) Pneumonia Assessment/Plan: iv abx duo nebs id consult Code(s): J18.9 - PNEUMONIA, UNSPECIFIED ORGANISM (3) SOB (shortness of breath) Code(s): R06.02 - SHORTNESS OF BREATH (4) HLD (hyperlipidemia) Code(s): E78.5 - HYPERLIPIDEMIA, UNSPECIFIED (5) Hypertension Code(s): I10 - ESSENTIAL (PRIMARY) HYPERTENSION Qualifiers: (6) Type 2 diabetes mellitus Assessment/Plan: on insulin and po m,eds monitor blood sugars Code(s): E11.9 - TYPE 2 DIABETES MELLITUS WITHOUT COMPLICATIONS Qualifiers: (7) Acute asthma exacerbation Assessment/Plan: iv steroids duo nebs pulmonary consult Code(s): J45.901 - UNSPECIFIED ASTHMA WITH (ACUTE) EXACERBATION
[2019-11-24] MEDS: INSULIN (LEVEMIR) 100 UNITS/ML UNITS SQ SCH (22:07)
[2019-11-24] MEDS: INSULIN SLIDING SCALE (NOVOLOG) 1 VIAL SQ SCH (22:07)
[2019-11-24] MEDS: MIRTAZAPINE 15 MG TABLET (FP) PO SCH (22:09)
[2019-11-25] MEDS: methylPREDNISolone NA SUCC 40 MG/1 ML VIAL IVPUSH SCH ×3 (02:18→22:11)
[2019-11-25] MEDS: metFORMIN HCL 500 MG TABLET (FP) PO SCH ×2 (06:10→17:13)
[2019-11-25] MEDS: INSULIN SLIDING SCALE (NOVOLOG) 1 VIAL SQ SCH ×4 (06:10→22:28)
[2019-11-25 06:23] LABS: BASO % 0.3 % (0-2.0); HEMATOCRIT 32.1 % (32.4-45.2); HEMOGLOBIN 10.8 GM/dL (10.7-15.3); LYMPH % 9.6 % (8-40); MCH 30.5 pg (25.7-33.7); MCHC 33.7 g/dl (32.0-36.0); MEAN CELL VOLUME 90.6 fl (80-96); MEAN PLT VOLUME 11.2 fl (7.5-11.1); NEUT % 88.1 % (42.8-82.8); PLATELET COUNT 228 K/MM3 (134-434); RBC 3.55 M/mm3 (3.60-5.2); RDW 14.7 % (11.6-15.6); WHITE BLOOD COUNT 12.2 K/mm3 (4.0-10.0)
[2019-11-25 06:39] LABS: ALBUMIN 3.4 g/dl (3.4-5.0); BILIRUBIN,TOTAL 0.3 mg/dL (0.2-1); BLOOD UREA NITROGEN 41.5 mg/dL (7-18); CALCIUM 9.2 mg/dL (8.5-10.1); CREATININE 1.2 mg/dL (0.55-1.3); POTASSIUM 4.6 mmol/L (3.5-5.1)
[2019-11-25] MEDS ORDERED: metFORMIN HCL 500 MG TABLET (FP) PO SCH (07:00)
[2019-11-25] MEDS ORDERED: cefTRIAXone SODIUM 1 GM VIAL ONE (07:46)
[2019-11-25] MEDS ORDERED: DEXTROSE 5%-WATER - 50 ML IVPB ONE (07:47)
[2019-11-25] MEDS: guaiFENesin/CODEINE 5 ML UNIT-DOSE CUPS PO PRN ×2 (10:40→17:14)
[2019-11-25] MEDS: DOCUSATE SODIUM 100 MG CAPSULE (FP) PO SCH (10:40)
[2019-11-25] MEDS: ASPIRIN 81 MG CHEWABLE TABLETS PO SCH (10:40)
[2019-11-25] MEDS: DIVALPROEX NA *ER* EXTEND REL 500 MG TABLET.SA (FP) PO SCH (10:40)
[2019-11-25] MEDS: LOSARTAN POTASSIUM 50 MG TABLET (FP) PO SCH (10:45)
[2019-11-25] MEDS: CEFTRIAXONE 1 GM in DEXTROSE 5%-WATER - 50 ML IVPB SCH (10:48)
[2019-11-25] MEDS: HEPARIN NA (PORCINE) 5,000 UNITS/ML 1ML VIAL SQ SCH ×2 (11:02→22:10)
--- NOTE | 2019-11-25 11:20 | PN ---
Progress Note, Physician History of Present Illness: still congested improving coughing much less - Current Medication List Current Medications: Active Medications Albuterol/Ipratropium (Duoneb -) 1 amp NEB Q4H PRN PRN Reason: SHORTNESS OF BREATH Last Admin: 11/24/19 15:20 Dose: 1 amp Aspirin (Asa -) 81 mg PO DAILY [facility] Last Admin: 11/25/19 10:40 Dose: 81 mg Divalproex Sodium (Depakote *Er* -) 500 mg PO DAILY [facility] Last Admin: 11/25/19 10:40 Dose: 500 mg Docusate Sodium (Colace -) 100 mg PO DAILY [facility] Last Admin: 11/25/19 10:40 Dose: 100 mg Guaifenesin/Codeine Phosphate (Robitussin Ac -) 5 ml PO Q6H PRN PRN Reason: COUGH Last Admin: 11/25/19 10:40 Dose: 5 ml Heparin Sodium (Porcine) (Heparin -) 5,000 unit SQ BID [facility] Last Admin: 11/25/19 11:02 Dose: 5,000 unit Ceftriaxone Sodium 1 gm/ (Dextrose) 50 mls @ 100 mls/hr IVPB DAILY [facility]; Protocol Last Admin: 11/25/19 10:48 Dose: 100 mls/hr Insulin Aspart (Novolog Vial Sliding Scale -) 1 vial SQ ACHS [facility]; Protocol Last Admin: 11/25/19 06:10 Dose: 6 units Insulin Detemir (Levemir Vial) 10 units SQ HS [facility] Last Admin: 11/24/19 22:07 Dose: 10 units Losartan Potassium (Cozaar -) 100 mg PO DAILY [facility] Last Admin: 11/25/19 10:45 Dose: 100 mg Metformin HCl (Glucophage -) 1,000 mg PO BIDI [facility] Last Admin: 11/25/19 06:10 Dose: 1,000 mg Methylprednisolone Sodium Succinate (Solu-Medrol -) 40 mg IVPUSH Q8H [facility] Last Admin: 11/25/19 10:41 Dose: 40 mg Mirtazapine (Remeron -) 15 mg PO HS [facility] Last Admin: 11/24/19 22:09 Dose: 15 mg - Objective Vital Signs: Vital Signs Temperature 98.1 F 11/25/19 06:13 Pulse Rate 87 11/25/19 06:13 Respiratory Rate 18 11/25/19 06:13 Blood Pressure 149/81 11/25/19 06:13 O2 Sat by Pulse Oximetry (%) 99 11/24/19 21:00 Constitutional: Yes: No Distress, Calm Cardiovascular: Yes: S1, S2 Respiratory: Yes: Regular, Poor Air Entry Gastrointestinal: Yes: Normal Bowel Sounds, Soft Musculoskeletal: Yes: WNL Extremities: Yes: WNL Neurological: Yes: Alert, Oriented Psychiatric: Yes: Alert, Oriented Labs: CBC, BMP 11/25/19 05:45 11/25/19 05:45 Assessment/Plan Problem List - Problems (1) Cough Code(s): R05 - COUGH (2) Pneumonia Code(s): J18.9 - PNEUMONIA, UNSPECIFIED ORGANISM (3) SOB (shortness of breath) Code(s): R06.02 - SHORTNESS OF BREATH (4) HLD (hyperlipidemia) Code(s): E78.5 - HYPERLIPIDEMIA, UNSPECIFIED (5) Hypertension Code(s): I10 - ESSENTIAL (PRIMARY) HYPERTENSION Qualifiers: (6) Type 2 diabetes mellitus Code(s): E11.9 - TYPE 2 DIABETES MELLITUS WITHOUT COMPLICATIONS Qualifiers: plan continue current mgmt neb incentive jose rest as per the team
[2019-11-25] MEDS ORDERED: INSULIN (LEVEMIR) 100 UNITS/ML UNITS SQ ONE ×2 (13:25→13:27)
[2019-11-25] MEDS ORDERED: INSULIN (NOVOLOG) ASPART 100 UNITS/ML 10ML VIAL ONE ×2 (13:26→22:27)
--- NOTE | 2019-11-25 14:42 | PN ---
Progress Note (short form) - Note Progress Note: PULMONARY COUGH/MILD WHEEZE VSS/AFEBRILE Gen: mildly tachypneic with speaking Heart: RRR Lung: scattered rhonchi, wheezes Abd: soft, nontender Ext: no edema LABS/MEDS/NOTES/IMAGES REVIEWED Acute Bronchitis Acute Asthma Exacerbation HTN DM Migraines - medrol to q8h - inhaled bronchodilators standing and PRN - O2 to keep SpO2 >90% - on antibiotics - PFTs as outpt - glucose control while on systemic steroids - DVT prophylaxis Keith FRANCOIS MD
--- NOTE | 2019-11-25 17:42 | PN ---
Progress Note, Physician History of Present Illness: doing well - Current Medication List Current Medications: Active Medications Albuterol/Ipratropium (Duoneb -) 1 amp NEB Q4H PRN PRN Reason: SHORTNESS OF BREATH Last Admin: 11/24/19 15:20 Dose: 1 amp Aspirin (Asa -) 81 mg PO DAILY [facility] Last Admin: 11/25/19 10:40 Dose: 81 mg Divalproex Sodium (Depakote *Er* -) 500 mg PO DAILY [facility] Last Admin: 11/25/19 10:40 Dose: 500 mg Docusate Sodium (Colace -) 100 mg PO DAILY [facility] Last Admin: 11/25/19 10:40 Dose: 100 mg Guaifenesin/Codeine Phosphate (Robitussin Ac -) 5 ml PO Q6H PRN PRN Reason: COUGH Last Admin: 11/25/19 17:14 Dose: 5 ml Heparin Sodium (Porcine) (Heparin -) 5,000 unit SQ BID [facility] Last Admin: 11/25/19 11:02 Dose: 5,000 unit Insulin Aspart (Novolog Vial Sliding Scale -) 1 vial SQ [facility]; Protocol Last Admin: 11/25/19 17:13 Dose: 8 units Insulin Detemir (Levemir Vial) 10 units SQ [facility] Last Admin: 11/24/19 22:07 Dose: 10 units Losartan Potassium (Cozaar -) 100 mg PO DAILY [facility] Last Admin: 11/25/19 10:45 Dose: 100 mg Metformin HCl (Glucophage -) 1,000 mg PO BIDI [facility] Last Admin: 11/25/19 17:13 Dose: 1,000 mg Methylprednisolone Sodium Succinate (Solu-Medrol -) 40 mg IVPUSH BID [facility] Mirtazapine (Remeron -) 15 mg PO [facility] Last Admin: 11/24/19 22:09 Dose: 15 mg - Objective Vital Signs: Vital Signs Temperature 98.2 F 11/25/19 14:56 Pulse Rate 92 H 11/25/19 14:56 Respiratory Rate 11/25/19 14:56 Blood Pressure 133/65 11/25/19 14:56 O2 Sat by Pulse Oximetry (%) 97 11/25/19 09:00 Constitutional: Yes: No Distress HENT: Yes: Atraumatic Neck: Yes: Supple Cardiovascular: Yes: Regular Rate and Rhythm Respiratory: Yes: Rhonchi Gastrointestinal: Yes: Normal Bowel Sounds Extremities: Yes: WNL Edema: No Peripheral Pulses WNL: Yes Neurological: Yes: Alert, Oriented Labs: CBC, BMP 11/25/19 05:45 11/25/19 05:45 Problem List - Problems (1) Cough Code(s): R05 - COUGH (2) Pneumonia Assessment/Plan: iv abx...completed duo nebs id consult Code(s): J18.9 - PNEUMONIA, UNSPECIFIED ORGANISM (3) SOB (shortness of breath) Code(s): R06.02 - SHORTNESS OF BREATH (4) HLD (hyperlipidemia) Code(s): E78.5 - HYPERLIPIDEMIA, UNSPECIFIED (5) Hypertension Code(s): I10 - ESSENTIAL (PRIMARY) HYPERTENSION Qualifiers: (6) Type 2 diabetes mellitus Assessment/Plan: on insulin and po m,eds monitor blood sugars Code(s): E11.9 - TYPE 2 DIABETES MELLITUS WITHOUT COMPLICATIONS Qualifiers: (7) Acute asthma exacerbation Assessment/Plan: iv steroids...taper duo nebs pulmonary consult Code(s): J45.901 - UNSPECIFIED ASTHMA WITH (ACUTE) EXACERBATION
[2019-11-25] MEDS ORDERED: FUROSEMIDE 20 MG TABLET (FP) PO ONE (18:28)
[2019-11-25] MEDS: MIRTAZAPINE 15 MG TABLET (FP) PO SCH (22:10)
[2019-11-25] MEDS: INSULIN (LEVEMIR) 100 UNITS/ML UNITS SQ SCH (22:11)
[2019-11-26] MEDS: metFORMIN HCL 500 MG TABLET (FP) PO SCH (06:02)
[2019-11-26] MEDS: INSULIN SLIDING SCALE (NOVOLOG) 1 VIAL SQ SCH ×2 (06:03→11:30)
[2019-11-26 07:57] VITALS: BP 111/65; TEMP 98.3
[2019-11-26] MEDS: methylPREDNISolone NA SUCC 40 MG/1 ML VIAL IVPUSH SCH (09:59)
[2019-11-26] MEDS: DOCUSATE SODIUM 100 MG CAPSULE (FP) PO SCH (09:59)
[2019-11-26] MEDS: LOSARTAN POTASSIUM 50 MG TABLET (FP) PO SCH (10:00)
[2019-11-26] MEDS: HEPARIN NA (PORCINE) 5,000 UNITS/ML 1ML VIAL SQ SCH (10:01)
[2019-11-26] MEDS: ASPIRIN 81 MG CHEWABLE TABLETS PO SCH (10:01)
[2019-11-26] MEDS: DIVALPROEX NA *ER* EXTEND REL 500 MG TABLET.SA (FP) PO SCH (10:01)
--- NOTE | 2019-11-26 12:15 | PN ---
Progress Note (short form) - Note Progress Note: OOB to chair eating lunch. Breathing slowly continues to improve. Still with some congested cough. Intake & Output 11/23/19 11/24/19 11/25/19 11/26/19 23:59 23:59 23:59 23:59 Intake Total 200 550 650 100 Balance 200 550 650 100 Weight 149 lb Last Vital Signs Temp Pulse Resp BP Pulse Ox 98.3 F 78 20 111/65 98 11/26/19 07:56 11/26/19 07:56 11/26/19 07:56 11/26/19 07:56 11/25/19 21:00 Active Medications Albuterol/Ipratropium (Duoneb -) 1 amp NEB Q4H PRN PRN Reason: SHORTNESS OF BREATH Last Admin: 11/24/19 15:20 Dose: 1 amp Aspirin (Asa -) 81 mg PO DAILY [facility] Last Admin: 11/26/19 10:01 Dose: 81 mg Divalproex Sodium (Depakote *Er* -) 500 mg PO DAILY [facility] Last Admin: 11/26/19 10:01 Dose: 500 mg Docusate Sodium (Colace -) 100 mg PO DAILY [facility] Last Admin: 11/26/19 09:59 Dose: 100 mg Guaifenesin/Codeine Phosphate (Robitussin Ac -) 5 ml PO Q6H PRN PRN Reason: COUGH Last Admin: 11/25/19 17:14 Dose: 5 ml Heparin Sodium (Porcine) (Heparin -) 5,000 unit SQ BID [facility] Last Admin: 11/26/19 10:01 Dose: 5,000 unit Insulin Aspart (Novolog Vial Sliding Scale -) 1 vial SQ [facility]; Protocol Last Admin: 11/26/19 11:30 Dose: 2 units Insulin Detemir (Levemir Vial) 10 units SQ HS [facility] Last Admin: 11/25/19 22:11 Dose: 10 units Losartan Potassium (Cozaar -) 100 mg PO DAILY [facility] Last Admin: 11/26/19 10:00 Dose: 100 mg Metformin HCl (Glucophage -) 1,000 mg PO BIDI [facility] Last Admin: 11/26/19 06:02 Dose: 1,000 mg Methylprednisolone Sodium Succinate (Solu-Medrol -) 40 mg IVPUSH BID [facility] Last Admin: 11/26/19 09:59 Dose: 40 mg Mirtazapine (Remeron -) 15 mg PO HS [facility] Last Admin: 11/25/19 22:10 Dose: 15 mg Gen: mildly tachypneic with speaking Heart: RRR Lung: scattered rhonchi, no wheezes appreciated Abd: soft, nontender Ext: no edema Laboratory Results - last 24 hr 11/25/19 11/25/19 11/25/19 12:14 17:08 22:08 POC Glucometer 176 292 150 11/26/19 11/26/19 06:00 11:13 POC Glucometer 236 142 A/P Acute Bronchitis Acute Asthma Exacerbation HTN DM Migraines - Medrol: once improved can change to Prednisone - inhaled bronchodilators standing and PRN - O2 to keep SpO2 >90% - on antibiotics - PFTs as outpt - glucose control while on systemic steroids - DVT prophylaxis - Check Pre and Post ambulation saturation Dr Elliott
[2019-11-26 12:44] VITALS: PULSE 106
--- NOTE | 2019-11-26 14:02 | PN ---
Progress Note, Physician History of Present Illness: Pt states she is feeling better. Reports mild cough but improving. Remains afebrile, without distress at this time. - Current Medication List Current Medications: Active Medications Albuterol/Ipratropium (Duoneb -) 1 amp NEB Q4H PRN PRN Reason: SHORTNESS OF BREATH Last Admin: 11/24/19 15:20 Dose: 1 amp Aspirin (Asa -) 81 mg PO DAILY [facility] Last Admin: 11/26/19 10:01 Dose: 81 mg Divalproex Sodium (Depakote *Er* -) 500 mg PO DAILY [facility] Last Admin: 11/26/19 10:01 Dose: 500 mg Docusate Sodium (Colace -) 100 mg PO DAILY [facility] Last Admin: 11/26/19 09:59 Dose: 100 mg Guaifenesin/Codeine Phosphate (Robitussin Ac -) 5 ml PO Q6H PRN PRN Reason: COUGH Last Admin: 11/25/19 17:14 Dose: 5 ml Heparin Sodium (Porcine) (Heparin -) 5,000 unit SQ BID [facility] Last Admin: 11/26/19 10:01 Dose: 5,000 unit Insulin Aspart (Novolog Vial Sliding Scale -) 1 vial SQ [facility]; Protocol Last Admin: 11/26/19 11:30 Dose: 2 units Insulin Detemir (Levemir Vial) 10 units SQ [facility] Last Admin: 11/25/19 22:11 Dose: 10 units Losartan Potassium (Cozaar -) 100 mg PO DAILY [facility] Last Admin: 11/26/19 10:00 Dose: 100 mg Metformin HCl (Glucophage -) 1,000 mg PO BIDI [facility] Last Admin: 11/26/19 06:02 Dose: 1,000 mg Methylprednisolone Sodium Succinate (Solu-Medrol -) 40 mg IVPUSH BID [facility] Last Admin: 11/26/19 09:59 Dose: 40 mg Mirtazapine (Remeron -) 15 mg PO HS [facility] Last Admin: 11/25/19 22:10 Dose: 15 mg - Objective Vital Signs: Vital Signs Temperature 98.3 F 11/26/19 07:56 Pulse Rate 106 H 11/26/19 12:41 Respiratory Rate 20 11/26/19 07:56 Blood Pressure 111/65 11/26/19 07:56 O2 Sat by Pulse Oximetry (%) 96 11/26/19 12:41 Constitutional: Yes: No Distress, Calm Cardiovascular: Yes: Regular Rate and Rhythm Respiratory: Yes: CTA Bilaterally Gastrointestinal: Yes: Normal Bowel Sounds, Soft Genitourinary: Yes: WNL Edema: No Integumentary: Yes: WNL Neurological: Yes: Alert Labs: CBC, BMP 11/25/19 05:45 11/25/19 05:45 - ....Imaging Chest X-ray: Report Reviewed Problem List - Problems (1) Cough Code(s): R05 - COUGH (2) Acute asthma exacerbation Code(s): J45.901 - UNSPECIFIED ASTHMA WITH (ACUTE) EXACERBATION (3) HLD (hyperlipidemia) Code(s): E78.5 - HYPERLIPIDEMIA, UNSPECIFIED (4) Hypertension Code(s): I10 - ESSENTIAL (PRIMARY) HYPERTENSION Qualifiers: (5) Type 2 diabetes mellitus Code(s): E11.9 - TYPE 2 DIABETES MELLITUS WITHOUT COMPLICATIONS Qualifiers: Assessment/Plan Acute Asthma Exacerbation Bronchitis Cough DM HTN -- Pt reports less SOB, feeling better -- off antibiotics at this time, afebrile/vitals stable -- wbc mildly elevated, on steroids -- on nebulizers/supplemental O2 continue monitor
--- NOTE | 2019-11-26 15:31 | DS ---
Physical Examination Vital Signs: Vital Signs Temperature 98.3 F 11/26/19 07:56 Pulse Rate 106 H 11/26/19 12:41 Respiratory Rate 20 11/26/19 07:56 Blood Pressure 111/65 11/26/19 07:56 O2 Sat by Pulse Oximetry (%) 96 11/26/19 12:41 Constitutional: Yes: No Distress HENT: Yes: Atraumatic Neck: Yes: Supple Cardiovascular: Yes: Regular Rate and Rhythm Respiratory: Yes: Rhonchi Gastrointestinal: Yes: Normal Bowel Sounds Extremities: Yes: WNL Labs: CBC, BMP 11/25/19 05:45 11/25/19 05:45 Discharge Summary Problems reviewed: Yes Reason For Visit: SOB COUGH PNEUMONIA Condition: Stable - Instructions Referrals: Sukhwinder Dee MD [Primary Care Provider] - Disposition: HOME - Home Medications Comprehensive Discharge Medication List: Ambulatory Orders Aspirin [ASA -] 81 mg PO DAILY tab.chew 09/13/15 Metformin HCl [Glucophage] 1,000 mg PO BID 04/28/18 Omeprazole 40 mg PO DAILY 04/21/19 Divalproex Sodium [Depakote ER] 500 mg PO DAILY 09/26/19 Docusate Sodium [Stool Softener] 100 mg PO DAILY 09/26/19 Ergocalciferol [Vitamin D2] 1 cap PO WEEKLY 09/26/19 Ferrous Gluconate [Fergon -] 324 mg PO DAILY 09/26/19 Insulin Glargine,Hum.rec.anlog [Basaglar Kwikpen U-100] 10 units SQ HS 09/26/19 Mirtazapine 15 mg PO DAILY 09/26/19 Albuterol Sulfate Inhaler - [Ventolin HFA Inhaler -] 2 inh PO Q6H PRN #1 inh Guaifenesin/D-Methorphan Hb [Diabetic Tussin Dm -] 5 ml PO Q6H PRN #1 bottle Losartan Potassium [Cozaar -] 100 mg PO DAILY #120 tablet 10/08/19 Prednisone 10 mg PO ASDIR #40 tablet 11/25/19 dc home fu pmd/pulmonary
== END 2019-11-26 14:35 | disposition home or self-care (01) | DRG 202 ==
LOC: JER 10:20 → JERBED 14:55 → J7W 11-22 17:44
PROVIDERS: ADMIT Internal Medicine; ATTEND Internal Medicine
DX: J20.9 Acute bronchitis, unspecified (principal); J45.901 Unspecified asthma with (acute) exacerbation; J44.1 Chronic obstructive pulmonary disease with (acute) exacerbation; I10 Essential (primary) hypertension; E11.9 Type 2 diabetes mellitus without complications; F41.8 Other specified anxiety disorders; E78.5 Hyperlipidemia, unspecified; G43.909 Migraine, unspecified, not intractable, without status migrainosus; J06.9 Acute upper respiratory infection, unspecified
CPT/HCPCS: 36415; 71045-TC-FY; 80053; 82550; 82803; 82962; 83735; 84100; 84484; 85025; 87804; 93005; 93010; 94640; 94761; 97116-GP; 97161-GP; 99285-25; J1644

== ENCOUNTER 2021-04-04 10:07 | Inpatient (IN) | payer OTHER ==
[2021-04-04 10:40] VITALS: BMI 26.5
[2021-04-04] MEDS ORDERED: SODIUM CHLORIDE 2,041 ML IV ONE (10:43)
[2021-04-04] MEDS ORDERED: ACETAMINOPHEN 1000 MG/100 ML VIAL (NON FORMULARY) IVPB ONE (10:43)
[2021-04-04] MEDS ORDERED: ACETAMINOPHEN INJECTION 100 ML IVPB ONE (10:45)
[2021-04-04] MEDS ORDERED: VANCOMYCIN 1 GM in D5W (PRE-DOCKED) 1,000 MG/250 ML IVPB ONE (11:41)
[2021-04-04] MEDS ORDERED: PIPERACILLIN/TAZOB 4.5 GM 4.5 GM in DEXTROSE 5%-WATER 100 ML IVPB ONE (11:42)
[2021-04-04 11:55] LABS: BASO % 0.4 % (0-2.0); HEMATOCRIT 38.5 % (32.4-45.2); HEMOGLOBIN 12.1 GM/dL (10.7-15.3); LYMPH % 8.8 % (8-40); MCH 29.7 pg (25.7-33.7); MCHC 31.6 g/dl (32.0-36.0); MEAN PLT VOLUME 12.5 fl (7.5-11.1); MONO % 3.4 % (3.8-10.2); NEUT % 87.4 % (42.8-82.8); PLATELET COUNT 152 10^3/uL (134-434); RBC 4.09 M/mm3 (3.60-5.2); RDW 13.9 % (11.6-15.6); WHITE BLOOD COUNT 9.7 K/mm3 (4.0-10.0)
[2021-04-04 12:02] LABS: INR 1.15 (0.83-1.09); PROTHROMBIN TIME (PATIENT) 13.9 SEC (9.7-13.0)
[2021-04-04 12:04] LABS: ACTIVATED PTT 24.9 SECONDS (25.2-36.5)
[2021-04-04] MEDS ORDERED: PIPERACILLIN/TAZOB 4.5 GM 4.5 GM/100 ML BAG IVPB ONE (12:10)
[2021-04-04] MEDS ORDERED: VANCOMYCIN 1 GRAM (PRE-DOCKED) 1,000 MG/250 ML BAG IVPB ONE (12:11)
[2021-04-04 12:23] LABS: CHLORIDE 103 mmol/L (98-107); SODIUM 144 mmol/L (136-145)
[2021-04-04 12:26] LABS: ANION GAP 22 MMOL/L (8-16); BLOOD UREA NITROGEN 44.8 mg/dL (7-18); CALCIUM 9.4 mg/dL (8.5-10.1); CO2 19 mmol/L (21-32)
[2021-04-04 12:30] LABS: CREATININE 2.4 mg/dL (0.55-1.3); SGOT/AST 12 U/L (15-37); SGPT/ALT 18 U/L (13-61)
[2021-04-04 12:31] LABS: BILIRUBIN,TOTAL 0.6 mg/dL (0.2-1); TOT PROT 8.4 g/dl (6.4-8.2)
[2021-04-04 12:32] LABS: ALK PHOS 86 U/L (45-117)
[2021-04-04 12:33] LABS: VENOUS BASE EXCESS -6.1 mmol/L (-2-2); VENOUS O2 SATURATION 95.2 % (70-80); VENOUS PCO2 31.4 mmHg (38-52); VENOUS PH 7.379 (7.310-7.410)
[2021-04-04 12:36] LABS: URINE APPEARANCE CLEAR; URINE BILIRUBIN NEGATIVE (NEGATIVE); URINE COLOR YELLOW; URINE GLUCOSE (UA) 3+ (NEGATIVE); URINE KETONE 2+ (NEGATIVE); URINE LEUK ESTERASE NEGATIVE (NEGATIVE); URINE NITRITE NEGATIVE (NEGATIVE); URINE PROTEIN NEGATIVE (NEGATIVE); URINE UROBILINOGEN 0.2 mg/dL (0.2-1.0)
[2021-04-04 12:51] LABS: GLUCOSE,RANDOM 766 mg/dL (74-106); LACTIC ACID 2.9 mmol/L (0.4-2.0)
[2021-04-04] MEDS ORDERED: INSULIN REGULAR HUMAN 100 UNITS/ML *VIAL IVPUSH ONE ×2 (12:57→15:59)
[2021-04-04] MEDS ORDERED: SODIUM CHLORIDE 0.9% 500 ML INFUS.BAG IV ONE (13:06)
[2021-04-04] MEDS ORDERED: LACTATED RINGERS SOLUTION 1000 ML INFUS.BAG IV ONE (14:17)
[2021-04-04] MEDS ORDERED: LIDOCAINE HCL 1%, 10 MG/ML (50 mL VIAL) SQ ONE (16:49)
[2021-04-04] MEDS ORDERED: MIDAZOLAM HCL 2 MG/2 ML SINGLE DOSE VIAL IVPUSH ONE (16:50)
[2021-04-04 17:07] LABS: VENOUS BASE EXCESS -4.3 mmol/L (-2-2); VENOUS O2 SATURATION 90.3 % (70-80); VENOUS PCO2 36.4 mmHg (38-52); VENOUS PH 7.369 (7.310-7.410)
[2021-04-04] MEDS ORDERED: LIDOCAINE HCL 1%, 10 MG/ML (20ML VIAL) ONE (17:10)
[2021-04-04] MEDS ORDERED: MIDAZOLAM HCL 2 MG/2 ML SINGLE DOSE VIAL ONE (17:10)
[2021-04-04] MEDS ORDERED: SODIUM CHLORIDE 0.45% 1,000 ML IV SCH (17:15)
[2021-04-04 17:27] LABS: CHLORIDE 113 mmol/L (98-107); SODIUM 149 mmol/L (136-145)
[2021-04-04 17:29] LABS: ANION GAP 14 MMOL/L (8-16); BLOOD UREA NITROGEN 38.7 mg/dL (7-18); CO2 23 mmol/L (21-32)
[2021-04-04] MEDS ORDERED: LACTATED RINGERS SOLUTION 1,000 ML/1,000 ML INFUS.BAG IV SCH (17:30)
[2021-04-04 17:35] LABS: LACTIC ACID 2.1 mmol/L (0.4-2.0)
[2021-04-04 17:36] LABS: GLUCOSE,RANDOM 555 mg/dL (74-106)
[2021-04-04 18:38] LABS: CSF APPEARANCE CLEAR; CSF COLOR COLORLESS; CSF WBC 0
[2021-04-04 18:57] LABS: CHLORIDE 116 mmol/L (98-107); SODIUM 150 mmol/L (136-145)
[2021-04-04 18:59] LABS: ANION GAP 9 MMOL/L (8-16); BLOOD UREA NITROGEN 38.5 mg/dL (7-18); CALCIUM 8.2 mg/dL (8.5-10.1); CO2 25 mmol/L (21-32)
[2021-04-04 19:02] LABS: CREATININE 1.9 mg/dL (0.55-1.3); SGOT/AST 9 U/L (15-37); SGPT/ALT 14 U/L (13-61)
[2021-04-04 19:04] LABS: BILIRUBIN,TOTAL 0.4 mg/dL (0.2-1)
[2021-04-04 19:05] LABS: ALK PHOS 64 U/L (45-117)
[2021-04-04 19:10] LABS: ALBUMIN 3.1 g/dl (3.4-5.0); GLUCOSE,RANDOM 475 mg/dL (74-106); TOT PROT 6.4 g/dl (6.4-8.2)
[2021-04-04 19:20] LABS: VENOUS BASE EXCESS -2.4 mmol/L (-2-2); VENOUS O2 SATURATION 95.9 % (70-80); VENOUS PCO2 40.8 mmHg (38-52); VENOUS PH 7.364 (7.310-7.410)
[2021-04-04] MEDS ORDERED: CALCIUM GLUCONATE 10% - 1,000 MG/10 ML VIAL IVPUSH ONE (22:00)
[2021-04-04] MEDS ORDERED: CALCIUM GLUCONATE 10% - 1,000 MG/10 ML VIAL IVPB ONE (22:15)
[2021-04-04] MEDS ORDERED: INSULIN (LEVEMIR) 100 UNITS/ML UNITS SQ ONE (22:21)
[2021-04-04 22:30] LABS: OSMOLALITY,SERUM 346 mosm/kg (278-305)
[2021-04-04 23:38] LABS: CHLORIDE 117 mmol/L (98-107); SODIUM 151 mmol/L (136-145)
[2021-04-04 23:40] LABS: ANION GAP 8 MMOL/L (8-16); BLOOD UREA NITROGEN 34.1 mg/dL (7-18); CO2 26 mmol/L (21-32)
[2021-04-04 23:41] LABS: MAGNESIUM 3.1 mg/dL (1.8-2.4)
[2021-04-04 23:44] LABS: CREATININE 1.6 mg/dL (0.55-1.3); PHOSPHOROUS 4.4 mg/dL (2.5-4.9)
[2021-04-04 23:50] LABS: GLUCOSE,RANDOM 426 mg/dL (74-106)
[2021-04-04] MEDS ORDERED: CALCIUM GLUCONATE 10% - 1,000 MG/10 ML VIAL ONE (23:57)
[2021-04-05] MEDS ORDERED: INSULIN (LEVEMIR) 100 UNITS/ML UNITS SQ ONE ×2 (00:07→10:00)
[2021-04-05 02:55] LABS: CHLORIDE 116 mmol/L (98-107); SODIUM 151 mmol/L (136-145)
[2021-04-05 02:56] LABS: CALCIUM 8.8 mg/dL (8.5-10.1)
[2021-04-05 02:57] LABS: ANION GAP 8 MMOL/L (8-16); BLOOD UREA NITROGEN 34.4 mg/dL (7-18); CO2 27 mmol/L (21-32)
[2021-04-05 03:00] LABS: CREATININE 1.5 mg/dL (0.55-1.3)
[2021-04-05 04:06] LABS: GLUCOSE,RANDOM 428 mg/dL (74-106)
[2021-04-05] MEDS ORDERED: INSULIN (NOVOLOG) ASPART 100 UNITS/ML 10ML VIAL SQ ONE ×2 (04:07→06:31)
[2021-04-05] MEDS: SODIUM CHLORIDE 0.45% 1,000 ML IV SCH ×2 (04:23→17:35)
[2021-04-05] MEDS: INSULIN SLIDING SCALE (NOVOLOG) 1 VIAL SQ SCH ×4 (06:28→21:29)
[2021-04-05] MEDS ORDERED: INSULIN SLIDING SCALE (NOVOLOG) 1 VIAL SQ SCH (07:00)
[2021-04-05 07:28] LABS: BASO % 0.4 % (0-2.0); EOS % 0.1 % (0-4.5); HEMATOCRIT 30.3 % (32.4-45.2); LYMPH % 9.6 % (8-40); MCH 30.2 pg (25.7-33.7); MEAN CELL VOLUME 91.5 fl (80-96); MEAN PLT VOLUME 11.3 fl (7.5-11.1); MONO % 6.4 % (3.8-10.2); NEUT % 83.5 % (42.8-82.8); PLATELET COUNT 111 10^3/uL (134-434); RBC 3.31 M/mm3 (3.60-5.2); RDW 13.9 % (11.6-15.6); WHITE BLOOD COUNT 10.6 K/mm3 (4.0-10.0)
[2021-04-05] MEDS ORDERED: PIPERACILLIN/TAZOB 3.375 GM 3.375 GM in DEXTROSE 5%-WATER - 50 ML IVPB SCH (07:45)
[2021-04-05 07:54] LABS: ALBUMIN 3.1 g/dl (3.4-5.0); CALCIUM 8.3 mg/dL (8.5-10.1)
[2021-04-05 07:55] LABS: BLOOD UREA NITROGEN 32.4 mg/dL (7-18); MAGNESIUM 2.7 mg/dL (1.8-2.4)
[2021-04-05 07:58] LABS: CREATININE 1.2 mg/dL (0.55-1.3); PHOSPHOROUS 3.6 mg/dL (2.5-4.9)
[2021-04-05 07:59] LABS: BILIRUBIN,TOTAL 0.4 mg/dL (0.2-1); TOT PROT 6.3 g/dl (6.4-8.2)
[2021-04-05] MEDS ORDERED: PIPERACILLIN/TAZOB 2.25 GM 2.25 GM in DEXTROSE 5%-WATER - 50 ML IVPB SCH (08:00)
[2021-04-05] MEDS ORDERED: PIPERACILLIN/TAZOBACTAM 2.25 GM VIAL IVPB ONE (08:08)
[2021-04-05] MEDS ORDERED: DEXTROSE 5%-WATER - 50 ML IVPB ONE (08:08)
[2021-04-05] MEDS: HEPARIN NA (PORCINE) 5,000 UNITS/ML 1ML VIAL SQ SCH ×3 (09:00→21:42)
[2021-04-05] MEDS: PANTOPRAZOLE 40 MG TABLET PO SCH (09:01)
[2021-04-05 11:38] LABS: BF GLUCOSE (CSF ONLY) 405 mg/dL (40-70)
[2021-04-05] MEDS ORDERED: DEXTROSE 5%-WATER 100 ML IVPB ONE (12:06)
[2021-04-05] MEDS ORDERED: POTASSIUM CHLORIDE TABS 20 MEQ TABLET.ER (FP) PO ONE (12:15)
[2021-04-05] MEDS: CEFTRIAXONE 2 GM in DEXTROSE 5%-WATER 2 GM/100 ML BAG IVPB SCH (12:15)
[2021-04-05] MEDS: VANCOMYCIN 1 GRAM (PRE-DOCKED) 1,000 MG/250 ML BAG IVPB SCH (12:47)
[2021-04-05] MEDS ORDERED: PT OWN MED DRAWER 7, Y5N ONE (14:46)
[2021-04-05] MEDS: ACETAMINOPHEN 1000 MG/100 ML VIAL (NON FORMULARY) IVPB PRN (15:45)
[2021-04-05] MEDS: DIVALPROEX SODIUM 500 MG TABLET E.C. PO SCH (21:18)
[2021-04-05] MEDS: ATORVASTATIN CA 20 MG TABLET (FP) PO SCH (21:18)
[2021-04-06] MEDS: VANCOMYCIN 1 GRAM (PRE-DOCKED) 1,000 MG/250 ML BAG IVPB SCH ×2 (01:07→14:23)
[2021-04-06] MEDS: HEPARIN NA (PORCINE) 5,000 UNITS/ML 1ML VIAL SQ SCH ×3 (05:15→21:00)
[2021-04-06] MEDS: SODIUM CHLORIDE 0.45% 1,000 ML IV SCH (05:15)
[2021-04-06] MEDS: INSULIN SLIDING SCALE (NOVOLOG) 1 VIAL SQ SCH ×4 (06:13→21:05)
[2021-04-06] MEDS ORDERED: INSULIN (LEVEMIR) 100 UNITS/ML UNITS SQ SCH (07:00)
[2021-04-06 07:36] LABS: BASO % 0.8 % (0-2.0); EOS % 1.2 % (0-4.5); HEMATOCRIT 30.5 % (32.4-45.2); HEMOGLOBIN 10.1 GM/dL (10.7-15.3); LYMPH % 17.8 % (8-40); MCH 30.3 pg (25.7-33.7); MCHC 33.2 g/dl (32.0-36.0); MEAN CELL VOLUME 91.4 fl (80-96); MEAN PLT VOLUME 12.1 fl (7.5-11.1); MONO % 5.3 % (3.8-10.2); NEUT % 74.9 % (42.8-82.8); PLATELET COUNT 105 10^3/uL (134-434); RBC 3.33 M/mm3 (3.60-5.2); RDW 13.4 % (11.6-15.6); WHITE BLOOD COUNT 7.9 K/mm3 (4.0-10.0)
[2021-04-06 07:56] LABS: ALBUMIN 2.7 g/dl (3.4-5.0); BLOOD UREA NITROGEN 19.2 mg/dL (7-18); CALCIUM 7.9 mg/dL (8.5-10.1); MAGNESIUM 2.3 mg/dL (1.8-2.4)
[2021-04-06 07:59] LABS: CREATININE 1.1 mg/dL (0.55-1.3); PHOSPHOROUS 3.1 mg/dL (2.5-4.9)
[2021-04-06 08:01] LABS: BILIRUBIN,TOTAL 0.3 mg/dL (0.2-1); TOT PROT 5.7 g/dl (6.4-8.2)
[2021-04-06] MEDS ORDERED: PT OWN MED DRAWER 7, Y5N ONE (08:54)
[2021-04-06] MEDS ORDERED: DEXTROSE 5%-WATER 100 ML IVPB ONE (09:09)
[2021-04-06] MEDS: CEFTRIAXONE 2 GM in DEXTROSE 5%-WATER 2 GM/100 ML BAG IVPB SCH (09:32)
[2021-04-06] MEDS: ACETAMINOPHEN 1000 MG/100 ML VIAL (NON FORMULARY) IVPB PRN (09:32)
[2021-04-06] MEDS: DIVALPROEX SODIUM 500 MG TABLET E.C. PO SCH ×2 (09:32→21:00)
[2021-04-06] MEDS: PANTOPRAZOLE 40 MG TABLET PO SCH (09:35)
[2021-04-06] MEDS ORDERED: HYDROCHLOROTHIAZIDE 25 MG TABLET (FP) PO SCH (10:00)
[2021-04-06] MEDS ORDERED: LOSARTAN POTASSIUM 50 MG TABLET PO SCH (10:00)
[2021-04-06] MEDS ORDERED: ACETAMINOPHEN 325 MG TABLET (FP) PO ONE (20:42)
[2021-04-06] MEDS: ATORVASTATIN CA 20 MG TABLET (FP) PO SCH (21:00)
[2021-04-07] MEDS: VANCOMYCIN 1 GRAM (PRE-DOCKED) 1,000 MG/250 ML BAG IVPB SCH ×2 (00:40→12:09)
[2021-04-07] MEDS: SODIUM CHLORIDE 0.45% 1,000 ML IV SCH (05:55)
[2021-04-07] MEDS: HEPARIN NA (PORCINE) 5,000 UNITS/ML 1ML VIAL SQ SCH ×3 (05:55→21:37)
[2021-04-07] MEDS: INSULIN SLIDING SCALE (NOVOLOG) 1 VIAL SQ SCH ×4 (06:00→21:38)
[2021-04-07] MEDS: INSULIN (LEVEMIR) 100 UNITS/ML UNITS SQ SCH ×2 (06:01→21:45)
[2021-04-07 06:27] LABS: BASO % 0.3 % (0-2.0); EOS % 4.5 % (0-4.5); HEMATOCRIT 28.3 % (32.4-45.2); HEMOGLOBIN 9.3 GM/dL (10.7-15.3); LYMPH % 16.6 % (8-40); MCHC 32.8 g/dl (32.0-36.0); MEAN CELL VOLUME 91.5 fl (80-96); MEAN PLT VOLUME 12.1 fl (7.5-11.1); MONO % 8.1 % (3.8-10.2); NEUT % 70.5 % (42.8-82.8); PLATELET COUNT 81 10^3/uL (134-434); RBC 3.09 M/mm3 (3.60-5.2); RDW 13.4 % (11.6-15.6); WHITE BLOOD COUNT 4.1 K/mm3 (4.0-10.0)
[2021-04-07 06:39] LABS: CALCIUM 7.4 mg/dL (8.5-10.1)
[2021-04-07 06:40] LABS: ALBUMIN 2.5 g/dl (3.4-5.0); BLOOD UREA NITROGEN 12.1 mg/dL (7-18); MAGNESIUM 1.9 mg/dL (1.8-2.4)
[2021-04-07 06:43] LABS: CREATININE 1.1 mg/dL (0.55-1.3); PHOSPHOROUS 3.2 mg/dL (2.5-4.9)
[2021-04-07 06:44] LABS: BILIRUBIN,TOTAL 0.3 mg/dL (0.2-1)
[2021-04-07 06:45] LABS: TOT PROT 5.3 g/dl (6.4-8.2)
[2021-04-07] MEDS ORDERED: SODIUM PHOSPHATE/NA BIPHOS 133 ML ENEMA RC ONE (08:00)
[2021-04-07] MEDS ORDERED: DEXTROSE 5%-WATER 100 ML IVPB ONE (08:58)
[2021-04-07] MEDS: DIVALPROEX SODIUM 500 MG TABLET E.C. PO SCH ×2 (09:17→21:37)
[2021-04-07] MEDS: CEFTRIAXONE 2 GM in DEXTROSE 5%-WATER 2 GM/100 ML BAG IVPB SCH (09:17)
[2021-04-07] MEDS: PANTOPRAZOLE 40 MG TABLET PO SCH (09:17)
[2021-04-07] MEDS: ATORVASTATIN CA 20 MG TABLET (FP) PO SCH (21:37)
[2021-04-07] MEDS: SENNOSIDES/DOCUSATE COMBO (SENNA PLUS) TABLET (UD) PO SCH (21:39)
[2021-04-08] MEDS: VANCOMYCIN 1 GRAM (PRE-DOCKED) 1,000 MG/250 ML BAG IVPB SCH ×2 (00:12→15:43)
[2021-04-08] MEDS: SODIUM CHLORIDE 0.45% 1,000 ML IV SCH (05:58)
[2021-04-08] MEDS: HEPARIN NA (PORCINE) 5,000 UNITS/ML 1ML VIAL SQ SCH ×3 (05:59→21:15)
[2021-04-08] MEDS: INSULIN SLIDING SCALE (NOVOLOG) 1 VIAL SQ SCH ×4 (06:05→21:15)
[2021-04-08] MEDS: INSULIN (LEVEMIR) 100 UNITS/ML UNITS SQ SCH ×2 (06:05→21:16)
[2021-04-08] MEDS ORDERED: INSULIN SLIDING SCALE (NOVOLOG) 1 VIAL SQ ONE (06:41)
[2021-04-08 07:43] LABS: BASO % 0.9 % (0-2.0); EOS % 4.4 % (0-4.5); LYMPH % 24.8 % (8-40); MCH 29.9 pg (25.7-33.7); MCHC 33.4 g/dl (32.0-36.0); MEAN CELL VOLUME 89.6 fl (80-96); MEAN PLT VOLUME 11.5 fl (7.5-11.1); MONO % 11.2 % (3.8-10.2); NEUT % 58.7 % (42.8-82.8); PLATELET COUNT 97 10^3/uL (134-434); RBC 3.34 M/mm3 (3.60-5.2); RDW 13.2 % (11.6-15.6); WHITE BLOOD COUNT 4.4 K/mm3 (4.0-10.0)
[2021-04-08] MEDS ORDERED: POTASSIUM CHLORIDE TABS 20 MEQ TABLET.ER (FP) PO ONE (07:57)
[2021-04-08 08:06] LABS: ALBUMIN 2.9 g/dl (3.4-5.0); BILIRUBIN,TOTAL 0.3 mg/dL (0.2-1); CALCIUM 8.1 mg/dL (8.5-10.1); MAGNESIUM 1.9 mg/dL (1.8-2.4)
[2021-04-08 08:09] LABS: CREATININE 0.9 mg/dL (0.55-1.3); PHOSPHOROUS 2.8 mg/dL (2.5-4.9)
[2021-04-08] MEDS ORDERED: MAGNESIUM SULF 50% (8.12 MEQ/2 ML-1 GM VIAL) IVPB ONE (08:34)
[2021-04-08] MEDS ORDERED: NAPH,MB-DB/K PH,MBDB POWDER PACKET PO ONE (08:34)
[2021-04-08 09:15] LABS: ANISOCYTOSIS 1+; MACROCYTOSIS 0; PLATELET ESTIMATE DECREASED; TOXIC GRANULATION 1+
[2021-04-08] MEDS ORDERED: DEXTROSE 5%-WATER 100 ML IVPB ONE (10:13)
[2021-04-08] MEDS: LOSARTAN POTASSIUM 50 MG TABLET PO SCH (10:33)
[2021-04-08] MEDS: DIVALPROEX SODIUM 500 MG TABLET E.C. PO SCH ×2 (10:33→21:15)
[2021-04-08] MEDS: PANTOPRAZOLE 40 MG TABLET PO SCH (10:33)
[2021-04-08] MEDS: CEFTRIAXONE 2 GM in DEXTROSE 5%-WATER 2 GM/100 ML BAG IVPB SCH (11:55)
[2021-04-08] MEDS: KCL 10 MEQ IVPB 10 MEQ/100 ML INFUS.BAG IVPB SCH ×2 (13:12→18:47)
[2021-04-08] MEDS: ATORVASTATIN CA 20 MG TABLET (FP) PO SCH (21:15)
[2021-04-08] MEDS: SENNOSIDES/DOCUSATE COMBO (SENNA PLUS) TABLET (UD) PO SCH (21:15)
[2021-04-09] MEDS: INSULIN (LEVEMIR) 100 UNITS/ML UNITS SQ SCH ×2 (06:17→21:22)
[2021-04-09] MEDS: INSULIN SLIDING SCALE (NOVOLOG) 1 VIAL SQ SCH ×4 (06:18→21:22)
[2021-04-09] MEDS: HEPARIN NA (PORCINE) 5,000 UNITS/ML 1ML VIAL SQ SCH ×3 (06:18→21:22)
[2021-04-09 07:07] LABS: BASO % 0.6 % (0-2.0); EOS % 6.3 % (0-4.5); HEMATOCRIT 28.1 % (32.4-45.2); HEMOGLOBIN 9.4 GM/dL (10.7-15.3); LYMPH % 23.7 % (8-40); MCH 30.2 pg (25.7-33.7); MCHC 33.3 g/dl (32.0-36.0); MEAN CELL VOLUME 90.5 fl (80-96); MONO % 11.2 % (3.8-10.2); NEUT % 58.2 % (42.8-82.8); PLATELET COUNT 91 10^3/uL (134-434); RDW 13.5 % (11.6-15.6); WHITE BLOOD COUNT 4.4 K/mm3 (4.0-10.0)
[2021-04-09 07:30] LABS: ALBUMIN 2.6 g/dl (3.4-5.0); BLOOD UREA NITROGEN 9.7 mg/dL (7-18)
[2021-04-09 07:31] LABS: CALCIUM 8.1 mg/dL (8.5-10.1)
[2021-04-09 07:32] LABS: MAGNESIUM 2.2 mg/dL (1.8-2.4)
[2021-04-09 07:33] LABS: CREATININE 0.9 mg/dL (0.55-1.3)
[2021-04-09 07:34] LABS: PHOSPHOROUS 3.3 mg/dL (2.5-4.9)
[2021-04-09 07:35] LABS: BILIRUBIN,TOTAL 0.2 mg/dL (0.2-1); TOT PROT 5.8 g/dl (6.4-8.2)
[2021-04-09] MEDS ORDERED: POTASSIUM CHLORIDE TABS 20 MEQ TABLET.ER (FP) PO ONE (07:38)
[2021-04-09 08:29] LABS: ANISOCYTOSIS 1+; MACROCYTOSIS 0; PLATELET ESTIMATE DECREASED
[2021-04-09] MEDS ORDERED: DEXTROSE 5%-WATER 100 ML IVPB ONE (09:19)
[2021-04-09] MEDS ORDERED: PT OWN MED DRAWER 7, Y5N ONE (09:19)
[2021-04-09] MEDS: DIVALPROEX SODIUM 500 MG TABLET E.C. PO SCH ×2 (09:21→21:22)
[2021-04-09] MEDS: CEFTRIAXONE 2 GM in DEXTROSE 5%-WATER 2 GM/100 ML BAG IVPB SCH (09:21)
[2021-04-09] MEDS: LOSARTAN POTASSIUM 50 MG TABLET PO SCH (09:22)
[2021-04-09] MEDS: PANTOPRAZOLE 40 MG TABLET PO SCH (09:22)
[2021-04-09] MEDS: ATORVASTATIN CA 20 MG TABLET (FP) PO SCH (21:22)
[2021-04-09] MEDS: SENNOSIDES/DOCUSATE COMBO (SENNA PLUS) TABLET (UD) PO SCH (21:22)
[2021-04-10] MEDS: INSULIN (LEVEMIR) 100 UNITS/ML UNITS SQ SCH ×2 (06:10→21:41)
[2021-04-10] MEDS: INSULIN SLIDING SCALE (NOVOLOG) 1 VIAL SQ SCH ×4 (06:10→21:41)
[2021-04-10] MEDS: HEPARIN NA (PORCINE) 5,000 UNITS/ML 1ML VIAL SQ SCH ×3 (06:10→21:40)
[2021-04-10 08:06] LABS: LYME PCR CSF Negative (Negative)
[2021-04-10 08:14] LABS: BASO % 0.5 % (0-2.0); EOS % 4.6 % (0-4.5); HEMATOCRIT 29.8 % (32.4-45.2); LYMPH % 20.9 % (8-40); MCH 30.3 pg (25.7-33.7); MCHC 33.5 g/dl (32.0-36.0); MEAN CELL VOLUME 90.5 fl (80-96); MEAN PLT VOLUME 11.4 fl (7.5-11.1); MONO % 9.5 % (3.8-10.2); NEUT % 64.5 % (42.8-82.8); PLATELET COUNT 100 10^3/uL (134-434); RDW 13.9 % (11.6-15.6); WHITE BLOOD COUNT 5.4 K/mm3 (4.0-10.0)
[2021-04-10 08:30] LABS: BLOOD UREA NITROGEN 15.1 mg/dL (7-18); CALCIUM 8.3 mg/dL (8.5-10.1)
[2021-04-10 08:33] LABS: ALBUMIN 2.8 g/dl (3.4-5.0)
[2021-04-10 08:34] LABS: CREATININE 0.9 mg/dL (0.55-1.3); PHOSPHOROUS 3.2 mg/dL (2.5-4.9)
[2021-04-10 08:35] LABS: BILIRUBIN,TOTAL 0.2 mg/dL (0.2-1); TOT PROT 6.2 g/dl (6.4-8.2)
[2021-04-10] MEDS ORDERED: PT OWN MED DRAWER 7, Y5N ONE (09:02)
[2021-04-10] MEDS ORDERED: DEXTROSE 5%-WATER 100 ML IVPB ONE (09:02)
[2021-04-10] MEDS: LOSARTAN POTASSIUM 50 MG TABLET PO SCH (09:04)
[2021-04-10] MEDS: CEFTRIAXONE 2 GM in DEXTROSE 5%-WATER 2 GM/100 ML BAG IVPB SCH (09:05)
[2021-04-10] MEDS: PANTOPRAZOLE 40 MG TABLET PO SCH (09:05)
[2021-04-10] MEDS: DIVALPROEX SODIUM 500 MG TABLET E.C. PO SCH ×2 (09:05→21:41)
[2021-04-10 09:34] LABS: ANISOCYTOSIS 0; MACROCYTOSIS 0; PLATELET ESTIMATE DECREASED
[2021-04-10] MEDS: SENNOSIDES/DOCUSATE COMBO (SENNA PLUS) TABLET (UD) PO SCH (21:31)
[2021-04-10] MEDS: ATORVASTATIN CA 20 MG TABLET (FP) PO SCH (21:41)
[2021-04-11] MEDS: INSULIN SLIDING SCALE (NOVOLOG) 1 VIAL SQ SCH ×3 (06:36→16:32)
[2021-04-11] MEDS: HEPARIN NA (PORCINE) 5,000 UNITS/ML 1ML VIAL SQ SCH ×2 (06:42→16:57)
[2021-04-11] MEDS: INSULIN (LEVEMIR) 100 UNITS/ML UNITS SQ SCH (06:42)
[2021-04-11 06:59] LABS: BASO % 0.6 % (0-2.0); EOS % 3.7 % (0-4.5); HEMATOCRIT 29.1 % (32.4-45.2); HEMOGLOBIN 9.7 GM/dL (10.7-15.3); LYMPH % 24.9 % (8-40); MCH 30.5 pg (25.7-33.7); MCHC 33.3 g/dl (32.0-36.0); MEAN CELL VOLUME 91.5 fl (80-96); MEAN PLT VOLUME 11.1 fl (7.5-11.1); MONO % 11.1 % (3.8-10.2); NEUT % 59.7 % (42.8-82.8); PLATELET COUNT 108 10^3/uL (134-434); RBC 3.18 M/mm3 (3.60-5.2); WHITE BLOOD COUNT 5.9 K/mm3 (4.0-10.0)
[2021-04-11 07:23] LABS: CALCIUM 8.4 mg/dL (8.5-10.1)
[2021-04-11 07:24] LABS: ALBUMIN 2.8 g/dl (3.4-5.0); BLOOD UREA NITROGEN 19.4 mg/dL (7-18)
[2021-04-11 07:27] LABS: PHOSPHOROUS 3.6 mg/dL (2.5-4.9)
[2021-04-11 07:28] LABS: BILIRUBIN,TOTAL 0.2 mg/dL (0.2-1); TOT PROT 6.1 g/dl (6.4-8.2)
[2021-04-11] MEDS ORDERED: DEXTROSE 5%-WATER 100 ML IVPB ONE (08:52)
[2021-04-11] MEDS: DIVALPROEX SODIUM 500 MG TABLET E.C. PO SCH (09:04)
[2021-04-11] MEDS: LOSARTAN POTASSIUM 50 MG TABLET PO SCH (09:04)
[2021-04-11] MEDS: CEFTRIAXONE 2 GM in DEXTROSE 5%-WATER 2 GM/100 ML BAG IVPB SCH (09:05)
[2021-04-11] MEDS: PANTOPRAZOLE 40 MG TABLET PO SCH (09:05)
[2021-04-11] MEDS ORDERED: CITALOPRAM HYDROBROMIDE 10 MG TABLET PO SCH (10:30)
[2021-04-11 10:45] LABS: ANISOCYTOSIS 1+; MACROCYTOSIS 0; PLATELET ESTIMATE DECREASED
[2021-04-11 17:18] VITALS: BP 132/55; PULSE 89; TEMP 97.6
== END 2021-04-11 22:00 | DRG 871 ==
LOC: JER 10:07 → JERBED 11:23 → J4S 04-05 04:47
PROVIDERS: ADMIT Hospitalist; ATTEND Internal Medicine
PROC: 009U3ZX Drainage of Spinal Canal, Percutaneous Approach, Diagnostic (ICD-10-PCS; principal; 2021-04-04)
PROC: 02HV33Z Insertion of Infusion Device into Superior Vena Cava, Percutaneous Approach (ICD-10-PCS; 2021-04-11)
PROC: B518ZZA Fluoroscopy of Superior Vena Cava, Guidance (ICD-10-PCS; 2021-04-11)
PROC: B51MZZA Fluoroscopy of Right Upper Extremity Veins, Guidance (ICD-10-PCS; 2021-04-11)
DX: A41.89 Other specified sepsis (principal); E11.00 Type 2 diabetes mellitus with hyperosmolarity without nonketotic hyperglycemic-hyperosmolar coma (NKHHC); G93.41 Metabolic encephalopathy; N17.9 Acute kidney failure, unspecified; E87.2 Acidosis; E87.0 Hyperosmolality and hypernatremia; R00.0 Tachycardia, unspecified; R41.82 Altered mental status, unspecified; E87.6 Hypokalemia; I10 Essential (primary) hypertension; E78.5 Hyperlipidemia, unspecified; G43.909 Migraine, unspecified, not intractable, without status migrainosus; F03.90 Unspecified dementia, unspecified severity, without behavioral disturbance, psychotic disturbance, mood disturbance, and anxiety; E11.65 Type 2 diabetes mellitus with hyperglycemia; D69.6 Thrombocytopenia, unspecified; R50.9 Fever, unspecified; F41.8 Other specified anxiety disorders; D64.9 Anemia, unspecified; K21.9 Gastro-esophageal reflux disease without esophagitis
CPT/HCPCS: 36415; 36569; 70450-TC; 71045-TC-FY; 74176-TC; 75820-TC-FY; 80048; 80053; 81003; 82010; 82436; 82570; 82803; 82945; 82962; 83605; 83735; 83930; 84100; 84133; 84157; 84300; 84436; 84439; 84443; 84484; 85025; 85610; 85730; 86592; 86694; 86735; 86765; 86787; 86788; 86789; 87040; 87070; 87077; 87086; 87205; 87476; 87804; 93005; 93010; 93306-TC; 97116-GP; 97161-GP; 99285-25; C9803; J0131; J1644; U0003; U0005

== ENCOUNTER 2021-04-16 17:32 | Observation (INO) | payer OTHER ==
[2021-04-16 17:46] VITALS: BMI 28.3
[2021-04-16 22:14] LABS: BASO % 0.6 % (0-2.0); EOS % 1.7 % (0-4.5); HEMATOCRIT 28.2 % (32.4-45.2); HEMOGLOBIN 9.4 GM/dL (10.7-15.3); LYMPH % 18.6 % (8-40); MCH 30.4 pg (25.7-33.7); MCHC 33.3 g/dl (32.0-36.0); MEAN CELL VOLUME 91.1 fl (80-96); MEAN PLT VOLUME 9.4 fl (7.5-11.1); MONO % 12.5 % (3.8-10.2); NEUT % 66.6 % (42.8-82.8); PLATELET COUNT 147 10^3/uL (134-434); RDW 14.1 % (11.6-15.6); WHITE BLOOD COUNT 5.4 K/mm3 (4.0-10.0)
[2021-04-16 22:28] LABS: INR 0.97 (0.83-1.09); PROTHROMBIN TIME (PATIENT) 11.9 SEC (9.7-13.0)
[2021-04-16] MEDS ORDERED: ACETAMINOPHEN 325 MG TABLET (FP) PO ONE (22:30)
[2021-04-16 22:31] LABS: ACTIVATED PTT 27.2 SECONDS (25.2-36.5)
[2021-04-16 22:35] LABS: CALCIUM 8.5 mg/dL (8.5-10.1)
[2021-04-16 22:36] LABS: ALBUMIN 2.9 g/dl (3.4-5.0); BLOOD UREA NITROGEN 20.5 mg/dL (7-18)
[2021-04-16 22:39] LABS: CREATININE 1.1 mg/dL (0.55-1.3)
[2021-04-16 22:41] LABS: TOT PROT 6.6 g/dl (6.4-8.2)
[2021-04-16 22:44] LABS: LACTIC ACID 2.1 mmol/L (0.4-2.0)
[2021-04-16 22:45] LABS: BILIRUBIN,TOTAL 0.1 mg/dL (0.2-1)
[2021-04-16] MEDS ORDERED: ACETAMINOPHEN 325 MG TABLET (FP) ONE (22:50)
[2021-04-16 22:59] LABS: ANISOCYTOSIS 1+; MACROCYTOSIS 0; PLATELET ESTIMATE NORMAL
[2021-04-17 06:51] LABS: BASO % 0.6 % (0-2.0); EOS % 2.2 % (0-4.5); HEMATOCRIT 28.7 % (32.4-45.2); HEMOGLOBIN 9.5 GM/dL (10.7-15.3); LYMPH % 28.2 % (8-40); MCH 30.4 pg (25.7-33.7); MCHC 33.2 g/dl (32.0-36.0); MEAN CELL VOLUME 91.6 fl (80-96); MEAN PLT VOLUME 9.8 fl (7.5-11.1); MONO % 12.3 % (3.8-10.2); NEUT % 56.7 % (42.8-82.8); PLATELET COUNT 148 10^3/uL (134-434); RBC 3.13 M/mm3 (3.60-5.2); WHITE BLOOD COUNT 4.5 K/mm3 (4.0-10.0)
[2021-04-17 07:11] LABS: CHLORIDE 110 mmol/L (98-107); SODIUM 144 mmol/L (136-145)
[2021-04-17 07:14] LABS: ANION GAP 7 MMOL/L (8-16); BLOOD UREA NITROGEN 20.3 mg/dL (7-18); CALCIUM 8.6 mg/dL (8.5-10.1); CO2 27 mmol/L (21-32); GLUCOSE,RANDOM 79 mg/dL (74-106); MAGNESIUM 1.9 mg/dL (1.8-2.4)
[2021-04-17 07:17] LABS: CHOLESTEROL 168 mg/dL (50-200); SGOT/AST 13 U/L (15-37); SGPT/ALT 20 U/L (13-61); TRIGLYCERIDES 138 mg/dL (0-150)
[2021-04-17 07:18] LABS: ALK PHOS 58 U/L (45-117); BILIRUBIN,TOTAL 0.2 mg/dL (0.2-1); LDL CHOLESTEROL (ONLY SJRH) 85 mg/dL (5-100); TOT PROT 6.8 g/dl (6.4-8.2)
[2021-04-17 07:19] LABS: HDL CHOLESTEROL 57 mg/dL (40-60)
[2021-04-17] MEDS ORDERED: ALBUTEROL SO4 2.5/IPRATROPIUM 0.5 INH SOL 3 ML VIAL.NEB. NEB PRN (08:25)
[2021-04-17] MEDS ORDERED: cefTRIAXone 2 GM/100 ML BAG (PRE-DOCKED) IVPB SCH (10:00)
[2021-04-17] MEDS: PANTOPRAZOLE 40 MG TABLET PO SCH (11:15)
[2021-04-17] MEDS: DIVALPROEX SODIUM 500 MG TABLET E.C. PO SCH ×2 (11:15→21:19)
[2021-04-17] MEDS: CITALOPRAM HYDROBROMIDE 10 MG TABLET PO SCH (11:15)
[2021-04-17] MEDS ORDERED: PANTOPRAZOLE 40 MG TABLET ONE (11:15)
[2021-04-17] MEDS: LOSARTAN POTASSIUM 50 MG TABLET PO SCH (11:15)
[2021-04-17] MEDS ORDERED: DIVALPROEX SODIUM 500 MG TABLET E.C. ONE (11:15)
[2021-04-17] MEDS ORDERED: CEFTRIAXONE 2 GM/100 ML BAG IVPB ONE (11:16)
[2021-04-17] MEDS ORDERED: CITALOPRAM HYDROBROMIDE 10 MG TABLET ONE (11:16)
[2021-04-17] MEDS ORDERED: LOSARTAN POTASSIUM 50 MG TABLET ONE (11:16)
[2021-04-17 11:29] LABS: ANISOCYTOSIS 0; MACROCYTOSIS 0; PLATELET ESTIMATE DECREASED
[2021-04-17] MEDS: INSULIN SLIDING SCALE (NOVOLOG) 1 VIAL SQ SCH ×3 (11:31→21:25)
[2021-04-17 11:53] LABS: EPI CELLS 5 /uL (0-25.1); HYALINE CASTS 2 /uL (0-3.1); URINE APPEARANCE CLOUDY; URINE BACTERIA 24 /uL (0-1359); URINE BILIRUBIN NEGATIVE (NEGATIVE); URINE COLOR YELLOW; URINE GLUCOSE (UA) 1+ (NEGATIVE); URINE KETONE 1+ (NEGATIVE); URINE LEUK ESTERASE 3+ (NEGATIVE); URINE NITRITE NEGATIVE (NEGATIVE); URINE PROTEIN TRACE (NEGATIVE); URINE UROBILINOGEN 0.2 mg/dL (0.2-1.0); URINE WBC 1297 /uL (0-25.8)
[2021-04-17 12:11] LABS: URINE RBC 29.4 /uL (0-23.9)
[2021-04-17] MEDS ORDERED: PT OWN MED DRAWER 7, Y5N ONE (20:37)
[2021-04-17] MEDS: ATORVASTATIN CA 20 MG TABLET (FP) PO SCH (21:19)
[2021-04-18] MEDS: INSULIN SLIDING SCALE (NOVOLOG) 1 VIAL SQ SCH ×4 (06:17→22:14)
[2021-04-18] MEDS ORDERED: TUBERCULIN PPD 5 TU/0.1ML SYRINGE (IN PATIENT USE ONLY) ID ONE (07:00)
[2021-04-18] MEDS ORDERED: PT OWN MED DRAWER 7, Y5N ONE ×3 (10:24→22:57)
[2021-04-18] MEDS: PANTOPRAZOLE 40 MG TABLET PO SCH (10:39)
[2021-04-18] MEDS: LOSARTAN POTASSIUM 50 MG TABLET PO SCH (10:39)
[2021-04-18] MEDS: DIVALPROEX SODIUM 500 MG TABLET E.C. PO SCH ×2 (10:44→22:58)
[2021-04-18] MEDS: CITALOPRAM HYDROBROMIDE 10 MG TABLET PO SCH (12:16)
[2021-04-18] MEDS: ATORVASTATIN CA 20 MG TABLET (FP) PO SCH (21:39)
[2021-04-19] MEDS: INSULIN SLIDING SCALE (NOVOLOG) 1 VIAL SQ SCH ×3 (06:22→17:36)
[2021-04-19] MEDS: PANTOPRAZOLE 40 MG TABLET PO SCH (09:55)
[2021-04-19] MEDS: CITALOPRAM HYDROBROMIDE 10 MG TABLET PO SCH (09:56)
[2021-04-19] MEDS: DIVALPROEX SODIUM 500 MG TABLET E.C. PO SCH (09:56)
[2021-04-19] MEDS: LOSARTAN POTASSIUM 50 MG TABLET PO SCH (09:56)
[2021-04-19 20:47] VITALS: BP 124/57; PULSE 76; TEMP 98.2
== END 2021-04-19 20:50 ==
LOC: JER 17:32 → UNDOADMOB 22:38 → INTOOBSV 22:38 → JERBED 22:38 → J4W 04-17 14:35
PROVIDERS: ADMIT Internal Medicine; ATTEND Family Medicine
PROC: 3E03329 Introduction of Other Anti-infective into Peripheral Vein, Percutaneous Approach (ICD-10-PCS; principal; 2021-04-16)
PROC: 3E013VG Introduction of Insulin into Subcutaneous Tissue, Percutaneous Approach (ICD-10-PCS; 2021-04-16)
DX: S00.03XA Contusion of scalp, initial encounter (principal); Z20.822 Contact with and (suspected) exposure to COVID-19; J44.9 Chronic obstructive pulmonary disease, unspecified; E11.9 Type 2 diabetes mellitus without complications; Z29.9 Encounter for prophylactic measures, unspecified; F03.90 Unspecified dementia, unspecified severity, without behavioral disturbance, psychotic disturbance, mood disturbance, and anxiety; I10 Essential (primary) hypertension; E78.5 Hyperlipidemia, unspecified; K21.9 Gastro-esophageal reflux disease without esophagitis; F32.9 Major depressive disorder, single episode, unspecified; G43.909 Migraine, unspecified, not intractable, without status migrainosus; W18.39XA Other fall on same level, initial encounter; Y93.89 Activity, other specified; Y92.008 Other place in unspecified non-institutional (private) residence as the place of occurrence of the external cause
CPT/HCPCS: 36415; 70450-TC; 71045-TC-FY; 72125-TC; 72170-TC-FY; 80053; 80061; 81003; 82550; 82607; 82962; 83605; 83721; 83735; 84443; 84484; 85025; 85610; 85730; 86780; 87040; 87077; 87086; 93005; 93010; 93880-TC; 96372; 96374; 97116-GP; 97162-GP; 97163-GP; 99285-25; C9803; G0378; U0003; U0005